=== PATIENT | male | born 1975 | race Caucasian/White ===

== ENCOUNTER 2018-08-30 14:21 | Inpatient (IN) | payer MEDICAID, SELFPAY ==
[2018-08-30] VITALS (13 sets, daily range): BP systolic 136–175; BP diastolic 75–103; PULSE 80–126; RESP 18–30; TEMP 37.3–38.1; O2SAT 88–96; BMI 38.2; BMI 38.3; BMI 36.8
--- NOTE | 2018-08-30 14:49 | EKG12_ITS ---
Test Reason : COMPLAINT Blood Pressure : / mmHG Vent. Rate : 125 BPM Atrial Rate : 125 BPM P-R Int : 130 ms QRS Dur : 098 ms QT Int : 352 ms P-R-T Axes : 050 -04 046 degrees QTc Int : 508 ms Sinus tachycardia Possible Inferior infarct , age undetermined Abnormal ECG Confirmed by DIANA AGUILAR, MAX ([id number]), fan mail editor ANUSHKA HUTCHINSON ([id number]) on 09/02/2018 3:25:31 PM Referred By: JANICE Confirmed By:MAX ORTIZ MD
--- NOTE | 2018-08-30 14:49 | RAD_ITS ---
STUDY: X-RAY CHEST REASON FOR EXAM: Male, 43 years old. Vomiting. Fever. TECHNIQUE: Single AP portable view of the chest. COMPARISON: None. FINDINGS: EKG electrodes are seen. The lungs are clear and expanded. There is no demonstrated pleural abnormality. Normal size heart. Normal mediastinum and diogo. Normal visualized pulmonary arteries. Normal visualized aortic arch and descending thoracic aorta. There are mild degenerative changes of the visualized thoracic spine. Normal visualized ribs, clavicles, and shoulders. There is no demonstrated abnormality of the visualized soft tissue structures of the upper abdomen. RAD/Chest 1 View (Portable) IMPRESSION: Normal x-ray examination of the chest. Electronically Signed: Jean Herbert MD at 15:19 EST , Service support ,
--- NOTE | 2018-08-30 14:50 | ED.VISSUMM ---
- ER Visit Summary Date of Service: 08/30/18 Chief Complaint: Nausea, vomiting, UTI History of Present Illness: The patient is a 43 M with history of paraplegia presents to the emergency department. Patient has a chronic indwelling Gama. He was changed 9 days ago. He states that on Wednesday night early Wednesday morning, he began to have systemic symptoms. States he was having chills, nausea, and vomiting. He went to [facility]. He states that they did a metabolic workup. He was diagnosed with urinary tract infection. He was given fluids and Keflex. He was also given Zofran. He states that his vomiting have resolved. He had been doing well for about 12-14 hours. Today, his symptoms returned. He had continued nausea, vomiting, chills and sweats. He states that a negative flu test. This catheter was changed 9 days ago. Physical Examination: Vital signs reviewed General: Well-nourished, well-developed Head: Normocephalic, atraumatic Eyes: Pupils equal and reactive, extraocular muscles intact Neck, supple, no lymphadenopathy Heart: Regular rate and rhythm Respiratory: No distress, clear bilaterally Abdomen: Soft, nontender, nondistended, no peritoneal signs Back: Nontender Extremities: Nontender, no edema, no cords Skin: Normal color no rash Neuro: Alert and oriented, chronic weakness of bilateral lower extremities Test Results: [] Emergency Department Course and Treatment: The patient has a history of HIV. He is on antiretroviral therapy. He was recently diagnosed urinary tract infection yesterday. He had systemic symptoms. Sepsis workup was pursued. The patient does have leukocytosis. He also has mild acute kidney injury. Chest x-ray was unremarkable. Blood cultures were obtained. The patient was started on broad-spectrum antibiotics. With fluids and Tylenol, his symptoms have improved. At this time, given the patient's history of immunosuppression I do feel that he can require admission. The patient was discussed with the hospitalist and will be admitted. Treatment Plan: [] Disposition: Admission Impression: 1. Complicated urinary tract infection 2. Sepsis 3. Acute kidney injury This note was generated with [employer] dictation software. It may contain incorrect words, spelling, and punctuation that were not noted in review of the chart prior to signing ED Disposition - Plan for ED Patient: Chief Complaint: Complaint Referrals: [facility] Doctor,Out of [NON-STAFF] -
[2018-08-30 15:36] LABS: Absolute Lymphocyte Count 1.05 X10^3/ul (0.83-4.51); Basophil# 0.01 X10^3/uL; Basophil% 0.1 % (0-1); Hematocrit 52.8 % (40-54); Hemoglobin 17.2 g/dl (13.0-16.5); Lymphocyte # 1.05 X10^3/ul (4.0); Lymphocyte % 7.4 % (19-41); Mean Corp Hgb Conc 32.6 g/gl (32-36); Mean Corpuscular Hgb 32.4 pg (27.0-32.0); Mean Corpuscular Volume 99.4 fL (80-94); Mean Platelet Vol. 8.7 fl (6.2-12.0); Monocyte# 1.02 X10^3/uL; Monocyte% 7.2 % (0-10); Neutrophil # 11.99 X10^3/uL (2.7-7.7); Neutrophil % 84.9 % (47-70); POSITIVE COUNT NO; POSITIVE DIFFERENTIAL NO; POSITIVE MORPHOLOGY NO; Platelet Count 263 K/mm3 (150-450); RBC Distribution Width SD 54.1 fl (35.1-43.9); Red Blood Count 5.31 M/mm3 (4.6-6.2); White Blood Count 14.1 K/mm3 (4.4-11.0)
[2018-08-30] MEDS: 0.9% Normal Saline 1,000 ML 150 ML IV (15:42)
[2018-08-30] MEDS: Ondansetron 4 MG/2 ML Vial IV ×2 (15:43→21:37)
[2018-08-30 15:46] LABS: International Normalized Ratio 1.1; Partial Thromboplast Time 27.9 Seconds (24.1-36.2); Prothrombin Time (Protime)PT. 13.9 SECONDS (11.7-14.9)
[2018-08-30 15:55] LABS: ALB/GLOB Ratio 0.7 RATIO (0.9-2.4); AST(SGOT) 15 U/L (15-37); Alanine Aminotransfer ALT/SGPT 21 U/L (16-61); Albumin, Serum 3.3 g/dL (3.2-5.0); Alkaline Phosphatase 144 U/L (45-117); Anion Gap 10 (5-15); BUN 23 mg/dL (7-18); BUN/Creat Ratio 11.1 RATIO (10-20); Calcium,Total 8.3 mg/dL (8.5-10.1); Chloride 106 mmol/L (98-107); Creatinine, Serum 2.08 mg/dL (0.70-1.30); EST Glomerular Filtration Rate 37 mL/min (>60); Est Glom Filt Rate - Afr Amer 45 mL/min (>60); Estimated Creatinine Clearance 51.75 ml/min; Globulin 4.6 g/dL (2.2-4.2); Glucose 121 mg/dL (74-106); Potassium 3.4 mmol/L (3.5-5.1); Protein, Total 7.9 g/dL (6.4-8.2); Sodium Level 145 mmol/L (136-145)
[2018-08-30 16:08] LABS: Lactic Acid 2.4 mmol/L (0.4-2.0)
--- NOTE | 2018-08-30 16:12 | ED.RN ---
ELEVATED LACTIC RESULT RECEIVED. DR CAMACHO NOTIFIED
[2018-08-30] MEDS: Acetaminophen 500 MG Tablet 1000 MG PO (16:13)
[2018-08-30] MEDS: 0.9% Normal Saline 1,000 ML 999 ML IV (16:15)
[2018-08-30 16:24] LABS: Mucous, Urine 0 SEEN /hpf (<or=2+); Squamous Epithelial Cells - UA 0 SEEN /hpf (0-5)
[2018-08-30 16:29] LABS: Color, Urine Yellow (Yellow); Glucose, Dipstick Normal (Normal); Ketone-Dipstick 5 mg/dl (Negative); Leukocyte Esterase-Dipstick 500 /ul (Negative); Nitrite-Dipstick Positive (Negative); Occult Blood-Urine 50 /ul (Negative); Protein-Dipstick 500 mg/dl (Negative); Specific Gravity, Urine 1.015 (1.002-1.030); Urine Bilirubin Dipstick Negative (Negative); Urine Clarity Cloudy (Clear); Urine Urobilinogen Normal (Normal)
[2018-08-30] MEDS: Piperacil/Tazobactam 3.375 GM/50 ML ML IV ×2 (16:30→21:34)
[2018-08-30 16:37] LABS: Bacteria 1+ /hpf (None Seen); Red Blood Cells-Urine 0-5 SEEN /hpf (0-5); White Blood Cells 5-10 SEEN /hpf (0-5)
--- NOTE | 2018-08-30 17:34 | HP.PCM_ITS ---
<Bala Ladd - Last Filed: 08/30/18 17:28> Problem List (1) Sepsis Status: Acute (2) UTI (urinary tract infection) Status: Acute (3) TIFFANY (acute kidney injury) Status: Acute (4) HIV (human immunodeficiency virus infection) Status: Chronic (5) CAD (coronary artery disease) Status: Chronic (6) Paraplegia Status: Chronic (7) Neuropathy Status: Chronic History of Present Illness Date of Admission: 08/30/18 Chief Complaint: nausea and vomiting The patient is a 43 year old M with pmhx of HIV, HIV associated paraplegia, neuropathy, CAD with 2 prior stents in 2007, chronic indwelling catheter, colostomy, who presents to the ER with c/o peristent nausea and vomiting. This has been ongoing for several days, along with increased loose output from his colostomy. Last night he presented to [facility] ER, was diagnosed with a UTI, and sent home on zofran and keflex of which he took 2 doses. His catheter was changed last week. Today his nausea and vomiting and diarrhea came back worse. He came to the ER and appeared to be septic. He has no abdominal pain. He has no cough or SOB. He is febrile. He has had 4 UTIs this year and states he last had Klebsiella. He does follow an ID doctor in [facility], his last T cell count was about 2 weeks ago and was 338. He is compliant with antiretroviral therapy. [] Past Medical History Past Medical History (Chronic Problems): Chronic Problems HIV (human immunodeficiency virus infection) (Chronic) CAD (coronary artery disease) (Chronic) Paraplegia (Chronic) Neuropathy (Chronic) Allergies atorvastatin [From Lipitor] Adverse Reaction (Verified 08/30/18 14:28) Nausea/Vom/Diarrhea ciprofloxacin [From Cipro] Adverse Reaction (Verified 08/30/18 14:28) Nausea/Vom/Diarrhea morphine Adverse Reaction (Verified 08/30/18 14:28) HALLUCINATIONS Home Medications: Ambulatory Orders Medication Instructions Recorded ALPRAZolam [Xanax] 0.5 mg PO Q4H PRN PRN 08/30/18 Amitriptyline HCl [Elavil] 50 mg PO QHS 08/30/18 Aspirin E.C. [Ecotrin] 81 mg PO DAILY@0800 08/30/18 Baclofen 20 mg PO 4X/DAY 08/30/18 Cephalexin [Keflex] 500 mg PO TID 08/30/18 Cranberry 400 mg PO BID 08/30/18 Darunavir Ethanolate [Prezista] 800 mg PO DAILY 08/30/18 Diphenhydramine HCl [Benadryl 50 mg PO QHS PRN 08/30/18 Allergy] Duloxetine Hcl [Cymbalta] 60 mg PO DAILY 08/30/18 Emtricitabine [Emtriva] 6 mg PO DAILY 08/30/18 Escitalopram Oxalate [Lexapro] 20 mg PO DAILY 08/30/18 Ferrous Sulfate 325 mg PO TIDCM 08/30/18 Folic Acid 1 mg PO DAILY@0800 08/30/18 Gabapentin [Neurontin] 800 mg PO BID 08/30/18 Metoprolol Succinate [Toprol Xl] 25 mg PO DAILY 08/30/18 Oxycodone HCl 10 mg PO DAILY 08/30/18 Pravastatin Sodium 40 mg PO QHS 08/30/18 Ritonavir [Norvir] 100 mg PO DAILY 08/30/18 Ropinirole HCl [Requip] 2 mg PO DAILY 08/30/18 Surgical History: - - colostomy, tail bone shaved Psychiatric History: No pertinent psych hx Smoking Status: Current some day smoker Tobacco Use: Cigarettes Review of Systems Constitutional: Reports: Fever. Denies: Chills, Weakness, Weight Change, Fatigue Eyes: Denies: Vision Change HEENT: Denies: Difficulty Hearing, Head Aches, Sinus Congestion, Sinus Drainage, Sore Throat Cardiovascular: Denies: Chest Pain, Edema, Heaviness, Light Headedness, Palpitat ions Respiratory: Denies: Cough, Shortness of Breath, Shortness of breath at rest, Sputum production, Wheezing Gastrointestinal: Reports: Diarrhea, Nausea, Vomiting. Denies: Abdominal Pain Genitourinary: Denies: Dysuria Musculoskeletal: Denies: Joint Pain, Joint Tenderness Skin: Denies: Rash, Wounds Neurological: Denies: Numbness, Tingling, Focal weakness Psychiatric: Denies: Anxiety, Depression, Homicidal Ideations, Suicidal Ideations Hematologic/ Lymphatic: Denies: Easy Bruising, Easy Bleeding VTE Information - Inpt Only VTE Present on Admission: No VTE Mechan Device Prophylaxis: None VTE Pharm Prophylaxis ordered?: Yes Patient Problems: Active and Suspected Problems UTI (urinary tract infection) (Acute) Sepsis (Acute) TIFFANY (acute kidney injury) (Acute) - Physical Exam General: Alert, Oriented x3, Cooperative HEENT: Atraumatic, PERRLA, EOMI, Normocephalic Neck: Supple, No JVD, Negative Carotid Bruits Lungs: Clear to auscultation, Normal air movement Cardiovascular: Regular rate, No murmurs Abdomen: Bowel Sounds Present, Soft, Non Tender, Obese Extremities: No edema, Capillary Refill Less than 3 Seconds Skin: No rashes, No breakdown Musculoskeletal: No Tenderness to Palpation of Joints or Extremities Neurological: Cranial nerves II-XII grossly intact Psych/Mental Status: Normal Affect, Appropriate, Alert and oriented to time, place, person, mood and affect Vital Signs Temp Pulse Resp BP Pulse Ox 100.1 F H 80 19 H 148/96 H 95 08/30/18 17:11 08/30/18 17:11 08/30/18 17:11 08/30/18 17:11 08/30/18 17:11 Oxygen Flow Rate (L/min) 2 Oxygen Delivery Method Nasal Cannula Weight: 290 lb 5.581 oz Body Mass Index (BMI) 38.2 Laboratory Tests Past 24 Hrs 08/30/18 08/30/18 08/30/18 15:20 15:20 15:20 WBC 14.1 H RBC 5.31 Hgb 17.2 H Hct 52.8 MCV 99.4 H MCH 32.4 H MCHC 32.6 RDW 15.0 H RDW Differential 54.1 H Plt Count 263 MPV 8.7 Immature Gran % (Auto) 0.400 Neut % (Auto) 84.9 H Lymph % (Auto) 7.[address] [place] % (Auto) 7.2 Eos % (Auto) 0.0 Baso % (Auto) 0.1 Absolute Neuts (auto) 12.0 H Absolute Lymphs (auto) 1.05 Total Counted Not Reportable PT 13.9 INR 1.1 APTT 27.9 Sodium 145 Potassium 3.4 L Chloride 106 Carbon Dioxide 29.0 Anion Gap 10 BUN 23 H Creatinine 2.08 H Estim Creat Clear Calc 51.75 Est GFR (MDRD) Af Amer 45 L Est GFR (MDRD) Non-Af 37 L BUN/Creatinine Ratio 11.1 Glucose 121 H Lactic Acid Calcium 8.3 L Total Bilirubin 0.60 AST 15 ALT 21 Alkaline Phosphatase 144 H Total Protein 7.9 Albumin 3.3 Globulin 4.6 H Albumin/Globulin Ratio 0.7 L Urine Color Urine Clarity Urine pH Ur Specific [place] Urine Protein Urine Glucose (UA) Urine Ketones Urine Occult Blood Urine Nitrite Urine Bilirubin Urine Urobilinogen Ur Leukocyte Esterase Urine RBC Urine WBC Ur Squamous Epith Cells Urine Bacteria Urine Mucus 08/30/18 08/30/18 15:20 16:20 WBC RBC Hgb Hct MCV MCH MCHC RDW RDW Differential Plt Count MPV Immature Gran % (Auto) Neut % (Auto) Lymph % (Auto) [place] % (Auto) Eos % (Auto) Baso % (Auto) Absolute Neuts (auto) Absolute Lymphs (auto) Total Counted PT INR APTT Sodium Potassium Chloride Carbon Dioxide Anion Gap BUN Creatinine Estim Creat Clear Calc Est GFR (MDRD) Af Amer Est GFR (MDRD) Non-Af BUN/Creatinine Ratio Glucose Lactic Acid 2.4 H Calcium Total Bilirubin AST ALT Alkaline Phosphatase Total Protein Albumin Globulin Albumin/Globulin Ratio Urine Color Yellow Urine Clarity Cloudy Urine pH 8.0 Ur Specific [place] 1.015 Urine Protein 500 H Urine Glucose (UA) Normal Urine Ketones 5 H Urine Occult Blood 50 H Urine Nitrite Positive H Urine Bilirubin Negative Urine Urobilinogen Normal Ur Leukocyte Esterase 500 H Urine RBC 0-5 SEEN Urine WBC 5-10 SEEN Ur Squamous Epith Cells 0 SEEN Urine Bacteria 1+ Urine Mucus 0 SEEN Assessment/Plan All Active Problems UTI (urinary tract infection) (Acute) Sepsis (Acute) TIFFANY (acute kidney injury) (Acute) 1. Acute severe sepsis 2/2 UTI - failed keflex. Symptoms marked by vomiting and diarrhea. Continue zosyn. Check blood and urine cultures. Sepsis as evidenced by LA 2.4, leukocytosis, fever, tachycardia, tachypnea. Last reportedly klebsiella. Obtain prior cultures from [facility]. Change betancur with acute infection. CXR negative. 2. TIFFANY on CKD, unclear stage- probably 2/2 dehydration. baseline renal function around 1.3, with vomiting and increased ostomy output and dry clinical appearance will hydrate with IV fluids. Replace K. 3. HIV - last T count 338. Continue antiretrovirals. Follows [facility] ([place]). 4. CAD - 2 stents in 2007. Toprol, statin, aspirin 5. Chronic pain 2/2 peripheral neuropathy. On gabapentin, requip, baclofen, elavil, cymbalta, oxycodone 7. Paraplegic - PTOT 8. Colostomy - monitor I/O. 9. Anxiety - xanax, elavil, cymbalta, lexapro 10. Obesity - dietary consult. DVT ppx: heparin DC planning: PTOT. Lives with 2 friends who help care for him. This patient was seen by Bala Ladd PA-C under the supervision of Doctor Nakul. <Maria Victoria Mota E - Last Filed: 08/30/18 18:04> History of Present Illness The patient is a 43 year old M [] Past Medical History Allergies atorvastatin [From Lipitor] Adverse Reaction (Verified 08/30/18 14:28) Nausea/Vom/Diarrhea ciprofloxacin [From Cipro] Adverse Reaction (Verified 08/30/18 14:28) Nausea/Vom/Diarrhea morphine Adverse Reaction (Verified 08/30/18 14:28) HALLUCINATIONS - Physical Exam Vital Signs Temp Pulse Resp BP Pulse Ox 100.1 F H 80 19 H 148/96 H 95 08/30/18 17:11 08/30/18 17:11 08/30/18 17:11 08/30/18 17:11 08/30/18 17:11 Oxygen Flow Rate (L/min) 2 Oxygen Delivery Method Nasal Cannula Weight: 290 lb 5.581 oz Body Mass Index (BMI) 38.2 Laboratory Tests Past 24 Hrs 08/30/18 08/30/18 08/30/18 15:20 15:20 15:20 WBC 14.1 H RBC 5.31 Hgb 17.2 H Hct 52.8 MCV 99.4 H MCH 32.4 H MCHC 32.6 RDW 15.0 H RDW Differential 54.1 H Plt Count 263 MPV 8.7 Immature Gran % (Auto) 0.400 Neut % (Auto) 84.9 H Lymph % (Auto) 7.[address] % (Auto) 7.2 Eos % (Auto) 0.0 Baso % (Auto) 0.1 Absolute Neuts (auto) 12.0 H Absolute Lymphs (auto) 1.05 Total Counted Not Reportable PT 13.9 INR 1.1 APTT 27.9 Sodium 145 Potassium 3.4 L Chloride 106 Carbon Dioxide 29.0 Anion Gap 10 BUN 23 H Creatinine 2.08 H Estim Creat Clear Calc 51.75 Est GFR (MDRD) Af Amer 45 L Est GFR (MDRD) Non-Af 37 L BUN/Creatinine Ratio 11.1 Glucose 121 H Lactic Acid Calcium 8.3 L Total Bilirubin 0.60 AST 15 ALT 21 Alkaline Phosphatase 144 H Total Protein 7.9 Albumin 3.3 Globulin 4.6 H Albumin/Globulin Ratio 0.7 L Urine Color Urine Clarity Urine pH Ur Specific [place] Urine Protein Urine Glucose (UA) Urine Ketones Urine Occult Blood Urine Nitrite Urine Bilirubin Urine Urobilinogen Ur Leukocyte Esterase Urine RBC Urine WBC Ur Squamous Epith Cells Urine Bacteria Urine Mucus 08/30/18 08/30/18 15:20 16:20 WBC RBC Hgb Hct MCV MCH MCHC RDW RDW Differential Plt Count MPV Immature Gran % (Auto) Neut % (Auto) Lymph % (Auto) [place] % (Auto) Eos % (Auto) Baso % (Auto) Absolute Neuts (auto) Absolute Lymphs (auto) Total Counted PT INR APTT Sodium Potassium Chloride Carbon Dioxide Anion Gap BUN Creatinine Estim Creat Clear Calc Est GFR (MDRD) Af Amer Est GFR (MDRD) Non-Af BUN/Creatinine Ratio Glucose Lactic Acid 2.4 H Calcium Total Bilirubin AST ALT Alkaline Phosphatase Total Protein Albumin Globulin Albumin/Globulin Ratio Urine Color Yellow Urine Clarity Cloudy Urine pH 8.0 Ur Specific [place] 1.015 Urine Protein 500 H Urine Glucose (UA) Normal Urine Ketones 5 H Urine Occult Blood 50 H Urine Nitrite Positive H Urine Bilirubin Negative Urine Urobilinogen Normal Ur Leukocyte Esterase 500 H Urine RBC 0-5 SEEN Urine WBC 5-10 SEEN Ur Squamous Epith Cells 0 SEEN Urine Bacteria 1+ Urine Mucus 0 SEEN Assessment/Plan Hospitalist note: I am seeing this patient in conjunction with Bala Ladd. I independently seen and examined the patient. History and physical, laboratory data and imaging studies reviewed and I concur with the above admission treatment plan. Patient presented to the ED because of nausea and vomiting, started for several days ago, noted increased output from the colostomy bag, associated with subjective fever of up to 99.2 Fahrenheit. Yesterday, he went to another facility ER, was diagnosed with UTI and he was discharged home on Keflex. Today, he feels worse, continued to have nausea and vomiting as well as diarrhea. He denies chest pain or shortness of breath. He denied cough or sputum production. He had a history of paraplegia related to HIV and he has been bedridden for 4 years. He has history of HIV and he has been on antiretroviral medications and he follows up with infectious disease as outpatient. He had a history of CAD status post stents and he has been on aspirin, statin and beta blockers. Today in the emergency room, patient was febrile, tachycardic, blood pressure stable, pulse ox was 96% on 2 L. His routine blood work was remarkable for leukocytosis, potassium of 3.4, BUN of 23 and creatinine of 2.08. Lactic acid was 2.4. Urinalysis revealed cloudy urine, positive for nitrite and leukocyte esterase, there was 5-10 WBCs and 1+ bacteria. Chest x-ray showed no acute findings. He is being admitted for severe sepsis secondary to acute complicated cystitis as well as acute kidney injury on top of chronic kidney disease. - Physical Exam General: Alert, Oriented x3, Cooperative, No apparent distress. HEENT: Atraumatic, PERRLA, EOMI. Neck: Supple, No JVD, Negative Carotid Bruits, Trachea Midline, Thyroid Normal. Lungs: Clear to auscultation, Normal air movement, No rhonchi, No wheeze, No rales. Cardiovascular: Regular rate, Regular Rhythm, Normal S1, Normal S2, PMI Normal. Abdomen: Bowel Sounds Present, Soft, Non Tender, colostomy bag in place, No Hepato-splenomegaly. Extremities: No clubbing, No cyanosis, No edema Skin: No rashes, No breakdown Neurological: Neuro grossly intact Assessment and plan: #1 severe sepsis/acute complicated cystitis: In context of chronic indwelling Betancur catheter, recurrent UTI. Patient is febrile, tachycardic, leukocytosis, elevated lactic acid. Plan: Admit to [facility] floor, cardiac monitoring, IV fluids, blood culture, urine culture, start IV Zosyn, obtain blood cultures that was done yesterday at the outside facility, obtain records from PCPs office. #2 acute kidney injury double of chronic kidney disease: According to patient's friend, creatinine was around 1.392 weeks ago, before that it was 1.6. On admission, creatinine was 2.08. Plan: IV fluids, and Protopic chart, repeat BMP tomorrow morning. #3 other chronic medical problems: Stable, continue current medications as above. This note was generated with [email or web address] dictation software. It may contain incorrect words, spelling, and punctuation that were not noted in checking the note before signing. Code Visit Inpatient E&M: 30014 Init Hosp L3
[2018-08-30] MEDS: Ibuprofen 400 MG Tablet PO (18:15)
[2018-08-30 19:38] LABS: Reflex Lactate? Y
[2018-08-30] MEDS: Acetaminophen 325 MG Tablet 650 MG PO (20:39)
[2018-08-30 21:18] LABS: Lactic Acid 1.4 mmol/L (0.4-2.0)
--- NOTE | 2018-08-30 22:00 | NURSING ---
PT REFUSES TO TURN. PT STATED I ONLY LAY ON MY BACK. PT ENCOURAGE TO TURN.
[2018-08-30] MEDS: Amitriptyline 25 MG Tablet 50 MG PO (22:17)
[2018-08-30] MEDS: Gabapentin 800 MG Tablet PO (22:17)
[2018-08-30] MEDS: DiphenhydrAMINE 50 MG/ML Syringe 25 MG IV (22:17)
[2018-08-30] MEDS: Pravastatin 40 MG Tablet PO (22:17)
[2018-08-30] MEDS: Baclofen 10 MG Tablet 20 MG PO (22:17)
[2018-08-30] MEDS: Heparin Injection (Vial) 5,000 UNIT/ML VIAL 5000 UNIT SC (22:17)
[2018-08-31] VITALS (10 sets, daily range): BP systolic 114–139; BP diastolic 63–79; PULSE 78–124; RESP 14–20; TEMP 36.6–37.1; O2SAT 93–98
[2018-08-31] MEDS: ALPRAZolam 0.5 MG Tablet PO ×2 (00:09→04:28)
[2018-08-31] MEDS: Metoprolol(XL)Succ 25 MG Tablet PO (04:23)
[2018-08-31] MEDS: 0.9% Normal Saline 1,000 ML 100 ML IV (04:24)
[2018-08-31] MEDS: Aspirin E.C. 81 MG Tablet PO (04:25)
[2018-08-31] MEDS: Heparin Injection (Vial) 5,000 UNIT/ML VIAL 5000 UNIT SC ×2 (05:11→21:19)
[2018-08-31] MEDS: Piperacil/Tazobactam 3.375 GM/50 ML ML IV ×3 (05:11→21:20)
[2018-08-31 06:31] LABS: Absolute Lymphocyte Count 1.95 X10^3/ul (0.83-4.51); Absolute Neutrophil Count 5.5 X10^3/uL (2.0-7.7); Basophil# 0.01 X10^3/uL; Basophil% 0.1 % (0-1); Eosinophil# 0.01 X10^3/uL; Eosinophils% 0.1 % (0-5); Hematocrit 45.6 % (40-54); Hemoglobin 14.3 g/dl (13.0-16.5); Lymphocyte # 1.95 X10^3/ul (4.0); Lymphocyte % 23.5 % (19-41); Mean Corp Hgb Conc 31.4 g/gl (32-36); Mean Corpuscular Hgb 32.1 pg (27.0-32.0); Mean Corpuscular Volume 102.5 fL (80-94); Monocyte# 0.83 X10^3/uL; Neutrophil # 5.49 X10^3/uL (2.7-7.7); Neutrophil % 66.2 % (47-70); Platelet Count 208 K/mm3 (150-450); RBC Distribution Width CV 14.9 % (11.6-14.6); RBC Distribution Width SD 55.5 fl (35.1-43.9); Red Blood Count 4.45 M/mm3 (4.6-6.2); White Blood Count 8.3 K/mm3 (4.4-11.0)
[2018-08-31 06:47] LABS: POSITIVE COUNT NO; POSITIVE DIFFERENTIAL NO; POSITIVE MORPHOLOGY NO
[2018-08-31 06:50] LABS: Anion Gap 10 (5-15); BUN 27 mg/dL (7-18); BUN/Creat Ratio 14.4 RATIO (10-20); Calcium,Total 7.8 mg/dL (8.5-10.1); Chloride 108 mmol/L (98-107); Creatinine, Serum 1.88 mg/dL (0.70-1.30); EST Glomerular Filtration Rate 42 mL/min (>60); Est Glom Filt Rate - Afr Amer 51 mL/min (>60); Estimated Creatinine Clearance 57.26 ml/min; Glucose 95 mg/dL (74-106); Sodium Level 146 mmol/L (136-145)
--- NOTE | 2018-08-31 08:08 | NURSING ---
Spoke with [employer], they stated that they may not be able to deliver the special mattress today d/t extreme cold temps. If unable to deliver today, mattress will be delivered tomorrow, 09/01.
[2018-08-31] MEDS: Ferrous Sulfate 325 MG Tablet PO ×3 (08:16→16:31)
[2018-08-31] MEDS: Gabapentin 800 MG Tablet PO ×2 (08:16→16:31)
[2018-08-31] MEDS: Folic Acid 1 MG Tablet PO (08:16)
--- NOTE | 2018-08-31 09:15 | US_ITS ---
STUDY: RENAL ULTRASOUND - COMPLETE REASON FOR EXAM: Male, 43 years old. Nephrolithiasis. TECHNIQUE: Ultrasound evaluation of the kidneys was performed with real-time and static adams-scale imaging. COMPARISON: None. FINDINGS: Significantly limited by patient size and patient condition. Suboptimal evaluation of the kidneys. Small stones would be missed. RIGHT KIDNEY: Normal location of the right kidney, which is normal in size. The right kidney measures 11.7 x 3.9 x 5.1 cm. There is a normal cortex of the right kidney. The renal cortex measures 1.0 cm. There is no right renal mass or cyst. There are no right renal calculi. There is no right hydronephrosis. DISTAL RIGHT URETER: There is non-visualization of the distal right ureter. There is no demonstrated right ureterovesical junction calculus. There is no demonstrated right ureteral jet. LEFT KIDNEY: Normal location of the left kidney, which is normal in size. The left kidney measures 12.8 x 5.2 x 6.2 cm. There is a normal cortex of the left kidney. The renal cortex measures 0.9 cm. There is a 1.6 cm cyst. There are no left renal calculi. There is no left hydronephrosis. DISTAL LEFT URETER: There is non-visualization of the distal left ureter. There is no demonstrated left ureterovesical junction calculus. There is no demonstrated left ureteral jet. BLADDER: There is a Gama catheter emptying the bladder. US/Kidney and Bladder IMPRESSION: Limited by patient's size. No definite acute abnormalities. No definite stones are seen. Electronically Signed: Abran Cline MD at 17:30 EST , Service support ,
[2018-08-31 09:16] LABS: Magnesium 2.5 mg/dL (1.6-2.6); Phosphorus 3.3 mg/dL (2.5-4.9)
[2018-08-31] MEDS: Escitalopram Oxalate 20 MG Tablet PO (10:42)
[2018-08-31] MEDS: DULoxetine Hcl 60 MG Capsule PO (10:42)
[2018-08-31] MEDS: Baclofen 10 MG Tablet 20 MG PO ×4 (10:43→21:18)
--- NOTE | 2018-08-31 10:55 | CASEMGMT ---
RN CM Face to Face with patient for initial transition planning/care coordination assessment. RN CM introduced self and role at [facility]. Patient lying in bed, alert and oriented. Patient willing to participate in assessment and is able to answer all questions appropriately. Care providers, pharmacy, and demographics verified. Patient wishes to discharge home, denies need for home health at this time. Patient states he has no further needs or concerns at this time. CM to follow for discharge planning needs that may arise. PCP: [facility] Specialists: [facility] Preferred [facility]acy: [facility] Insurance: [employer] Prescription Benefit: [employer] Living Will/HPOA: yes, friend Briseida LNOK: Friend Briseida Living Arrangements: Patient lives with friend in 1 story home, patient requires assistance with ADLs through friend. Transportation: [facility] DME/HHC: Patient has tub bench, hospital bed, parker, WC, and ramp. Denies oxygen, nebulizer, cpap, or bipap. Patient has had [facility] in the past. Disposition Plan: Patient to discharge home with family support and follow-up plans in place. Abby RAMIREZ, RN, CM
--- NOTE | 2018-08-31 13:35 | PN_ITS ---
Patient Problems: Active and Suspected Problems UTI (urinary tract infection) (Acute) Sepsis (Acute) TIFFANY (acute kidney injury) (Acute) Subjective: Patient resting comfortably in bed no acute distress. He reports that his nausea and vomiting have resolved. His colostomy output is now slowed down yet. He has no abdominal pain. Continues to have overnight chills. Patient reports that his catheter was not changed at which we will we will do this afternoon. - Physical Exam General: Alert, Oriented x3, Cooperative HEENT: Atraumatic, PERRLA, EOMI, Normocephalic Neck: Supple, No JVD, Negative Carotid Bruits Lungs: Clear to auscultation, Normal air movement Cardiovascular: Regular rate, No murmurs Abdomen: Bowel Sounds Present, Soft, Non Tender, Obese Extremities: No edema, Capillary Refill Less than 3 Seconds Skin: No rashes, No breakdown Musculoskeletal: No Tenderness to Palpation of Joints or Extremities Neurological: Cranial nerves II-XII grossly intact Psych/Mental Status: Normal Affect, Appropriate, Alert and oriented to time, place, person, mood and affect Vital Signs Temp Pulse Resp BP Pulse Ox 97.9 F 98 20 H 114/74 96 08/31/18 08:02 08/31/18 08:02 08/31/18 08:02 08/31/18 08:02 08/31/18 08:29 Oxygen Flow Rate (L/min) 2 Oxygen Delivery Method Nasal Cannula Weight: 278 lb 14.156 oz Body Mass Index (BMI) 36.8 Intake and Output for Last 24 Hours 08/29/18 08/30/18 08/31/18 23:59 23:59 23:59 Intake Total 1704 / 1704 Output Total 850 / 850 Balance 854 / 854 Microbiology Past 72 Hours 08/30/18 16:20 Urine Culture - Preliminary Urine, Clean Catch Gram negative promise 08/30/18 20:25 Enteric Bacteriology - Final Stool 08/30/18 20:25 C. difficile DNA Amplification - Final Stool Laboratory Tests Past 24 Hrs 08/30/18 08/30/18 08/30/18 15:20 15:20 15:20 WBC 14.1 H RBC 5.31 Hgb 17.2 H Hct 52.8 MCV 99.4 H MCH 32.4 H MCHC 32.6 RDW 15.0 H RDW Differential 54.1 H Plt Count 263 MPV 8.7 Immature Gran % (Auto) 0.400 Neut % (Auto) 84.9 H Lymph % (Auto) 7.4 L [place] % (Auto) 7.2 Eos % (Auto) 0.0 Baso % (Auto) 0.1 Absolute Neuts (auto) 12.0 H Absolute Lymphs (auto) 1.05 Total Counted Not Reportable PT 13.9 INR 1.1 APTT 27.9 Sodium 145 Potassium 3.4 L Chloride 106 Carbon Dioxide 29.0 Anion Gap 10 BUN 23 H Creatinine 2.08 H Estim Creat Clear Calc 51.75 Est GFR (MDRD) Af Amer 45 L Est GFR (MDRD) Non-Af 37 L BUN/Creatinine Ratio 11.1 Glucose 121 H Lactic Acid Calcium 8.3 L Phosphorus Magnesium Total Bilirubin 0.60 AST 15 ALT 21 Alkaline Phosphatase 144 H Total Protein 7.9 Albumin 3.3 Globulin 4.6 H Albumin/Globulin Ratio 0.7 L Urine Color Urine Clarity Urine pH Ur Specific [place] Urine Protein Urine Glucose (UA) Urine Ketones Urine Occult Blood Urine Nitrite Urine Bilirubin Urine Urobilinogen Ur Leukocyte Esterase Urine RBC Urine WBC Ur Squamous Epith Cells Urine Bacteria Urine Mucus 08/30/18 08/30/18 08/30/18 15:20 16:20 20:40 WBC RBC Hgb Hct MCV MCH MCHC RDW RDW Differential Plt Count MPV Immature Gran % (Auto) Neut % (Auto) Lymph % (Auto) [place] % (Auto) Eos % (Auto) Baso % (Auto) Absolute Neuts (auto) Absolute Lymphs (auto) Total Counted PT INR APTT Sodium Potassium Chloride Carbon Dioxide Anion Gap BUN Creatinine Estim Creat Clear Calc Est GFR (MDRD) Af Amer Est GFR (MDRD) Non-Af BUN/Creatinine Ratio Glucose Lactic Acid 2.4 H 1.4 Calcium Phosphorus Magnesium Total Bilirubin AST ALT Alkaline Phosphatase Total Protein Albumin Globulin Albumin/Globulin Ratio Urine Color Yellow Urine Clarity Cloudy Urine pH 8.0 Ur Specific [place] 1.015 Urine Protein 500 H Urine Glucose (UA) Normal Urine Ketones 5 H Urine Occult Blood 50 H Urine Nitrite Positive H Urine Bilirubin Negative Urine Urobilinogen Normal Ur Leukocyte Esterase 500 H Urine RBC 0-5 SEEN Urine WBC 5-10 SEEN Ur Squamous Epith Cells 0 SEEN Urine Bacteria 1+ Urine Mucus 0 SEEN 08/31/18 08/31/18 08/31/18 05:44 05:44 05:44 WBC 8.3 RBC 4.45 L Hgb 14.3 Hct 45.6 MCV 102.5 H MCH 32.1 H MCHC 31.4 L RDW 14.9 H RDW Differential 55.5 H Plt Count 208 MPV 9.0 Immature Gran % (Auto) 0.100 Neut % (Auto) 66.2 Lymph % (Auto) 23.5 [place] % (Auto) 10.0 Eos % (Auto) 0.1 Baso % (Auto) 0.1 Absolute Neuts (auto) 5.5 Absolute Lymphs (auto) 1.95 Total Counted Not Reportable PT INR APTT Sodium 146 H Potassium 3.0 L Chloride 108 H Carbon Dioxide 28.0 Anion Gap 10 BUN 27 H Creatinine 1.88 H Estim Creat Clear Calc 57.26 Est GFR (MDRD) Af Amer 51 L Est GFR (MDRD) Non-Af 42 L BUN/Creatinine Ratio 14.4 Glucose 95 Lactic Acid Calcium 7.8 L Phosphorus 3.3 Magnesium 2.5 Total Bilirubin AST ALT Alkaline Phosphatase Total Protein Albumin Globulin Albumin/Globulin Ratio Urine Color Urine Clarity Urine pH Ur Specific [place] Urine Protein Urine Glucose (UA) Urine Ketones Urine Occult Blood Urine Nitrite Urine Bilirubin Urine Urobilinogen Ur Leukocyte Esterase Urine RBC Urine WBC Ur Squamous Epith Cells Urine Bacteria Urine Mucus Medical Necessity - Tobacco Use Smoking Status: Current some day smoker Tobacco Use: Cigarettes Assessment/Plan All Active Problems UTI (urinary tract infection) (Acute) Sepsis (Acute) TIFFANY (acute kidney injury) (Acute) 1. Acute severe sepsis 2/2 UTI - failed keflex. Symptoms marked by vomiting and diarrhea. Continue zosyn. Check blood and urine cultures. Sepsis as evidenced by LA 2.4, leukocytosis, fever, tachycardia, tachypnea. Last reportedly klebsiella every time. Obtain prior cultures from [facility]. Change betancur with acute infection. CXR negative. -ID consulted for repeated klebsiella UTIs -Renal US -no fever so far today, still tachy 2. TIFFANY on CKD, unclear stage- probably 2/2 dehydration. baseline renal function around 1.3, with vomiting and increased ostomy output and dry clinical appearance will hydrate with IV fluids. Improving. 3. HIV - last T count 338. Continue antiretrovirals. Follows [facility]). 4. CAD - 2 stents in 2007. Toprol, statin, aspirin 5. Chronic pain 2/2 peripheral neuropathy. On gabapentin, requip, baclofen, elavil, cymbalta, oxycodone 7. Paraplegic - PTOT 8. Colostomy - monitor I/O. 9. Anxiety - xanax, elavil, cymbalta, lexapro 10. Obesity - dietary consult. 11. Hypokalemia - replete again, mag/phos normal. DVT ppx: heparin DC planning: PTOT. Lives with 2 friends who help care for him. This patient was seen by Bala Ladd PA-C under the supervision of Doctor Mckeon
[2018-08-31] MEDS: Pramipexole Di-HCl 1 MG Tablet PO (14:19)
--- NOTE | 2018-08-31 15:11 | CON.PCM_ITS ---
Problem List (1) UTI (urinary tract infection) Status: Acute Reason for Consult: recurrent uti Consulted by: Dr. Mckeon History of Present Illness: The patient is a 43 year old M with HIV/AIDS complicated by paraplegia who presented to ED with several days of nausea, vomiting, not feeling well. Recently treated for uti but after several days off abx, started to notice similar sx again. Has chronic betancur, changed monthly. No fever or chills. Had some diarrhea in ostomy. Went to [facility] earlier this week, cxs sent from ED, sent out on keflex. Admitted here, started on zosyn, starting to feel better. Reports recurrent uti, recent ucx with klebsiella pneumoniae. HIV history: no h/o IVDU. Reports h/o unprotected sex with men and women. Dx in 2003, did not tell anyone until he presented in 2013 with paralysis. Found to have CD4 of 3. Also with recurrent thrush. Follows with Dr. Malone. On bactrim for prophylaxis. On prezista/r and truvada. Reports undetectable VL in July with CD4 over 300. Full ROS Performed and neg except as noted above. - Medical History Past Medical History (Chronic Problems): Chronic Problems HIV (human immunodeficiency virus infection) (Chronic) CAD (coronary artery disease) (Chronic) Paraplegia (Chronic) Neuropathy (Chronic) Allergies/Adverse Reactions: Allergies atorvastatin [From Lipitor] Adverse Reaction (Verified 08/30/18 14:28) Nausea/Vom/Diarrhea ciprofloxacin [From Cipro] Adverse Reaction (Verified 08/30/18 14:28) Nausea/Vom/Diarrhea morphine Adverse Reaction (Verified 08/30/18 14:28) HALLUCINATIONS Home Medications: Ambulatory Orders Medication Instructions Recorded ALPRAZolam [Xanax] 0.5 mg PO Q4H PRN PRN 08/30/18 Amitriptyline HCl [Elavil] 50 mg PO QHS 08/30/18 Aspirin E.C. [Ecotrin] 81 mg PO DAILY@0800 08/30/18 Baclofen 20 mg PO 4X/DAY 08/30/18 Cephalexin [Keflex] 500 mg PO TID 08/30/18 Cranberry 400 mg PO BID 08/30/18 Darunavir Ethanolate [Prezista] 800 mg PO DAILY 08/30/18 Diphenhydramine HCl [Benadryl 50 mg PO QHS PRN 08/30/18 Allergy] Duloxetine Hcl [Cymbalta] 60 mg PO DAILY 08/30/18 Emtricitabine [Emtriva] 6 mg PO DAILY 08/30/18 Escitalopram Oxalate [Lexapro] 20 mg PO DAILY 08/30/18 Ferrous Sulfate 325 mg PO TIDCM 08/30/18 Folic Acid 1 mg PO DAILY@0800 08/30/18 Gabapentin [Neurontin] 800 mg PO BID 08/30/18 Metoprolol Succinate [Toprol Xl] 25 mg PO DAILY 08/30/18 Oxycodone HCl 10 mg PO BID 08/30/18 Pravastatin Sodium 40 mg PO QHS 08/30/18 Ritonavir [Norvir] 100 mg PO DAILY 08/30/18 Ropinirole HCl [Requip] 2 mg PO DAILY 08/30/18 - Social History Tobacco Use: cigarettes Vital Signs Temp Pulse Resp BP Pulse Ox 98.0 F 88 16 128/78 H 98 08/31/18 14:25 08/31/18 14:25 08/31/18 14:25 08/31/18 14:25 08/31/18 14:25 Oxygen Flow Rate (L/min) 2 Oxygen Delivery Method Room Air Weight: 126.5 kg Body Mass Index (BMI) 36.8 Microbiology Past 72 Hours 08/30/18 16:20 Urine Culture - Preliminary Urine, Clean Catch Gram negative promise 08/30/18 20:25 Enteric Bacteriology - Final Stool 08/30/18 20:25 C. difficile DNA Amplification - Final Stool Laboratory Tests Past 24 Hrs 08/30/18 08/30/18 08/30/18 15:20 15:20 15:20 WBC 14.1 H RBC 5.31 Hgb 17.2 H Hct 52.8 MCV 99.4 H MCH 32.4 H MCHC 32.6 RDW 15.0 H RDW Differential 54.1 H Plt Count 263 MPV 8.7 Immature Gran % (Auto) 0.400 Neut % (Auto) 84.9 H Lymph % (Auto) 7.4 L [place] % (Auto) 7.2 Eos % (Auto) 0.0 Baso % (Auto) 0.1 Absolute Neuts (auto) 12.0 H Absolute Lymphs (auto) 1.05 Total Counted Not Reportable PT 13.9 INR 1.1 APTT 27.9 Sodium 145 Potassium 3.4 L Chloride 106 Carbon Dioxide 29.0 Anion Gap 10 BUN 23 H Creatinine 2.08 H Estim Creat Clear Calc 51.75 Est GFR (MDRD) Af Amer 45 L Est GFR (MDRD) Non-Af 37 L BUN/Creatinine Ratio 11.1 Glucose 121 H Lactic Acid Calcium 8.3 L Phosphorus Magnesium Total Bilirubin 0.60 AST 15 ALT 21 Alkaline Phosphatase 144 H Total Protein 7.9 Albumin 3.3 Globulin 4.6 H Albumin/Globulin Ratio 0.7 L Urine Color Urine Clarity Urine pH Ur Specific [place] Urine Protein Urine Glucose (UA) Urine Ketones Urine Occult Blood Urine Nitrite Urine Bilirubin Urine Urobilinogen Ur Leukocyte Esterase Urine RBC Urine WBC Ur Squamous Epith Cells Urine Bacteria Urine Mucus 08/30/18 08/30/18 08/30/18 15:20 16:20 20:40 WBC RBC Hgb Hct MCV MCH MCHC RDW RDW Differential Plt Count MPV Immature Gran % (Auto) Neut % (Auto) Lymph % (Auto) [place] % (Auto) Eos % (Auto) Baso % (Auto) Absolute Neuts (auto) Absolute Lymphs (auto) Total Counted PT INR APTT Sodium Potassium Chloride Carbon Dioxide Anion Gap BUN Creatinine Estim Creat Clear Calc Est GFR (MDRD) Af Amer Est GFR (MDRD) Non-Af BUN/Creatinine Ratio Glucose Lactic Acid 2.4 H 1.4 Calcium Phosphorus Magnesium Total Bilirubin AST ALT Alkaline Phosphatase Total Protein Albumin Globulin Albumin/Globulin Ratio Urine Color Yellow Urine Clarity Cloudy Urine pH 8.0 Ur Specific [place] 1.015 Urine Protein 500 H Urine Glucose (UA) Normal Urine Ketones 5 H Urine Occult Blood 50 H Urine Nitrite Positive H Urine Bilirubin Negative Urine Urobilinogen Normal Ur Leukocyte Esterase 500 H Urine RBC 0-5 SEEN Urine WBC 5-10 SEEN Ur Squamous Epith Cells 0 SEEN Urine Bacteria 1+ Urine Mucus 0 SEEN 08/31/18 08/31/18 08/31/18 05:44 05:44 05:44 WBC 8.3 RBC 4.45 L Hgb 14.3 Hct 45.6 MCV 102.5 H MCH 32.1 H MCHC 31.4 L RDW 14.9 H RDW Differential 55.5 H Plt Count 208 MPV 9.0 Immature Gran % (Auto) 0.100 Neut % (Auto) 66.2 Lymph % (Auto) 23.5 [place] % (Auto) 10.0 Eos % (Auto) 0.1 Baso % (Auto) 0.1 Absolute Neuts (auto) 5.5 Absolute Lymphs (auto) 1.95 Total Counted Not Reportable PT INR APTT Sodium 146 H Potassium 3.0 L Chloride 108 H Carbon Dioxide 28.0 Anion Gap 10 BUN 27 H Creatinine 1.88 H Estim Creat Clear Calc 57.26 Est GFR (MDRD) Af Amer 51 L Est GFR (MDRD) Non-Af 42 L BUN/Creatinine Ratio 14.4 Glucose 95 Lactic Acid Calcium 7.8 L Phosphorus 3.3 Magnesium 2.5 Total Bilirubin AST ALT Alkaline Phosphatase Total Protein Albumin Globulin Albumin/Globulin Ratio Urine Color Urine Clarity Urine pH Ur Specific [place] Urine Protein Urine Glucose (UA) Urine Ketones Urine Occult Blood Urine Nitrite Urine Bilirubin Urine Urobilinogen Ur Leukocyte Esterase Urine RBC Urine WBC Ur Squamous Epith Cells Urine Bacteria Urine Mucus - Other Studies Radiology: [] reviewed Other Studies: [] Route of nutrition/ use of supplements: [] Nutritional Intake: [] IV Site: [] Betancur Catheter: [] - Physical Exam General: Alert, Oriented x3, Cooperative, No apparent distress HEENT: Atraumatic, PERRLA, EOMI Neck: Supple, No Nodes Lungs: Clear to auscultation, Normal air movement Cardiovascular: Regular rate, Regular Rhythm Abdomen: Soft, Non Tender, Non-Distended, - - ostomy in place Extremities: Edema Skin: No rashes IV Site: Peripheral, without redness Musculoskeletal: No Tenderness to Palpation of Joints or Extremities Neurological: Cranial nerves II-XII grossly intact, - - paraplegic - Assessment/Plan Antibiotics: [] Assessment/Plan: [] Active and Suspected Problems UTI (urinary tract infection) (Acute) Sepsis (Acute) TIFFANY (acute kidney injury) (Acute) recurrent uti with chronic betancur - ucx showing GNR here, results requested from OSH. Cont zosyn. Sepsis with elevated lactate and TIFFANY, improving overall. HIV/AIDS - reports good compliance. On prezista/ritonavir and truvada. Bactrim for PCP prophylaxis on hold due to TIFFANY. If cr does not continue to improve, may need alternate ART regimen. Will follow, d/w primary team, thank you.
[2018-08-31] MEDS: DARUNAVIR ETHANOLATE 800 MG TABLET PO (16:25)
[2018-08-31] MEDS: EMTRICITABINE/TENOFOVIR 1 TABLET TABLET PO (16:27)
[2018-08-31] MEDS: Calcium Carbonate 500 MG Tablet PO (16:32)
[2018-08-31] MEDS: Pravastatin 40 MG Tablet PO (21:18)
[2018-08-31] MEDS: Amitriptyline 25 MG Tablet 50 MG PO (21:18)
[2018-09-01] VITALS (8 sets, daily range): BP systolic 101–122; BP diastolic 64–76; PULSE 75–88; RESP 16; TEMP 36.4–36.7; O2SAT 93–95
[2018-09-01] MEDS: 0.9% Normal Saline 1,000 ML 100 ML IV ×3 (02:29→22:04)
[2018-09-01] MEDS: Acetaminophen 325 MG Tablet 650 MG PO (05:25)
[2018-09-01] MEDS: Piperacil/Tazobactam 3.375 GM/50 ML ML IV (05:25)
[2018-09-01] MEDS: Heparin Injection (Vial) 5,000 UNIT/ML VIAL 5000 UNIT SC (05:26)
[2018-09-01 06:19] LABS: Anion Gap 8 (5-15); BUN 22 mg/dL (7-18); BUN/Creat Ratio 13.9 RATIO (10-20); Calcium,Total 7.7 mg/dL (8.5-10.1); Chloride 110 mmol/L (98-107); Creatinine, Serum 1.58 mg/dL (0.70-1.30); EST Glomerular Filtration Rate 51 mL/min (>60); Est Glom Filt Rate - Afr Amer 62 mL/min (>60); Estimated Creatinine Clearance 68.13 ml/min; Glucose 87 mg/dL (74-106); Potassium 3.5 mmol/L (3.5-5.1); Sodium Level 146 mmol/L (136-145)
[2018-09-01] MEDS: Gabapentin 800 MG Tablet PO ×2 (08:18→13:59)
[2018-09-01] MEDS: Ferrous Sulfate 325 MG Tablet PO ×3 (08:18→17:06)
[2018-09-01] MEDS: Baclofen 10 MG Tablet 20 MG PO ×4 (08:18→21:18)
[2018-09-01] MEDS: Folic Acid 1 MG Tablet PO (08:18)
[2018-09-01] MEDS: Aspirin E.C. 81 MG Tablet PO (08:19)
[2018-09-01] MEDS: DULoxetine Hcl 60 MG Capsule PO (08:19)
[2018-09-01] MEDS: Metoprolol(XL)Succ 25 MG Tablet PO (08:19)
[2018-09-01] MEDS: Escitalopram Oxalate 20 MG Tablet PO (08:20)
[2018-09-01] MEDS: Calcium Carbonate 500 MG Tablet PO ×2 (08:20→17:06)
[2018-09-01] MEDS: DARUNAVIR ETHANOLATE 800 MG TABLET PO (08:21)
[2018-09-01] MEDS: Pramipexole Di-HCl 1 MG Tablet PO (08:21)
[2018-09-01] MEDS: EMTRICITABINE/TENOFOVIR 1 TABLET TABLET PO (08:21)
--- NOTE | 2018-09-01 10:48 | PCM.PN.ID ---
Patient Problems: Active and Suspected Problems UTI (urinary tract infection) (Acute) Sepsis (Acute) TIFFANY (acute kidney injury) (Acute) Subjective: Feeling better, no fever, no abd pain. - Physical Exam General: Alert, Cooperative, No apparent distress Lungs: Clear to auscultation, Normal air movement Cardiovascular: Regular rate, Regular Rhythm Abdomen: Soft, Non Tender, Non-Distended Skin: No rashes Vital Signs Temp Pulse Resp BP Pulse Ox 97.6 F L 88 16 117/76 93 09/01/18 08:20 09/01/18 08:20 09/01/18 08:20 09/01/18 08:20 09/01/18 08:20 Oxygen Flow Rate (L/min) 2 Oxygen Delivery Method Room Air Weight: 126.5 kg Body Mass Index (BMI) 36.8 Intake and Output for Last 24 Hours 08/30/18 08/31/18 09/01/18 23:59 23:59 23:59 Intake Total 1704 / 1704 2641 / 2641 Output Total 850 / 850 950 / 950 Balance 854 / 854 1691 / 1691 Microbiology Past 72 Hours 08/30/18 16:20 Urine Culture - Final Urine, Clean Catch Proteus mirabilis 08/30/18 20:25 Enteric Bacteriology - Final Stool 08/30/18 20:25 C. difficile DNA Amplification - Final Stool Laboratory Tests Past 24 Hrs 09/01/18 05:35 Sodium 146 H Potassium 3.5 Chloride 110 H Carbon Dioxide 28.0 Anion Gap 8 BUN 22 H Creatinine 1.58 H Estim Creat Clear Calc 68.13 Est GFR (MDRD) Af Amer 62 Est GFR (MDRD) Non-Af 51 L BUN/Creatinine Ratio 13.9 Glucose 87 Calcium 7.7 L Medical Necessity - Tobacco Use Smoking Status: Current some day smoker Tobacco Use: Cigarettes Route of nutrition/ use of supplements: [] Nutritional Intake: [] IV Site: [] Betancur Catheter: [] - Assessment/Plan Antibiotics: [] Assessment/Plan: [] Active and Suspected Problems UTI (urinary tract infection) (Acute) Sepsis (Acute) TIFFANY (acute kidney injury) (Acute) recurrent uti with chronic betancur - ucx showing proteus. On zosyn. Sepsis with elevated lactate and TIFFANY, improving overall. Will change zosyn to keflex, plan on 7 more days. HIV/AIDS - reports good compliance. On prezista/ritonavir and truvada. Bactrim for PCP prophylaxis on hold due to TIFFANY. Will follow, ok for d/c home with followup with Dr. Malone his ID doctor.
[2018-09-01] MEDS: ALPRAZolam 0.5 MG Tablet PO (11:38)
[2018-09-01] MEDS: BMX LIQUID 180 ML 20 ML PO (11:39)
--- NOTE | 2018-09-01 12:13 | PN_ITS ---
Patient Problems: Active and Suspected Problems UTI (urinary tract infection) (Acute) Sepsis (Acute) TIFFANY (acute kidney injury) (Acute) Subjective: c/o throat pain. hx of thrush. No mouth pain. examined - no evidence of thrush, some post nasal drip. BMX advised. No fevers/chills. No nausea/vomiting. No abdominal pain. Improving. - Physical Exam General: Alert, Oriented x3, Cooperative HEENT: Atraumatic, PERRLA, EOMI, Normocephalic Neck: Supple, No JVD, Negative Carotid Bruits Lungs: Clear to auscultation, Normal air movement Cardiovascular: Regular rate, No murmurs Abdomen: Bowel Sounds Present, Soft, Non Tender Extremities: No edema, Capillary Refill Less than 3 Seconds Skin: No rashes, No breakdown Musculoskeletal: No Tenderness to Palpation of Joints or Extremities Neurological: Cranial nerves II-XII grossly intact Psych/Mental Status: Normal Affect, Appropriate, Alert and oriented to time, place, person, mood and affect Vital Signs Temp Pulse Resp BP Pulse Ox 97.6 F L 88 16 117/76 93 09/01/18 08:20 09/01/18 08:20 09/01/18 08:20 09/01/18 08:20 09/01/18 08:20 Oxygen Flow Rate (L/min) 2 Oxygen Delivery Method Room Air Weight: 278 lb 14.156 oz Body Mass Index (BMI) 36.8 Intake and Output for Last 24 Hours 08/30/18 08/31/18 09/01/18 23:59 23:59 23:59 Intake Total 1704 / 1704 3375 / 3375 Output Total 850 / 850 1300 / 1300 Balance 854 / 854 2075 / 2075 Microbiology Past 72 Hours 08/30/18 16:20 Urine Culture - Final Urine, Clean Catch Proteus mirabilis 08/30/18 20:25 Enteric Bacteriology - Final Stool 08/30/18 20:25 C. difficile DNA Amplification - Final Stool Laboratory Tests Past 24 Hrs 09/01/18 05:35 Sodium 146 H Potassium 3.5 Chloride 110 H Carbon Dioxide 28.0 Anion Gap 8 BUN 22 H Creatinine 1.58 H Estim Creat Clear Calc 68.13 Est GFR (MDRD) Af Amer 62 Est GFR (MDRD) Non-Af 51 L BUN/Creatinine Ratio 13.9 Glucose 87 Calcium 7.7 L Medical Necessity - Tobacco Use Smoking Status: Current some day smoker Tobacco Use: Cigarettes Assessment/Plan All Active Problems UTI (urinary tract infection) (Acute) Sepsis (Acute) TIFFANY (acute kidney injury) (Acute) 1. Acute severe sepsis 2/2 UTI - failed keflex. Symptoms marked by vomiting and diarrhea. Continue zosyn. Check blood and urine cultures. Sepsis as evidenced by LA 2.4, leukocytosis, fever, tachycardia, tachypnea. Last reportedly klebsiella every time. Obtain prior cultures from [facility]. Change betancur with acute infection. CXR negative. -Proteus, C&S in chart. -ID changing zosyn to keflex. -Renal US - no stones 2. TIFFANY on CKD, unclear stage- improved with IV fluids. 3. HIV - last T count 338. Continue antiretrovirals as ordered. Follows [facility] ([place]). 4. CAD - 2 stents in 2007. Toprol, statin, aspirin 5. Chronic pain 2/2 peripheral neuropathy. On gabapentin, requip, baclofen, elavil, cymbalta, oxycodone 7. Paraplegic - PTOT 8. Colostomy - monitor I/O. 9. Anxiety - xanax, elavil, cymbalta, lexapro 10. Obesity - dietary consult. 11. Hypokalemia - resolved DVT ppx: heparin DC planning: No needs per PTOT. Home tomorrow. Lives with caregivers. This patient was seen by Bala Ladd PA-C under the supervision of Doctor Mcekon
[2018-09-01] MEDS: Cephalexin 500 MG Capsule PO ×2 (13:53→21:18)
[2018-09-01] MEDS: Amitriptyline 25 MG Tablet 50 MG PO (21:18)
[2018-09-01] MEDS: Pravastatin 40 MG Tablet PO (21:18)
[2018-09-02 02:03] VITALS: BP 92/56; PULSE 68; RESP 16; TEMP 36.6; O2SAT 96
[2018-09-02] MEDS: Cephalexin 500 MG Capsule PO (05:25)
--- NOTE | 2018-09-02 07:44 | DCINST_ITS ---
- Discharge Diagnoses Current Active Problems: Current Active and Chronic Problems UTI (urinary tract infection) (Acute) Sepsis (Acute) HIV (human immunodeficiency virus infection) (Chronic) CAD (coronary artery disease) (Chronic) Paraplegia (Chronic) Neuropathy (Chronic) TIFFANY (acute kidney injury) (Acute) You will use the following diet at home:: Other - resume previous diet Your food should be the consistency of: Regular Your liquids should be the consistency of: Regular/Thin Discharge Activity: Return to Normal Activity Call your doctor if you observe: Fever of 101 or Higher, Chest pain, Calf discomfort, - - recurrent nausea and vomiting, diarrhea, sores in the mouth or painful swallowing Additional Instructions: The bacteria you grew in the urine is called Proteus Mirabilis......it is sensitive to Keflex so you are being discharged on 7 additional days of Keflex 3 times a day. If you have Keflex at home.....you will need #21 total then you will not need to fill the prescription I sent to the pharmacy. The kidney function is still a little off from your baseline so continue to hold the Bactrim until you see Dr. Malone. Make sure to drink enough water to keep the urine in the betancur bag a very pale yellow. Pending Tests on Discharge: none Allergies/Adverse Reactions: Allergies atorvastatin [From Lipitor] Adverse Reaction (Verified 08/30/18 14:28) Nausea/Vom/Diarrhea ciprofloxacin [From Cipro] Adverse Reaction (Verified 08/30/18 14:28) Nausea/Vom/Diarrhea morphine Adverse Reaction (Verified 08/30/18 14:28) HALLUCINATIONS Medications to take at Discharge ALPRAZolam [Xanax] 0.5 mg PO Q4H PRN PRN 08/30/18 Amitriptyline HCl [Elavil] 50 mg PO QHS 08/30/18 Aspirin E.C. [Ecotrin] 81 mg PO DAILY@0800 08/30/18 Baclofen 20 mg PO 4X/DAY 08/30/18 Cranberry 400 mg PO BID 08/30/18 Darunavir Ethanolate [Prezista] 800 mg PO DAILY 08/30/18 Diphenhydramine HCl [Benadryl Allergy] 50 mg PO QHS PRN 08/30/18 Duloxetine Hcl [Cymbalta] 60 mg PO DAILY 08/30/18 Emtricitabine [Emtriva] 6 mg PO DAILY 08/30/18 Escitalopram Oxalate [Lexapro] 20 mg PO DAILY 08/30/18 Ferrous Sulfate 325 mg PO TIDCM 08/30/18 Folic Acid 1 mg PO DAILY@0800 08/30/18 Gabapentin [Neurontin] 800 mg PO BID 08/30/18 Metoprolol Succinate [Toprol Xl] 25 mg PO DAILY 08/30/18 Oxycodone HCl 10 mg PO BID 08/30/18 Pravastatin Sodium 40 mg PO QHS 08/30/18 Ritonavir [Norvir] 100 mg PO DAILY 08/30/18 Ropinirole HCl [Requip] 2 mg PO DAILY 08/30/18 Acetaminophen [Tylenol Tablet] 650 mg PO Q6H PRN PRN tablet 09/02/18 Calcium Carbonate [Tums] 500 mg PO BIDCM tablet 09/02/18 Cephalexin [Keflex] 500 mg PO Q8 #21 cap 09/02/18 The following prescriptions were given: Cephalexin [Keflex] 500 mg PO Q8 #21 cap Primary Care Physician: [facility] Doctor,Out of [NON-STAFF] - Test Results: Test results from this visit will be discussed in further detail at your follow- up appointment, if applicable. Please Follow Up With: Dr. Malone-Infectious Disease When: Wednesday Proposed Discharge Date: 09/02/18
--- NOTE | 2018-09-02 07:48 | PCM.DC.SUM ---
Discharge Date and Diagnosis - Problem List Patient Problems: Active and Suspected Problems UTI (urinary tract infection) (Acute) Sepsis (Acute) TIFFANY (acute kidney injury) (Acute) Date of Admission: 08/30/18 Date of Discharge: 09/02/18 - Primary Discharge Diagnosis Active and Suspected Problems UTI (urinary tract infection) (Acute)-secondary to Proteus mirabilis Severe sepsis (Acute) TIFFANY (acute kidney injury) (Acute)-improved Hypokalemia-resolved - Secondary Discharge Diagnosis Chronic Problems HIV (human immunodeficiency virus infection) (Chronic) CAD (coronary artery disease) (Chronic) Paraplegia (Chronic) Neuropathy (Chronic) Chronic pain syndrome Hypocalcemia Hospital Course and Treatment Imaging Results: Clinical Impression(s) from Imaging Studies Chest X-Ray 08/30/18 14:49 IMPRESSION: Normal x-ray examination of the chest. Electronically Signed: Jean Herbert MD at 15:19 EST , Service support , Renal Ultrasound 08/31/18 09:15 IMPRESSION: Limited by patient's size. No definite acute abnormalities. No definite stones are seen. Electronically Signed: Abran Cline MD at 17:30 EST , Service support , Microbiology 08/30/18 16:20 Urine, Clean Catch Urine Culture - Final Proteus mirabilis - resistant to Ampicillin,Nitrofurantoin and Bactrim and intermediate sensitive to Cipro 08/30/18 20:25 Stool Enteric Bacteriology - Final -negative 08/30/18 20:25 Stool C. difficile DNA Amplification - Final -negative Creat on 09/01/18 was 1.58, down from 2.[address] Khari Apple-infectious disease Operations: None Procedures: None Summary of Care Provided: The patient is a 43 year old M with a past medical history of obesity, HIV associated paraplegia, coronary artery disease, neuropathy, nicotine dependence, colostomy and chronic indwelling betancur who presented to the ED at [facility] on 08/30/2018 planing of nausea/vomiting. He additionally had increased liquid output from his colostomy. He had been seen the previous night at [facility] and diagnosed with the UTI. He was sent home with prescription for Zofran and Keflex but the next day he felt no better. Vital signs in the emergency room were temperature 99.6, pulse rate 124, blood pressure 166/93, respiratory rate 24 and he was 88% saturated on room air. White blood cell count was elevated at 14.1 with a left shift. The blood was hemoconcentrated and the hemoglobin was increased at 17.2. Platelets were within normal limits. PT and PTT were normal. Potassium was low at 3.4 and the BUN was 23 with a creatinine of 2.08. The patient stated his baseline creatinine is approximately 1.3 - 1.6. Lactic acid was elevated at 2.4 but the second lactic acid following hydration was 1.4. LFTs were unremarkable with the exception of a mild increase in alkaline phosphatase at 144. The UA showed 5-10 white blood cells per high-power field with 1+ bacteria and positive nitrites. Chest x-ray showed no infiltrates, pleural effusions or pulmonary vascular congestion. He was admitted to the hospital and started on Zosyn. Consultation was obtained from Dr. Khari Apple from infectious disease. Intravenous fluids were ordered and follow-up lab to follow the acute kidney injury. Urine and blood cultures were sent. The urine culture grew Proteus mirabilis which was resistant to ampicillin, Bactrim and nitrofurantoin. It was intermediately sensitive to Cipro. Blood culture final is still pending at the time of discharge however the blood cultures have had no growth since admission. Potassium dropped to 3.0 and was supplemented. A renal US was obtained to rule out stones and it was a limited study due to the patient's body habitus and paraplegia but, there were no stones observed. Diarrhea resolved and on the day of DC the OP from the colostomy was normal per the patient. N/V resolved and he had no complaints. He was consuming a regular diet without recurrence of sx. At the recommendation of Dr. Apple he was discharged on Keflex for 7 additional days. Bactrim was held in the hospital due to the ARF. He has an appt with his ID doctor, Dr. Malone, this coming Wednesday and will defer decision to restart Bactrim to Dr. Malone. Creat on 09/01/2018 was 0.158 which is within his baseline per his roommate who helps to care for him. PHYSICAL EXAM: GENERAL: alert, oriented X 3, Cooperative, NAD ORAL: moist mucosa, no mucosal lesions NECK: No JVD, supple, trachea midline LUNGS: CTA, symmetric chest expansion HEART: RRR, Normal S1 and S2, no rub, no gallop, no gallop ABDOMEN: soft, NT, ND, BS present, no guarding with palpation, stooling colostomy bag is semi-formed EXTREMITIES: no edema, no cyanosis, no calf tenderness SKIN: No rashes, no breakdown PSYCH: appropriate, normal affect, pleasant This note was generated with [employer] dictation software. It may contain incorrect words, spelling, and punctuation that were not noted in checking the note before signing. Patient Problems: Active and Suspected Problems UTI (urinary tract infection) (Acute) Sepsis (Acute) TIFFANY (acute kidney injury) (Acute) - Physical Exam Vital Signs Temp Pulse Resp BP Pulse Ox 97.9 F 68 16 92/56 L 96 09/02/18 02:03 09/02/18 02:03 09/02/18 02:03 09/02/18 02:03 09/02/18 02:03 Oxygen Flow Rate (L/min) 2 Oxygen Delivery Method Room Air Weight: 278 lb 14.156 oz Body Mass Index (BMI) 36.8 Intake and Output for Last 24 Hours 08/31/18 09/01/18 09/02/18 23:59 23:59 23:59 Intake Total 1704 / 1704 4833 / 4833 2285 / 2285 Output Total 850 / 850 2150 / 2150 1750 / 1750 Balance 854 / 854 2683 / 2683 535 / 535 Microbiology Past 72 Hours 08/30/18 16:20 Urine Culture - Final Urine, Clean Catch Proteus mirabilis 08/30/18 20:25 Enteric Bacteriology - Final Stool 08/30/18 20:25 C. difficile DNA Amplification - Final Stool Discharge Activity: Return to Normal Activity Call your doctor if you observe: Fever of 101 or Higher, Chest pain, Calf discomfort, - - recurrent nausea and vomiting, diarrhea, sores in the mouth or painful swallowing Home Medications: Medications to take at Discharge ALPRAZolam [Xanax] 0.5 mg PO Q4H PRN PRN 08/30/18 Amitriptyline HCl [Elavil] 50 mg PO QHS 08/30/18 Aspirin E.C. [Ecotrin] 81 mg PO DAILY@0800 08/30/18 Baclofen 20 mg PO 4X/DAY 08/30/18 Cranberry 400 mg PO BID 08/30/18 Darunavir Ethanolate [Prezista] 800 mg PO DAILY 08/30/18 Diphenhydramine HCl [Benadryl Allergy] 50 mg PO QHS PRN 08/30/18 Duloxetine Hcl [Cymbalta] 60 mg PO DAILY 08/30/18 Emtricitabine [Emtriva] 6 mg PO DAILY 08/30/18 Escitalopram Oxalate [Lexapro] 20 mg PO DAILY 08/30/18 Ferrous Sulfate 325 mg PO TIDCM 08/30/18 Folic Acid 1 mg PO DAILY@0800 08/30/18 Gabapentin [Neurontin] 800 mg PO BID 08/30/18 Metoprolol Succinate [Toprol Xl] 25 mg PO DAILY 08/30/18 Oxycodone HCl 10 mg PO BID 08/30/18 Pravastatin Sodium 40 mg PO QHS 08/30/18 Ritonavir [Norvir] 100 mg PO DAILY 08/30/18 Ropinirole HCl [Requip] 2 mg PO DAILY 08/30/18 Acetaminophen [Tylenol Tablet] 650 mg PO Q6H PRN PRN tablet 09/02/18 Calcium Carbonate [Tums] 500 mg PO BIDCM tablet 09/02/18 Cephalexin [Keflex] 500 mg PO Q8 #21 cap 09/02/18 Following Prescrptions Were Given to Patient: Cephalexin [Keflex] 500 mg PO Q8 #21 cap Primary Care Physician: Nabor Doctor,Out of [NON-STAFF] - Please Follow Up With: Dr. Malone-Infectious Disease When: Wednesday Disposition: Home Minutes spent on discharge:: 35 Patient Condition:: Good Medical Necessity - Tobacco Use Smoking Status: Current some day smoker Tobacco Use: Cigarettes Meaningful Use Info Meaningful Use Diagnoses (Choose all that apply): None applicable Code Visit Inpatient E&M: 93723 Disch Hosp
--- NOTE | 2018-09-02 07:52 | DS.PCM_ITS ---
Discharge Date and Diagnosis - Problem List Patient Problems: Active and Suspected Problems UTI (urinary tract infection) (Acute) Sepsis (Acute) TIFFANY (acute kidney injury) (Acute) Date of Admission: 08/30/18 Date of Discharge: 09/02/18 - Primary Discharge Diagnosis Active and Suspected Problems UTI (urinary tract infection) (Acute)-secondary to Proteus mirabilis Severe sepsis (Acute) TIFFANY (acute kidney injury) (Acute)-improved Hypokalemia-resolved - Secondary Discharge Diagnosis Chronic Problems HIV (human immunodeficiency virus infection) (Chronic) CAD (coronary artery disease) (Chronic) Paraplegia (Chronic) Neuropathy (Chronic) Chronic pain syndrome Hypocalcemia Hospital Course and Treatment Imaging Results: Clinical Impression(s) from Imaging Studies Chest X-Ray 08/30/18 14:49 IMPRESSION: Normal x-ray examination of the chest. Electronically Signed: Jean Herbert MD at 15:19 EST , Service support , Renal Ultrasound 08/31/18 09:15 IMPRESSION: Limited by patient's size. No definite acute abnormalities. No definite stones are seen. Electronically Signed: Abran Cline MD at 17:30 EST , Service support , Microbiology 08/30/18 16:20 Urine, Clean Catch Urine Culture - Final Proteus mirabilis - resistant to Ampicillin,Nitrofurantoin and Bactrim and intermediate sensitive to Cipro 08/30/18 20:25 Stool Enteric Bacteriology - Final -negative 08/30/18 20:25 Stool C. difficile DNA Amplification - Final -negative Creat on 09/01/18 was 1.58, down from 2.[address] Khari Apple-infectious disease Operations: None Procedures: None Summary of Care Provided: The patient is a 43 year old M with a past medical history of obesity, HIV associated paraplegia, coronary artery disease, neuropathy, nicotine dependence, colostomy and chronic indwelling betancur who presented to the ED at [facility] on 08/30/2018 planing of nausea/vomiting. He additionally had increased liquid output from his colostomy. He had been seen the previous night at [facility] and diagnosed with the UTI. He was sent home with prescription for Zofran and Keflex but the next day he felt no better. Vital signs in the emergency room were temperature 99.6, pulse rate 124, blood pressure 166/93, re spiratory rate 24 and he was 88% saturated on room air. White blood cell count was elevated at 14.1 with a left shift. The blood was hemoconcentrated and the hemoglobin was increased at 17.2. Platelets were within normal limits. PT and PTT were normal. Potassium was low at 3.4 and the BUN was 23 with a creatinine of 2.08. The patient stated his baseline creatinine is approximately 1.3 - 1.6. Lactic acid was elevated at 2.4 but the second lactic acid following hydration was 1.4. LFTs were unremarkable with the exception of a mild increase in alkaline phosphatase at 144. The UA showed 5-10 white blood cells per high- power field with 1+ bacteria and positive nitrites. Chest x-ray showed no infiltrates, pleural effusions or pulmonary vascular congestion. He was admitted to the hospital and started on Zosyn. Consultation was obtained from Dr. Khari Apple from infectious disease. Intravenous fluids were ordered and follow-up lab to follow the acute kidney injury. Urine and blood cultures were sent. The urine culture grew Proteus mirabilis which was resistant to ampicillin, Bactrim and nitrofurantoin. It was intermediately sensitive to Cipro. Blood culture final is still pending at the time of discharge however the blood cultures have had no growth since admission. Potassium dropped to 3.0 and was supplemented. A renal US was obtained to rule out stones and it was a limited study due to the patient's body habitus and paraplegia but, there were no stones observed. Diarrhea resolved and on the day of DC the OP from the colostomy was normal per the patient. N/V resolved and he had no complaints. He was consuming a regular diet without recurrence of sx. At the recommendation of Dr. Apple he was discharged on Keflex for 7 additional days. Bactrim was held in the hospital due to the ARF. He has an appt with his ID doctor, Dr. Malone, this coming Wednesday and will defer decision to restart Bactrim to Dr. Malone. Creat on 09/01/2018 was 0.158 which is within his baseline per his roommate who helps to care for him. PHYSICAL EXAM: GENERAL: alert, oriented X 3, Cooperative, NAD ORAL: moist mucosa, no mucosal lesions NECK: No JVD, supple, trachea midline LUNGS: CTA, symmetric chest expansion HEART: RRR, Normal S1 and S2, no rub, no gallop, no gallop ABDOMEN: soft, NT, ND, BS present, no guarding with palpation, stooling colostomy bag is semi-formed EXTREMITIES: no edema, no cyanosis, no calf tenderness SKIN: No rashes, no breakdown PSYCH: appropriate, normal affect, pleasant This note was generated with [employer] dictation software. It may contain incorrect words, spelling, and punctuation that were not noted in checking the note before signing. Patient Problems: Active and Suspected Problems UTI (urinary tract infection) (Acute) Sepsis (Acute) TIFFANY (acute kidney injury) (Acute) - Physical Exam Vital Signs Temp Pulse Resp BP Pulse Ox 97.9 F 68 16 92/56 L 96 09/02/18 02:03 09/02/18 02:03 09/02/18 02:03 09/02/18 02:03 09/02/18 02:03 Oxygen Flow Rate (L/min) 2 Oxygen Delivery Method Room Air Weight: 278 lb 14.156 oz Body Mass Index (BMI) 36.8 Intake and Output for Last 24 Hours 08/31/18 09/01/18 09/02/18 23:59 23:59 23:59 Intake Total 1704 / 1704 4833 / 4833 2285 / 2285 Output Total 850 / 850 2150 / 2150 1750 / 1750 Balance 854 / 854 2683 / 2683 535 / 535 Microbiology Past 72 Hours 08/30/18 16:20 Urine Culture - Final Urine, Clean Catch Proteus mirabilis 08/30/18 20:25 Enteric Bacteriology - Final Stool 08/30/18 20:25 C. difficile DNA Amplification - Final Stool Discharge Activity: Return to Normal Activity Call your doctor if you observe: Fever of 101 or Higher, Chest pain, Calf discomfort, - - recurrent nausea and vomiting, diarrhea, sores in the mouth or painful swallowing Home Medications: Medications to take at Discharge ALPRAZolam [Xanax] 0.5 mg PO Q4H PRN PRN 08/30/18 Amitriptyline HCl [Elavil] 50 mg PO QHS 08/30/18 Aspirin E.C. [Ecotrin] 81 mg PO DAILY@0800 08/30/18 Baclofen 20 mg PO 4X/DAY 08/30/18 Cranberry 400 mg PO BID 08/30/18 Darunavir Ethanolate [Prezista] 800 mg PO DAILY 08/30/18 Diphenhydramine HCl [Benadryl Allergy] 50 mg PO QHS PRN 08/30/18 Duloxetine Hcl [Cymbalta] 60 mg PO DAILY 08/30/18 Emtricitabine [Emtriva] 6 mg PO DAILY 08/30/18 Escitalopram Oxalate [Lexapro] 20 mg PO DAILY 08/30/18 Ferrous Sulfate 325 mg PO TIDCM 08/30/18 Folic Acid 1 mg PO DAILY@0800 08/30/18 Gabapentin [Neurontin] 800 mg PO BID 08/30/18 Metoprolol Succinate [Toprol Xl] 25 mg PO DAILY 08/30/18 Oxycodone HCl 10 mg PO BID 08/30/18 Pravastatin Sodium 40 mg PO QHS 08/30/18 Ritonavir [Norvir] 100 mg PO DAILY 08/30/18 Ropinirole HCl [Requip] 2 mg PO DAILY 08/30/18 Acetaminophen [Tylenol Tablet] 650 mg PO Q6H PRN PRN tablet 09/02/18 Calcium Carbonate [Tums] 500 mg PO BIDCM tablet 09/02/18 Cephalexin [Keflex] 500 mg PO Q8 #21 cap 09/02/18 Following Prescrptions Were Given to Patient: Cephalexin [Keflex] 500 mg PO Q8 #21 cap Primary Care Physician: [facility] Doctor,Out of [NON-STAFF] - Please Follow Up With: Dr. Malone-Infectious Disease When: Wednesday Disposition: Home Minutes spent on discharge:: 35 Patient Condition:: Good Medical Necessity - Tobacco Use Smoking Status: Current some day smoker Tobacco Use: Cigarettes Meaningful Use Info Meaningful Use Diagnoses (Choose all that apply): None applicable Code Visit Inpatient E&M: 96039 Disch Hosp
[2018-09-02] MEDS: Escitalopram Oxalate 20 MG Tablet PO (08:37)
[2018-09-02] MEDS: DULoxetine Hcl 60 MG Capsule PO (08:37)
[2018-09-02] MEDS: Baclofen 10 MG Tablet 20 MG PO (08:37)
[2018-09-02] MEDS: Gabapentin 800 MG Tablet PO (08:37)
[2018-09-02] MEDS: Pramipexole Di-HCl 1 MG Tablet PO (08:37)
[2018-09-02] MEDS: Folic Acid 1 MG Tablet PO (08:37)
[2018-09-02 08:38] VITALS: PULSE 81
[2018-09-02] MEDS: Calcium Carbonate 500 MG Tablet PO (08:38)
[2018-09-02] MEDS: Ferrous Sulfate 325 MG Tablet PO (08:38)
[2018-09-02] MEDS: Metoprolol(XL)Succ 25 MG Tablet PO (08:38)
[2018-09-02] MEDS: Aspirin E.C. 81 MG Tablet PO (08:38)
[2018-09-02] MEDS: EMTRICITABINE/TENOFOVIR 1 TABLET TABLET PO (08:38)
[2018-09-02] MEDS: DARUNAVIR ETHANOLATE 800 MG TABLET PO (08:38)
[2018-09-02 08:40] VITALS: BP 129/69; PULSE 80; RESP 18; TEMP 36.5; O2SAT 93
--- NOTE | 2018-09-02 09:27 | CASEMGMT ---
Social Work Note RN updated pt that pt will need transportation arranged to be transported home. Pt is paraplegic and will require wheelchair van and wheelchair. MARIA ANTONIA placed a call to [facility] and [employer] who both state they are unavailable to transport via wheelchair today. SW in to update pt of this. Pt states that he is paraplegic and needs a cot as he doesn't have his wheelchair. SW explained that the wheelchair van would bring wheelchair with them at transport but stated again that transportation via wheelchair van is not available today. Pt states that he will need to be transported via cot. SW explained that this worker can set up transportation via cot but is unsure if pt's insurance will cover it and pt may get a bill. Pt states I have good insurance, they will cover cot. MARIA ANTONIA placed a call back to [facility] and set up transportation between 11:00-12:00pm today. Transportation form provided to charge nurse Fritz. RN and pt updated on transportation time. Plan: Pt to discharge home with [facility] transporting via cot Abby Diane [employer] ENGINEERING TECHNICIAN, ATTENDANT CHILD [employer]IVITY
--- NOTE | 2018-09-02 15:41 | NURSING ---
ALIDA CALLED TO NOTIFY OF PATIENTS DISCHARGE FOR SPECIALTY MATTRESS PICK-UP. CONFIRMATION #[id number].
== END 2018-09-02 11:18 | disposition home or self-care (01) | DRG 466 ==
LOC: ED 15:20 → MS3 17:32
PROVIDERS: Physician Assistant; Admitting Provider Hospitalist; Emergency Provider Emergency Medicine; Family Provider Internal Medicine; PCP Internal Medicine; Visit Provider Internal Medicine
DX: T83.511A Infection and inflammatory reaction due to indwelling urethral catheter, initial encounter (principal); A41.9 Sepsis, unspecified organism; N39.0 Urinary tract infection, site not specified; R65.20 Severe sepsis without septic shock; N17.9 Acute kidney failure, unspecified; B20 Human immunodeficiency virus [HIV] disease; G82.20 Paraplegia, unspecified; E83.51 Hypocalcemia; G62.9 Polyneuropathy, unspecified; B96.4 Proteus (mirabilis) (morganii) as the cause of diseases classified elsewhere; E87.6 Hypokalemia; I25.10 Atherosclerotic heart disease of native coronary artery without angina pectoris; G89.4 Chronic pain syndrome; Z93.3 Colostomy status; Z16.11 Resistance to penicillins; F17.210 Nicotine dependence, cigarettes, uncomplicated; Z74.01 Bed confinement status; Z95.5 Presence of coronary angioplasty implant and graft; Z79.899 Other long term (current) drug therapy; E66.9 Obesity, unspecified; Z68.36 Body mass index [BMI] 36.0-36.9, adult
CPT/HCPCS: 36415; 71045; 76770; 80048; 80053; 81001; 83605; 83735; 84100; 85025; 85610; 85730; 87040; 87077; 87086; 87088; 87186; 87493; 87506; 93005; 94762; 97802; 99285; J7030; A4216; J2405

== ENCOUNTER 2019-01-22 04:13 | Emergency (ER) | payer MEDICAID, SELFPAY ==
[2018-08-30 18:49] VITALS: BMI 36.8
[2019-01-22 04:15] VITALS: BP 161/98; PULSE 69; RESP 16; TEMP 36.7; O2SAT 97; BMI 38.0
[2019-01-22 05:20] LABS: Absolute Lymphocyte Count 1.23 X10^3/ul (0.83-4.51); Absolute Neutrophil Count 4.9 X10^3/uL (2.0-7.7); Basophil# 0.01 X10^3/uL; Basophil% 0.1 % (0-1); Eosinophil# 0.04 X10^3/uL; Eosinophils% 0.6 % (0-5); Hematocrit 48.4 % (40-54); Hemoglobin 15.9 g/dl (13.0-16.5); Lymphocyte # 1.23 X10^3/ul (4.0); Lymphocyte % 18.3 % (19-41); Mean Corp Hgb Conc 32.9 g/gl (32-36); Mean Corpuscular Hgb 30.9 pg (27.0-32.0); Mean Platelet Vol. 9.2 fl (6.2-12.0); Monocyte# 0.53 X10^3/uL; Monocyte% 7.9 % (0-10); Platelet Count 225 K/mm3 (150-450); RBC Distribution Width CV 14.6 % (11.6-14.6); Red Blood Count 5.15 M/mm3 (4.6-6.2); White Blood Count 6.7 K/mm3 (4.4-11.0)
[2019-01-22 05:21] LABS: POSITIVE COUNT NO; POSITIVE DIFFERENTIAL NO; POSITIVE MORPHOLOGY NO
[2019-01-22 05:39] LABS: ALB/GLOB Ratio 0.8 RATIO (0.9-2.4); AST(SGOT) 21 U/L (15-37); Alanine Aminotransfer ALT/SGPT 18 U/L (16-61); Albumin, Serum 3.1 g/dL (3.2-5.0); Alkaline Phosphatase 173 U/L (45-117); Anion Gap 7 (5-15); BUN 19 mg/dL (7-18); BUN/Creat Ratio 12.7 RATIO (10-20); Calcium,Total 8.4 mg/dL (8.5-10.1); Chloride 110 mmol/L (98-107); EST Glomerular Filtration Rate 54 mL/min (>60); Est Glom Filt Rate - Afr Amer 66 mL/min (>60); Estimated Creatinine Clearance 71.76 ml/min; Globulin 4.1 g/dL (2.2-4.2); Glucose 112 mg/dL (74-106); Lipase 105 U/L (73-393); Potassium 4.2 mmol/L (3.5-5.1); Protein, Total 7.2 g/dL (6.4-8.2); Sodium Level 146 mmol/L (136-145)
[2019-01-22] MEDS: 0.9% Normal Saline 1,000 ML 1000 ML IV (05:39)
--- NOTE | 2019-01-22 05:46 | ED.VISSUMM ---
- ER Visit Summary Date of Service: 01/22/19 Chief Complaint: Nausea and vomiting History of Present Illness: The patient is a 43 M who presents with nausea and vomiting. It began yesterday. He was out fishing yesterday and suffered a severe sunburn. He is vomited 4 times since yesterday evening. He states he does not know if he has food poisoning, sun poisoning, or is getting septic. He does have a history of HIV and states he gets septic easily. Physical Examination: Afebrile blood pressure 161/98 vitals otherwise unremarkable Moist mucous membranes Heart regular rate and rhythm Unclear Abdomen soft Patient has sunburn of the face trunk and extremities Alert Test Results: Labs notable for sodium 146, alkaline phosphatase 173. Creatinine is 1.5. Emergency Department Course and Treatment: Patient was treated with IV fluids and Zofran. He is resting comfortably on reevaluation. I do believe his symptoms are related to sunburn and dehydration. He feels better on reevaluation. He was advised on supportive care. Patient was discharged. Treatment Plan: [] Disposition: Discharge Impression: Sunburn Vomiting This note was generated with [employer] dictation software. It may contain incorrect words, spelling, and punctuation that were not noted in review of the chart prior to signing ED Disposition - Plan for ED Patient: Referrals: Servando Hyman [Primary Care Provider] -
--- NOTE | 2019-01-22 05:48 | ED.DEP ---
ED Disposition - Plan for ED Patient: Instructions: Sunburn (Sun Poisoning) Referrals: Servando Hyman [Primary Care Provider] -
[2019-01-22 05:58] VITALS: BP 168/101; PULSE 81; RESP 17; O2SAT 98
== END 2019-01-22 08:37 | disposition home or self-care (01) ==
PROVIDERS: Emergency Provider Emergency Medicine; Family Provider Internal Medicine; PCP Internal Medicine
DX: L55.9 Sunburn, unspecified (principal); R11.2 Nausea with vomiting, unspecified; I25.10 Atherosclerotic heart disease of native coronary artery without angina pectoris; I10 Essential (primary) hypertension; E78.00 Pure hypercholesterolemia, unspecified; Z72.0 Tobacco use; Z21 Asymptomatic human immunodeficiency virus [HIV] infection status; Z93.3 Colostomy status
CPT/HCPCS: 36415; 80053; 83690; 85025; 96361; 96374; 99285; J7030; A4216; J2405

== ENCOUNTER 2019-06-02 22:17 | Emergency (ER) | payer MEDICAID, SELFPAY ==
[2019-06-02 22:18] VITALS: BP 176/115; PULSE 89; RESP 16; TEMP 37; O2SAT 92; BMI 35.7
--- NOTE | 2019-06-02 22:46 | ED.DCSUM_ITS ---
- ER Visit Summary Date of Service: 06/02/19 Chief Complaint: Vomiting and diarrhea History of Present Illness: The patient is a 44 M who complains of nausea vomiting and diarrhea. Is been ongoing for 2 days. He was started on amoxicillin for an ear infection on the left. He took 1 dose of amoxicillin a. m. vomited so they switched him to Omnicef. He states he has had intermittent vomiting since then. He has no appetite today. He denies fevers. He denies any pain currently. He took nothing for diarrhea but did take Zofran at home. Physical Examination: Vital signs are reviewed. HEENT exam reveals mild left TM erythema. He has moist mucous membranes. Neck is supple without JVD. Heart is slightly tachycardic and regular rhythm. Lungs are clear. Abdomen soft. Colostomy is noted. He does have a Gama catheter in place. Skin exam reveals no rashes. He is alert and oriented x3 and answers all questions. He has lower extremity paraplegia which is chronic. Test Results: Hemoglobin 17.3, glucose 111, creatinine 1.69 which is near his baseline. Liver enzymes lipase normal Emergency Department Course and Treatment: Patient was given IV fluids and Zofran. Upon reevaluation he is symptomatically improved. I feels like the antibiotics causing his nausea. In order for him to tolerate this I will give him some Phenergan that will help with his nausea. He will try to eat meals when he takes his medications. He will call his doctor on Wednesday if his symptoms persist. Treatment Plan: [] Disposition: Discharge Impression: Nausea and vomiting This note was generated with [employer] dictation software. It may contain incorrect words, spelling, and punctuation that were not noted in review of the chart prior to signing ED Disposition - Plan for ED Patient: Referrals: Servando Hyman [Primary Care Provider] -
[2019-06-02] MEDS: Ondansetron 4 MG/2 ML Vial IV (22:49)
[2019-06-02] MEDS: 0.9% Normal Saline 1,000 ML 1000 ML IV (22:49)
[2019-06-02 22:52] LABS: Absolute Lymphocyte Count 1.28 X10^3/uL (0.83-4.51); Absolute Neutrophil Count 7.2 X10^3/uL (2.0-7.7); Basophil# 0.04 X10^3/uL; Basophil% 0.4 % (0-1); Eosinophil# 0.06 X10^3/uL; Eosinophils% 0.7 % (0-5); Hematocrit 52.3 % (40-54); Hemoglobin 17.3 g/dL (13.0-16.5); Lymphocyte # 1.28 X10^3/ul (4.0); Mean Corp Hgb Conc 33.1 g/dL (32-36); Mean Corpuscular Hgb 31.9 pg (27.0-32.0); Mean Corpuscular Volume 96.3 fL (80-94); Mean Platelet Vol. 8.8 fl (6.2-12.0); Monocyte# 0.55 X10^3/uL; NRBC Flagged by Analyzer 0 % (0-5); Neutrophil % 78.5 % (47-70); Platelet Count 234 K/mm3 (150-450); RBC Distribution Width SD 49.5 fl (35.1-43.9); Red Blood Count 5.43 M/mm3 (4.6-6.2); White Blood Count 9.2 K/mm3 (4.4-11.0)
[2019-06-02 23:15] LABS: ALB/GLOB Ratio 0.7 RATIO (0.9-2.4); AST(SGOT) 14 U/L (15-37); Alanine Aminotransfer ALT/SGPT 15 U/L (16-61); Albumin, Serum 3.3 g/dL (3.2-5.0); Alkaline Phosphatase 163 U/L (45-117); Anion Gap 6 (5-15); BUN 14 mg/dL (7-18); BUN/Creat Ratio 8.3 RATIO (10-20); Calcium,Total 8.7 mg/dL (8.5-10.1); Chloride 106 mmol/L (98-107); Creatinine, Serum 1.69 mg/dL (0.70-1.30); EST Glomerular Filtration Rate 47 mL/min (>60); Est Glom Filt Rate - Afr Amer 57 mL/min (>60); Estimated Creatinine Clearance 63.04 ml/min; Globulin 4.7 g/dL (2.2-4.2); Glucose 111 mg/dL (74-106); Lipase 147 U/L (73-393); Potassium 3.6 mmol/L (3.5-5.1); Sodium Level 141 mmol/L (136-145)
--- NOTE | 2019-06-02 23:22 | ED.DEP ---
ED Disposition - Plan for ED Patient: Disposition: Home or Assisted Living Instructions: VOMITING AND DIARRHEA, Nonspecific (Adult) Prescriptions: proMETHazine tablet [Phenergan] 25 mg PO Q6H PRN PRN #10 tab PRN Reason: Nausea Prescription Printed Referrals: Servando Hyman [Primary Care Provider] -
[2019-06-02 23:39] VITALS: BP 158/100; PULSE 98; RESP 16; O2SAT 93
== END 2019-06-03 00:46 | disposition home or self-care (01) ==
PROVIDERS: Emergency Provider Emergency Medicine; Family Provider Internal Medicine; PCP Internal Medicine
DX: R11.2 Nausea with vomiting, unspecified (principal); R19.7 Diarrhea, unspecified; I25.2 Old myocardial infarction; Z72.0 Tobacco use; G82.20 Paraplegia, unspecified
CPT/HCPCS: 80053; 83690; 85025; 96361; 96374; 99285; J7030; A4216; J2405

== ENCOUNTER 2019-06-03 13:00 | Emergency (ER) | payer MEDICAID, SELFPAY ==
[2019-06-02 22:18] VITALS: BMI 35.7
[2019-06-03 13:01] VITALS: BP 140/98; PULSE 105; RESP 16; TEMP 37.3; O2SAT 94; BMI 36.0
[2019-06-03 13:03] VITALS: PULSE 105
--- NOTE | 2019-06-03 13:17 | ED.VIS.GEN ---
History of Present Illness Chief Complaint: Nausea/Vomiting/Diarrhea Informant: Patient Onset: Days Current Severity: Moderate Maximum Severity: Moderate Narrative: Patient presents with continued nausea, vomiting, diarrhea. He developed left ear pain last weekend. He went to urgent care on Wednesday and received a prescription for amoxicillin. He developed vomiting every time he would take the antibiotic. He was switched to Omnicef and symptoms seem to improve for a day or 2, but then recurred. Patient has had diarrhea for the past 3 days. He had vomiting every time he takes his antibiotic. He has not noted fever or chills. Past Medical History - Allergies and Home Meds Allergies/Adverse Reactions: Allergies atorvastatin [From Lipitor] Adverse Reaction (Verified 06/03/19 13:00) Nausea/Vom/Diarrhea ciprofloxacin [From Cipro] Adverse Reaction (Verified 06/03/19 13:00) Nausea/Vom/Diarrhea morphine Adverse Reaction (Verified 06/03/19 13:00) HALLUCINATIONS Primary Care Physician: Servando Hyman [Primary Care Provider] - Prior records reviewed: Yes Past Medical History: - - Reviewed Surgical History: - - colostomy, tail bone shaved Smoking Status: Current every day smoker Review of Systems General: Denies: Chills, Fever Eyes: Denies: Visual changes - bilaterally ENT: Reports: Left ear pain Cardiovascular: Denies: Chest pain Respiratory: Denies: Dyspnea, Cough Gastrointestinal: Reports: Nausea, Vomiting, Diarrhea. Denies: Abdominal pain Musculoskeletal: Denies: Extremity Pain Skin: Denies: Rash Neurological: Reports: Weakness - Chronic paraplegia Physical Exam Vital Signs/Narrative: Vital Signs Temp Pulse Resp BP Pulse Ox 06/03/19 13:03 105 H 06/03/19 13:01 99.1 F 105 H 16 140/98 H 94 Inital Vital Signs reviewed: Yes General: Well nourished, Well developed Head: Normocephalic ENT: Moist mucous membranes, - - Minimal erythema noted to the left TM. Cardiovascular: Regular rate, Regular rhythm Respiratory: No distress, CTA bilaterally Abdomen: Soft, Nontender, Hypoactive bowel sounds Skin: Normal color Neurological: Alert, Oriented x3, - - Chronic paraplegia Psychological: Normal affect Diagnostic/Tx/Re-eval 06/03/19 13:40 Stool C. difficile DNA Amplification - Final Laboratory Results 06/03/19 06/03/19 06/03/19 13:18 13:18 14:20 WBC 11.1 H RBC 5.58 Hgb 17.8 H Hct 54.8 H MCV 98.2 H MCH 31.9 MCHC 32.5 RDW Std Deviation 50.7 H RDW Coeff of Campos 14.0 Plt Count 245 MPV 8.9 Immature Gran % (Auto) 0.500 Neut % (Auto) 84.2 H Lymph % (Auto) 9.7 L Fannin % (Auto) 5.0 Eos % (Auto) 0.2 Baso % (Auto) 0.4 Absolute Neuts (auto) 9.4 H Absolute Lymphs (auto) 1.08 Nucleated RBC % 0 Sodium 142 Potassium 3.2 L Chloride 107 Carbon Dioxide 28.0 Anion Gap 7 BUN 17 Creatinine 1.67 H Estim Creat Clear Calc 63.79 Est GFR (MDRD) Af Amer 58 L Est GFR (MDRD) Non-Af 48 L BUN/Creatinine Ratio 10.2 Glucose 112 H Calcium 8.8 Total Bilirubin 0.50 Direct Bilirubin 0.15 AST 12 L ALT 15 L Alkaline Phosphatase 169 H Total Protein 8.0 Albumin 3.4 Globulin 4.6 H Lipase 113 Urine Color Yellow Urine Clarity Clear Urine pH 8.0 Ur Specific [place] 1.030 Urine Protein 100 H Urine Glucose (UA) 50 H Urine Ketones Negative Urine Occult Blood 25 H Urine Nitrite Negative Urine Bilirubin Negative Urine Urobilinogen Normal Ur Leukocyte Esterase Negative Urine RBC 0 SEEN Urine WBC 0-5 SEEN Ur Squamous Epith Cells 0 SEEN Urine Bacteria 1+ Urine Mucus 0 SEEN Urine Yeast RARE - Medical Decision Making Patient has had no nausea or vomiting while here in the emergency room. He was given a snack and able to tolerate this without difficulty. He is nausea and vomiting occurs only after he tries to take oral antibiotics. I did discuss with him that majority of your infections are viral and do not need antibiotics regardless. He has been on approximately 5 days of antibiotics at home. He is given a single dose of Rocephin here and can stop his oral antibiotics at home. He has Zofran and Phenergan at home to use if he remains nauseated. I anticipate the vomiting and diarrhea will both subside once antibiotics are discontinued. ED Disposition - Plan for ED Patient: Disposition: Home or Assisted Living Diagnosis: Vomiting, Diarrhea Instructions: VOMITING AND DIARRHEA, Nonspecific (Adult) Referrals: Servando Hyman [Primary Care Provider] - 3-5 Days if not improving
[2019-06-03] MEDS: 0.9% Normal Saline 1,000 ML 1000 ML IV (13:36)
[2019-06-03 13:42] LABS: AST(SGOT) 12 U/L (15-37); Alanine Aminotransfer ALT/SGPT 15 U/L (16-61); Albumin, Serum 3.4 g/dL (3.2-5.0); Alkaline Phosphatase 169 U/L (45-117); Anion Gap 7 (5-15); BUN 17 mg/dL (7-18); BUN/Creat Ratio 10.2 RATIO (10-20); Bilirubin, Direct 0.15 mg/dL (0.00-0.30); Calcium,Total 8.8 mg/dL (8.5-10.1); Chloride 107 mmol/L (98-107); Creatinine, Serum 1.67 mg/dL (0.70-1.30); EST Glomerular Filtration Rate 48 mL/min (>60); Est Glom Filt Rate - Afr Amer 58 mL/min (>60); Estimated Creatinine Clearance 63.79 ml/min; Globulin 4.6 g/dL (2.2-4.2); Glucose 112 mg/dL (74-106); Lipase 113 U/L (73-393); Potassium 3.2 mmol/L (3.5-5.1); Sodium Level 142 mmol/L (136-145)
[2019-06-03 13:55] LABS: Absolute Lymphocyte Count 1.08 X10^3/uL (0.83-4.51); Absolute Neutrophil Count 9.4 X10^3/uL (2.0-7.7); Basophil# 0.04 X10^3/uL; Basophil% 0.4 % (0-1); Eosinophil# 0.02 X10^3/uL; Eosinophils% 0.2 % (0-5); Hematocrit 54.8 % (40-54); Hemoglobin 17.8 g/dL (13.0-16.5); Lymphocyte # 1.08 X10^3/ul (4.0); Lymphocyte % 9.7 % (19-41); Mean Corp Hgb Conc 32.5 g/dL (32-36); Mean Corpuscular Hgb 31.9 pg (27.0-32.0); Mean Corpuscular Volume 98.2 fL (80-94); Mean Platelet Vol. 8.9 fl (6.2-12.0); Monocyte# 0.56 X10^3/uL; NRBC Flagged by Analyzer 0 % (0-5); Neutrophil # 9.36 X10^3/uL (2.7-7.7); Neutrophil % 84.2 % (47-70); Platelet Count 245 K/mm3 (150-450); RBC Distribution Width SD 50.7 fl (35.1-43.9); Red Blood Count 5.58 M/mm3 (4.6-6.2); White Blood Count 11.1 K/mm3 (4.4-11.0)
--- NOTE | 2019-06-03 14:00 | ED.RN ---
Gama bag changed out so urine sample can be obtained
[2019-06-03 14:28] LABS: Mucous, Urine 0 SEEN /hpf (<or=2+); Red Blood Cells-Urine 0 SEEN /hpf (0-5); Squamous Epithelial Cells - UA 0 SEEN /hpf (0-5)
[2019-06-03 14:32] LABS: Color, Urine Yellow (Yellow); Glucose, Dipstick 50 mg/dl (Normal); Ketone-Dipstick Negative (Negative); Leukocyte Esterase-Dipstick Negative /ul (Negative); Nitrite-Dipstick Negative (Negative); Occult Blood-Urine 25 /ul (Negative); Protein-Dipstick 100 mg/dl (Negative); Urine Bilirubin Dipstick Negative (Negative); Urine Clarity Clear (Clear); Urine Urobilinogen Normal (Normal)
[2019-06-03 14:46] LABS: Bacteria 1+ /hpf (None Seen); White Blood Cells 0-5 SEEN /hpf (0-5); Yeast-Urine RARE /hpf (None Seen)
[2019-06-03 14:58] VITALS: BP 132/93; PULSE 84; RESP 16; O2SAT 96
[2019-06-03 16:00] VITALS: BP 122/85; PULSE 80; RESP 16; O2SAT 96
[2019-06-03] MEDS: Ceftriaxone 1 GM/50 ML BAG IV (17:37)
[2019-06-03 18:49] VITALS: BP 123/79; PULSE 78; RESP 18; O2SAT 95
--- NOTE | 2019-06-03 20:23 | ED.RN ---
[facility] HERE TO GET PATIENT TO TAKE HIM BACK HOME. REPORT GIVEN TO THEM PRIOR TO DISCHARGE.
== END 2019-06-03 20:23 | disposition home or self-care (01) ==
PROVIDERS: Emergency Provider Emergency Medicine; Family Provider Internal Medicine; PCP Internal Medicine
DX: R11.2 Nausea with vomiting, unspecified (principal); R19.7 Diarrhea, unspecified; G82.20 Paraplegia, unspecified; F17.200 Nicotine dependence, unspecified, uncomplicated; Z88.1 Allergy status to other antibiotic agents; Z93.3 Colostomy status
CPT/HCPCS: 80048; 80076; 81001; 83690; 85025; 87493; 96361; 96365; 99283; J7030; J7050; A4216

== ENCOUNTER 2019-08-31 13:00 | Outpatient (RCR) | payer MEDICAID, SELFPAY ==
[2019-08-10 13:00] VITALS: BP 116/71; PULSE 88; RESP 16; TEMP 36.4; BMI 36.9
--- NOTE | 2019-08-10 15:17 | HP.PCM_ITS ---
(1) Pressure injury of sacral region, stage 2 Status: Acute Current Visit: Yes Code(s): L89.152 - Pressure ulcer of sacral region, stage 2 (2) UTI (urinary tract infection) Status: Acute Current Visit: No Code(s): N39.0 - Urinary tract infection, site not specified (3) CAD (coronary artery disease) Status: Chronic Current Visit: No Code(s): I25.10 - Atherosclerotic heart disease of [place] coronary artery without angina pectoris (4) HIV (human immunodeficiency virus infection) Status: Chronic Current Visit: No Code(s): B20 - Human immunodeficiency virus [HIV] disease (5) Neuropathy Status: Chronic Current Visit: No Code(s): G62.9 - Polyneuropathy, unspecified (6) Paraplegia Status: Chronic Current Visit: No Code(s): G82.20 - Paraplegia, unspecified History of Present Illness Date of Service: 08/10/19 Chief Complaint: Sacral pressure ulcer x 3 weeks History of Wound: This Is a 44-year-old white male with a past medical history as listed above significant for HIV, paraplegia, prior stage IV sacral pressure injury, and chronic neuropathy. The patient states that his wound to his sacral area reopened approximately 3 to 4 weeks ago and they have been using wet-to-dry dressings and Dakin's. He does have a caregiver who lives at home with them. He states that he spends most of his time in either a chair or a bed. He does have a pressure relieving air mattress and a Roho cushion. Denies any other treatments at this time. Denies any systemic or localized signs of infection. He does state that his viral load is detectable at this time. All other systems reviewed and negative with exception of those listed above. He does also note that he is a smoker and that he has a chronic colostomy as well. Past Medical History Past Medical History: Chronic Problems HIV (human immunodeficiency virus infection) (Chronic) CAD (coronary artery disease) (Chronic) Paraplegia (Chronic) Neuropathy (Chronic) Surgical History: - - colostomy, tail bone shaved Allergies/Adverse Reactions: Allergies atorvastatin [From Lipitor] Adverse Reaction (Verified 08/10/19 13:13) Nausea/Vom/Diarrhea ciprofloxacin [From Cipro] Adverse Reaction (Verified 08/10/19 13:13) Nausea/Vom/Diarrhea morphine Adverse Reaction (Verified 08/10/19 13:13) HALLUCINATIONS Home Medications: Ambulatory Orders Medication Instructions Recorded Aspirin E.C. [Ecotrin] 81 mg PO DAILY@0800 08/30/18 Baclofen 20 mg PO 4X/DAY PRN PRN 08/30/18 Cranberry 400 mg PO BID 08/30/18 Darunavir Ethanolate [Prezista] 800 mg PO DAILY 08/30/18 Emtricitabine [Emtriva] 6 mg PO DAILY 08/30/18 Escitalopram Oxalate [Lexapro] 20 mg PO DAILY 08/30/18 Folic Acid 1 mg PO DAILY@0800 08/30/18 Gabapentin [Neurontin] 800 mg PO BID 08/30/18 Metoprolol Succinate [Toprol Xl] 25 mg PO DAILY 08/30/18 Oxycodone HCl 20 mg PO BID 08/30/18 Pravastatin Sodium 40 mg PO QHS 08/30/18 Ritonavir [Norvir] 100 mg PO DAILY 08/30/18 Cyanocobalamin (Vitamin B-12) 1,000 mcg PO DAILY 01/22/19 [B-12] Magnesium Oxide 2 tab PO DAILY 01/22/19 Nitroglycerin 0.4 mg SL X1 01/22/19 Oxcarbazepine 150 mg PO BID 01/22/19 proMETHazine tablet [Phenergan] 25 mg PO Q6H PRN PRN #10 tab 06/02/19 Pramipexole Di-HCl [Pramipexole 0.125 mg PO DAILY 08/10/19 Dihydrochloride] Smoking Status: Current every day smoker Review of Systems Constitutional: Denies: Chills, Fever, Weight Change Eyes: Denies: Pain, Vision Change HEENT: Denies: Difficulty Hearing, Difficulty Swallowing, Sinus Congestion Cardiovascular: Denies: Chest Pain, Palpitations Respiratory: Denies: Cough, Shortness of Breath Gastrointestinal: Denies: Diarrhea, Nausea, Vomiting Genitourinary: Denies: Dysuria, Hematuria Skin: Reports: Wounds - see hpi Endocrine: Denies: Heat/ Cold Intolerance, Polydipsia, Polyuria Hematologic/ Lymphatic: Denies: Easy Bruising, Easy Bleeding - Physical Exam Vital Signs Temp Pulse Resp BP 97.6 F L 88 16 116/71 08/10/19 13:00 08/10/19 13:00 08/10/19 13:00 08/10/19 13:00 General: Alert, Oriented x3, Cooperative, No apparent distress HEENT: Atraumatic, PERRLA Oral: Moist Mucosa Lungs: Clear to auscultation, Normal air movement Cardiovascular: Regular rate, Regular Rhythm Abdomen: Soft, Non Tender, Obese, - - colostomy Extremities: No clubbing, No cyanosis Skin: Ulcer/ Wound - Stage 2 sacral pressure ulcer with adherent slough, no signs of obvious infection at this time, ulceration is over previously healed stage IV sacral pressure ulcer Wound Measurements and Assessment WC - Nurse 1 - General Ulcer Measurement Start: 08/10/19 12:59 Freq: Status: Active Protocol: Activity Type Activity Date Activity User E-Sign Co-Sign Detail Recorded Client Recorded Date Recorded By Document 08/10/19 13:00 [facility] [id number] 08/10/19 13:09 [facility] 08/10/19 13:00 Wound Center Nurse 1 [Ulcer Assessment] #1 left upper buttock/lumbar -Combined with other wound No -Current Size (cm) - Length 1.1 -Current Size (cm) - Width 0.8 -Current Size (cm) - Depth 0.1 -Total Square Cm 0.88 -Date of Last Picture (Recall this 08/10/19 field) -Photo Taken Yes -Epithelialization None Present -Tunneling No -Undermining/Tunneling No -Circular Undermining No -Exudate Amt Small -Exudate Type Serosanguineous -Wound Margin Distinct, Outline Attached -Granulation Amt Medium (34-66%) -Granulation Quality Pale -Slough/Fibrin Yes -Necrosis Amt None Present (0 %) -Necrotic Tissue Type Adherent Slough -Structure Exposed None/Limited to Skin Breakdown -Texture (Martine-wound Skin Appearance) Callus,Scarring -Moisture (Martine-wound Skin Appearance No Abnormality, ) Assessed -Color (Martine-wound Skin Appearance) No Abnormality, Assessed -Temperature (Martine-wound Skin No Abnormality Appearance) (Pt Warm) -Tenderness on Palpation (Martine-wound No Skin Appearance) -Ulcer Cleansing Rinsed/ Irrigated with Saline -Foul Odor after Cleansing No -Anesthetic Used 4% Lidocaine Solution [Edema Assessment] -Lower Limb Edema Present NA WC - Nurse 2 - General Ulcer CM Notes Start: 08/10/19 12:59 Freq: Status: Active Protocol: Activity Type Activity Date Activity User E-Sign Co-Sign Detail Recorded Client Recorded Date Recorded By Document 08/10/19 13:37 MW [id number] 08/10/19 13:43 MW 08/10/19 13:37 Wound Center Nurse 2 [Procedure/Treatment] #1 left upper buttock/lumbar -Time 13:39 -Correct Patient Yes -Correct Side, Site, Position Yes -Correct Procedure Yes -Procedure Performed Yes -Type of Procedure Debridement -Clinical Debridement Subcutaneous -Post Debridement Size (cm) - Length 1.1 -Post Debridement Size (cm) - Width 1.0 -Post Debridement Size (cm) - Depth 0.2 -Total Square Cm 1.10 -Wound/Ulcer Outcome Not Healed -Ulcer Cleansing Rinsed/ Irrigated with Saline -Foul Odor after Cleansing No -Bioengineered Tissue No -Bleeding Controlled with Pressure -Offloading No -Treatment Response Procedure Tolerated Well [See Physician Procedure note for Specifics] Pain Scale: 0-10 Numeric [Pain] -Is Patient Pain Free? Yes Neurological: Neuro grossly intact Psych/Mental Status: Normal Affect, Appropriate, Alert and oriented to time, place, person, mood and affect Debridement Note Post-Debridement Measurements/Treatment WC - Nurse 2 - General Ulcer CM Notes Start: 08/10/19 12:59 Freq: Status: Active Protocol: Activity Type Activity Date Activity User E-Sign Co-Sign Detail Recorded Client Recorded Date Recorded By Document 08/10/19 13:37 MW [id number] 08/10/19 13:43 MW 08/10/19 13:37 Wound Center Nurse 2 #1 left upper buttock/lumbar -Time 13:39 -Correct Patient Yes -Correct Side, Site, Position Yes -Correct Procedure Yes -Procedure Performed Yes -Type of Procedure Debridement -Clinical Debridement Subcutaneous -Post Debridement Size (cm) - Length 1.1 -Post Debridement Size (cm) - Width 1.0 -Post Debridement Size (cm) - Depth 0.2 -Total Square Cm 1.10 -Wound/Ulcer Outcome Not Healed -Ulcer Cleansing Rinsed/ Irrigated with Saline -Foul Odor after Cleansing No -Bioengineered Tissue No -Bleeding Controlled with Pressure -Offloading No -Treatment Response Procedure Tolerated Well Pain Scale: 0-10 Numeric Is Patient Pain Free? Yes Wound debrided: Stage 2 sacral pressure injury Type of Debridement: Excisional debridement Anesthesia Used: 5% Lidocaine Gel Depth: in the subcutaneous layer Percentage of wound debrided: 100 Instrument Used: 5mm curette Tissue Removed: Slough and devitalized tissue Severity: Fat Layer Exposed Amount of bleeding with debridement: Mild Bleeding Controlled with: Pressure Patient tolerated procedure well Assessment/Plan Active Problems Pressure injury of sacral region, stage 2 (Acute) Assessment: Stage II sacral pressure injury, HIV, paraplegia, neuropathy, tobacco abuse, colostomy status, hypertension Plan: The patient was seen and examined at the wound center today and was updated on the plan of care. A subcutaneous debridement was performed today. The patient tolerated the procedure well. The patients wound care will consist of: For the time being utilizing moistened [place] cover with ABD for offloading change daily. Given the duration of his ulceration, will apply for an advanced skin substitute as it is been present for 4 weeks now. Continue with offloading measures and utilizing his offloading mattress and Roho cushion. Wound cultures were collected. Baseline bloodwork held at this time. Patient educated on the importance of diet on wound healing and instructed to increase protein and vitamin C intake. Rx for Ensure high-protein given the patient. Patient verbalized understanding. Patient will follow up at wound healing center in one week or sooner if needed. This note was generated with QuickProNotes dictation software. It may contain incorrect words, spelling, and punctuation that were not noted in checking the note before signing. Code Visit Office Visits / Consults: [id number] OV L4 Est 111xxx-113xx: [id number] Estelita subq tissue 20 sq cm/<
[2019-08-24 13:00] VITALS: BP 111/82; PULSE 69; RESP 18; TEMP 35.7; BMI 36.9
--- NOTE | 2019-08-24 16:46 | PCM.WC.PN ---
(1) Pressure injury of sacral region, stage 2 Status: Acute Current Visit: Yes Code(s): L89.152 - Pressure ulcer of sacral region, stage 2 (2) UTI (urinary tract infection) Status: Acute Current Visit: No Code(s): N39.0 - Urinary tract infection, site not specified (3) CAD (coronary artery disease) Status: Chronic Current Visit: No Code(s): I25.10 - Atherosclerotic heart disease of [place] coronary artery without angina pectoris (4) HIV (human immunodeficiency virus infection) Status: Chronic Current Visit: No Code(s): B20 - Human immunodeficiency virus [HIV] disease (5) Neuropathy Status: Chronic Current Visit: No Code(s): G62.9 - Polyneuropathy, unspecified (6) Paraplegia Status: Chronic Current Visit: No Code(s): G82.20 - Paraplegia, unspecified Type of Wound Date of Service: 08/24/19 Chief Complaint: Sacral pressure ulcer x 3 weeks History of Wound: This Is a 44-year-old white male with a past medical history as listed above significant for HIV, paraplegia, prior stage IV sacral pressure injury, and chronic neuropathy. The patient states that his wound to his sacral area reopened approximately 3 to 4 weeks ago and they have been using wet-to-dry dressings and Dakin's. He does have a caregiver who lives at home with them. He states that he spends most of his time in either a chair or a bed. He does have a pressure relieving air mattress and a Roho cushion. Denies any other treatments at this time. Denies any systemic or localized signs of infection. He does state that his viral load is detectable at this time. All other systems reviewed and negative with exception of those listed above. He does also note that he is a smoker and that he has a chronic colostomy as well. Progress of Wound: Wound size is stable, no signs of obvious infection at this time. Cultures were reviewed and showed rare MRSA, Corynebacterium, and staph. Due to the fact that it does not appear clinically infected, will hold off on antibiotics at this time. Purapply a.m. applied today first application. [employer] sales representative brought into patient room with verbal consent to educate on the product. No new concerns at this time. - Physical Exam Vital Signs Temp Pulse Resp BP 96.3 F L 69 18 111/82 H 08/24/19 13:00 08/24/19 13:00 08/24/19 13:00 08/24/19 13:00 General: Alert, Oriented x3, Cooperative, No apparent distress HEENT: Atraumatic Oral: Moist Mucosa Lungs: Clear to auscultation, Normal air movement Cardiovascular: Regular rate, Regular Rhythm Abdomen: Soft, Non Tender, Obese Extremities: - - Musculoskeletal atrophy and weakness to bilateral lower extremities Skin: Ulcer/ Wound - See nursing documentation, slough and devitalized tissue present, no signs of obvious infection at this time Wound Measurements and Assessment WC - Nurse 1 - General Ulcer Measurement Start: 08/10/19 12:59 Freq: Status: Active Protocol: Activity Type Activity Date Activity User E-Sign Co-Sign Detail Recorded Client Recorded Date Recorded By Document 08/24/19 13:00 [id number] 08/24/19 13:06 08/24/19 13:00 Wound Center Nurse 1 [Ulcer Assessment] #1 left upper buttock/lumbar -Combined with other wound No -Current Size (cm) - Length 0.7 -Current Size (cm) - Width 0.6 -Current Size (cm) - Depth 0.1 -Total Square Cm 0.42 -Photo Taken No -Epithelialization Small 1-33% -Tunneling No -Undermining/Tunneling No -Circular Undermining No -Exudate Amt Small -Exudate Type Serosanguineous -Wound Margin Distinct, Outline Attached -Granulation Amt Large (67-100%) -Granulation Quality Red -Slough/Fibrin Yes -Necrosis Amt None Present (0 %) -Necrotic Tissue Type Adherent Slough -Structure Exposed N/A -Texture (Martine-wound Skin Appearance) Assessed, Scarring -Moisture (Martine-wound Skin Appearance Dry/Scaly ) -Color (Martine-wound Skin Appearance) No Abnormality, Assessed -Temperature (Martine-wound Skin No Abnormality Appearance) (Pt Warm) -Tenderness on Palpation (Martine-wound No Skin Appearance) -Ulcer Cleansing Rinsed/ Irrigated with Saline -Foul Odor after Cleansing No -Anesthetic Used 4% Lidocaine Solution [Edema Assessment] -Lower Limb Edema Present NA WC - Nurse 2 - General Ulcer CM Notes Start: 08/10/19 12:59 Freq: Status: Active Protocol: Activity Type Activity Date Activity User E-Sign Co-Sign Detail Recorded Client Recorded Date Recorded By Document 08/24/19 13:20 MW [id number] 08/24/19 13:29 MW 08/24/19 13:20 Wound Center Nurse 2 [Procedure/Treatment] #1 left upper buttock/lumbar -Time 13:21 -Correct Patient Yes -Correct Side, Site, Position Yes -Correct Procedure Yes -Procedure Performed Yes -Type of Procedure Debridement -Clinical Debridement Subcutaneous -Post Debridement Size (cm) - Length 1.0 -Post Debridement Size (cm) - Width 0.8 -Post Debridement Size (cm) - Depth 0.2 -Total Square Cm 0.80 -Wound/Ulcer Outcome Not Healed -Ulcer Cleansing Rinsed/ Irrigated with Saline -Foul Odor after Cleansing No -Bioengineered Tissue No -Type of bioengineered Tissue [id number] -Expiration Date 05/19/21 -Product Lot Number [id number] -Percent Used 100 -Saline Lot Number [id number] -Bleeding Controlled with Pressure -Offloading No -Treatment Response Procedure Tolerated Well [See Physician Procedure note for Specifics] Pain Scale: 0-10 Numeric [Pain] -Is Patient Pain Free? Yes Neurological: Neuro grossly intact Psych/Mental Status: Normal Affect, Appropriate, Alert and oriented to time, place, person, mood and affect Debridement Note Post-Debridement Measurements/Treatment WC - Nurse 2 - General Ulcer CM Notes Start: 08/10/19 12:59 Freq: Status: Active Protocol: Activity Type Activity Date Activity User E-Sign Co-Sign Detail Recorded Client Recorded Date Recorded By Document 08/10/19 13:37 MW [id number] 08/10/19 13:43 MW Document 08/24/19 13:20 MW [id number] 08/24/19 13:29 MW 08/10/19 08/24/19 13:37 13:20 Wound Center Nurse 2 #1 left upper buttock/lumbar -Time 13:39 13:21 -Correct Patient Yes Yes -Correct Side, Site, Position Yes Yes -Correct Procedure Yes Yes -Procedure Performed Yes Yes -Type of Procedure Debridement Debridement -Clinical Debridement Subcutaneous Subcutaneous -Post Debridement Size (cm) - Length 1.1 1.0 -Post Debridement Size (cm) - Width 1.0 0.8 -Post Debridement Size (cm) - Depth 0.2 0.2 -Total Square Cm 1.10 0.80 -Wound/Ulcer Outcome Not Healed Not Healed -Ulcer Cleansing Rinsed/ Rinsed/ Irrigated with Irrigated with Saline Saline -Foul Odor after Cleansing No No -Bioengineered Tissue No No -Type of bioengineered Tissue [id number] -Expiration Date 05/19/21 -Product Lot Number [id number] -Percent Used 100 -Saline Lot Number [id number] -Bleeding Controlled with Pressure Pressure -Offloading No No -Treatment Response Procedure Procedure Tolerated Well Tolerated Well Pain Scale: 0-10 Numeric Is Patient Pain Free? Yes Yes Wound debrided: Stage II pressure injury to sacrum Type of Debridement: Excisional debridement Anesthesia Used: 5% Lidocaine Gel Depth: in the subcutaneous layer Percentage of wound debrided: 100 Instrument Used: 3mm curette Tissue Removed: Slough and devitalized tissue Severity: Fat Layer Exposed Amount of bleeding with debridement: Mild Bleeding Controlled with: Pressure Patient tolerated procedure well Assessment/Plan Active Problems Pressure injury of sacral region, stage 2 (Acute) Assessment: Stage II sacral pressure injury, HIV, paraplegia, neuropathy, tobacco abuse, colostomy status, hypertension Plan: The patient was seen and examined at the wound center today and was updated on the plan of care. A subcutaneous debridement was performed today. The patient tolerated the procedure well. The patients wound care will consist of: Purapply AM # 1 applied today and secured with wound veil and Steri-Strips, 100% of the product was utilized with 0% waste. Cover with ABD for offloading change daily. Given the duration of his ulceration, will apply for an advanced skin substitute as it is been present for over 4 weeks now. Continue with offloading measures and utilizing his offloading mattress and Roho cushion. Wound cultures were collected prior and showed rare bacteria, hold off on treating at this time. Baseline bloodwork held at this time. Patient educated on the importance of diet on wound healing and instructed to increase protein and vitamin C intake. Rx for Ensure high-protein given the patient. Patient verbalized understanding. Patient will follow up at wound healing center in one week or sooner if needed. This note was generated with [employer] software. It may contain incorrect words, spelling, and punctuation that were not noted in checking the note before signing. Code Visit 111xxx-113xx: [id number] Estelita subq tissue 20 sq cm/<
[2019-08-31 13:01] VITALS: BP 126/79; PULSE 72; RESP 16; TEMP 35.9; BMI 36.9
--- NOTE | 2019-08-31 22:12 | PCM.WC.PN ---
(1) Pressure injury of sacral region, stage 2 Status: Acute Current Visit: Yes Code(s): L89.152 - Pressure ulcer of sacral region, stage 2 (2) UTI (urinary tract infection) Status: Acute Current Visit: No Code(s): N39.0 - Urinary tract infection, site not specified (3) CAD (coronary artery disease) Status: Chronic Current Visit: No Code(s): I25.10 - Atherosclerotic heart disease of [place] coronary artery without angina pectoris (4) HIV (human immunodeficiency virus infection) Status: Chronic Current Visit: No Code(s): B20 - Human immunodeficiency virus [HIV] disease (5) Neuropathy Status: Chronic Current Visit: No Code(s): G62.9 - Polyneuropathy, unspecified (6) Paraplegia Status: Chronic Current Visit: Yes Code(s): G82.20 - Paraplegia, unspecified Type of Wound Date of Service: 08/31/19 Chief Complaint: Sacral pressure ulcer x 3 weeks History of Wound: This Is a 44-year-old white male with a past medical history as listed above significant for HIV, paraplegia, prior stage IV sacral pressure injury, and chronic neuropathy. The patient states that his wound to his sacral area reopened approximately 3 to 4 weeks ago and they have been using wet-to-dry dressings and Dakin's. He does have a caregiver who lives at home with them. He states that he spends most of his time in either a chair or a bed. He does have a pressure relieving air mattress and a Roho cushion. Denies any other treatments at this time. Denies any systemic or localized signs of infection. He does state that his viral load is detectable at this time. All other systems reviewed and negative with exception of those listed above. He does also note that he is a smoker and that he has a chronic colostomy as well. Progress of Wound: Wound size is Larger in size this week, patient and caregiver stated that the prior product that was utilized and secured with Steri's and Adaptic was rubbing against the wound and causing it to be larger.They would like to go back to utilizing silver cell and optifoam. New cultures will be collected today. - Physical Exam Vital Signs Temp Pulse Resp BP 96.6 F L 72 16 126/79 H 08/31/19 13:08/31/19 13:01 08/31/19 13:01 08/31/19 13:01 General: Alert, Oriented x3, Cooperative, No apparent distress HEENT: Atraumatic Oral: Moist Mucosa Lungs: Clear to auscultation Cardiovascular: Regular rate Abdomen: Soft, Non Tender, Obese Extremities: - - Chronic lower extremity weakness Skin: Ulcer/ Wound - See nursing documentation, slough and devitalized tissue present to sacral pressure injury, ulceration is larger this week and there are visible excoriations consistent with that of probable scratch meléndez around the wound Wound Measurements and Assessment WC - Nurse 1 - General Ulcer Measurement Start: 08/10/19 12:59 Freq: Status: Active Protocol: Activity Type Activity Date Activity User E-Sign Co-Sign Detail Recorded Client Recorded Date Recorded By Document 08/31/19 13:01 CS [id number] 08/31/19 13:07 CS 08/31/19 13:01 Wound Center Nurse 1 [Ulcer Assessment] #1 left upper buttock/lumbar -Combined with other wound No -Current Size (cm) - Length 2.0 -Current Size (cm) - Width 1.6 -Current Size (cm) - Depth 0.3 -Total Square Cm 3.20 -Photo Taken No -Epithelialization None Present -Tunneling No -Undermining/Tunneling No -Circular Undermining No -Exudate Amt Medium -Exudate Type Serous -Wound Margin Distinct, Outline Attached -Granulation Amt Large (67-100%) -Granulation Quality Red -Slough/Fibrin Yes -Necrosis Amt None Present (0 %) -Necrotic Tissue Type Adherent Slough -Structure Exposed N/A -Texture (Martine-wound Skin Appearance) Scarring -Moisture (Martine-wound Skin Appearance No Abnormality, ) Assessed -Color (Martine-wound Skin Appearance) No Abnormality, Assessed -Temperature (Martine-wound Skin No Abnormality Appearance) (Pt Warm) -Tenderness on Palpation (Martine-wound No Skin Appearance) -Ulcer Cleansing Wound Cleanser -Foul Odor after Cleansing No -Anesthetic Used 5% Lidocaine Gel [Edema Assessment] -Lower Limb Edema Present NA - Nurse 2 - General Ulcer CM Notes Start: 08/10/19 12:59 Freq: Status: Active Protocol: Activity Type Activity Date Activity User E-Sign Co-Sign Detail Recorded Client Recorded Date Recorded By Document 08/31/19 13:18 MW [id number] 08/31/19 13:29 MW 08/31/19 13:18 Wound Center Nurse 2 [Procedure/Treatment] #1 left upper buttock/lumbar -Time 13:18 -Correct Patient Yes -Correct Side, Site, Position Yes -Correct Procedure Yes -Procedure Performed Yes -Type of Procedure Debridement -Clinical Debridement Subcutaneous -Post Debridement Size (cm) - Length 2.0 -Post Debridement Size (cm) - Width 2.5 -Post Debridement Size (cm) - Depth 0.5 -Total Square Cm 5.00 -Wound/Ulcer Outcome Not Healed -Ulcer Cleansing Rinsed/ Irrigated with Saline -Foul Odor after Cleansing No -Bioengineered Tissue No -Bleeding Controlled with Pressure -Offloading No -Treatment Response Procedure Tolerated Well [See Physician Procedure note for Specifics] Pain Scale: 0-10 Numeric [Pain] -Is Patient Pain Free? Yes Neurological: Neuro grossly intact Psych/Mental Status: Normal Affect, Appropriate, Alert and oriented to time, place, person, mood and affect Debridement Note Post-Debridement Measurements/Treatment WC - Nurse 2 - General Ulcer CM Notes Start: 08/10/19 12:59 Freq: Status: Active Protocol: Activity Type Activity Date Activity User E-Sign Co-Sign Detail Recorded Client Recorded Date Recorded By Document 08/10/19 13:37 MW [id number] 08/10/19 13:43 MW Document 08/24/19 13:20 MW [id number] 08/24/19 13:29 MW Document 08/31/19 13:18 MW [id number] 08/31/19 13:29 MW 08/10/19 08/24/19 08/31/19 13:37 13:20 13:18 Wound Center Nurse 2 #1 left upper buttock/lumbar -Time 13:39 13:21 13:18 -Correct Patient Yes Yes Yes -Correct Side, Site, Position Yes Yes Yes -Correct Procedure Yes Yes Yes -Procedure Performed Yes Yes Yes -Type of Procedure Debridement Debridement Debridement -Clinical Debridement Subcutaneous Subcutaneous Subcutaneous -Post Debridement Size (cm) - Length 1.1 1.0 2.0 -Post Debridement Size (cm) - Width 1.0 0.8 2.5 -Post Debridement Size (cm) - Depth 0.2 0.2 0.5 -Total Square Cm 1.10 0.80 5.00 -Wound/Ulcer Outcome Not Healed Not Healed Not Healed -Ulcer Cleansing Rinsed/ Rinsed/ Rinsed/ Irrigated with Irrigated with Irrigated with Saline Saline Saline -Foul Odor after Cleansing No No No -Bioengineered Tissue No No No -Type of bioengineered Tissue [id number] -Expiration Date 05/19/21 -Product Lot Number [id number] -Percent Used 100 -Saline Lot Number [id number] -Bleeding Controlled with Pressure Pressure Pressure -Offloading No No No -Treatment Response Procedure Procedure Procedure Tolerated Well Tolerated Well Tolerated Well Pain Scale: 0-10 Numeric Is Patient Pain Free? Yes Yes Yes Wound debrided: Stage II pressure injury to sacrum Type of Debridement: Excisional debridement Anesthesia Used: 5% Lidocaine Gel Depth: in the subcutaneous layer Percentage of wound debrided: 100 Instrument Used: 5mm curette Tissue Removed: Slough and devitalized tissue Severity: Fat Layer Exposed Amount of bleeding with debridement: Mild Bleeding Controlled with: Pressure Patient tolerated procedure well Assessment/Plan Active Problems Paraplegia (Chronic) Pressure injury of sacral region, stage 2 (Acute) Assessment: Stage II sacral pressure injury, HIV, paraplegia, neuropathy, tobacco abuse, colostomy status, hypertension Plan: The patient was seen and examined at the wound center today and was updated on the plan of care. A subcutaneous debridement was performed today. The patient tolerated the procedure well. The patients wound care will consist of: Rinsing the wound with Dakin solution daily and applying silver cell nonadherent Cover with ABD or optifoam for offloading change daily. Given the duration of his ulceration, will apply for an advanced skin substitute as it is been present for over 4 weeks now. Continue with offloading measures and utilizing his offloading mattress and Roho cushion. Wound cultures were collected today. Baseline bloodwork held at this time, will consider getting if no improvement next week. Patient educated on the importance of diet on wound healing and instructed to increase protein and vitamin C intake. Rx for Ensure high-protein given the patient. Patient verbalized understanding. Patient will follow up at wound healing center in one week or sooner if needed. This note was generated with [employer] software. It may contain incorrect words, spelling, and punctuation that were not noted in checking the note before signing. Code Visit [id number]: [id number] Estelita subq tissue 20 sq cm/<
== END 2019-09-01 23:59 ==
LOC: WC 13:00
PROVIDERS: Referring Provider Nurse Practitioner Family; Visit Provider Nurse Practitioner Family
DX: L89.152 Pressure ulcer of sacral region, stage 2 (principal); I25.10 Atherosclerotic heart disease of native coronary artery without angina pectoris; B20 Human immunodeficiency virus [HIV] disease; G82.20 Paraplegia, unspecified; Z93.3 Colostomy status; F17.200 Nicotine dependence, unspecified, uncomplicated; Z79.899 Other long term (current) drug therapy; Z79.82 Long term (current) use of aspirin; I10 Essential (primary) hypertension
CPT/HCPCS: 11042; 15271; 87070; 87075; 87077; 87186; 87205; 99213; Q4196; G0463

== ENCOUNTER 2019-09-02 08:42 | Emergency (ER) | payer MEDICAID, SELFPAY ==
[2019-09-02 08:43] VITALS: BP 117/76; PULSE 95; RESP 18; TEMP 37.1; O2SAT 92; BMI 35.6
--- NOTE | 2019-09-02 09:09 | RAD_ITS ---
STUDY: X-RAY CHEST REASON FOR EXAM: Male, 44 years old. Fever-- debridement of tailbone wound/infection 9 days ago TECHNIQUE: Single AP portable view of the chest. COMPARISON: 08/30/2019. FINDINGS: The lungs are clear and expanded. There is no demonstrated pleural abnormality. Normal size heart. Normal mediastinum and diogo. Normal visualized pulmonary arteries. Normal visualized aortic arch and descending thoracic aorta. There are mild degenerative changes in the visualized thoracic spine. Normal visualized ribs, clavicles, and shoulders. There is no demonstrated abnormality of the visualized soft tissue structures of the upper abdomen. RAD/Chest 1 View (Portable) IMPRESSION: No active pulmonary disease. Electronically Signed: Ortiz Mcmanus MD at 10:50 EST Tel , Service support ,
--- NOTE | 2019-09-02 09:09 | EKG12_ITS ---
Test Reason : Blood Pressure : / mmHG Vent. Rate : 083 BPM Atrial Rate : 234 BPM P-R Int : 000 ms QRS Dur : 082 ms QT Int : 426 ms P-R-T Axes : 000 016 -13 degrees QTc Int : 500 ms Normal sinus rhythm Inferior infarct , age undetermined Prolonged QT Abnormal ECG Confirmed by DIANA AGUILAR, MAX ([id number]), editor magazine [employer]ILLS ([id number]) on 09/05/2019 8:26:26 AM Referred By: No Primary Care Physician Confirmed By:MAX ORTIZ MD
--- NOTE | 2019-09-02 09:12 | ED.VIS.GEN ---
History of Present Illness Chief Complaint: Fever Informant: Patient Onset: Today Context: Gradual Onset Timing: Continuous Current Severity: Mild Maximum Severity: Moderate Worsened by: n/a Relieved by: tylenol Associated Symptoms: wound pain at tailbone. redness without pain right thigh. Narrative: Patient is a paraplegic due to HIV and developed a pressure ulcer on his tailbone. It was debrided around 2 weeks ago, he had no other surgeries. This was done at the wound center. It was not hurting before that but now it has been and persistently. He has a computer help desk representative that has been concerned about the way the wound has been looking since then. He states that after the debridement there was a dressing placed and they sent a culture, and the dressing was not to be removed for 1 week. Since that his caretakers been doing regular dressing changes. He developed a fever this morning and because of that he is concerned about possible infection. He has no other new symptoms except for redness on his right thigh from unknown cause, it is been there for several days to a week, and it is not hurting him. He does have sensation throughout his lower extremities. He is on Macrobid once daily to prophylax against urinary infections, he has an indwelling Gama and states that the urine has been normal-appearing and normal smelling. He does not have a cough or trouble breathing. He has no abdominal pain. He has a diverting colostomy due to wounds in his sacrum/perianal area in the past. - Past Medical History (1) Pressure injury of sacral region, stage 2 Status: Chronic (2) CAD (coronary artery disease) Status: Chronic (3) HIV (human immunodeficiency virus infection) Status: Chronic (4) Neuropathy Status: Chronic (5) Paraplegia Status: Chronic Past Medical History - Allergies and Home Meds Allergies/Adverse Reactions: Allergies atorvastatin [From Lipitor] Adverse Reaction (Verified 08/10/19 13:13) Nausea/Vom/Diarrhea ciprofloxacin [From Cipro] Adverse Reaction (Verified 08/10/19 13:13) Nausea/Vom/Diarrhea morphine Adverse Reaction (Verified 08/10/19 13:13) HALLUCINATIONS Primary Care Physician: Care Physician,No Primary [Primary Care Provider] - Surgical History: - - colostomy, tail bone shaved Lives: Spouse/ Significant Other - And computer help desk representative Smoking Status: Current every day smoker Review of Systems General: Reports: Fever, Malaise. Denies: Chills, Sweats Eyes: Denies: Visual changes - bilaterally, Diplopia ENT: Denies: Rhinorrhea, Sore throat Cardiovascular: Denies: Chest pain, Palpitations Respiratory: Denies: Dyspnea, Cough, Dyspnea on exertion Gastrointestinal: Denies: Abdominal pain, Nausea, Vomiting, Diarrhea, Melena, Hematochezia Genitourinary: Denies: Dysuria, Hematuria, Frequency Musculoskeletal: Reports: Back pain - At tailbone. Denies: Swelling, Extremity Pain Skin: Reports: Wounds - Sacral. Denies: Rash Neurological: Reports: Weakness - Lateral lower extremity, chronic. Denies: Headache, Numbness Physical Exam Vital Signs/Narrative: Vital Signs Temp Pulse Resp BP Pulse Ox 09/02/19 08:43 98.7 F 95 18 117/76 92 Inital Vital Signs reviewed: Yes General: Well nourished, Well developed, No Acute Distress Head: Normocephalic, Atraumatic Eyes: Perrl, EOMI ENT: Moist mucous membranes, No rhinorrhea Neck: Supple, Nontender Cardiovascular: Regular rate, Regular rhythm, No murmurs Respiratory: No distress, CTA bilaterally, Chest nontender Abdomen: Soft, Nontender, Nondistended, Normal bowel sounds, - - Colostomy site is benign, normal-appearing stool in colostomy Back: Normal Inspection. Negative for: CVA tenderness Extremities: Nontender, No edema Skin: Normal color, No rash, - - Ulcerated wound on sacrum, approximately 2 cm in diameter with a satellite erosion just to the left. There is minimal surrounding erythema just around the wound itself, only the wound itself is tender none of the surrounding areas. There is nontender erythema anterior right thigh that is separate from all of this wound and does not have a wound within it. Neurological: Alert, Oriented x3, Cranial nerves II-XII grossly intact, Normal Sensation, Weakness - Both lower extremities paralyzed Psychological: Normal affect, Normal Mood Diagnostic/Tx/Re-eval Impressions Chest X-Ray 09/02/19 09:09 IMPRESSION: No active pulmonary disease. Electronically Signed: Ortiz Mcmanus MD at 10:50 EST Tel , Service support , Sacrum and Coccyx X-Ray 09/02/19 09:23 IMPRESSION: No demonstrated acute osseous changes. If symptoms persist, further evaluation with three-phase bone scan or CT scan the pelvis might be of further value. Electronically Signed: Ortiz Mcmanus MD at 10:52 EST Tel , Service support , 09/02/19 09:09 Chest 1 View (Portable) [RAD] Stat 09/02/19 09:23 Sacrum-Coccyx min 2 Views [RAD] Stat Laboratory Results 09/02/19 09/02/19 09/02/19 09:45 10:05 10:05 WBC 10.2 RBC 4.65 Hgb 14.8 Hct 46.2 MCV 99.4 H MCH 31.8 MCHC 32.0 RDW Std Deviation 51.9 H RDW Coeff of Campos 14.3 Plt Count 193 MPV 8.9 Immature Gran % (Auto) 0.400 Neut % (Auto) 81.3 H Lymph % (Auto) 13.3 L [place] % (Auto) 4.2 Eos % (Auto) 0.5 Baso % (Auto) 0.3 Absolute Neuts (auto) 8.3 H Absolute Lymphs (auto) 1.35 Nucleated RBC % 0 PT 14.5 INR 1.1 APTT 34.2 Sodium Potassium Chloride Carbon Dioxide Anion Gap BUN Creatinine Estim Creat Clear Calc Est GFR (MDRD) Af Amer Est GFR (MDRD) Non-Af BUN/Creatinine Ratio Glucose Lactic Acid Calcium Total Bilirubin AST ALT Alkaline Phosphatase Total Protein Albumin Globulin Albumin/Globulin Ratio Urine Color Yellow Urine Clarity Sl. Cloudy Urine pH 6.5 Ur Specific [place] 1.015 Urine Protein 100 H Urine Glucose (UA) Normal Urine Ketones 5 H Urine Occult Blood 150 H Urine Nitrite Positive H Urine Bilirubin Negative Urine Urobilinogen Normal Ur Leukocyte Esterase 500 H Urine RBC 0-5 SEEN Urine WBC 25-50 SEEN Ur Squamous Epith Cells 0 SEEN Urine Bacteria 2+ Urine Mucus 0 SEEN 09/02/19 09/02/19 10:05 10:05 WBC RBC Hgb Hct MCV MCH MCHC RDW Std Deviation RDW Coeff of Campos Plt Count MPV Immature Gran % (Auto) Neut % (Auto) Lymph % (Auto) [place] % (Auto) Eos % (Auto) Baso % (Auto) Absolute Neuts (auto) Absolute Lymphs (auto) Nucleated RBC % PT INR APTT Sodium 141 Potassium 4.0 Chloride 110 H Carbon Dioxide 26.0 Anion Gap 5 BUN 19 H Creatinine 1.69 H Estim Creat Clear Calc 63.04 Est GFR (MDRD) Af Amer 57 L Est GFR (MDRD) Non-Af 47 L BUN/Creatinine Ratio 11.2 Glucose 99 Lactic Acid 0.7 Calcium 8.6 Total Bilirubin 0.60 AST 11 L ALT 16 Alkaline Phosphatase 136 H Total Protein 7.2 Albumin 2.9 L Globulin 4.3 H Albumin/Globulin Ratio 0.7 L Urine Color Urine Clarity Urine pH Ur Specific [place] Urine Protein Urine Glucose (UA) Urine Ketones Urine Occult Blood Urine Nitrite Urine Bilirubin Urine Urobilinogen Ur Leukocyte Esterase Urine RBC Urine WBC Ur Squamous Epith Cells Urine Bacteria Urine Mucus - Rhythm Strip Rhythm Strip: Sinus Rhythm Rate: 83 Ectopy: None - EKG Initial EKG Interpretation: Sinus Rhythm, No Acute Injury Pattern, - - Artifact present from back stimulator - Medical Decision Making Patient's wound does not appear to be infected. In palpating the tissue around it, there is very little tissue between the skin and the bone so I obtained an x-ray, it shows no erosions to suggest osteomyelitis. His urine does appear to be infected. This was sent for culture and he was treated with Rocephin but he is not septic and I feel he is stable to be discharged back home. Patient is comfortable with that plan of following up. ED Disposition - Plan for ED Patient: Disposition: Home or Assisted Living Diagnosis: UTI (urinary tract infection), Pressure injury of sacral region, stage 2 Instructions: Understanding Urinary Tract Infections (UTIs) Prescriptions: Smz/Tmp Ds [Bactrim Ds] 1 tab PO BID #14 tab Transmission Status: Pending to [facility] Referrals: Doctor,Your [STAFF PHYSICIAN] - 3-5 Days
--- NOTE | 2019-09-02 09:23 | RAD_ITS ---
STUDY: X-RAY - SACRUM/COCCYX REASON FOR EXAM: Male, 44 years old. Debridement of tailbone wound/infection 9 days ago TECHNIQUE: 3 view(s) of the sacrum and coccyx were obtained. COMPARISON: None. FINDINGS: Normal bilateral sacroiliac joints. Normal visualized sacral ala and fused sacral bodies. Suboptimal visualization of the sacrococcygeal junction. There are pelvic calcifications probably due to phlebolith. RAD/Sacrum-Coccyx min 2 Views IMPRESSION: No demonstrated acute osseous changes. If symptoms persist, further evaluation with three-phase bone scan or CT scan the pelvis might be of further value. Electronically Signed: Ortiz Mcmanus MD at 10:52 EST Tel , Service support ,
[2019-09-02 10:11] VITALS: PULSE 83; RESP 18; TEMP 36.8; O2SAT 93
[2019-09-02 10:15] LABS: Mucous, Urine 0 SEEN /hpf (<or=2+); Squamous Epithelial Cells - UA 0 SEEN /hpf (0-5)
[2019-09-02 10:17] LABS: Color, Urine Yellow (Yellow); Glucose, Dipstick Normal (Normal); Ketone-Dipstick 5 mg/dl (Negative); Leukocyte Esterase-Dipstick 500 /ul (Negative); Nitrite-Dipstick Positive (Negative); Occult Blood-Urine 150 /ul (Negative); Protein-Dipstick 100 mg/dl (Negative); Specific Gravity, Urine 1.015 (1.002-1.030); Urine Bilirubin Dipstick Negative (Negative); Urine Clarity Sl. Cloudy (Clear); Urine Urobilinogen Normal (Normal); Urine pH 6.5 (5.0 - 8.0)
[2019-09-02 10:19] LABS: Absolute Lymphocyte Count 1.35 X10^3/uL (0.83-4.51); Absolute Neutrophil Count 8.3 X10^3/uL (2.0-7.7); Basophil# 0.03 X10^3/uL; Basophil% 0.3 % (0-1); Eosinophil# 0.05 X10^3/uL; Eosinophils% 0.5 % (0-5); Hematocrit 46.2 % (40-54); Hemoglobin 14.8 g/dL (13.0-16.5); Lymphocyte # 1.35 X10^3/ul (4.0); Lymphocyte % 13.3 % (19-41); Mean Corpuscular Hgb 31.8 pg (27.0-32.0); Mean Corpuscular Volume 99.4 fL (80-94); Mean Platelet Vol. 8.9 fl (6.2-12.0); Monocyte# 0.43 X10^3/uL; Monocyte% 4.2 % (0-10); NRBC Flagged by Analyzer 0 % (0-5); Neutrophil # 8.28 X10^3/uL (2.7-7.7); Neutrophil % 81.3 % (47-70); Platelet Count 193 K/mm3 (150-450); RBC Distribution Width CV 14.3 % (11.6-14.6); RBC Distribution Width SD 51.9 fl (35.1-43.9); Red Blood Count 4.65 M/mm3 (4.6-6.2); White Blood Count 10.2 K/mm3 (4.4-11.0)
[2019-09-02 10:24] LABS: Bacteria 2+ /hpf (None Seen); Red Blood Cells-Urine 0-5 SEEN /hpf (0-5); White Blood Cells 25-50 SEEN /hpf (0-5)
[2019-09-02 10:25] LABS: International Normalized Ratio 1.1; Prothrombin Time (Protime)PT. 14.5 SECONDS (11.7-14.9)
[2019-09-02 10:26] LABS: Partial Thromboplast Time 34.2 Seconds (24.1-36.2)
[2019-09-02 10:34] LABS: ALB/GLOB Ratio 0.7 RATIO (0.9-2.4); AST(SGOT) 11 U/L (15-37); Alanine Aminotransfer ALT/SGPT 16 U/L (16-61); Albumin, Serum 2.9 g/dL (3.2-5.0); Alkaline Phosphatase 136 U/L (45-117); Anion Gap 5 (5-15); BUN 19 mg/dL (7-18); BUN/Creat Ratio 11.2 RATIO (10-20); Calcium,Total 8.6 mg/dL (8.5-10.1); Chloride 110 mmol/L (98-107); Creatinine, Serum 1.69 mg/dL (0.70-1.30); EST Glomerular Filtration Rate 47 mL/min (>60); Est Glom Filt Rate - Afr Amer 57 mL/min (>60); Estimated Creatinine Clearance 63.04 ml/min; Globulin 4.3 g/dL (2.2-4.2); Glucose 99 mg/dL (74-106); Protein, Total 7.2 g/dL (6.4-8.2); Sodium Level 141 mmol/L (136-145)
[2019-09-02] MEDS: 0.9% Normal Saline 1,000 ML 150 ML IV (10:38)
[2019-09-02 10:45] LABS: Lactic Acid 0.7 mmol/L (0.4-1.9)
[2019-09-02 11:37] VITALS: BP 125/94; PULSE 89; RESP 18; TEMP 36.9; O2SAT 93
[2019-09-02] MEDS: Ceftriaxone 1 GM/50 ML BAG IV (13:11)
[2019-09-02 13:57] VITALS: RESP 16
== END 2019-09-02 14:12 | disposition home or self-care (01) ==
PROVIDERS: Emergency Provider Emergency Medicine
DX: N39.0 Urinary tract infection, site not specified (principal); L89.152 Pressure ulcer of sacral region, stage 2; G82.20 Paraplegia, unspecified; I25.10 Atherosclerotic heart disease of native coronary artery without angina pectoris; F17.200 Nicotine dependence, unspecified, uncomplicated; Z88.1 Allergy status to other antibiotic agents; Z93.3 Colostomy status; Z21 Asymptomatic human immunodeficiency virus [HIV] infection status
CPT/HCPCS: 71045; 72220; 80053; 81001; 83605; 85025; 85610; 85730; 87040; 87086; 87088; 93005; 99285; J7030; A4216

== ENCOUNTER 2019-09-03 03:38 | Emergency (ER) | payer MEDICAID, SELFPAY ==
[2019-09-02 08:43] VITALS: BMI 35.6
[2019-09-03 03:40] VITALS: BP 150/90; PULSE 89; RESP 18; TEMP 37.1; O2SAT 95; BMI 35.6
--- NOTE | 2019-09-03 04:17 | ED.VIS.GEN ---
History of Present Illness Chief Complaint: Nausea/Vomiting Narrative: The patient was seen yesterday morning for a low-grade temperature was diagnosed with a UTI. He received Rocephin and given a prescription for Bactrim. He states that on the drive home he had 2 episodes of vomiting. He arrived home around 1500 hrs. Around 4:00 he ate a bagel. Shortly thereafter he began to vomit and has been unable to tolerate p.o. since. He notes his stools in the colostomy bag are still formed. He states that his urine is very dark. He is worried about being able to keep his antibiotics down since he has been vomiting. No recurrence of the fever. No significant abdominal pain. No history of small bowel obstruction. Past Medical History - Allergies and Home Meds Allergies/Adverse Reactions: Allergies atorvastatin [From Lipitor] Adverse Reaction (Verified 09/03/19 03:57) Nausea/Vom/Diarrhea ciprofloxacin [From Cipro] Adverse Reaction (Verified 09/03/19 03:57) Nausea/Vom/Diarrhea morphine Adverse Reaction (Verified 09/03/19 03:57) HALLUCINATIONS Surgical History: - - colostomy, tail bone shaved Smoking Status: Current some day smoker Review of Systems General: Reports: Fever. Denies: Chills, Sweats Eyes: Denies: Visual changes - bilaterally, Diplopia ENT: Denies: Rhinorrhea, Sore throat Cardiovascular: Denies: Chest pain, Palpitations Respiratory: Denies: Dyspnea, Cough, Dyspnea on exertion Gastrointestinal: Reports: Nausea, Vomiting. Denies: Abdominal pain, Diarrhea, Melena, Hematochezia Genitourinary: Denies: Dysuria, Hematuria, Frequency Musculoskeletal: Denies: Back pain, Extremity Pain Skin: Denies: Rash, Wounds Neurological: Denies: Headache, Weakness, Numbness Physical Exam Vital Signs/Narrative: Vital Signs Temp Pulse Resp BP Pulse Ox 09/03/19 03:40 98.7 F 89 18 150/90 H 95 Inital Vital Signs reviewed: Yes General: Well nourished, Well developed, Obese, No Acute Distress Head: Normocephalic, Atraumatic Eyes: Perrl, EOMI ENT: Moist mucous membranes, No rhinorrhea Neck: Supple, Nontender Cardiovascular: Regular rate, Regular rhythm, No murmurs Respiratory: No distress, CTA bilaterally, Chest nontender Abdomen: Soft, Nontender, Nondistended, Normal bowel sounds, - - Colostomy bag in place Back: Nontender, Normal Inspection Extremities: Nontender, No edema Skin: Normal color, No rash Neurological: Alert, Oriented x3, Cranial nerves II-XII grossly intact Psychological: Normal affect, Normal Mood Diagnostic/Tx/Re-eval - Medical Decision Making Patient's white count is normal at 7. Creatinine slightly elevated 1.72 but he is not significantly changed from his chronic kidney disease labs. Patient received a liter of IV fluids as well as Phenergan. He is tolerating p.o. He is making urine however the urine is fairly dark in the Gama bag. He will receive a second liter of IV fluids. I will write for Phenergan at home. He is to continue his antibiotics return if worsening or concerns ED Disposition - Plan for ED Patient: Disposition: Home or Assisted Living Diagnosis: Vomiting, UTI (urinary tract infection) Instructions: VOMITING (6y-Adult) Prescriptions: proMETHazine tablet [Phenergan] 25 mg PO Q6H PRN PRN #20 tab PRN Reason: Nausea Prescription Printed Additional Instructions: Please follow-up with your doctors next week.
[2019-09-03] MEDS: proMETHazine 25 MG/ML Syringe 12.5 MG IV (04:38)
[2019-09-03 04:47] LABS: Absolute Lymphocyte Count 0.98 X10^3/uL (0.83-4.51); Absolute Neutrophil Count 6.1 X10^3/uL (2.0-7.7); Basophil# 0.01 X10^3/uL; Basophil% 0.1 % (0-1); Eosinophil# 0.01 X10^3/uL; Eosinophils% 0.1 % (0-5); Hematocrit 47.5 % (40-54); Hemoglobin 15.7 g/dL (13.0-16.5); Lymphocyte # 0.98 X10^3/ul (4.0); Lymphocyte % 12.8 % (19-41); Mean Corp Hgb Conc 33.1 g/dL (32-36); Mean Corpuscular Hgb 32.7 pg (27.0-32.0); Monocyte# 0.52 X10^3/uL; Monocyte% 6.8 % (0-10); NRBC Flagged by Analyzer 0 % (0-5); Neutrophil # 6.11 X10^3/uL (2.7-7.7); Neutrophil % 79.7 % (47-70); Platelet Count 243 K/mm3 (150-450); RBC Distribution Width CV 13.9 % (11.6-14.6); RBC Distribution Width SD 51.2 fl (35.1-43.9); White Blood Count 7.7 K/mm3 (4.4-11.0)
[2019-09-03] MEDS: 0.9% Normal Saline 1,000 ML 1000 ML IV ×2 (05:04→06:16)
[2019-09-03 05:11] LABS: ALB/GLOB Ratio 0.6 RATIO (0.9-2.4); AST(SGOT) 14 U/L (15-37); Alanine Aminotransfer ALT/SGPT 17 U/L (16-61); Albumin, Serum 3.2 g/dL (3.2-5.0); Alkaline Phosphatase 142 U/L (45-117); Anion Gap 6 (5-15); BUN 22 mg/dL (7-18); BUN/Creat Ratio 12.8 RATIO (10-20); Calcium,Total 9.1 mg/dL (8.5-10.1); Chloride 106 mmol/L (98-107); Creatinine, Serum 1.72 mg/dL (0.70-1.30); EST Glomerular Filtration Rate 46 mL/min (>60); Est Glom Filt Rate - Afr Amer 56 mL/min (>60); Estimated Creatinine Clearance 61.94 ml/min; Globulin 5.1 g/dL (2.2-4.2); Glucose 119 mg/dL (74-106); Lipase 102 U/L (73-393); Potassium 3.4 mmol/L (3.5-5.1); Protein, Total 8.3 g/dL (6.4-8.2); Sodium Level 143 mmol/L (136-145)
[2019-09-03 06:59] VITALS: BP 149/92; PULSE 89; RESP 14; O2SAT 93
[2019-09-03] MEDS: 0.9% Normal Saline 1,000 ML 999 ML IV (07:40)
[2019-09-03 09:24] VITALS: BP 166/91; PULSE 85; RESP 18; O2SAT 95
== END 2019-09-03 09:25 | disposition home or self-care (01) ==
PROVIDERS: Emergency Provider Emergency Medicine
DX: N39.0 Urinary tract infection, site not specified (principal); Z88.1 Allergy status to other antibiotic agents; Z93.3 Colostomy status
CPT/HCPCS: 80053; 83690; 85025; 99285; J7030; A4216

== ENCOUNTER 2019-09-04 12:45 | Inpatient (IN) | payer MEDICAID, SELFPAY ==
[2019-09-03 03:40] VITALS: BMI 35.6
[2019-09-04] VITALS (27 sets, daily range): BP systolic 104–161; BP diastolic 61–102; PULSE 74–139; RESP 11–92; TEMP 36.9–39; O2SAT 26–97; BMI 34.3; BMI 34.5; BMI 34.6
--- NOTE | 2019-09-04 13:15 | RAD_ITS ---
STUDY: X-RAY CHEST REASON FOR EXAM: Male, 44 years old. DIARRHEA, NAUSEA, FEVER, VOMITING, UTI, HX HTN, UT, HIV TECHNIQUE: Single AP portable view of the chest. COMPARISON: Comparison is made with prior study dated September 02, 2019. FINDINGS: EKG electrodes are seen. Hyperinflation. Scattered calcified granulomas. There is no demonstrated pleural abnormality. Normal size heart. Normal mediastinum and diogo. Normal visualized pulmonary arteries. Normal visualized aortic arch and descending thoracic aorta. There are diffuse degenerative changes of the visualized thoracic spine. Normal visualized ribs, clavicles, and shoulders. There is no demonstrated abnormality of the visualized soft tissue structures of the upper abdomen. RAD/Chest 1 View (Portable) IMPRESSION: Hyperinflation. The lungs are clear. Electronically Signed: Jean Herbert, at 13:37 EST , Service support ,
--- NOTE | 2019-09-04 13:15 | EKG12_ITS ---
Test Reason : ILLNESS Blood Pressure : / mmHG Vent. Rate : 125 BPM Atrial Rate : 125 BPM P-R Int : 126 ms QRS Dur : 094 ms QT Int : 356 ms P-R-T Axes : 034 018 053 degrees QTc Int : 513 ms Sinus tachycardia Possible Left atrial enlargement Inferior infarct , age undetermined , cannot be excluded Abnormal ECG Confirmed by NEGRITO AGUILAR, MARE ([id number]), book editor [employer]S ([id number]) on 09/06/2019 8:54:12 AM Referred By: EDUARDA Confirmed By:MARE MAHAN MD
--- NOTE | 2019-09-04 13:21 | ED.VISSUMM ---
- ER Visit Summary Date of Service: 09/04/19 Chief Complaint: Fever History of Present Illness: The patient is a [address] of HIV and paraplegia. Patient is also had prior [place] with 2 cardiac stents. Only blood thinning medication is on his aspirin. He has known renal insufficiency. And back and buttock wounds from his paraplegia. Patient's been ill for the last 3+ days with a fever. Been seen in the emergency department diagnosed with a UTI. He is on home antibiotics but has been unable to keep them down as of in the last 24+ hours has had nausea, vomiting and diarrhea. States he feels dehydrated. Physical Examination: Middle-aged male vital signs initial blood pressure 107 64 temperature 102.2 heart rate 107. Pulse ox 93% on oxygen. With O2 is non-hypoxic. H EENT exam dry mucous members. Neck nontender no meningismus no lymphadenopathy. Lungs clear to auscultation bilaterally. Heart tachycardic no murmur. Patient is abdomen soft nontender normal bowel sounds no peritoneal signs. He does have a colostomy. Extremities upper extremities neurovascular intact with normal touch sensation and strength. Lower extremities have severe weakness bilaterally. He does have limited movement to his feet. Her extremities are in padded braces. Neurologically is awake alert. He has normal movement and sensation of his upper extremities. He has paraplegia in his lower extremities. Test Results: Chest x-ray portable 1 view no acute abnormality read by myself and the radiologist. Sinus tachycardia rate of 125. CBC white count of 15.9 hemoglobin 17 no bands. Chemistries sodium 149 potassium of 2.9 BUN 35 creatinine 2.64. Liver enzymes unremarkable PT PTT INR unremarkable lactic acid elevated 4.3 consistent with septic shock. Patient is receiving 3-1/2 L normal saline for 30 cc/kg. Tylenol for his fever and IV Rocephin. Cultures have been obtained. Multiple repeat exams he is requiring O2 but currently on 4 L his sat is 95%. His blood pressure currently is 140/70. Emergency Department Course and Treatment: Noise male reportedly a UTI recently. He may be septic and appears dehydrated today. Will undergo sepsis protocol work-up. IV fluid bolus per weight. Tylenol for fever. He will states that soon be started on antibiotics. Treatment Plan: Septic shock treatment. IV fluids. IV antibiotics. Admitted to the ICU of already spoken to the hospitalist. Disposition: Admission Impression: Acute septic shock Acute kidney injury Acute UTI History of paraplegia Dehydration History of HIV This note was generated with [employer] dictation software. It may contain incorrect words, spelling, and punctuation that were not noted in review of the chart prior to signing ED Disposition - Plan for ED Patient: Referrals: Care Physician,No Primary [NON-STAFF] -
[2019-09-04] MEDS: Acetaminophen 500 MG Tablet 1000 MG PO (13:30)
[2019-09-04] MEDS: 0.9% Normal Saline 1,000 ML 999 ML IV ×5 (13:31→16:39)
[2019-09-04 14:16] LABS: Absolute Lymphocyte Count 0.93 X10^3/uL (0.83-4.51); Absolute Neutrophil Count 13.8 X10^3/uL (2.0-7.7); Basophil# 0.02 X10^3/uL; Basophil% 0.1 % (0-1); Hematocrit 53.3 % (40-54); Hemoglobin 17.1 g/dL (13.0-16.5); Lymphocyte # 0.93 X10^3/ul (4.0); Lymphocyte % 5.9 % (19-41); Mean Corp Hgb Conc 32.1 g/dL (32-36); Mean Corpuscular Hgb 32.3 pg (27.0-32.0); Mean Corpuscular Volume 100.6 fL (80-94); Mean Platelet Vol. 9.2 fl (6.2-12.0); Monocyte# 1.05 X10^3/uL; Monocyte% 6.6 % (0-10); NRBC Flagged by Analyzer 0 % (0-5); Neutrophil # 13.78 X10^3/uL (2.7-7.7); Neutrophil % 86.8 % (47-70); Platelet Count 343 K/mm3 (150-450); RBC Distribution Width CV 13.8 % (11.6-14.6); RBC Distribution Width SD 51.6 fl (35.1-43.9); White Blood Count 15.9 K/mm3 (4.4-11.0)
[2019-09-04 14:20] LABS: International Normalized Ratio 1.2; Prothrombin Time (Protime)PT. 15.4 SECONDS (11.7-14.9)
[2019-09-04 14:22] LABS: Partial Thromboplast Time 27.7 Seconds (24.1-36.2)
[2019-09-04 14:25] LABS: ALB/GLOB Ratio 0.6 RATIO (0.9-2.4); AST(SGOT) 16 U/L (15-37); Alanine Aminotransfer ALT/SGPT 19 U/L (16-61); Albumin, Serum 3.2 g/dL (3.2-5.0); Alkaline Phosphatase 126 U/L (45-117); Anion Gap 9 (5-15); BUN 35 mg/dL (7-18); BUN/Creat Ratio 13.3 RATIO (10-20); Chloride 106 mmol/L (98-107); Creatinine, Serum 2.64 mg/dL (0.70-1.30); EST Glomerular Filtration Rate 28 mL/min (>60); Est Glom Filt Rate - Afr Amer 34 mL/min (>60); Estimated Creatinine Clearance 40.35 ml/min; Globulin 5.3 g/dL (2.2-4.2); Glucose 135 mg/dL (74-106); Potassium 2.9 mmol/L (3.5-5.1); Protein, Total 8.5 g/dL (6.4-8.2); Sodium Level 149 mmol/L (136-145)
[2019-09-04 14:26] LABS: Lactic Acid 4.3 mmol/L (0.4-1.9)
[2019-09-04 14:49] LABS: Mucous, Urine 0 SEEN /hpf (<or=2+)
[2019-09-04 14:52] LABS: Color, Urine Yellow (Yellow); Glucose, Dipstick Normal (Normal); Ketone-Dipstick 5 mg/dl (Negative); Leukocyte Esterase-Dipstick 100 /ul (Negative); Nitrite-Dipstick Negative (Negative); Occult Blood-Urine 150 /ul (Negative); Protein-Dipstick 100 mg/dl (Negative); Specific Gravity, Urine 1.015 (1.002-1.030); Urine Bilirubin Dipstick Negative (Negative); Urine Clarity Sl. Cloudy (Clear); Urine Urobilinogen Normal (Normal)
[2019-09-04 15:01] LABS: Bacteria 2+ /hpf (None Seen); Red Blood Cells-Urine 0-5 SEEN /hpf (0-5); Squamous Epithelial Cells - UA 0-5 SEEN /hpf (0-5); White Blood Cells 10-25 SEEN /hpf (0-5); Yeast-Urine 3+ /hpf (None Seen)
[2019-09-04] MEDS: Ceftriaxone 1 GM/50 ML BAG IV (15:20)
[2019-09-04] MEDS: Potassium Chloride 10mEq/100mL 10 MEQ/100 ML IV.SOLN. 100 MEQ IV BOLUS ×6 (15:34→23:57)
--- NOTE | 2019-09-04 16:26 | HP.PCM_ITS ---
Problem List (1) Pressure ulcer of coccygeal region Status: Acute Qualifiers: Pressure injury stage: unstageable Qualified Code(s): L89.150 - Pressure ulcer of sacral region, unstageable (2) UTI (urinary tract infection) Status: Acute Qualifiers: Urinary tract infection type: catheter-associated UTI Indwelling urinary catheter type: indwelling urethral catheter Encounter type: subsequent encounter Qualified Code(s): T83.511D - Infection and inflammatory reaction due to indwelling urethral catheter, subsequent encounter; N39.0 - Urinary tract infection, site not specified (3) HIV (human immunodeficiency virus infection) Status: Chronic Qualifiers: HIV symptom status: unspecified Qualified Code(s): B20 - Human immunodeficiency virus [HIV] disease (4) CAD (coronary artery disease) Status: Chronic Qualifiers: Coronary Disease-Associated Artery/Lesion type: [place] artery [place] vs. transplanted heart: [place] heart Associated angina: without angina Qualified Code(s): I25.10 - Atherosclerotic heart disease of [place] coronary artery without angina pectoris (5) Paraplegia Status: Chronic (6) Neuropathy Status: Chronic (7) TIFFANY (acute kidney injury) Status: Acute History of Present Illness Date of Admission: 09/04/19 Chief Complaint: Fever, vomiting - 3 days The patient is a 44 year old M past medical history of HIV and HIV-associated paraplegia/neuropathy, CAD status post 2 stents, chronic indwelling Gama catheter, status post colostomy, sacral pressure ulcer for which she follows up at the wound center who was recently seen in the ED twice for similar complaints of fever and vomiting. Patient was treated for UTI with IV ceftriaxone on 09/02 and discharged home on Bactrim tablets. He returned back complains of vomiting and apparently did well with antiemetic. He was discharged home to complete antibiotics and with some oral antiemetics. He initially felt improved but continued to vomit and was brought back to the emergency department. Patient states that he recently had his wound debrided with cultures taken in the wound center. His wound cultures on 08/31/19 grew Proteus mirabilis, staph aureus, enterococcus. 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 Previous blood cultures on 09/02/19 showed no growth. Vitals in the ED showed temperature 102.2 F, heart rate 133, blood pressure 151/91, respiratory rate was 32, SPO2 was 90% on room air, later deteriorated to SPO2 of 88% on 6 L of oxygen. His blood work showed a BC count of 15.9, hemoglobin 17.1, platelet is 343 INR was 1.2, sodium is 149, potassium 2.9, chloride 106, bicarbonate 34, BUN 35, creatinine is 2.64, Creatinine between 1.5-1.7, lactic acid 4.3, ALP is 126, total bilirubin is 0.6, AST 16, ALT 19. UA slightly cloudy, nitrite neg, WBC 10-25. Chest X-ray is unremarkable. His troponin is elevated at 1.97. EKG shows Past Medical History Past Medical History (Chronic Problems): Chronic Problems HIV (human immunodeficiency virus infection) (Chronic) CAD (coronary artery disease) (Chronic) Paraplegia (Chronic) Neuropathy (Chronic) Pressure injury of sacral region, stage 2 (Chronic) Allergies atorvastatin [From Lipitor] Adverse Reaction (Verified 09/04/19 12:49) Nausea/Vom/Diarrhea ciprofloxacin [From Cipro] Adverse Reaction (Verified 09/04/19 12:49) Nausea/Vom/Diarrhea morphine Adverse Reaction (Verified 09/04/19 12:49) HALLUCINATIONS Home Medications: Ambulatory Orders Medication Instructions Recorded Aspirin E.C. [Ecotrin] 81 mg PO DAILY@0800 08/30/18 Baclofen 20 mg PO 4X/DAY PRN PRN 08/30/18 Cranberry 400 mg PO BID 08/30/18 Darunavir Ethanolate [Prezista] 800 mg PO DAILY 08/30/18 Escitalopram Oxalate [Lexapro] 20 mg PO DAILY 08/30/18 Folic Acid 1 mg PO DAILY@0800 08/30/18 Gabapentin [Neurontin] 800 mg PO BID 08/30/18 Metoprolol Succinate [Toprol Xl] 25 mg PO DAILY 08/30/18 Pravastatin Sodium 40 mg PO QHS 08/30/18 Ritonavir [Norvir] 100 mg PO DAILY 08/30/18 Cyanocobalamin (Vitamin B-12) 1,000 mcg PO DAILY 01/22/19 [B-12] Magnesium Oxide 2 tab PO DAILY 01/22/19 Nitroglycerin 0.4 mg SL X1 01/22/19 Oxcarbazepine 150 mg PO BID 01/22/19 proMETHazine tablet [Phenergan] 25 mg PO Q6H PRN PRN #10 tab 06/02/19 Pramipexole Di-HCl [Pramipexole 0.125 mg PO DAILY 08/10/19 Dihydrochloride] Emtricitabine/Tenofovir (Tdf) 1 tab PO DAILY 09/04/19 [Truvada 200 mg-300 mg Tablet] Oxycodone CR [Oxycontin] 20 mg PO Q12H 09/04/19 Smz/Tmp Ds [Bactrim Ds] 1 tab PO BID 09/04/19 Surgical History: - - colostomy, tail bone shaved Psychiatric History: No pertinent psych hx Lives: Friends Smoking Status: Current every day smoker Tobacco Use: Vapor Alcohol: None Drugs: None - *Family History Maternal History Items: Heart Disease Paternal History Items: Heart Disease Sibling History Items: No pertinent history Review of Systems Constitutional: Reports: Anorexia, Chills, Fever, Malaise, Weakness, Fatigue. Denies: Weight Change Eyes: Denies: Blurred vision, Cataracts, Conjunctivae Inflammation, Pain, Redness, Vision Change HEENT: Denies: Difficulty Hearing, Difficulty Swallowing, Head Aches, Hearing Changes, Sinus Congestion, Sinus Drainage, Sore Throat Cardiovascular: Denies: Chest Pain, Claudication, Chest Tightness, Orthopnea, Palpitations Respiratory: Denies: Cough, Hemoptysis, Shortness of breath at rest, Shortness of breath upon exertion, Sputum production Gastrointestinal: Reports: Nausea, Vomiting, - - Loose stool today. Denies: Abdominal Pain, Constipation, Hematemesis, Hematochezia Genitourinary: Denies: Dysuria Musculoskeletal: Denies: Arm Pain, Back Pain, Joint Pain, Joint stiffness, Joint swelling, Joint Tenderness, Neck Pain, Shoulder Pain Skin: Denies: Pruritis, Rash, Wounds Neurological: Denies: Difficulty swallowing, Focal weakness, Numbness, Tingling Psychiatric: Denies: Anxiety, Depression, Homicidal Ideations, Suicidal Ideations Hematologic/ Lymphatic: Denies: Easy Bruising, Easy Bleeding VTE Information - Inpt Only VTE Present on Admission: No VTE Pharm Prophylaxis ordered?: Yes Patient Problems: Active and Suspected Problems Pressure ulcer of coccygeal region (Acute) - Physical Exam Vitals/I&O's: Vital Signs Temp Pulse Resp BP Pulse Ox 98.4 F 104 H 26 H 161/93 H 91 09/04/19 15:16 09/04/19 15:16 09/04/19 15:16 09/04/19 15:16 09/04/19 15:16 Oxygen Flow Rate (L/min) 4 Oxygen Delivery Method Nasal Cannula Weight: 118.8 kg Body Mass Index (BMI) 34.5 Intake and Output for Last 24 Hours 09/02/19 09/03/19 09/04/19 23:59 23:59 23:59 Intake Total Balance General: Alert, Oriented x3, Cooperative, No apparent distress, - - obese, on 4L oxygen HEENT: Atraumatic, PERRLA, EOMI, Normocephalic Oral: Dry Mucosa Neck: Supple Lungs: Clear to auscultation, Normal air movement Cardiovascular: Regular rate, Regular Rhythm, Normal S1, Normal S2, Tachycardic Abdomen: Bowel Sounds Present, Soft, Non Tender, Non-Distended, No Hepato- splenomegaly Extremities: No edema, - - in offloading boots Skin: - - unstageable sacral coccygeal pressure ulcer, erythema of face, neck and upper body without new rash Musculoskeletal: No Tenderness to Palpation of Joints or Extremities Lymphatic: No Cervical, Supraclavicular, or Inguinal Adenopathy Neurological: Cranial nerves II-XII grossly intact, - - Power is 3-4/5 in both lower legs Psych/Mental Status: Normal Affect, Appropriate Laboratory Results 09/04/19 13:00: WBC 15.9 H, RBC 5.30, Hgb 17.1 H, Hct 53.3, MCV 100.6 H, MCH 32.3 H, MCHC 32.1, RDW Std Deviation 51.6 H, RDW Coeff of Campos 13.8, Plt Count 343, MPV 9.2, Immature Gran % (Auto) 0.600, Neut % (Auto) 86.8 H, Lymph % (Auto) 5.9 L, [place] % (Auto) 6.6, Eos % (Auto) 0.0, Baso % (Auto) 0.1, Absolute Neuts (auto) 13.8 H, Absolute Lymphs (auto) 0.93, Nucleated RBC % 0 09/04/19 13:00: PT 15.4 H, INR 1.2, APTT 27.7 09/04/19 13:00: Sodium 149 H, Potassium 2.9 L, Chloride 106, Carbon Dioxide 34.0 H, Anion Gap 9, BUN 35 H, Creatinine 2.64 H, Estim Creat Clear Calc 40.35, Est GFR (MDRD) Af Amer 34 L, Est GFR (MDRD) Non-Af 28 L, BUN/Creatinine Ratio 13.3, Glucose 135 H, Calcium 9.0, Total Bilirubin 0.60, AST 16, ALT 19, Alkaline Phosphatase 126 H, Total Protein 8.5 H, Albumin 3.2, Globulin 5.3 H, Albumin/Globulin Ratio 0.6 L 09/04/19 13:00: Lactic Acid 4.3 H* 09/04/19 13:00: Troponin I Pending 09/04/19 14:40: Urine Color Yellow, Urine Clarity Sl. Cloudy, Urine pH 8.0, Ur Specific [place] 1.015, Urine Protein 100 H, Urine Glucose (UA) Normal, Urine Ketones 5 H, Urine Occult Blood 150 H, Urine Nitrite Negative, Urine Bilirubin Negative, Urine Urobilinogen Normal, Ur Leukocyte Esterase 100 H, Urine RBC 0-5 SEEN, Urine WBC 10-25 SEEN, Ur Squamous Epith Cells 0-5 SEEN, Urine Bacteria 2+, Urine Mucus 0 SEEN, Urine Yeast 3+ 09/04/19 16:15: Troponin I Pending Current Medications Acetaminophen (Tylenol) 650 mg PO Q6H PRN PRN PRN Reason: Pain Score 1-10/Temp > 100.7 F Al Hydroxide/Mg Hydroxide (Mylanta Ii) 30 ml PO Q6H PRN PRN PRN Reason: Gastric Burning Albuterol Sulfate (Ventolin Aerosols) 2.5 mg INHALATION Q2H PRN PRN PRN Reason: SOB/Wheezing Sodium Chloride () 1,000 mls @ 999 mls/hr IV .Q1H1M ROSALINDA; Protocol Stop: 09/04/19 16:45 Last Admin: 09/04/19 16:06 Dose: 999 mls/hr Documented by: Potassium Chloride () 10 meq in 100 mls @ 100 mls/hr IV BOLUS Q1H ROSALINDA Stop: 09/04/19 17:14 Last Admin: 09/04/19 15:34 Dose: 100 mls/hr Documented by: Sodium Chloride () 1,000 mls @ 100 mls/hr IV .Q10H ROSALINDA Piperacillin Sod/Tazobactam (Sod 3.375 gm/ Sodium Chloride) 50 mls @ 12.5 mls/hr IV Q8 ROSALINDA Vancomycin IV Pharmacy to Dose (1 ea/ Sodium Chloride) 500 mls @ 250 mls/hr IV X1 PRN; Protocol PRN Reason: Rx to Dose Influenza Virus Vaccine Quadrival (Flucelvax /Fluzone ) 0.5 ml IM .ONCE ONE Stop: 09/05/19 10:01 Melatonin (Melatonin) 3 mg PO QHS PRN PRN PRN Reason: INSOMNIA Ondansetron HCl (Zofran) 4 mg IV Q8H PRN PRN PRN Reason: NAUSEA/VOMITING Sodium Chloride () 10 - 40 ml IV UD PRN PRN Reason: SALINE FLUSH Assessment/Plan All Active Problems UTI (urinary tract infection) (Acute) Sepsis (Acute) TIFFANY (acute kidney injury) (Acute) Pressure ulcer of coccygeal region (Acute) 44 year old M with past medical history of HIV and HIV-associated paraplegia/neuropathy, CAD s/p 2 stents, chronic indwelling Gama catheter, status post colostomy, sacral pressure ulcer for which he follows up at the wound center who was recently seen in the ED twice for similar complaints of fever and vomiting. 1. Septic shock (per criteria- 4 SIRS criteria, elevated lactic acid>4), likely secondary to infected sacral decubitus ulcer/possible UTI Patient has received IV ceftriaxone x 1 in the ED and is also on Bactrim We will switch to broad-spectrum antibiotics - IV Zosyn and vancomycin; pharmacy to dose and monitor vancomycin levels Continue on IV fluids per protocol -30mls/kg Repeat lactic acid per protocol - ID and critical care consulted 2. Hypokalemia likely secondary to vomiting, replace, recheck at 7 PM 3. Acute NSTEMI likely secondary to demand ischemia, history of CAD status post stents No chest pain complaint at time of exam. EKG shows no acute ST-T changes Trend troponin, cardiology consult, Lovenox therapeutic dose x1 Will get records of cardiac cath with stents 4. Acute kidney injury on CKD stage III likely secondary to dehydration/prerenal and Bactrim side effect We will continue on IV fluids, repeat BMP at 7 PM and in a.m. 5. Possible acute gram-negative promise UTI, catheter associated, status post 1 dose of IV ceftriaxone and Bactrim over the last 3 days Urine cultures on 09/02/19 growing gram-negative rods Repeat urine culture sent from ED Continue on IV Zosyn pending results 6. Sacral decubitus/pressure ulcer, unstageable, likely source of infection Wound RN consulted 7. HIV with associated paraplegia/neuropathy, continue on HIV medications 8. DVT PPx - given 1 dose of Lovenox SC 8. GI PPx- on famotidine Code Visit Inpatient E&M: 11329 Init Hosp L3
[2019-09-04 16:39] LABS: Magnesium 2.5 mg/dL (1.6-2.6)
--- NOTE | 2019-09-04 16:49 | PCM.RX.CS ---
Consult Pharmacy has been consulted to manage selected antiobiotic: Vancomycin Type of Consult: New start Suspected Infection: Sepsis Prior Doses of Antibiotics Received/Current Regimen: none Labs: Sodium 149 mmol/L (136-145) H 09/04/19 13:00 Potassium 2.9 mmol/L (3.5-5.1) L 09/04/19 13:00 Chloride 106 mmol/L (98-107) 09/04/19 13:00 Carbon Dioxide 34.0 mmol/L (21.0-32.0) H 09/04/19 13:00 Anion Gap 9 (5-15) 09/04/19 13:00 BUN 35 mg/dL (7-18) H 09/04/19 13:00 Creatinine 2.64 mg/dL (0.70-1.30) H 09/04/19 13:00 Est GFR (MDRD) Af Amer 34 mL/min (>60) L 09/04/19 13:00 Est GFR (MDRD) Non-Af 28 mL/min (>60) L 09/04/19 13:00 BUN/Creatinine Ratio 13.3 RATIO (10-20) 09/04/19 13:00 Glucose 135 mg/dL (74-106) H 09/04/19 13:00 Weight used for dosin kg Estimated Creatinine Clearance: 48ml/min Goal Trough: 15-20 mcg/mL Pharmacy Plan for Drug Dosing: Pt to be given a 15mg/kg x1 loading dose of Vancomycin (1750mg) on 09/04/2019 at 1700. Initial dosing recommendation based on pt's weight and crcl is for pt to receive Vancomycin 750mg q12h starting 09/05/2019 at 0600. Trough to be drawn before the 4th total dose on 09/06/2019 at 0530. CrCl was calculated using pt's adjusted body weight of 94.56 kg. pt's CrCl is 48ml/min Pt's SrCr has increased over the last few levels. Pharmacy will continue to monitor levels, and adjust dose accordingly. Pharmacy Service will continue to monitor and adjust dosing as required. Follow-Up Labs: Trough Vancomycin - 09/06/19 @ 0530
--- NOTE | 2019-09-04 17:05 | EKG12_ITS ---
Test Reason : ELEVATED TROP Blood Pressure : / mmHG Vent. Rate : 085 BPM Atrial Rate : 085 BPM P-R Int : 000 ms QRS Dur : 086 ms QT Int : 434 ms P-R-T Axes : 000 005 031 degrees QTc Int : 516 ms Normal Sinus Rhythm Prolonged QT Abnormal ECG When compared with ECG of 02-SEP-2019 09:47, MANUAL COMPARISON REQUIRED, DATA IS UNCONFIRMED Confirmed by LEON PORTER ([id number]), graphics editor ODILON HAYS ([id number]) on 09/08/2019 9:59:36 AM Referred By: DAIANA Confirmed By:LEON PORTER
[2019-09-04] MEDS: 0.9% Normal Saline 1,000 ML 100 ML IV (17:45)
--- NOTE | 2019-09-04 17:55 | ECHOCS_ITS ---
Reason For Study: S/P HI Procedure This was a 2D Doppler, Color Flow transthoracic echocardiogram. The study was technically difficult. Due to body habitus. Contrast injection was performed. Left Ventricle Normal LV size. Mild concentric left ventricular hypertrophy. Left ventricular systolic function is normal. The estimated ejection fraction is 70 %. Normal diastology for age. No regional wall motion abnormalities noted. Right Ventricle Normal RV size. Normal systolic function. Atria Normal left atrium. Normal right atrium. Mitral Valve Normal mitral valve. Tricuspid Valve Normal tricuspid valve. Mild (1+) tricuspid valve insufficiency. Pulmonary artery systolic pressure is 35 mmHg. Aortic Valve The aortic valve is not well visualized. Great Vessels Normal aortic root. The pulmonary artery is normal size. Normal inferior vena cava. Pericardium/Pleural No pericardial effusion. Medication Diluted definity 2.0ml given slow IV push to enhance endocardial definition. MMode/2D Measurements & Calculations LVIDd: 5.4 cm IVSd: 1.2 cm Ao root diam: 3.7 cm LVIDs: 3.9 cm LVPWd: 1.2 cm RVDd: 3.5 cm FS: 27.9 % LAV(MOD-bp): 44.3 ml LA A4 area: 17.1 cm2 LA dimension(2D): 3.4 cm LAV(MOD-bp) Indexed: 18.2 ml/m2 LAV(MOD-sp2): 34.0 ml LAV(MOD-sp4): 48.4 ml Time Measurements MV dec time: 0.18 sec Doppler Measurements & Calculations MV E max edouard: 77.8 cm/sec Lat Peak E' Edouard: 11.0 cm/sec Med Peak E' Edouard: 10.0 cm/sec MV A max edouard: 70.8 cm/sec E/E' lat: 7.1 E/E' med: 7.8 MV E/A: 1.1 Ao V2 max: 203.0 cm/sec LV V1 max: 135.2 cm/sec PA V2 max: 82.1 cm/sec Ao max P.5 mmHg LV V1 max P.3 mmHg Ao V2 mean: 130.4 cm/sec LV V1 mean P.7 mmHg Ao mean P.8 mmHg LV V1 mean: 103.9 cm/sec Ao V2 VTI: 37.8 cm LV V1 VTI: 30.7 cm TR max edouard: 276.6 cm/sec TR max P.6 mmHg Interpretation Summary Normal LV size. Left ventricular systolic function is normal. The estimated ejection fraction is 70 %. Mild concentric left ventricular hypertrophy. Normal diastology for age. Contrast injection was performed. Ordering Physician: Garrick Donaldson Referring Physician: OTD Performed By: Crys Felix RDCS, RVT
--- NOTE | 2019-09-04 18:03 | CON.PCM_ITS ---
Reason for Consult Date of Consultation: 09/04/19 Reason for Consultation: Abnormal cardiac enzymes History of Present Illness: The patient is a 44 year old M with a history of coronary artery disease status post 2 previous stents remotely in 2007, status post colostomy, sacral pressure ulcer as well as HIV status and HIV-associated paraplegia. He has been followed up in the wound center and was recently seen in the emergency room twice for fever vomiting and was treated for urinary tract infection. He presented back with more vomiting was noted to be febrile and says that he recently had his wound debrided with cultures taken in the wound center. In the emergency room he was noted to be febrile and dehydrated, hypokalemic and with significant renal dysfunction. Cardiac enzymes were drawn though the patient did not have any cardiac complaints and the EKG demonstrated normal sinus rhythm with no acute changes. The cardiac enzymes came back abnormal and cardiology was called for further evaluation and management. He was admitted to the intensive care unit and is being resuscitated with fluids for sepsis due to his elevated lactate, low potassium, and elevated creatinine. Past Medical History Allergies/Adverse Reactions: Allergies atorvastatin [From Lipitor] Adverse Reaction (Verified 09/04/19 12:49) Nausea/Vom/Diarrhea ciprofloxacin [From Cipro] Adverse Reaction (Verified 09/04/19 12:49) Nausea/Vom/Diarrhea morphine Adverse Reaction (Verified 09/04/19 12:49) HALLUCINATIONS Home Medications: Ambulatory Orders Medication Instructions Recorded Aspirin E.C. [Ecotrin] 81 mg PO DAILY@0800 08/30/18 Baclofen 20 mg PO 4X/DAY PRN PRN 08/30/18 Cranberry 400 mg PO BID 08/30/18 Darunavir Ethanolate [Prezista] 800 mg PO DAILY 08/30/18 Escitalopram Oxalate [Lexapro] 20 mg PO DAILY 08/30/18 Folic Acid 1 mg PO DAILY@0800 08/30/18 Gabapentin [Neurontin] 800 mg PO BID 08/30/18 Metoprolol Succinate [Toprol Xl] 25 mg PO DAILY 08/30/18 Pravastatin Sodium 40 mg PO QHS 08/30/18 Ritonavir [Norvir] 100 mg PO DAILY 08/30/18 Cyanocobalamin (Vitamin B-12) 1,000 mcg PO DAILY 01/22/19 [B-12] Magnesium Oxide 2 tab PO DAILY 01/22/19 Nitroglycerin 0.4 mg SL Q5M PRN 01/22/19 Oxcarbazepine 150 mg PO BID 01/22/19 proMETHazine tablet [Phenergan] 25 mg PO Q6H PRN PRN #10 tab 06/02/19 Pramipexole Di-HCl [Pramipexole 0.125 mg PO DAILY 08/10/19 Dihydrochloride] Emtricitabine/Tenofovir (Tdf) 1 tab PO DAILY 09/04/19 [Truvada 200 mg-300 mg Tablet] Oxycodone CR [Oxycontin] 20 mg PO Q12H 09/04/19 Smz/Tmp Ds [Bactrim Ds] 1 tab PO BID 09/04/19 Past Medical History (Chronic Problems): Chronic Problems HIV (human immunodeficiency virus infection) (Chronic) CAD (coronary artery disease) (Chronic) Paraplegia (Chronic) Neuropathy (Chronic) Pressure injury of sacral region, stage 2 (Chronic) Surgical History: - - colostomy, tail bone shaved Psychiatric History: No pertinent psych hx - *Family History Maternal History Items: Heart Disease Paternal History Items: Heart Disease Sibling History Items: No pertinent history Lives: Friends Smoking Status: Current every day smoker Tobacco Use: Vapor Alcohol: None Drugs: None Review of Systems - Review of Systems General: Reports: Fever, Malaise, Chills. Denies: Fatigue, Night Sweats HEENT: Denies: Vision Change Cardiovascular: Denies: Chest Discomfort, Shortness of Breath, Orthopnea, PND, Peripheral Edema, Palpitations, Lightheadedness, Dizziness, Near Syncope, Syncope Respiratory: Denies: Cough, Sputum Production, Hemoptysis Gastrointestinal: Denies: Hematemesis, Hematochezia, Melena Genitourinary: Denies: Dysuria, Hematuria Muscoloskeletal: Reports: Muscle Weakness Skin: Denies: Rash Neurological: Reports: - - Paraplegia Psychiatric: Denies: Anxiety Endocrine: Denies: Heat Intolerance Hematologic/ Lymphatic: Denies: Lymph Node Enlargement Subjectve: Young man in no distress lying in bed Objective: Vital Signs Temp Pulse Resp BP Pulse Ox 99.5 F H 98 18 109/74 95 09/04/19 16:05 09/04/19 18:00 09/04/19 18:00 09/04/19 18:00 09/04/19 18:00 Oxygen Flow Rate (L/min) 4 Oxygen Delivery Method Nasal Cannula Weight: 261 lb 14.546 oz Body Mass Index (BMI) 34.5 Intake and Output for Last 24 Hours 09/02/19 09/03/19 09/04/19 23:59 23:59 23:59 Intake Total 3545.37 / 3545.37 Balance 3545.37 / 3545.37 General: Awake, Alert, Oriented x 3, - - He looks flushed HEENT: PERRL, EOMI, Sclera Non Icteric Neck: Supple, Good ROM, No Lymph Node Enlargement Lungs: Clear to auscultation Cardiovascular: Regular Rhythm, Normal S1, Normal S2, No Murmurs, No Rubs, No Gallops Vascular: No Carotid Bruits, Normal Femoral Pulses, Normal Radial Pulses, Normal Dorsalis Pedal Pulse, Normal Posterior Tibial Pulses Abdomen: Bowel Sounds Present, Soft, Non Tender, No HSM, No Organomegaly Extremities: No Cyanosis, No Clubbing, No edema Musculoskeletal: No Erythema Skin: No Rashes Lymphatic: No Lymph Node Enlargement Neurological: No Focal Motor or Sensory Deficit Psych/Mental Status: Appropriate 09/04/19 13:00: WBC 15.9 H, RBC 5.30, Hgb 17.1 H, Hct 53.3, MCV 100.6 H, MCH 32.3 H, MCHC 32.1, Plt Count 343, MPV 9.2, Immature Gran % (Auto) 0.600, Neut % (Auto) 86.8 H, Lymph % (Auto) 5.9 L, [place] % (Auto) 6.6, Eos % (Auto) 0.0, Baso % (Auto) 0.1, Absolute Neuts (auto) 13.8 H, Nucleated RBC % 0 09/04/19 13:00: PT 15.4 H, INR 1.2, APTT 27.7 09/04/19 13:00: Sodium 149 H, Potassium 2.9 L, Chloride 106, Carbon Dioxide 34.0 H, Anion Gap 9, BUN 35 H, Creatinine 2.64 H, Est GFR (MDRD) Af Amer 34 L, Est GFR (MDRD) Non-Af 28 L, BUN/Creatinine Ratio 13.3, Glucose 135 H, Calcium 9.0, Total Bilirubin 0.60 09/04/19 13:00: Lactic Acid 4.3 H* 09/04/19 13:00: Troponin I 1.970 H* 09/04/19 14:40: Urine Color Yellow, Urine Clarity Sl. Cloudy, Urine pH 8.0, Ur Specific [place] 1.015, Urine Protein 100 H, Urine Glucose (UA) Normal, Urine Ketones 5 H, Urine Occult Blood 150 H, Urine Nitrite Negative, Urine Bilirubin Negative, Urine Urobilinogen Normal, Ur Leukocyte Esterase 100 H, Urine RBC 0-5 SEEN, Urine WBC 10-25 SEEN 09/04/19 16:15: Troponin I 4.970 H* 09/04/19 16:15: Magnesium 2.5 Rhythm: EKG: Normal sinus rhythm with no acute changes ECHO: Stress Test: Cardiac Cath: PCI: CT Surgery: Holter monitor: EPS: PPM: CXR: Chest CT Scan: Assessment/Plan 1. Non-ST elevation myocardial infarction * Patient apparently has a history of known coronary artery disease. The above however appears to be on the basis of demand ischemia. My recommendation would be to treat him at the moment with Lovenox * Obtain an echocardiogram to assess his left ventricular function and prognosticate * Continue with aggressive fluid hydration * Will hold off on beta-blockers and SLAVA inhibitors at the present time * Depending on the results of the echocardiogram further recommendations will be made as to the timing and whether he needs any other procedures. I have explained the above to the patient and his caregiver and they understand and agree to proceed. Also discussed with the hospitalist. * * Thank you for allowing me to participate in the care of your patient. Please don't hesitate to call if any issues arise
[2019-09-04 18:09] LABS: Reflex Lactate? Y
[2019-09-04] MEDS: Ondansetron 4 MG/2 ML Vial IV (18:21)
[2019-09-04] MEDS: 0.9% Saline Lock 10 ML Syringe IV (18:21)
[2019-09-04] MEDS: Enoxaparin 120 MG/0.8 ML Syringe SC (18:21)
[2019-09-04 18:57] LABS: Lactic Acid 0.9 mmol/L (0.4-1.9)
[2019-09-04 19:31] LABS: Anion Gap 4 (5-15); BUN 34 mg/dL (7-18); BUN/Creat Ratio 16.6 RATIO (10-20); Calcium,Total 7.7 mg/dL (8.5-10.1); Chloride 113 mmol/L (98-107); Creatinine, Serum 2.05 mg/dL (0.70-1.30); EST Glomerular Filtration Rate 38 mL/min (>60); Est Glom Filt Rate - Afr Amer 46 mL/min (>60); Estimated Creatinine Clearance 51.97 ml/min; Glucose 120 mg/dL (74-106); Potassium 2.7 mmol/L (3.5-5.1); Sodium Level 151 mmol/L (136-145)
[2019-09-04] MEDS: proMETHazine 25 MG Tablet PO (19:50)
[2019-09-04] MEDS: Potassium Chloride 40 MEQ in 0.45% Normal Saline 1,000 ML 100 MEQ IV (20:22)
[2019-09-04] MEDS: Pravastatin 40 MG Tablet PO (21:02)
[2019-09-04] MEDS: OXcarbazepine 150 MG Tablet PO (21:03)
[2019-09-04] MEDS: Gabapentin 800 MG Tablet PO (21:03)
[2019-09-04] MEDS: MELATONIN 3 MG TABLET PO (22:12)
--- NOTE | 2019-09-04 23:09 | CT_ITS ---
STUDY: CT ABDOMEN AND PELVIS WITHOUT CONTRAST REASON FOR EXAM: Male, 44 years old. Nausea, vomiting, diarrhea. Paraplegic.Urinary tract infection, HIV. RADIATION DOSAGE (If Supplied By Facility): CTDIvol = ( 20.72 ) mGy, DLP = ( 1118.42 ) mGycm TECHNIQUE: Transaxial images were obtained from the dome of the diaphragm to the symphysis pubis without oral contrast, and without intravenous contrast. Sagittal and coronal images were reconstructed. Individualized dose optimization techniques were used for this CT. COMPARISON: None. FINDINGS: Mild bilateral pleural effusions. Bilateral lower lobe consolidation versus subsegmental atelectasis. The visualized portions of the heart are within normal limits. Normal liver. Normal gallbladder and extrahepatic biliary system. There is mild splenomegaly. Normal pancreas. Normal bilateral adrenal glands. Normal right kidney. 1.2 cm left renal cyst. 2 -3 mm nonobstructing left renal calculi. Normal visualized stomach. Normal small intestine. Normal colon. There is non-visualization of the appendix. There is atherosclerotic calcification of the abdominal aorta, with ectasia. Normal inferior vena cava. Normal retroperitoneum. No intra-abdominal free air. Bladder decompressed by Gama catheter. Prostate gland not enlarged. Normal abdominal wall. Degenerative changes of the lumbar spine. Heterotopic bone formation right hip. CT/Abdomen/Pelvis without Cont IMPRESSION: Small bilateral pleural effusions with bilateral subsegmental atelectasis versus consolidation. Findings may represent bilateral lower lobe pneumonia. No evidence of bowel obstruction. Left renal cyst. Small nonobstructing left renal calculi. Electronically Signed: Benny Diaz MD at 1:17 EST , Service support ,
[2019-09-05] VITALS (31 sets, daily range): BP systolic 95–122; BP diastolic 62–84; PULSE 74–98; RESP 11–23; TEMP 36.2–37.2; O2SAT 90–97
[2019-09-05 04:12] LABS: Absolute Lymphocyte Count 1.66 X10^3/uL (0.83-4.51); Absolute Neutrophil Count 9.5 X10^3/uL (2.0-7.7); Basophil# 0.03 X10^3/uL; Basophil% 0.2 % (0-1); Eosinophil# 0.02 X10^3/uL; Eosinophils% 0.2 % (0-5); Hematocrit 40.4 % (40-54); Hemoglobin 12.5 g/dL (13.0-16.5); Lymphocyte # 1.66 X10^3/ul (4.0); Lymphocyte % 13.8 % (19-41); Mean Corp Hgb Conc 30.9 g/dL (32-36); Mean Corpuscular Hgb 32.1 pg (27.0-32.0); Mean Corpuscular Volume 103.9 fL (80-94); Mean Platelet Vol. 8.9 fl (6.2-12.0); Monocyte# 0.75 X10^3/uL; Monocyte% 6.2 % (0-10); NRBC Flagged by Analyzer 0 % (0-5); Neutrophil # 9.51 X10^3/uL (2.7-7.7); Neutrophil % 79.3 % (47-70); Platelet Count 221 K/mm3 (150-450); RBC Distribution Width CV 14.1 % (11.6-14.6); RBC Distribution Width SD 53.8 fl (35.1-43.9); Red Blood Count 3.89 M/mm3 (4.6-6.2)
--- NOTE | 2019-09-05 04:26 | VDLE_ITS ---
Reason For Study: Pulmonary embolism RIGHT LEFT GSV is normal. GSV is normal. CFV is compressible, spontaneous, phasic, CFV is partially compressible with bright competent and demonstrates normal intraluminal echoes noted. augmentation. Left FV distal not visualized due to FV is compressible, spontaneous, phasic, placement of nerve stimulators. competent and demonstrates normal FV is compressible, spontaneous, phasic, augmentation. competent and demonstrates normal POP V is compressible, spontaneous, phasic, augmentation. competent and demonstrates normal POP V is compressible, spontaneous, phasic, augmentation. competent and demonstrates normal T/P Trunk is compressible. augmentation. PTV is compressible. T/P Trunk is compressible. RT PerV is compressible. PTV is compressible. Procedure LT PerV is compressible. Exam performed portable in ICU/CCU. Technically difficult due to vessel size. A preliminary report was called and/or faxed to [facility]. Interpretation Summary There is no evidence of right lower extremity deep vein thrombosis. Left common femoral vein is partially compressible with bright internal echoes consistent with chronic deep venous thrombosis. Left femoral vein could not be visualized secondary to nerve stimulators Bilateral great saphenous veins are patent and compressible Ordering Physician: Goyo Perry Performed By: Abby Roy RVT
--- NOTE | 2019-09-05 04:32 | NURSING ---
[employer] answered call light and patient stated I am frustrated and want to talk to a doctor. [employer] notified this RN. This RN discussed with patient POC and communicating with the doctor throughout the night about his condition. Patient stated, I am frustrated we aren't figuring this shit out and I want to talk to a doctor. MD notified, see physician notification.
[2019-09-05 04:50] LABS: Anion Gap 4 (5-15); BUN 41 mg/dL (7-18); BUN/Creat Ratio 20.8 RATIO (10-20); Calcium,Total 7.6 mg/dL (8.5-10.1); Chloride 112 mmol/L (98-107); Creatinine, Serum 1.97 mg/dL (0.70-1.30); EST Glomerular Filtration Rate 39 mL/min (>60); Est Glom Filt Rate - Afr Amer 48 mL/min (>60); Estimated Creatinine Clearance 54.08 ml/min; Glucose 112 mg/dL (74-106); Potassium 3.7 mmol/L (3.5-5.1); Sodium Level 145 mmol/L (136-145)
--- NOTE | 2019-09-05 06:41 | CT_ITS ---
STUDY: CT CHEST WITHOUT CONTRAST REASON FOR EXAM: Male, 44 years old. HEMOPTYSIS. HIV, PARAPLEGIA RADIATION DOSAGE (If Supplied By Facility): CTDIvol = ( 19.73 ) mGy, DLP = ( 774.20 ) mGycm TECHNIQUE: Transaxial imaging was performed without the administration of intravenous contrast material. Individualized dose optimization techniques were used for this CT. COMPARISON: None. FINDINGS: There is a 6.2 mm hypodensity in the midportion of the left lobe of the thyroid. Inhomogeneity in the inferior pole of the right lobe of the thyroid measuring 1 cm. This may represent goiters changes. Minimal bilateral pleural effusions with bibasilar atelectasis and/or infiltrates. There is no demonstrated pleural abnormality. There are calcifications of the coronary arteries. Minimal pericardial thickening. There are multiple small lymph nodes within the mediastinum, which are normal in size and morphology most compatible with reactive lymph hyperplasia. Normal hilar regions. Normal unenhanced pulmonary arteries. Normal aorta arch and descending thoracic aorta. There are multi-level degenerative changes of the thoracic spine. Status post cholecystectomy. CT/Chest without Contrast IMPRESSION: Small bilateral pleural effusions with bibasilar atelectasis and/or infiltration. Electronically Signed: Jean Herbert, at 9:27 EST , Service support ,
[2019-09-05] MEDS: Potassium Chloride 40 MEQ in 0.45% Normal Saline 1,000 ML 100 MEQ IV (06:42)
--- NOTE | 2019-09-05 07:25 | PCM.CON.CC ---
Problem List (1) Hemoptysis Status: Acute (2) UTI (urinary tract infection) Status: Acute Qualifiers: Urinary tract infection type: catheter-associated UTI Indwelling urinary catheter type: indwelling urethral catheter Encounter type: subsequent encounter Qualified Code(s): T83.511D - Infection and inflammatory reaction due to indwelling urethral catheter, subsequent encounter; N39.0 - Urinary tract infection, site not specified (3) Sepsis Status: Acute Qualifiers: Sepsis type: methicillin susceptible Staphylococcus aureus Sepsis acute organ dysfunction status: with acute organ dysfunction Severe sepsis acute organ dysfunction type: acute renal failure Acute renal failure type: with acute renal cortical necrosis Severe sepsis shock status: without septic shock Qualified Code(s): A41.01 - Sepsis due to Methicillin susceptible Staphylococcus aureus; R65.20 - Severe sepsis without septic shock; N17.1 - Acute kidney failure with acute cortical necrosis (4) HIV (human immunodeficiency virus infection) Status: Chronic Qualifiers: HIV symptom status: unspecified Qualified Code(s): B20 - Human immunodeficiency virus [HIV] disease (5) Paraplegia Status: Chronic (6) Neuropathy Status: Chronic (7) Pressure injury of sacral region, stage 2 Status: Chronic (8) Pressure ulcer of coccygeal region Status: Acute Qualifiers: Pressure injury stage: unstageable Qualified Code(s): L89.150 - Pressure ulcer of sacral region, unstageable Reason for Consult Date of Consultation: 09/05/19 Reason for Consultation: Severe sepsis/hemoptysis History of Present Illness: The patient is a 44 year old M, with complex past medical history listed below, who presented to [facility] on 09/04/2019 for the third time in a row secondary to nausea, vomiting and diarrhea. Patient reportedly does have a cardiac history with prior PA in 2008 status post 2 cardiac stents, but has been having issues with decubitus ulcer. Patient reportedly also has a chronic Gama and colostomy. Patient was seen in the ER 2 days prior to this initiation and was given antibiotics and sent home. In the ER, patient was noted to be febrile at 100.2 ?F and tachycardic at 107 bpm. Patient was hypoxic. Physical exam was relatively unremarkable. Chest x-ray was unremarkable, but EKG showed sinus tachycardia. Patient did have a leukocytosis of 15.9 and a hemoglobin of 17. Creatinine was elevated at 2.64 from his baseline of approximately 1.9. Patient was also noted to be hypokalemic at 2.9. Lactic acid was elevated at 4.3. Patient received 30 cc/kg of IV fluids, cultures were obtained and patient was placed on IV Rocephin. As part of the work-up, patient did have a troponin that was elevated, so the patient was started on therapeutic Lovenox. In the intensive care unit, patient reportedly had an emesis of possible coffee-ground. Hemoccult was positive. Shortly thereafter, patient had reported hemoptysis. Patient was coughing up approximately 50 cc of bright red blood. Per the nurse, this occurred approximately 3 times. Anticoagulation was discontinued from the hospitalist overnight. Patient did not report any previous cough, chest pain or sinus issues. No epistaxis is been reported. Patient has had some bleeding from his lip. Patient does have a long smoking history, but is never seen a receiving manager. Patient has never had pulmonary function test to his knowledge. Patient is not currently reporting any chest pain. This morning, patient reports abdominal discomfort, but no nausea. Patient has not had a repeated emesis. Patient states he feels feel sick. Patient is unable to enumerate further. Patient does report that he has a chronic Gama and has not noticed any significant difficulties with his Gama or his ostomy. Review of systems otherwise negative from a constitutional, HEENT, respiratory, cardiovascular, GI, genitourinary, musculoskeletal, skin, neurologic, psychiatric and hematologic system unless stated above. Past Medical History Past Medical History (Chronic Problems): Chronic Problems HIV (human immunodeficiency virus infection) (Chronic) CAD (coronary artery disease) (Chronic) Paraplegia (Chronic) Neuropathy (Chronic) Pressure injury of sacral region, stage 2 (Chronic) Allergies atorvastatin [From Lipitor] Adverse Reaction (Verified 09/04/19 12:49) Nausea/Vom/Diarrhea ciprofloxacin [From Cipro] Adverse Reaction (Verified 09/04/19 12:49) Nausea/Vom/Diarrhea morphine Adverse Reaction (Verified 09/04/19 12:49) HALLUCINATIONS Home Medications: Ambulatory Orders Medication Instructions Recorded Aspirin E.C. [Ecotrin] 81 mg PO DAILY@0800 08/30/18 Baclofen 20 mg PO 4X/DAY PRN PRN 08/30/18 Cranberry 400 mg PO BID 08/30/18 Darunavir Ethanolate [Prezista] 800 mg PO DAILY 08/30/18 Escitalopram Oxalate [Lexapro] 20 mg PO DAILY 08/30/18 Folic Acid 1 mg PO DAILY@0800 08/30/18 Gabapentin [Neurontin] 800 mg PO BID 08/30/18 Metoprolol Succinate [Toprol Xl] 25 mg PO DAILY 08/30/18 Pravastatin Sodium 40 mg PO QHS 08/30/18 Ritonavir [Norvir] 100 mg PO DAILY 08/30/18 Cyanocobalamin (Vitamin B-12) 1,000 mcg PO DAILY 01/22/19 [B-12] Magnesium Oxide 2 tab PO DAILY 01/22/19 Nitroglycerin 0.4 mg SL Q5M PRN 01/22/19 Oxcarbazepine 150 mg PO BID 01/22/19 proMETHazine tablet [Phenergan] 25 mg PO Q6H PRN PRN #10 tab 06/02/19 Pramipexole Di-HCl [Pramipexole 0.125 mg PO DAILY 08/10/19 Dihydrochloride] Emtricitabine/Tenofovir (Tdf) 1 tab PO DAILY 09/04/19 [Truvada 200 mg-300 mg Tablet] Oxycodone CR [Oxycontin] 20 mg PO Q12H 09/04/19 Smz/Tmp Ds [Bactrim Ds] 1 tab PO BID 09/04/19 Surgical History: - - colostomy, tail bone shaved Psychiatric History: No pertinent psych hx Lives: Friends Smoking Status: Current every day smoker Tobacco Use: Vapor Alcohol: None Drugs: None - *Family History Maternal History Items: Heart Disease Paternal History Items: Heart Disease Sibling History Items: No pertinent history Review of Systems Unable to obtain accurate/complete ROS d/t: See HPI Patient Problems: Active and Suspected Problems Pressure ulcer of coccygeal region (Acute) Hemoptysis (Acute) Objective: All imaging was personally reviewed. CT of the abdomen show some possible atelectasis in the basilar subsegments. No bowel obstruction was noted. Patient has not had a previous pulmonary function test. No echocardiograms are available for review. Patient does report a recent stress test, but does not have this available for review. - Physical Exam Vitals/I&O's: Vital Signs Temp Pulse Resp BP Pulse Ox 37.2 C 88 11 L 104/66 92 09/05/19 04:00 09/05/19 07:00 09/05/19 07:00 09/05/19 07:00 09/05/19 07:00 Oxygen Flow Rate (L/min) 3 Oxygen Delivery Method Room Air Weight: 121.9 kg Body Mass Index (BMI) 34.5 Intake and Output for Last 24 Hours 09/03/19 09/04/19 09/05/19 23:59 23:59 23:59 Intake Total 5242.04 / 5242.04 1645 / 1645 Output Total 875 / 875 250 / 250 Balance 4367.04 / 4367.04 1395 / 1395 General: Alert, Oriented x3, Cooperative, - - Mild distress. Obese. No conversational dyspnea. HEENT: Atraumatic, PERRLA, EOMI, Normocephalic Oral: - - Mild bleeding noted from the left corner of the mouth Neck: Supple, No JVD, No Nodes, Trachea Midline Lungs: Clear to auscultation, Normal air movement, No rhonchi, No wheeze, No rales, - - Symmetric expansion. Cardiovascular: Regular rate, Regular Rhythm, Normal S1, Normal S2, No murmurs, No rub noted, No Gallop Abdomen: Bowel Sounds Present, Soft, Non Tender, Distended - Slightly, Obese Extremities: No clubbing, No cyanosis, Capillary Refill Less than 3 Seconds, Edema Skin: Ulcer/ Wound - Decubitus ulcer reported. This was not evaluated Musculoskeletal: No Tenderness to Palpation of Joints or Extremities Lymphatic: No Cervical, Supraclavicular, or Inguinal Adenopathy Neurological: - - Paraplegia noted. Decreased sensation of the lower extremities. Cranial nerves are intact. No dysarthria appreciated Psych/Mental Status: Appropriate, Flat Affect Microbiology Past 72 Hours 09/04/19 23:50 Stool C. difficile DNA Amplification - Final 09/04/19 23:50 Stool Stool Occult Blood (ANG) - Final 09/04/19 22:40 Vomitus Gastric Occult Blood - Final Occult Blood Positive Laboratory Results 09/04/19 13:00: WBC 15.9 H, RBC 5.30, Hgb 17.1 H, Hct 53.3, MCV 100.6 H, MCH 32.3 H, MCHC 32.1, RDW Std Deviation 51.6 H, RDW Coeff of Campos 13.8, Plt Count 343, MPV 9.2, Immature Gran % (Auto) 0.600, Neut % (Auto) 86.8 H, Lymph % (Auto) 5.9 L, [place] % (Auto) 6.6, Eos % (Auto) 0.0, Baso % (Auto) 0.1, Absolute Neuts (auto) 13.8 H, Absolute Lymphs (auto) 0.93, Nucleated RBC % 0 09/04/19 13:00: PT 15.4 H, INR 1.2, APTT 27.7 09/04/19 13:00: Sodium 149 H, Potassium 2.9 L, Chloride 106, Carbon Dioxide 34.0 H, Anion Gap 9, BUN 35 H, Creatinine 2.64 H, Estim Creat Clear Calc 40.35, Est GFR (MDRD) Af Amer 34 L, Est GFR (MDRD) Non-Af 28 L, BUN/Creatinine Ratio 13.3, Glucose 135 H, Calcium 9.0, Total Bilirubin 0.60, AST 16, ALT 19, Alkaline Phosphatase 126 H, Total Protein 8.5 H, Albumin 3.2, Globulin 5.3 H, Albumin/Globulin Ratio 0.6 L 09/04/19 13:00: Lactic Acid 4.3 H* 09/04/19 13:00: Troponin I 1.970 H* 09/04/19 14:40: Urine Color Yellow, Urine Clarity Sl. Cloudy, Urine pH 8.0, Ur Specific [place] 1.015, Urine Protein 100 H, Urine Glucose (UA) Normal, Urine Ketones 5 H, Urine Occult Blood 150 H, Urine Nitrite Negative, Urine Bilirubin Negative, Urine Urobilinogen Normal, Ur Leukocyte Esterase 100 H, Urine RBC 0-5 SEEN, Urine WBC 10-25 SEEN, Ur Squamous Epith Cells 0-5 SEEN, Urine Bacteria 2+, Urine Mucus 0 SEEN, Urine Yeast 3+ 09/04/19 16:15: Troponin I 4.970 H* 09/04/19 16:15: Magnesium 2.5 09/04/19 18:25: Sodium 151 H, Potassium 2.7 L*, Chloride 113 H, Carbon Dioxide 34.0 H, Anion Gap 4 L, BUN 34 H, Creatinine 2.05 H, Estim Creat Clear Calc 51.97, Est GFR (MDRD) Af Amer 46 L, Est GFR (MDRD) Non-Af 38 L, BUN/Creatinine Ratio 16.6, Glucose 120 H, Calcium 7.7 L, Troponin I 5.910 H* 09/04/19 18:25: Lactic Acid 0.9 09/05/19 00:30: Troponin I 6.550 H* 09/05/19 04:00: WBC 12.0 H, RBC 3.89 L, Hgb 12.5 L, Hct 40.4, MCV 103.9 H, MCH 32.1 H, MCHC 30.9 L, RDW Std Deviation 53.8 H, RDW Coeff of Campos 14.1, Plt Count 221, MPV 8.9, Immature Gran % (Auto) 0.300, Neut % (Auto) 79.3 H, Lymph % (Auto) 13.8 L, [place] % (Auto) 6.2, Eos % (Auto) 0.2, Baso % (Auto) 0.2, Absolute Neuts (auto) 9.5 H, Absolute Lymphs (auto) 1.66, Nucleated RBC % 0 09/05/19 04:00: Sodium 145, Potassium 3.7, Chloride 112 H, Carbon Dioxide 29.0, Anion Gap 4 L, BUN 41 H, Creatinine 1.97 H, Estim Creat Clear Calc 54.08, Est GFR (MDRD) Af Amer 48 L, Est GFR (MDRD) Non-Af 39 L, BUN/Creatinine Ratio 20.8 H, Glucose 112 H, Calcium 7.6 L 09/05/19 06:15: Troponin I 5.450 H* Current Medications Acetaminophen (Tylenol) 650 mg PO Q6H PRN PRN PRN Reason: Pain Score 1-10/Temp > 100.7 F Al Hydroxide/Mg Hydroxide (Mylanta Ii) 30 ml PO Q6H PRN PRN PRN Reason: Gastric Burning Albuterol Sulfate (Ventolin Aerosols) 2.5 mg INHALATION Q2H PRN PRN PRN Reason: SOB/Wheezing Baclofen (Lioresal) 20 mg PO 4X/DAY PRN PRN PRN Reason: BLADDER SPASMS Emtricitabine/Tenofovir (Truvada 200 Mg-300 Mg Tablet) 1 tablet PO DAILY ROSALINDA Escitalopram Oxalate (Lexapro) 20 mg PO DAILY ROSALINDA Folic Acid (Folic Acid) 1 mg PO DAILY@0800 [facility] Gabapentin (Neurontin) 800 mg PO BID [facility] Last Admin: 09/04/19 21:03 Dose: 800 mg Documented by: Piperacillin Sod/Tazobactam (Sod 3.375 gm/ Sodium Chloride) 50 mls @ 12.5 mls/hr IV Q8 [facility] Last Admin: 09/05/19 05:10 Dose: 12.5 mls/hr Documented by: Vancomycin IV Pharmacy to Dose (1 ea/ Sodium Chloride) 500 mls @ 250 mls/hr IV X1 PRN; Protocol PRN Reason: Rx to Dose Vancomycin HCl 750 mg/ Sodium (Chloride) 265 mls @ 250 mls/hr IV Q12H [facility] Last Infusion: 09/05/19 06:18 Dose: Infused Documented by: Potassium Chloride 40 meq/ (Sodium Chloride) 1,020 mls @ 100 mls/hr IV .[id number] [facility] Last Admin: 09/05/19 06:42 Dose: 100 mls/hr Documented by: Pantoprazole Sodium 40 mg/ (Sodium Chloride) 110 mls @ 330 mls/hr IV Q12 [facility] Last Infusion: 09/05/19 00:29 Dose: Infused Documented by: Influenza Virus Vaccine Quadrival (Flucelvax /Fluzone ) 0.5 ml IM .ONCE ONE Stop: 09/05/19 10:01 Melatonin (Melatonin) 3 mg PO QHS PRN PRN PRN Reason: INSOMNIA Last Admin: 09/04/19 22:12 Dose: 3 mg Documented by: Metoprolol Succinate (Toprol Xl (Beta Sera)) 25 mg PO DAILY [facility] Nitroglycerin (Nitrostat) 0.4 mg SUBLINGUAL Q5M PRN PRN Reason: CARDIAC/CHEST PAIN Non-Formulary Medication (Darunavir Ethanolate [Prezista]) 800 mg PO DAILY [facility] Non-Formulary Medication (Ritonavir [Norvir]) 100 mg PO DAILY [facility] Nutritional Formula (Lactose Free) (Ensure Enlive) 120 ml PO 4X/DAY [facility] Last Admin: 09/04/19 21:01 Dose: 120 ml Documented by: Ondansetron HCl (Zofran) 4 mg IV Q8H PRN PRN PRN Reason: NAUSEA/VOMITING Last Admin: 09/04/19 18:21 Dose: 4 mg Documented by: Oxcarbazepine (Trileptal) 150 mg PO BID [facility] Last Admin: 09/04/19 21:03 Dose: 150 mg Documented by: Oxycodone HCl (Oxycontin) 20 mg PO Q12 [facility] Last Admin: 09/04/19 21:01 Dose: 20 mg Documented by: Pramipexole Dihydrochloride (Mirapex) 0.125 mg PO DAILY [facility] Pravastatin Sodium (Pravachol) 40 mg PO QHS [facility] Last Admin: 09/04/19 21:02 Dose: 40 mg Documented by: Promethazine HCl (Phenergan Tablet) 25 mg PO Q6H PRN PRN PRN Reason: NAUSEA Last Admin: 09/04/19 19:50 Dose: 25 mg Documented by: Sodium Chloride () 10 - 40 ml IV UD PRN PRN Reason: SALINE FLUSH Last Admin: 09/04/19 18:21 Dose: 20 ml Documented by: Clinical Impression(s) from Imaging Studies Chest X-Ray 09/04/19 13:15 IMPRESSION: Hyperinflation. The lungs are clear. Electronically Signed: Jean Herbert at 13:37 EST , Service support , Abdomen/Pelvis CT 09/04/19 23:09 IMPRESSION: Small bilateral pleural effusions with bilateral subsegmental atelectasis versus consolidation. Findings may represent bilateral lower lobe pneumonia. No evidence of bowel obstruction. Left renal cyst. Small nonobstructing left renal calculi. Electronically Signed: Benny Diaz MD at 1:17 EST , Service support , Assessment/Plan Active and Suspected Problems Pressure ulcer of coccygeal region (Acute) Hemoptysis (Acute) RECOMMENDATIONS: 1. Defer cardiac work-up to cardiology 2. Obtain CT scan of the chest without contrast 3. Okay to continue with volume resuscitation 4. Continue with empiric antibiotics 5. Monitor in the intensive care unit for now IMPRESSIONS: 1. Septic shock secondary to infected sacral decubitus versus UTI Patient does have a decubitus ulcer with previous MSSA. Patient has been placed on Zosyn and vancomycin. Patient did respond to fluid resuscitation. Infectious disease has been consulted. Lactate is back within normal limits and patient is back on room air. Unclear if patient had global hypoperfusion leading to increased lactic acid or was volume depleted leading to decreased perfusion. Patient has remained hemodynamically stable at this time. 2. Hypokalemia Clinical suspicion for GI losses leading to decreased levels. No significant EKG changes noted on telemetry. Continue with supplementation as indicated. 3. Hemoptysis Patient was significant hemoptysis overnight. Patient did not have any reported symptoms prior to anticoagulation. Patient does have some bleeding from the corner of his lip, but does not believe this is the etiology of this presentation. Will obtain a CT scan of the chest without contrast given renal function to evaluate for possible mediastinal mass. Patient does have some hyperinflation on chest x-ray which may be secondary to emphysematous changes versus asthma. Patient does have a significant smoking history. Other possible etiology would be bronchiectasis. Clinical suspicion for lip bleeding leading to positive Gastroccult and hemoptysis. 4. Non-ST elevation PA/history of coronary artery disease Patient with HIV, smoking, hyperlipidemia and elevated troponins. Patient did have stents in 2007. No significant changes on EKG noted. Patient is being seen by cardiology. Anticoagulation was held secondary to reported hemoptysis. Defer to cardiology. 5. Sacral decubitus/chronic Gama Probable sources of infectious etiology. Infectious disease to see today. Patient may need a plastics evaluation. Patient is on broad-spectrum antibiotics at this time. 6. HIV with associated paraplegia and neuropathy/obesity/hypertension Complicates care, management, recovery and prognosis. Likely okay to continue with HIV medications, but may need to evaluate with renal function. HIV with theoretically increases risk for lymphoma and this may be leading to hemoptysis. Await CT scan of the chest. Code Visit Inpatient E&M: 33996 Init Hosp L3
--- NOTE | 2019-09-05 07:54 | PN.CARD_ITS ---
Subjectve: Patient seen and evaluated. Appears to be doing better this morning. No cardiac complaints. Objective: Vital Signs Temp Pulse Resp BP Pulse Ox 98.9 F 81 11 L 104/66 92 09/05/19 04:00 09/05/19 07:15 09/05/19 07:00 09/05/19 07:00 09/05/19 07:00 Oxygen Flow Rate (L/min) 3 Oxygen Delivery Method Room Air Weight: 268 lb 11.896 oz Body Mass Index (BMI) 34.5 Intake and Output for Last 24 Hours 09/03/19 09/04/19 09/05/19 23:59 23:59 23:59 Intake Total 5242.04 / 5242.04 1645 / 1645 Output Total 875 / 875 250 / 250 Balance 4367.04 / 4367.04 1395 / 1395 General: Awake, Alert, Oriented x 3 HEENT: PERRL, EOMI, Sclera Non Icteric Neck: Supple, Good ROM, No Lymph Node Enlargement Lungs: Clear to auscultation Cardiovascular: Regular Rhythm, Normal S1, Normal S2, No Murmurs, No Rubs, No Gallops Vascular: No Carotid Bruits, Normal Femoral Pulses, Normal Radial Pulses, Normal Dorsalis Pedal Pulse, Normal Posterior Tibial Pulses Abdomen: Bowel Sounds Present, Soft, Non Tender, No HSM, No Organomegaly Extremities: No Cyanosis, No Clubbing, No edema Musculoskeletal: - - Bilateral below-knee amputee Neurological: No Focal Motor or Sensory Deficit Psych/Mental Status: Appropriate 09/04/19 13:00: WBC 15.9 H, RBC 5.30, Hgb 17.1 H, Hct 53.3, MCV 100.6 H, MCH 32.3 H, MCHC 32.1, Plt Count 343, MPV 9.2, Immature Gran % (Auto) 0.600, Neut % (Auto) 86.8 H, Lymph % (Auto) 5.9 L, [place] % (Auto) 6.6, Eos % (Auto) 0.0, Baso % (Auto) 0.1, Absolute Neuts (auto) 13.8 H, Nucleated RBC % 0 09/04/19 13:00: PT 15.4 H, INR 1.2, APTT 27.7 09/04/19 13:00: Sodium 149 H, Potassium 2.9 L, Chloride 106, Carbon Dioxide 34.0 H, Anion Gap 9, BUN 35 H, Creatinine 2.64 H, Est GFR (MDRD) Af Amer 34 L, Est GFR (MDRD) Non-Af 28 L, BUN/Creatinine Ratio 13.3, Glucose 135 H, Calcium 9.0, Total Bilirubin 0.60 09/04/19 13:00: Lactic Acid 4.3 H* 09/04/19 13:00: Troponin I 1.970 H* 09/04/19 14:40: Urine Color Yellow, Urine Clarity Sl. Cloudy, Urine pH 8.0, Ur Specific [place] 1.015, Urine Protein 100 H, Urine Glucose (UA) Normal, Urine Ketones 5 H, Urine Occult Blood 150 H, Urine Nitrite Negative, Urine Bilirubin Negative, Urine Urobilinogen Normal, Ur Leukocyte Esterase 100 H, Urine RBC 0-5 SEEN, Urine WBC 10-25 SEEN 09/04/19 16:15: Troponin I 4.970 H* 09/04/19 16:15: Magnesium 2.5 09/04/19 18:25: Sodium 151 H, Potassium 2.7 L*, Chloride 113 H, Carbon Dioxide 34.0 H, Anion Gap 4 L, BUN 34 H, Creatinine 2.05 H, Est GFR (MDRD) Af Amer 46 L, Est GFR (MDRD) Non-Af 38 L, BUN/Creatinine Ratio 16.6, Glucose 120 H, Calcium 7.7 L, Troponin I 5.910 H* 09/04/19 18:25: Lactic Acid 0.9 09/05/19 00:30: Troponin I 6.550 H* 09/05/19 04:00: WBC 12.0 H, RBC 3.89 L, Hgb 12.5 L, Hct 40.4, MCV 103.9 H, MCH 32.1 H, MCHC 30.9 L, Plt Count 221, MPV 8.9, Immature Gran % (Auto) 0.300, Neut % (Auto) 79.3 H, Lymph % (Auto) 13.8 L, [place] % (Auto) 6.2, Eos % (Auto) 0.2, Baso % (Auto) 0.2, Absolute Neuts (auto) 9.5 H, Nucleated RBC % 0 09/05/19 04:00: Sodium 145, Potassium 3.7, Chloride 112 H, Carbon Dioxide 29.0, Anion Gap 4 L, BUN 41 H, Creatinine 1.97 H, Est GFR (MDRD) Af Amer 48 L, Est GFR (MDRD) Non-Af 39 L, BUN/Creatinine Ratio 20.8 H, Glucose 112 H, Calcium 7.6 L 09/05/19 06:15: Troponin I 5.450 H* Rhythm: EKG: ECHO: Stress Test: Cardiac Cath: PCI: CT Surgery: Holter monitor: EPS: PPM: CXR: Chest CT Scan: Medical Necessity - Tobacco Use Smoking Status: Current every day smoker Tobacco Use: Vapor Assessment/Plan 1. Non-ST elevation myocardial infarction * Patient apparently has a history of known coronary artery disease. The above however appears to be on the basis of demand ischemia. My recommendation would be to treat him at the moment with Lovenox * Obtain an echocardiogram to assess his left ventricular function and pr ognosticate * Continue with aggressive fluid hydration * Will hold off on beta-blockers and SLAVA inhibitors at the present time * Depending on the results of the echocardiogram further recommendations will be made as to the timing and whether he needs any other procedures. I have explained the above to the patient and his caregiver and they understand and agree to proceed. Also discussed with the hospitalist. * * * No new changes this morning. Will await results of the echocardiogram. * Thank you for allowing me to participate in the care of your patient. Please don't hesitate to call if any issues arise
[2019-09-05] MEDS: proMETHazine 25 MG Tablet PO ×2 (09:56→20:37)
[2019-09-05] MEDS: Escitalopram Oxalate 20 MG Tablet PO (09:58)
[2019-09-05] MEDS: EMTRICITABINE/TENOFOVIR 1 TABLET TABLET PO (09:58)
[2019-09-05] MEDS: Folic Acid 1 MG Tablet PO (09:59)
[2019-09-05] MEDS: Gabapentin 800 MG Tablet PO ×2 (10:00→21:00)
[2019-09-05] MEDS: Metoprolol(XL)Succ 25 MG Tablet PO (10:01)
[2019-09-05] MEDS: OXcarbazepine 150 MG Tablet PO ×2 (10:01→21:00)
[2019-09-05] MEDS: Pramipexole Di-HCl 0.125 MG Tablet PO (10:02)
--- NOTE | 2019-09-05 10:19 | PCM.HP.ID ---
Problem List (1) HIV (human immunodeficiency virus infection) Status: Chronic Qualifiers: HIV symptom status: unspecified Qualified Code(s): B20 - Human immunodeficiency virus [HIV] disease Reason for Consult: septic shock Consulted by: Dr. Blanca History of Present Illness: The patient is a 44 year old M with h/o paraplegia, hiv, chronic sacral decub, recurrent uti. Follows with wound care, repeat cx sent 08/31 which showed mssa, proteus, enterococcus. Went to ED 09/02 with nausea, vomiting, not feeling well. Ucx sent, given bactrim, but unable to keep the medicine down at home. Seen again 09/03 and 09/04 with worsening sx. Admitted to icu 09/04, started on vanc/zosyn. Had some bright red blood with episodes of emesis/cough. No SOB. Fever to 102.2 here. Feeling better this AM, BP improved. Reports compliance with ART. Follows with Dr. Malone, last about about 2-3 weeks ago, reports VL undetectable and CD4 360. Reports neg PPD in the past, no known TB contacts. No weight loss. Full ROS performed and neg except as noted above. - Medical History Past Medical History (Chronic Problems): Chronic Problems HIV (human immunodeficiency virus infection) (Chronic) CAD (coronary artery disease) (Chronic) Paraplegia (Chronic) Neuropathy (Chronic) Pressure injury of sacral region, stage 2 (Chronic) Allergies/Adverse Reactions: Allergies atorvastatin [From Lipitor] Adverse Reaction (Verified 09/04/19 12:49) Nausea/Vom/Diarrhea ciprofloxacin [From Cipro] Adverse Reaction (Verified 09/04/19 12:49) Nausea/Vom/Diarrhea morphine Adverse Reaction (Verified 09/04/19 12:49) HALLUCINATIONS Home Medications: Ambulatory Orders Medication Instructions Recorded Aspirin E.C. [Ecotrin] 81 mg PO DAILY@0800 08/30/18 Baclofen 20 mg PO 4X/DAY PRN PRN 08/30/18 Cranberry 400 mg PO BID 08/30/18 Darunavir Ethanolate [Prezista] 800 mg PO DAILY 08/30/18 Escitalopram Oxalate [Lexapro] 20 mg PO DAILY 08/30/18 Folic Acid 1 mg PO DAILY@0800 08/30/18 Gabapentin [Neurontin] 800 mg PO BID 08/30/18 Metoprolol Succinate [Toprol Xl] 25 mg PO DAILY 08/30/18 Pravastatin Sodium 40 mg PO QHS 08/30/18 Ritonavir [Norvir] 100 mg PO DAILY 08/30/18 Cyanocobalamin (Vitamin B-12) 1,000 mcg PO DAILY 01/22/19 [B-12] Magnesium Oxide 2 tab PO DAILY 01/22/19 Nitroglycerin 0.4 mg SL Q5M PRN 01/22/19 Oxcarbazepine 150 mg PO BID 01/22/19 proMETHazine tablet [Phenergan] 25 mg PO Q6H PRN PRN #10 tab 06/02/19 Pramipexole Di-HCl [Pramipexole 0.125 mg PO DAILY 08/10/19 Dihydrochloride] Emtricitabine/Tenofovir (Tdf) 1 tab PO DAILY 09/04/19 [Truvada 200 mg-300 mg Tablet] Oxycodone CR [Oxycontin] 20 mg PO Q12H 09/04/19 Smz/Tmp Ds [Bactrim Ds] 1 tab PO BID 09/04/19 - Social History Tobacco Use: cigarettes Vital Signs Temp Pulse Resp BP Pulse Ox 97.5 F L 83 16 119/74 94 09/05/19 10:00 09/05/19 10:01 09/05/19 10:00 09/05/19 10:01 09/05/19 10:00 Oxygen Flow Rate (L/min) 3 Oxygen Delivery Method Room Air Weight: 121.9 kg Body Mass Index (BMI) 34.5 Microbiology Past 72 Hours 09/04/19 14:40 Urine Culture - Preliminary Urine Catheter - Gama Gram negative promise 09/04/19 23:50 C. difficile DNA Amplification - Final Stool 09/04/19 23:50 Stool Occult Blood (ANG) - Final Stool 09/04/19 22:40 Gastric Occult Blood - Final Vomitus Occult Blood Positive Laboratory Tests Past 24 Hrs 09/04/19 09/04/19 09/04/19 13:00 13:00 13:00 WBC 15.9 H RBC 5.30 Hgb 17.1 H Hct 53.3 MCV 100.6 H MCH 32.3 H MCHC 32.1 RDW Std Deviation 51.6 H RDW Coeff of Campos 13.8 Plt Count 343 MPV 9.2 Immature Gran % (Auto) 0.600 Neut % (Auto) 86.8 H Lymph % (Auto) 5.9 L Merrick % (Auto) 6.6 Eos % (Auto) 0.0 Baso % (Auto) 0.1 Absolute Neuts (auto) 13.8 H Absolute Lymphs (auto) 0.93 Nucleated RBC % 0 PT 15.4 H INR 1.2 APTT 27.7 Sodium 149 H Potassium 2.9 L Chloride 106 Carbon Dioxide 34.0 H Anion Gap 9 BUN 35 H Creatinine 2.64 H Estim Creat Clear Calc 40.35 Est GFR (MDRD) Af Amer 34 L Est GFR (MDRD) Non-Af 28 L BUN/Creatinine Ratio 13.3 Glucose 135 H Lactic Acid Calcium 9.0 Magnesium Total Bilirubin 0.60 AST 16 ALT 19 Alkaline Phosphatase 126 H Troponin I Total Protein 8.5 H Albumin 3.2 Globulin 5.3 H Albumin/Globulin Ratio 0.6 L Urine Color Urine Clarity Urine pH Ur Specific [place] Urine Protein Urine Glucose (UA) Urine Ketones Urine Occult Blood Urine Nitrite Urine Bilirubin Urine Urobilinogen Ur Leukocyte Esterase Urine RBC Urine WBC Ur Squamous Epith Cells Urine Bacteria Urine Mucus Urine Yeast 09/04/19 09/04/19 09/04/19 13:00 13:00 14:40 WBC RBC Hgb Hct MCV MCH MCHC RDW Std Deviation RDW Coeff of Campos Plt Count MPV Immature Gran % (Auto) Neut % (Auto) Lymph % (Auto) Merrick % (Auto) Eos % (Auto) Baso % (Auto) Absolute Neuts (auto) Absolute Lymphs (auto) Nucleated RBC % PT INR APTT Sodium Potassium Chloride Carbon Dioxide Anion Gap BUN Creatinine Estim Creat Clear Calc Est GFR (MDRD) Af Amer Est GFR (MDRD) Non-Af BUN/Creatinine Ratio Glucose Lactic Acid 4.3 H* Calcium Magnesium Total Bilirubin AST ALT Alkaline Phosphatase Troponin I 1.970 H* Total Protein Albumin Globulin Albumin/Globulin Ratio Urine Color Yellow Urine Clarity Sl. Cloudy Urine pH 8.0 Ur Specific [place] 1.015 Urine Protein 100 H Urine Glucose (UA) Normal Urine Ketones 5 H Urine Occult Blood 150 H Urine Nitrite Negative Urine Bilirubin Negative Urine Urobilinogen Normal Ur Leukocyte Esterase 100 H Urine RBC 0-5 SEEN Urine WBC 10-25 SEEN Ur Squamous Epith Cells 0-5 SEEN Urine Bacteria 2+ Urine Mucus 0 SEEN Urine Yeast 3+ 09/04/19 09/04/19 09/04/19 16:15 16:15 18:25 WBC RBC Hgb Hct MCV MCH MCHC RDW Std Deviation RDW Coeff of Campos Plt Count MPV Immature Gran % (Auto) Neut % (Auto) Lymph % (Auto) Merrick % (Auto) Eos % (Auto) Baso % (Auto) Absolute Neuts (auto) Absolute Lymphs (auto) Nucleated RBC % PT INR APTT Sodium 151 H Potassium 2.7 L* Chloride 113 H Carbon Dioxide 34.0 H Anion Gap 4 L BUN 34 H Creatinine 2.05 H Estim Creat Clear Calc 51.97 Est GFR (MDRD) Af Amer 46 L Est GFR (MDRD) Non-Af 38 L BUN/Creatinine Ratio 16.6 Glucose 120 H Lactic Acid Calcium 7.7 L Magnesium 2.5 Total Bilirubin AST ALT Alkaline Phosphatase Troponin I 4.970 H* 5.910 H* Total Protein Albumin Globulin Albumin/Globulin Ratio Urine Color Urine Clarity Urine pH Ur Specific [place] Urine Protein Urine Glucose (UA) Urine Ketones Urine Occult Blood Urine Nitrite Urine Bilirubin Urine Urobilinogen Ur Leukocyte Esterase Urine RBC Urine WBC Ur Squamous Epith Cells Urine Bacteria Urine Mucus Urine Yeast 09/04/19 09/05/19 09/05/19 18:25 00:30 04:00 WBC 12.0 H RBC 3.89 L Hgb 12.5 L Hct 40.4 MCV 103.9 H MCH 32.1 H MCHC 30.9 L RDW Std Deviation 53.8 H RDW Coeff of Campos 14.1 Plt Count 221 MPV 8.9 Immature Gran % (Auto) 0.300 Neut % (Auto) 79.3 H Lymph % (Auto) 13.8 L Merrick % (Auto) 6.2 Eos % (Auto) 0.2 Baso % (Auto) 0.2 Absolute Neuts (auto) 9.5 H Absolute Lymphs (auto) 1.66 Nucleated RBC % 0 PT INR APTT Sodium Potassium Chloride Carbon Dioxide Anion Gap BUN Creatinine Estim Creat Clear Calc Est GFR (MDRD) Af Amer Est GFR (MDRD) Non-Af BUN/Creatinine Ratio Glucose Lactic Acid 0.9 Calcium Magnesium Total Bilirubin AST ALT Alkaline Phosphatase Troponin I 6.550 H* Total Protein Albumin Globulin Albumin/Globulin Ratio Urine Color Urine Clarity Urine pH Ur Specific [place] Urine Protein Urine Glucose (UA) Urine Ketones Urine Occult Blood Urine Nitrite Urine Bilirubin Urine Urobilinogen Ur Leukocyte Esterase Urine RBC Urine WBC Ur Squamous Epith Cells Urine Bacteria Urine Mucus Urine Yeast 09/05/19 09/05/19 04:00 06:15 WBC RBC Hgb Hct MCV MCH MCHC RDW Std Deviation RDW Coeff of Campos Plt Count MPV Immature Gran % (Auto) Neut % (Auto) Lymph % (Auto) Merrick % (Auto) Eos % (Auto) Baso % (Auto) Absolute Neuts (auto) Absolute Lymphs (auto) Nucleated RBC % PT INR APTT Sodium 145 Potassium 3.7 Chloride 112 H Carbon Dioxide 29.0 Anion Gap 4 L BUN 41 H Creatinine 1.97 H Estim Creat Clear Calc 54.08 Est GFR (MDRD) Af Amer 48 L Est GFR (MDRD) Non-Af 39 L BUN/Creatinine Ratio 20.8 H Glucose 112 H Lactic Acid Calcium 7.6 L Magnesium Total Bilirubin AST ALT Alkaline Phosphatase Troponin I 5.450 H* Total Protein Albumin Globulin Albumin/Globulin Ratio Urine Color Urine Clarity Urine pH Ur Specific [place] Urine Protein Urine Glucose (UA) Urine Ketones Urine Occult Blood Urine Nitrite Urine Bilirubin Urine Urobilinogen Ur Leukocyte Esterase Urine RBC Urine WBC Ur Squamous Epith Cells Urine Bacteria Urine Mucus Urine Yeast - Other Studies Radiology: [] reviewed Other Studies: [] Route of nutrition/ use of supplements: [] Nutritional Intake: [] IV Site: [] Gama Catheter: [] - Physical Exam General: Alert, Oriented x3, Cooperative, No apparent distress HEENT: Atraumatic, PERRLA, EOMI Neck: Supple, No Nodes Lungs: Clear to auscultation, Normal air movement Cardiovascular: Tachycardic Abdomen: Soft, Non Tender, Non-Distended, - - ostomy in place Extremities: Edema Skin: No rashes IV Site: Peripheral Musculoskeletal: No Tenderness to Palpation of Joints or Extremities Neurological: Cranial nerves II-XII grossly intact, - - paraplegic - Assessment/Plan Antibiotics: [] Assessment/Plan: [] Active and Suspected Problems Pressure ulcer of coccygeal region (Acute) Hemoptysis (Acute) septic shock - 09/02 ucx with klebs x2 and steno. 08/31 wound cx with mssa, enterococcus, proteus. Cdiff neg. TIFFANY on CKD improved. Temp, BP, and wbc improved. Will stop vanc. Cont zosyn, will add bactrim for steno coverage. Ucx now showing GNR. hemoptysis - may be related to emesis or from perioral bleeding. Low suspicion for TB. CT chest showed no cavitary disease. HIV - Reports compliance with ART. Follows with Dr. Malone, last about about 2-3 weeks ago, reports VL undetectable and CD4 360. Cont truvada/darunavir/ritonavir. He is in the process of getting home supply. Will request most recent records. Will follow, thank you, d/w Dr. Rodrigues
--- NOTE | 2019-09-05 11:02 | PCM.PN.HOSP ---
Patient Problems: Active and Suspected Problems Pressure ulcer of coccygeal region (Acute) Hemoptysis (Acute) Reason for Visit: septic shock Subjective: Feels better, but still feels sick overall. Vitals/I&O's: Vital Signs Temp Pulse Resp BP Pulse Ox 36.4 C L 83 16 119/74 94 09/05/19 10:00 09/05/19 10:01 09/05/19 10:00 09/05/19 10:01 09/05/19 10:00 Oxygen Flow Rate (L/min) 3 Oxygen Delivery Method Room Air Weight: 121.9 kg Body Mass Index (BMI) 34.5 Intake and Output for Last 24 Hours 09/03/19 09/04/19 09/05/19 23:59 23:59 23:59 Intake Total 5242.04 / 5242.04 1695 / 1695 Output Total 875 / 875 250 / 250 Balance 4367.04 / 4367.04 1445 / 1445 General: Alert, Cooperative, No apparent distress HEENT: Atraumatic, Normocephalic Oral: Moist Mucosa, No Gingival or Mucosal Lesions/ Ulcerations Neck: No Nodes, Trachea Midline Lungs: Clear to auscultation, Normal air movement, No rhonchi, No wheeze, No rales Cardiovascular: Regular rate, Regular Rhythm, Normal S1, Normal S2, No murmurs Abdomen: Bowel Sounds Present, Soft, Non Tender, Non-Distended, No Hepato-splenomegaly Extremities: No edema, No Calf Tenderness Neurological: - - ataxia of upper extremities Psych/Mental Status: Normal Affect, Appropriate Microbiology Past 72 Hours 09/04/19 14:40 Urine Catheter - Gama Urine Culture - Preliminary Gram negative promise 09/04/19 23:50 Stool C. difficile DNA Amplification - Final 09/04/19 23:50 Stool Stool Occult Blood (ANG) - Final 09/04/19 22:40 Vomitus Gastric Occult Blood - Final Occult Blood Positive Laboratory Results 09/04/19 13:00: WBC 15.9 H, RBC 5.30, Hgb 17.1 H, Hct 53.3, MCV 100.6 H, MCH 32.3 H, MCHC 32.1, RDW Std Deviation 51.6 H, RDW Coeff of Campos 13.8, Plt Count 343, MPV 9.2, Immature Gran % (Auto) 0.600, Neut % (Auto) 86.8 H, Lymph % (Auto) 5.9 L, Swain % (Auto) 6.6, Eos % (Auto) 0.0, Baso % (Auto) 0.1, Absolute Neuts (auto) 13.8 H, Absolute Lymphs (auto) 0.93, Nucleated RBC % 0 09/04/19 13:00: PT 15.4 H, INR 1.2, APTT 27.7 09/04/19 13:00: Sodium 149 H, Potassium 2.9 L, Chloride 106, Carbon Dioxide 34.0 H, Anion Gap 9, BUN 35 H, Creatinine 2.64 H, Estim Creat Clear Calc 40.35, Est GFR (MDRD) Af Amer 34 L, Est GFR (MDRD) Non-Af 28 L, BUN/Creatinine Ratio 13.3, Glucose 135 H, Calcium 9.0, Total Bilirubin 0.60, AST 16, ALT 19, Alkaline Phosphatase 126 H, Total Protein 8.5 H, Albumin 3.2, Globulin 5.3 H, Albumin/Globulin Ratio 0.6 L 09/04/19 13:00: Lactic Acid 4.3 H* 09/04/19 13:00: Troponin I 1.970 H* 09/04/19 14:40: Urine Color Yellow, Urine Clarity Sl. Cloudy, Urine pH 8.0, Ur Specific [place] 1.015, Urine Protein 100 H, Urine Glucose (UA) Normal, Urine Ketones 5 H, Urine Occult Blood 150 H, Urine Nitrite Negative, Urine Bilirubin Negative, Urine Urobilinogen Normal, Ur Leukocyte Esterase 100 H, Urine RBC 0-5 SEEN, Urine WBC 10-25 SEEN, Ur Squamous Epith Cells 0-5 SEEN, Urine Bacteria 2+, Urine Mucus 0 SEEN, Urine Yeast 3+ 09/04/19 16:15: Troponin I 4.970 H* 09/04/19 16:15: Magnesium 2.5 09/04/19 18:25: Sodium 151 H, Potassium 2.7 L*, Chloride 113 H, Carbon Dioxide 34.0 H, Anion Gap 4 L, BUN 34 H, Creatinine 2.05 H, Estim Creat Clear Calc 51.97, Est GFR (MDRD) Af Amer 46 L, Est GFR (MDRD) Non-Af 38 L, BUN/Creatinine Ratio 16.6, Glucose 120 H, Calcium 7.7 L, Troponin I 5.910 H* 09/04/19 18:25: Lactic Acid 0.9 09/05/19 00:30: Troponin I 6.550 H* 09/05/19 04:00: WBC 12.0 H, RBC 3.89 L, Hgb 12.5 L, Hct 40.4, MCV 103.9 H, MCH 32.1 H, MCHC 30.9 L, RDW Std Deviation 53.8 H, RDW Coeff of Campos 14.1, Plt Count 221, MPV 8.9, Immature Gran % (Auto) 0.300, Neut % (Auto) 79.3 H, Lymph % (Auto) 13.8 L, Swain % (Auto) 6.2, Eos % (Auto) 0.2, Baso % (Auto) 0.2, Absolute Neuts (auto) 9.5 H, Absolute Lymphs (auto) 1.66, Nucleated RBC % 0 09/05/19 04:00: Sodium 145, Potassium 3.7, Chloride 112 H, Carbon Dioxide 29.0, Anion Gap 4 L, BUN 41 H, Creatinine 1.97 H, Estim Creat Clear Calc 54.08, Est GFR (MDRD) Af Amer 48 L, Est GFR (MDRD) Non-Af 39 L, BUN/Creatinine Ratio 20.8 H, Glucose 112 H, Calcium 7.6 L 09/05/19 06:15: Troponin I 5.450 H* Current Medications Acetaminophen (Tylenol) 650 mg PO Q6H PRN PRN PRN Reason: Pain Score 1-10/Temp > 100.7 F Al Hydroxide/Mg Hydroxide (Mylanta Ii) 30 ml PO Q6H PRN PRN PRN Reason: Gastric Burning Albuterol Sulfate (Ventolin Aerosols) 2.5 mg INHALATION Q2H PRN PRN PRN Reason: SOB/Wheezing Baclofen (Lioresal) 20 mg PO 4X/DAY PRN PRN PRN Reason: BLADDER SPASMS Emtricitabine/Tenofovir (Truvada 200 Mg-300 Mg Tablet) 1 tablet PO DAILY [facility] Last Admin: 09/05/19 09:58 Dose: 1 tablet Documented by: Escitalopram Oxalate (Lexapro) 20 mg PO DAILY [facility] Last Admin: 09/05/19 09:58 Dose: 20 mg Documented by: Folic Acid (Folic Acid) 1 mg PO DAILY@0800 [facility] Last Admin: 09/05/19 09:59 Dose: 1 mg Documented by: Gabapentin (Neurontin) 800 mg PO BID [facility] Last Admin: 09/05/19 10:00 Dose: 800 mg Documented by: Piperacillin Sod/Tazobactam (Sod 3.375 gm/ Sodium Chloride) 50 mls @ 12.5 mls/hr IV Q8 [facility] Last Infusion: 09/05/19 09:12 Dose: Infused Documented by: Potassium Chloride 40 meq/ (Sodium Chloride) 1,020 mls @ 100 mls/hr IV .[id number] [facility] Last Admin: 09/05/19 06:42 Dose: 100 mls/hr Documented by: Pantoprazole Sodium 40 mg/ (Sodium Chloride) 110 mls @ 330 mls/hr IV Q12 [facility] Last Admin: 09/05/19 10:00 Dose: 330 mls/hr Documented by: Melatonin (Melatonin) 3 mg PO QHS PRN PRN PRN Reason: INSOMNIA Last Admin: 09/04/19 22:12 Dose: 3 mg Documented by: Metoprolol Succinate (Toprol Xl (Beta Sera)) 25 mg PO DAILY [facility] Last Admin: 09/05/19 10:01 Dose: 25 mg Documented by: Nitroglycerin (Nitrostat) 0.4 mg SUBLINGUAL Q5M PRN PRN Reason: CARDIAC/CHEST PAIN Non-Formulary Medication (Darunavir Ethanolate [Prezista]) 800 mg PO DAILY [facility] Non-Formulary Medication (Ritonavir [Norvir]) 100 mg PO DAILY [facility] Nutritional Formula (Lactose Free) (Ensure Enlive) 120 ml PO 4X/DAY [facility] Last Admin: 09/05/19 09:56 Dose: 120 ml Documented by: Ondansetron HCl (Zofran) 4 mg IV Q8H PRN PRN PRN Reason: NAUSEA/VOMITING Last Admin: 09/04/19 18:21 Dose: 4 mg Documented by: Oxcarbazepine (Trileptal) 150 mg PO BID [facility] Last Admin: 09/05/19 10:01 Dose: 150 mg Documented by: Oxycodone HCl (Oxycontin) 20 mg PO Q12 [facility] Last Admin: 09/05/19 09:56 Dose: 20 mg Documented by: Pramipexole Dihydrochloride (Mirapex) 0.125 mg PO DAILY [facility] Last Admin: 09/05/19 10:02 Dose: 0.125 mg Documented by: Pravastatin Sodium (Pravachol) 40 mg PO QHS [facility] Last Admin: 09/04/19 21:02 Dose: 40 mg Documented by: Promethazine HCl (Phenergan Tablet) 25 mg PO Q6H PRN PRN PRN Reason: NAUSEA Last Admin: 09/05/19 09:56 Dose: 25 mg Documented by: Sodium Chloride () 10 - 40 ml IV UD PRN PRN Reason: SALINE FLUSH Last Admin: 09/04/19 18:21 Dose: 20 ml Documented by: Trimethoprim/Sulfamethoxazole (Bactrim Ds) 0.5 tablet PO BIDCM [facility] STROKE Vital Signs/Narrative: Vital Signs Temp Pulse Resp BP BP Pulse Ox 09/05/19 10:01 83 119/74 09/05/19 10:00 36.4 C L 84 16 119/74 94 09/05/19 09:00 90 11 L 100/79 93 09/05/19 08:00 36.2 C L 79 20 H 118/84 H 92 09/05/19 07:15 81 Medical Necessity - Tobacco Use Smoking Status: Current every day smoker Tobacco Use: Vapor Assessment/Plan All Active Problems UTI (urinary tract infection) (Acute) Sepsis (Acute) TIFFANY (acute kidney injury) (Acute) Pressure ulcer of coccygeal region (Acute) Hemoptysis (Acute) 1. septic shock POA 2/2 infected sacral wound +/- UTI UCx 09/02 + K. pneumoniae and S. maltophilia. 2/3 still pending Wound Cx 08/31 + P mirabilis, MSSA, E. faecalis BCx 09/04 pending. C diff negative ID following ABX: pip/tazo (start 09/04), trimeth/sulfameth (start 09/05) 2. UTI as above 3. INfected sacral wound as above wound care 4. NSTEMI type 2, demand ischemia from septic shock follow up echo continue metoprolol 5. hemoptysis CT chest showed some infiltrative process + small pleural effusions may have been superficial from lip lesion anticoagulation held 6. HIV continue Truvada + darunavir, ritanavir follow up with HIV physician as outpt 7. paraplegia complicates care 8. VTE proph: SCDs. chemical proph on hold given hemoptysis. Code Visit Inpatient E&M: 31709 Subs Hosp L3
[2019-09-05] MEDS: Smz/Tmp Ds Tablet 0.5 TABLET PO ×2 (12:00→17:35)
--- NOTE | 2019-09-05 14:14 | CASEMGMT ---
RN CM Assessment Note Presentation: NSTEMI, Sepsis, UTI. Hx of HIV and paraplegia Intro role of CM and purpose of RN CM assessment to patient. Pt is awake, alert and able to participate in assessment. Demographics, PCP and Pharmacy verified. Pt states he is managing at home with help of his assembled wood products repairer/friend Briseida. No new needs identified. PCP: Dr. Tez Azevedo Preferred [facility] Insurance: VERONICA Prescription Benefit: yes LNOK: Friend, Briseida Living Arrangements: Lives in one story home with friend. Pt states has all equipment needs. Friend helps with ADL, home care, dressing changes. Pt is accepted to [place] [employer]aiver Program, but CM has not found aide assistance yet. Transportation: Pt states he uses [employer] for Transportation DME: Lift system in home, motorized wc, hospital bed with low loss air mattress, transfer chair for bathroom. Pt uses [employer]-mail order for betancur, colostomy supplies HHC/SNF: pt states none recently. Discussed HHC, pt states he does not feel he would need as friend could assist. RN CM let pt know CM can evaluate any need skilled needs and speak to pt if HHC is recommended. Patient DC goals: return home DC PLAN: anticipate will return home. PT/OT, wound nurse evals pending, ID following. If higher level of care is needed, CM can speak with pt re: dc needs.
--- NOTE | 2019-09-05 15:07 | NURSING ---
wound photo: sacrum
[2019-09-05] MEDS: DARUNAVIR ETHANOLATE 800 MG TABLET PO (17:34)
[2019-09-05] MEDS: Baclofen 10 MG Tablet 20 MG PO (17:34)
[2019-09-05] MEDS: Pravastatin 40 MG Tablet PO (21:00)
--- NOTE | 2019-09-05 21:53 | NURSING ---
Pt refusing Gama catheter care from TOM Agudelo. This RN discussed with pt the importance of cath care in regards to risk for infection. Pt continues to adamantly refuse cath care despite encouragement and education.
[2019-09-05] MEDS: Zolpidem Tartrate 5 MG Tablet PO (23:27)
[2019-09-06] VITALS (20 sets, daily range): BP systolic 89–112; BP diastolic 54–79; PULSE 70–92; RESP 12–17; TEMP 36.4–36.9; O2SAT 92–96
[2019-09-06 05:13] LABS: Absolute Lymphocyte Count 1.32 X10^3/uL (0.83-4.51); Absolute Neutrophil Count 5.4 X10^3/uL (2.0-7.7); Basophil# 0.01 X10^3/uL; Basophil% 0.1 % (0-1); Eosinophils% 2.7 % (0-5); Hematocrit 39.6 % (40-54); Lymphocyte # 1.32 X10^3/ul (4.0); Lymphocyte % 17.8 % (19-41); Mean Corp Hgb Conc 30.3 g/dL (32-36); Mean Corpuscular Hgb 31.7 pg (27.0-32.0); Mean Corpuscular Volume 104.8 fL (80-94); Mean Platelet Vol. 9.5 fl (6.2-12.0); Monocyte# 0.44 X10^3/uL; Monocyte% 5.9 % (0-10); NRBC Flagged by Analyzer 0 % (0-5); Neutrophil # 5.41 X10^3/uL (2.7-7.7); Neutrophil % 73.2 % (47-70); Platelet Count 178 K/mm3 (150-450); RBC Distribution Width CV 14.2 % (11.6-14.6); RBC Distribution Width SD 55.6 fl (35.1-43.9); Red Blood Count 3.78 M/mm3 (4.6-6.2); White Blood Count 7.4 K/mm3 (4.4-11.0)
[2019-09-06 05:28] LABS: Anion Gap 2 (5-15); BUN 33 mg/dL (7-18); BUN/Creat Ratio 20.6 RATIO (10-20); Calcium,Total 7.5 mg/dL (8.5-10.1); Chloride 115 mmol/L (98-107); EST Glomerular Filtration Rate 50 mL/min (>60); Est Glom Filt Rate - Afr Amer 61 mL/min (>60); Estimated Creatinine Clearance 66.58 ml/min; Glucose 78 mg/dL (74-106); Sodium Level 146 mmol/L (136-145)
[2019-09-06] MEDS: Baclofen 10 MG Tablet 20 MG PO ×2 (07:54→13:08)
[2019-09-06] MEDS: Acetaminophen 325 MG Tablet 650 MG PO (07:54)
[2019-09-06] MEDS: Smz/Tmp Ds Tablet 0.5 TABLET PO ×2 (07:59→17:22)
[2019-09-06] MEDS: Folic Acid 1 MG Tablet PO (08:00)
--- NOTE | 2019-09-06 08:04 | PN_ITS ---
Subjective: Patient did well overnight. Patient did have witnessed apneas by nursing and required 2 L nasal cannula. Patient is not reporting any respiratory symptoms at this time. Patient has not had any recurrent hemoptysis. Patient does not report any nausea and has been tolerating p.o. intake. General: Alert, Oriented x3, Cooperative, No apparent distress, Well developed, Well nourished, - - Obese. HEENT: Atraumatic, PERRLA, EOMI, Normocephalic, - - No scleral icterus or injection noted Oral: Moist Mucosa, No Gingival or Mucosal Lesions/ Ulcerations, - - Granulation tissue noted on left lip Neck: Supple, No JVD, No Nodes, Trachea Midline Lungs: Clear to auscultation, Normal air movement, No rhonchi, No wheeze, No rales Cardiovascular: Regular rate, Normal S1, Normal S2, No murmurs, No rub noted, No Gallop Abdomen: Bowel Sounds Present, Soft, Non Tender, Non-Distended, Obese Extremities: No clubbing, No cyanosis, No edema Skin: - - No significant changes Musculoskeletal: No Tenderness to Palpation of Joints or Extremities, No Muscle Wasting Lymphatic: No Cervical, Supraclavicular, or Inguinal Adenopathy Neurological: Cranial nerves II-XII grossly intact, - - No significant changes compared to previous Psych/Mental Status: Alert and oriented to time, place, person, mood and affect Vital Signs Temp Pulse Resp BP Pulse Ox 36.7 C 87 17 112/78 93 09/06/19 02:00 09/06/19 05:00 09/06/19 05:00 09/06/19 05:00 09/06/19 05:00 Oxygen Flow Rate (L/min) 2 Oxygen Delivery Method Room Air Weight: 123.1 kg Body Mass Index (BMI) 34.5 Intake and Output for Last 24 Hours 09/04/19 09/05/19 09/06/19 23:59 23:59 23:59 Intake Total 5242.04 / 5242.04 3495 / 3495 400 / 400 Output Total 875 / 875 1275 / 1830 810 / 810 Balance 4367.04 / 4367.04 2220 / 1665 -410 / -410 Labs (Last 48 Hours) 09/04/19 09/04/19 09/04/19 13:00 13:00 13:00 WBC 15.9 H RBC 5.30 Hgb 17.1 H Hct 53.3 MCV 100.6 H MCH 32.3 H MCHC 32.1 RDW Std Deviation 51.6 H RDW Coeff of Campos 13.8 Plt Count 343 MPV 9.2 Immature Gran % (Auto) 0.600 Neut % (Auto) 86.8 H Lymph % (Auto) 5.9 L [place] % (Auto) 6.6 Eos % (Auto) 0.0 Baso % (Auto) 0.1 Absolute Neuts (auto) 13.8 H Absolute Lymphs (auto) 0.93 Nucleated RBC % 0 PT 15.4 H INR 1.2 APTT 27.7 Sodium 149 H Potassium 2.9 L Chloride 106 Carbon Dioxide 34.0 H Anion Gap 9 BUN 35 H Creatinine 2.64 H Estim Creat Clear Calc 40.35 Est GFR (MDRD) Af Amer 34 L Est GFR (MDRD) Non-Af 28 L BUN/Creatinine Ratio 13.3 Glucose 135 H Lactic Acid Calcium 9.0 Magnesium Total Bilirubin 0.60 AST 16 ALT 19 Alkaline Phosphatase 126 H Troponin I Total Protein 8.5 H Albumin 3.2 Globulin 5.3 H Albumin/Globulin Ratio 0.6 L Urine Color Urine Clarity Urine pH Ur Specific [place] Urine Protein Urine Glucose (UA) Urine Ketones Urine Occult Blood Urine Nitrite Urine Bilirubin Urine Urobilinogen Ur Leukocyte Esterase Urine RBC Urine WBC Ur Squamous Epith Cells Urine Bacteria Urine Mucus Urine Yeast 09/04/19 09/04/19 09/04/19 13:00 13:00 14:40 WBC RBC Hgb Hct MCV MCH MCHC RDW Std Deviation RDW Coeff of Campos Plt Count MPV Immature Gran % (Auto) Neut % (Auto) Lymph % (Auto) [place] % (Auto) Eos % (Auto) Baso % (Auto) Absolute Neuts (auto) Absolute Lymphs (auto) Nucleated RBC % PT INR APTT Sodium Potassium Chloride Carbon Dioxide Anion Gap BUN Creatinine Estim Creat Clear Calc Est GFR (MDRD) Af Amer Est GFR (MDRD) Non-Af BUN/Creatinine Ratio Glucose Lactic Acid 4.3 H* Calcium Magnesium Total Bilirubin AST ALT Alkaline Phosphatase Troponin I 1.970 H* Total Protein Albumin Globulin Albumin/Globulin Ratio Urine Color Yellow Urine Clarity Sl. Cloudy Urine pH 8.0 Ur Specific [place] 1.015 Urine Protein 100 H Urine Glucose (UA) Normal Urine Ketones 5 H Urine Occult Blood 150 H Urine Nitrite Negative Urine Bilirubin Negative Urine Urobilinogen Normal Ur Leukocyte Esterase 100 H Urine RBC 0-5 SEEN Urine WBC 10-25 SEEN Ur Squamous Epith Cells 0-5 SEEN Urine Bacteria 2+ Urine Mucus 0 SEEN Urine Yeast 3+ 09/04/19 09/04/19 09/04/19 16:15 16:15 18:25 WBC RBC Hgb Hct MCV MCH MCHC RDW Std Deviation RDW Coeff of Campos Plt Count MPV Immature Gran % (Auto) Neut % (Auto) Lymph % (Auto) [place] % (Auto) Eos % (Auto) Baso % (Auto) Absolute Neuts (auto) Absolute Lymphs (auto) Nucleated RBC % PT INR APTT Sodium 151 H Potassium 2.7 L* Chloride 113 H Carbon Dioxide 34.0 H Anion Gap 4 L BUN 34 H Creatinine 2.05 H Estim Creat Clear Calc 51.97 Est GFR (MDRD) Af Amer 46 L Est GFR (MDRD) Non-Af 38 L BUN/Creatinine Ratio 16.6 Glucose 120 H Lactic Acid Calcium 7.7 L Magnesium 2.5 Total Bilirubin AST ALT Alkaline Phosphatase Troponin I 4.970 H* 5.910 H* Total Protein Albumin Globulin Albumin/Globulin Ratio Urine Color Urine Clarity Urine pH Ur Specific [place] Urine Protein Urine Glucose (UA) Urine Ketones Urine Occult Blood Urine Nitrite Urine Bilirubin Urine Urobilinogen Ur Leukocyte Esterase Urine RBC Urine WBC Ur Squamous Epith Cells Urine Bacteria Urine Mucus Urine Yeast 09/04/19 09/05/19 09/05/19 18:25 00:30 04:00 WBC 12.0 H RBC 3.89 L Hgb 12.5 L Hct 40.4 MCV 103.9 H MCH 32.1 H MCHC 30.9 L RDW Std Deviation 53.8 H RDW Coeff of Campos 14.1 Plt Count 221 MPV 8.9 Immature Gran % (Auto) 0.300 Neut % (Auto) 79.3 H Lymph % (Auto) 13.8 L [place] % (Auto) 6.2 Eos % (Auto) 0.2 Baso % (Auto) 0.2 Absolute Neuts (auto) 9.5 H Absolute Lymphs (auto) 1.66 Nucleated RBC % 0 PT INR APTT Sodium Potassium Chloride Carbon Dioxide Anion Gap BUN Creatinine Estim Creat Clear Calc Est GFR (MDRD) Af Amer Est GFR (MDRD) Non-Af BUN/Creatinine Ratio Glucose Lactic Acid 0.9 Calcium Magnesium Total Bilirubin AST ALT Alkaline Phosphatase Troponin I 6.550 H* Total Protein Albumin Globulin Albumin/Globulin Ratio Urine Color Urine Clarity Urine pH Ur Specific [place] Urine Protein Urine Glucose (UA) Urine Ketones Urine Occult Blood Urine Nitrite Urine Bilirubin Urine Urobilinogen Ur Leukocyte Esterase Urine RBC Urine WBC Ur Squamous Epith Cells Urine Bacteria Urine Mucus Urine Yeast 09/05/19 09/05/19 09/06/19 04:00 06:15 05:05 WBC RBC Hgb Hct MCV MCH MCHC RDW Std Deviation RDW Coeff of Campos Plt Count MPV Immature Gran % (Auto) Neut % (Auto) Lymph % (Auto) [place] % (Auto) Eos % (Auto) Baso % (Auto) Absolute Neuts (auto) Absolute Lymphs (auto) Nucleated RBC % PT INR APTT Sodium 145 146 H Potassium 3.7 4.0 Chloride 112 H 115 H Carbon Dioxide 29.0 29.0 Anion Gap 4 L 2 L BUN 41 H 33 H Creatinine 1.97 H 1.60 H Estim Creat Clear Calc 54.08 66.58 Est GFR (MDRD) Af Amer 48 L 61 Est GFR (MDRD) Non-Af 39 L 50 L BUN/Creatinine Ratio 20.8 H 20.6 H Glucose 112 H 78 Lactic Acid Calcium 7.6 L 7.5 L Magnesium Total Bilirubin AST ALT Alkaline Phosphatase Troponin I 5.450 H* Total Protein Albumin Globulin Albumin/Globulin Ratio Urine Color Urine Clarity Urine pH Ur Specific [place] Urine Protein Urine Glucose (UA) Urine Ketones Urine Occult Blood Urine Nitrite Urine Bilirubin Urine Urobilinogen Ur Leukocyte Esterase Urine RBC Urine WBC Ur Squamous Epith Cells Urine Bacteria Urine Mucus Urine Yeast 09/06/19 05:05 WBC 7.4 RBC 3.78 L Hgb 12.0 L Hct 39.6 L MCV 104.8 H MCH 31.7 MCHC 30.3 L RDW Std Deviation 55.6 H RDW Coeff of Campos 14.2 Plt Count 178 MPV 9.5 Immature Gran % (Auto) 0.300 Neut % (Auto) 73.2 H Lymph % (Auto) 17.8 L [place] % (Auto) 5.9 Eos % (Auto) 2.7 Baso % (Auto) 0.1 Absolute Neuts (auto) 5.4 Absolute Lymphs (auto) 1.32 Nucleated RBC % 0 PT INR APTT Sodium Potassium Chloride Carbon Dioxide Anion Gap BUN Creatinine Estim Creat Clear Calc Est GFR (MDRD) Af Amer Est GFR (MDRD) Non-Af BUN/Creatinine Ratio Glucose Lactic Acid Calcium Magnesium Total Bilirubin AST ALT Alkaline Phosphatase Troponin I Total Protein Albumin Globulin Albumin/Globulin Ratio Urine Color Urine Clarity Urine pH Ur Specific [place] Urine Protein Urine Glucose (UA) Urine Ketones Urine Occult Blood Urine Nitrite Urine Bilirubin Urine Urobilinogen Ur Leukocyte Esterase Urine RBC Urine WBC Ur Squamous Epith Cells Urine Bacteria Urine Mucus Urine Yeast Microbiology 09/04/19 14:40 Urine Catheter - [place] Urine Culture - Preliminary Gram negative promise 09/04/19 23:50 Stool C. difficile DNA Amplification - Final 09/04/19 23:50 Stool Stool Occult Blood (ANG) - Final 09/04/19 22:40 Vomitus Gastric Occult Blood - Final Occult Blood Positive Clinical Impression(s) from Imaging Studies Chest CT 09/05/19 06:41 IMPRESSION: Small bilateral pleural effusions with bibasilar atelectasis and/or infiltration. Electronically Signed: Jean Herbert, at 9:27 EST , Service support , Medical Necessity - Tobacco Use Smoking Status: Current every day smoker Tobacco Use: Vapor Assessment/Plan All Active Problems UTI (urinary tract infection) (Acute) Sepsis (Acute) TIFFANY (acute kidney injury) (Acute) Pressure ulcer of coccygeal region (Acute) Hemoptysis (Acute) RECOMMENDATIONS: 1. Defer cardiac work-up to cardiology 2. Continue antibiotics per infectious disease 3. Anticoagulation per cardiology 4. Outpatient complete PFT and PSG 5. Okay to leave the intensive care unit 6. Hemodynamically stable on room air. Will sign off from a critical care perspective IMPRESSIONS: 1. Septic shock secondary to infected sacral decubitus versus UTI Patient does have a decubitus ulcer with previous MSSA. Patient has been placed on Zosyn and vancomycin. Patient did respond to fluid resuscitation initially and blood pressures have been stable for over 48 hours. Infectious disease has been consulted. Lactate is back within normal limits and patient is back on room air. Unclear if patient had global hypoperfusion leading to increased lactic acid or was volume depleted leading to decreased perfusion. Patient has remained hemodynamically stable at this time. Will sign off from a critical care perspective. Patient can follow-up for pulmonary/sleep issues. 2. Hypokalemia Clinical suspicion for GI losses leading to decreased levels. No significant EKG changes noted on telemetry. Continue with supplementation as in dicated. 3. Hemoptysis CT scan of the chest was relatively unremarkable. Patient does have some basilar atelectasis, but this would be expected given his paraplegia. Patient does have some areas of bronchiectasis and would benefit from outpatient pulmonary function testing. Would defer to cardiology on anticoagulation. Nocturnal hypoxemia likely secondary to obstructive sleep apnea. Patient should have an outpatient polysomnogram. Clinical suspicion for hemoptysis secondary to lip lesion. 4. Non-ST elevation [place]/history of coronary artery disease Patient with HIV, smoking, hyperlipidemia and elevated troponins. Patient did have stents in 2007. No significant changes on EKG noted. Patient is being seen by cardiology. Anticoagulation was held secondary to reported hemoptysis. Defer to cardiology. 5. Sacral decubitus/chronic [place] Probable sources of infectious etiology. Infectious disease to see today. Patient may need a plastics evaluation. Patient is on broad-spectrum antibiotics at this time. 6. HIV with associated paraplegia and neuropathy/obesity/hypertension Complicates care, management, recovery and prognosis. Likely okay to continue with HIV medications, but may need to evaluate with renal function. No significant mediastinal lymphadenopathy appreciated. Patient does have some bronchiectatic changes, but doubt this would lead to reported hemoptysis. Code Visit 9xxxx: [id number] Critical care first hour
[2019-09-06] MEDS: Pantoprazole Sodium 40 MG Tablet PO ×2 (09:39→21:18)
[2019-09-06] MEDS: OXcarbazepine 150 MG Tablet PO ×2 (09:40→21:18)
[2019-09-06] MEDS: Pramipexole Di-HCl 0.125 MG Tablet PO (09:40)
[2019-09-06] MEDS: DARUNAVIR ETHANOLATE 800 MG TABLET PO (09:40)
[2019-09-06] MEDS: EMTRICITABINE/TENOFOVIR 1 TABLET TABLET PO (09:41)
[2019-09-06] MEDS: Gabapentin 800 MG Tablet PO ×2 (09:41→21:18)
[2019-09-06] MEDS: Escitalopram Oxalate 20 MG Tablet PO (09:41)
--- NOTE | 2019-09-06 09:48 | CASEMGMT ---
LW/POA forms are not on file. SW let pt know and asked if Briseida who he has identified as POA can bring in a copy as able. Pt states understanding. CHRISTINA Mendes
--- NOTE | 2019-09-06 09:54 | CASEMGMT ---
Addendum entered by Rodolfo Armendariz 09/06/19 10:01: Also discussed HHC for [facility] or therapy. Pt declines HHC at this, stating that his caregiver helps to manage his care and with exercises. Original Note: MARY MILES NOTE: Pt inquiring abut getting SCD's @ home after he is discharged. Pt made aware SCD's are not typically indicated for In-home use and that insurance would not cover for this device in the home. Pt voices understanding. Juaquin RAMIREZ RN CM
--- NOTE | 2019-09-06 10:12 | PCM.PN.HOSP ---
Patient Problems: Active and Suspected Problems Pressure ulcer of coccygeal region (Acute) Hemoptysis (Acute) Reason for Visit: Septic shock Subjective: Feels well. Some apneic episodes noted by nursing. Vitals/I&O's: Vital Signs Temp Pulse Resp BP Pulse Ox 36.4 C L 88 15 106/79 93 09/06/19 08:00 09/06/19 09:00 09/06/19 09:00 09/06/19 09:00 09/06/19 09:00 Oxygen Flow Rate (L/min) 2 Oxygen Delivery Method Room Air Weight: 123.1 kg Body Mass Index (BMI) 34.5 Intake and Output for Last 24 Hours 09/04/19 09/05/19 09/06/19 23:59 23:59 23:59 Intake Total 5242.04 / 5242.04 3495 / 3495 450 / 450 Output Total 875 / 875 1275 / 1830 810 / 810 Balance 4367.04 / 4367.04 2220 / 1665 -360 / -360 General: Alert, Cooperative, No apparent distress HEENT: Atraumatic, - - abraision on lower left lip Oral: Moist Mucosa, No Gingival or Mucosal Lesions/ Ulcerations Neck: No Nodes, Trachea Midline Lungs: Clear to auscultation, Normal air movement, No rhonchi, No wheeze, No rales Cardiovascular: Regular rate, Regular Rhythm, Normal S1, Normal S2, No murmurs Abdomen: Bowel Sounds Present, Soft, Non Tender, Non-Distended, No Hepato-splenomegaly, - - colostomty LLQ Extremities: No edema, No Calf Tenderness Skin: No rashes, No breakdown Psych/Mental Status: Normal Affect, Appropriate Microbiology Past 72 Hours 09/04/19 14:40 Urine Catheter - [place] Urine Culture - Preliminary Gram negative promise Gram negative promise#2 09/04/19 23:50 Stool C. difficile DNA Amplification - Final 09/04/19 23:50 Stool Stool Occult Blood (ANG) - Final 09/04/19 22:40 Vomitus Gastric Occult Blood - Final Occult Blood Positive Laboratory Results 09/06/19 05:05: Sodium 146 H, Potassium 4.0, Chloride 115 H, Carbon Dioxide 29.0, Anion Gap 2 L, BUN 33 H, Creatinine 1.60 H, Estim Creat Clear Calc 66.58, Est GFR (MDRD) Af Amer 61, Est GFR (MDRD) Non-Af 50 L, BUN/Creatinine Ratio 20.6 H, Glucose 78, Calcium 7.5 L 09/06/19 05:05: WBC 7.4, RBC 3.78 L, Hgb 12.0 L, Hct 39.6 L, MCV 104.8 H, MCH 31.7, MCHC 30.3 L, RDW Std Deviation 55.6 H, RDW Coeff of Campos 14.2, Plt Count 178, MPV 9.5, Immature Gran % (Auto) 0.300, Neut % (Auto) 73.2 H, Lymph % (Auto) 17.8 L, [place] % (Auto) 5.9, Eos % (Auto) 2.7, Baso % (Auto) 0.1, Absolute Neuts (auto) 5.4, Absolute Lymphs (auto) 1.32, Nucleated RBC % 0 Current Medications Acetaminophen (Tylenol) 650 mg PO Q6H PRN PRN PRN Reason: Pain Score 1-10/Temp > 100.7 F Last Admin: 09/06/19 07:54 Dose: 650 mg Documented by: Acyclovir (Zovirax) 1 applic TOPICAL 4X/DAY [facility]; Protocol Al Hydroxide/Mg Hydroxide (Mylanta Ii) 30 ml PO Q6H PRN PRN PRN Reason: Gastric Burning Albuterol Sulfate (Ventolin Aerosols) 2.5 mg INHALATION Q2H PRN PRN PRN Reason: SOB/Wheezing Baclofen (Lioresal) 20 mg PO 4X/DAY PRN PRN PRN Reason: BLADDER SPASMS Last Admin: 09/06/19 07:54 Dose: 20 mg Documented by: Emtricitabine/Tenofovir (Truvada 200 Mg-300 Mg Tablet) 1 tablet PO DAILY [facility] Last Admin: 09/06/19 09:41 Dose: 1 tablet Documented by: Escitalopram Oxalate (Lexapro) 20 mg PO DAILY [facility] Last Admin: 09/06/19 09:41 Dose: 20 mg Documented by: Folic Acid (Folic Acid) 1 mg PO DAILY@0800 [facility] Last Admin: 09/06/19 08:00 Dose: 1 mg Documented by: Gabapentin (Neurontin) 800 mg PO BID [facility] Last Admin: 09/06/19 09:41 Dose: 800 mg Documented by: Piperacillin Sod/Tazobactam (Sod 3.375 gm/ Sodium Chloride) 50 mls @ 12.5 mls/hr IV Q8 [facility] Last Infusion: 09/06/19 09:32 Dose: Infused Documented by: Metoprolol Succinate (Toprol Xl (Beta Sera)) 25 mg PO DAILY [facility] Last Admin: 09/05/19 10:01 Dose: 25 mg Documented by: Nitroglycerin (Nitrostat) 0.4 mg SUBLINGUAL Q5M PRN PRN Reason: CARDIAC/CHEST PAIN Nutritional Formula (Jaleel - [place] Flavor) [facility] Nutritional Formula (Lactose Free) (Ensure Enlive) 120 ml PO 4X/DAY [facility] Last Admin: 09/06/19 09:39 Dose: 120 ml Documented by: Ondansetron HCl (Zofran) 4 mg IV Q8H PRN PRN PRN Reason: NAUSEA/VOMITING Last Admin: 09/04/19 18:21 Dose: 4 mg Documented by: Oxcarbazepine (Trileptal) 150 mg PO BID [facility] Last Admin: 09/06/19 09:40 Dose: 150 mg Documented by: Oxycodone HCl (Oxycontin) 20 mg PO Q12 [facility] Last Admin: 09/06/19 09:39 Dose: 20 mg Documented by: Pantoprazole Sodium (Protonix) 40 mg PO BID [facility] Last Admin: 09/06/19 09:39 Dose: 40 mg Documented by: Pramipexole Dihydrochloride (Mirapex) 0.125 mg PO DAILY [facility] Last Admin: 09/06/19 09:40 Dose: 0.125 mg Documented by: Pravastatin Sodium (Pravachol) 40 mg PO QHS [facility] Last Admin: 09/05/19 21:00 Dose: 40 mg Documented by: Promethazine HCl (Phenergan Tablet) 25 mg PO Q6H PRN PRN PRN Reason: NAUSEA Last Admin: 09/05/19 20:37 Dose: 25 mg Documented by: Ritonavir (Norvir) 100 mg PO DAILY [facility] Last Admin: 09/06/19 09:40 Dose: 100 mg Documented by: Sodium Chloride () 10 - 40 ml IV UD PRN PRN Reason: SALINE FLUSH Last Admin: 09/04/19 18:21 Dose: 20 ml Documented by: Trimethoprim/Sulfamethoxazole (Bactrim Ds) 0.5 tablet PO BIDCM ROSALINDA Last Admin: 09/06/19 07:59 Dose: 0.5 tablet Documented by: Zolpidem Tartrate (Ambien (Generic)) 5 mg PO QHS PRN PRN PRN Reason: INSOMNIA Last Admin: 09/05/19 23:27 Dose: 5 mg Documented by: STROKE Vital Signs/Narrative: Vital Signs Temp Pulse Resp BP Pulse Ox 09/06/19 09:00 88 15 106/79 93 09/06/19 08:00 36.4 C L 79 15 109/75 93 09/06/19 07:31 78 09/06/19 07:00 81 17 108/76 96 Medical Necessity - Tobacco Use Smoking Status: Current every day smoker Tobacco Use: Vapor Assessment/Plan All Active Problems UTI (urinary tract infection) (Acute) Sepsis (Acute) TIFFANY (acute kidney injury) (Acute) Pressure ulcer of coccygeal region (Acute) Hemoptysis (Acute) 1. septic shock POA /2 infected sacral wound +/- UTI UCx 09/02 + K. pneumoniae and S. maltophilia. 2/3 showing GNRs Wound Cx 08/31 + P mirabilis, MSSA, E. faecalis BCx / pending. C diff negative ID following ABX: pip/tazo (start 09/04), trimeth/sulfameth (start 09/05) 2. UTI as above 3. INfected sacral wound as above wound care 4. NSTEMI type 2, demand ischemia from septic shock echo showed an EF 70% continue metoprolol 5. hemoptysis CT chest showed some infiltrative process + small pleural effusions may have been superficial from lip lesion anticoagulation held outpt PFTs with pulm 6. HIV continue Truvada + darunavir, ritanavir follow up with HIV physician as outpt 7. paraplegia complicates care 8. apnea suspected GLORIA oupt PSG 9. VTE proph: SCDs. chemical proph on hold given hemoptysis. Greater than 35 minutes of which greater than 50% of the time was counseling/coordinating care. Reviewing data with patient and his significant other over then phone. Transfer to PCU. Code Visit Inpatient E&M: [id number] [facility] L3
[2019-09-06] MEDS: Acyclovir 5% Tube 1 APPLIC TOPICAL ×4 (10:42→21:18)
--- NOTE | 2019-09-06 11:24 | NURSING ---
Pt refusing cath care at this time. States he wants his caregiver to complete care. Risks associated with incomplete catheter care discussed with patient. Pt is willing to have colostomy care performed at this time.
--- NOTE | 2019-09-06 12:14 | CASEMGMT ---
Pt asked to speak w/SW. SW met w/pt, pt inquired if SW is aware of any STNAs who would be able to assist pt at home. SW explained that this SW would have access to the same agencies and resources as the [facility] program. SW explained is aware of pt recently starting to work with the [facility] program and that they are working on finding aides. SW inquired who his family independence case manager is at [facility], SW can call and check in w/her. Pt states it is Gertrude Regalado. SW explained will call and see if she's made any progress. Pt states understanding. SW called [employer]([phone]), spoke w/Gertrude Regalado. SW let her know pt is in the hospital and inquired if she has been able to find any aides for pt. She states has been looking for months but because of where pt lives it has been difficulty to find any aides. She asked to be called when pt is discharged ([phone]) and for the discharge instructions be faxed ([phone]) when pt is discharged. SW did let pt know called Gertrude and that Gertrude is still trying to find aides for him. Pt states understanding. SW will continue to follow and remains available for any social service needs. CHRISTINA Mendes
--- NOTE | 2019-09-06 15:54 | PN.ID_ITS ---
Patient Problems: Active and Suspected Problems Pressure ulcer of coccygeal region (Acute) Hemoptysis (Acute) Subjective: Feeling much better, no fever, no abd pain - Physical Exam Vitals/I&O's: Vital Signs Temp Pulse Resp BP Pulse Ox 98.4 F 80 16 102/59 L 92 09/06/19 15:00 09/06/19 15:20 09/06/19 15:00 09/06/19 15:00 09/06/19 15:00 Oxygen Flow Rate (L/min) 2 Oxygen Delivery Method Room Air Weight: 123.1 kg Body Mass Index (BMI) 34.5 Intake and Output for Last 24 Hours 09/04/19 09/05/19 09/06/19 23:59 23:59 23:59 Intake Total 5242.04 / 5242.04 3495 / 3495 830 / 830 Output Total 875 / 875 1275 / 1830 1210 / 1210 Balance 4367.04 / 4367.04 2220 / 1665 -380 / -380 General: Alert, Cooperative Lungs: Clear to auscultation, Normal air movement Cardiovascular: Regular rate, Regular Rhythm Abdomen: Soft, Non Tender, Non-Distended Skin: No rashes Microbiology Past 72 Hours 09/04/19 13:47 Blood Culture (Wb) - Left Hand Blood Culture - Preliminary No growth in 48 hours. 09/04/19 13:50 Blood Culture (Wb) - Right Forearm Blood Culture - Prelim inary No growth in 48 hours. 09/04/19 14:40 Urine Catheter - Gama Urine Culture - Preliminary Gram negative promise Gram negative promise#2 Yeast Like Organism 09/04/19 23:50 Stool C. difficile DNA Amplification - Final 09/04/19 23:50 Stool Stool Occult Blood (ANG) - Final 09/04/19 22:40 Vomitus Gastric Occult Blood - Final Occult Blood Positive Laboratory Results 09/06/19 05:05: Sodium 146 H, Potassium 4.0, Chloride 115 H, Carbon Dioxide 29.0, Anion Gap 2 L, BUN 33 H, Creatinine 1.60 H, Estim Creat Clear Calc 66.58, Est GFR (MDRD) Af Amer 61, Est GFR (MDRD) Non-Af 50 L, BUN/Creatinine Ratio 20.6 H, Glucose 78, Calcium 7.5 L 02/05/20 05:05: WBC 7.4, RBC 3.78 L, Hgb 12.0 L, Hct 39.6 L, MCV 104.8 H, MCH 31.7, MCHC 30.3 L, RDW Std Deviation 55.6 H, RDW Coeff of Campos 14.2, Plt Count 178, MPV 9.5, Immature Gran % (Auto) 0.300, Neut % (Auto) 73.2 H, Lymph % (Auto) 17.8 L, [place] % (Auto) 5.9, Eos % (Auto) 2.7, Baso % (Auto) 0.1, Absolute Neuts (auto) 5.4, Absolute Lymphs (auto) 1.32, Nucleated RBC % 0 Current Medications Acetaminophen (Tylenol) 650 mg PO Q6H PRN PRN PRN Reason: Pain Score 1-10/Temp > 100.7 F Last Admin: 09/06/19 07:54 Dose: 650 mg Documented by: Acyclovir (Zovirax) 1 applic TOPICAL 4X/DAY [facility]; Protocol Last Admin: 09/06/19 13:05 Dose: 1 applicatio Documented by: Al Hydroxide/Mg Hydroxide (Mylanta Ii) 30 ml PO Q6H PRN PRN PRN Reason: Gastric Burning Albuterol Sulfate (Ventolin Aerosols) 2.5 mg INHALATION Q2H PRN PRN PRN Reason: SOB/Wheezing Baclofen (Lioresal) 20 mg PO 4X/DAY PRN PRN PRN Reason: BLADDER SPASMS Last Admin: 09/06/19 13:08 Dose: 20 mg Documented by: Emtricitabine/Tenofovir (Truvada 200 Mg-300 Mg Tablet) 1 tablet PO DAILY [facility] Last Admin: 09/06/19 09:41 Dose: 1 tablet Documented by: Escitalopram Oxalate (Lexapro) 20 mg PO DAILY [facility] Last Admin: 09/06/19 09:41 Dose: 20 mg Documented by: Folic Acid (Folic Acid) 1 mg PO DAILY@0800 [facility] Last Admin: 09/06/19 08:00 Dose: 1 mg Documented by: Gabapentin (Neurontin) 800 mg PO BID [facility] Last Admin: 09/06/19 09:41 Dose: 800 mg Documented by: Piperacillin Sod/Tazobactam (Sod 3.375 gm/ Sodium Chloride) 50 mls @ 12.5 mls/hr IV Q8 [facility] Last Admin: 09/06/19 13:04 Dose: 12.5 mls/hr Documented by: Metoprolol Succinate (Toprol Xl (Beta Sera)) 25 mg PO DAILY [facility] Last Admin: 09/06/19 12:12 Dose: Not Given Documented by: Nitroglycerin (Nitrostat) 0.4 mg SUBLINGUAL Q5M PRN PRN Reason: CARDIAC/CHEST PAIN Nutritional Formula (Jaleel - [place] [facility]) [facility] Nutritional Formula (Lactose Free) (Ensure Enlive) 120 ml PO 4X/DAY [facility] Last Admin: 09/06/19 13:04 Dose: 120 ml Documented by: Ondansetron HCl (Zofran) 4 mg IV Q8H PRN PRN PRN Reason: NAUSEA/VOMITING Last Admin: 09/04/19 18:21 Dose: 4 mg Documented by: Oxcarbazepine (Trileptal) 150 mg PO BID [facility] Last Admin: 09/06/19 09:40 Dose: 150 mg Documented by: Oxycodone HCl (Oxycontin) 20 mg PO Q12 [facility] Last Admin: 09/06/19 09:39 Dose: 20 mg Documented by: Pantoprazole Sodium (Protonix) 40 mg PO BID [facility] Last Admin: 09/06/19 09:39 Dose: 40 mg Documented by: Pramipexole Dihydrochloride (Mirapex) 0.125 mg PO DAILY [facility] Last Admin: 09/06/19 09:40 Dose: 0.125 mg Documented by: Pravastatin Sodium (Pravachol) 40 mg PO QHS [facility] Last Admin: 09/05/19 21:00 Dose: 40 mg Documented by: Promethazine HCl (Phenergan Tablet) 25 mg PO Q6H PRN PRN PRN Reason: NAUSEA Last Admin: 09/05/19 20:37 Dose: 25 mg Documented by: Ritonavir (Norvir) 100 mg PO DAILY [facility] Last Admin: 09/06/19 09:40 Dose: 100 mg Documented by: Sodium Chloride () 10 - 40 ml IV UD PRN PRN Reason: SALINE FLUSH Last Admin: 09/04/19 18:21 Dose: 20 ml Documented by: Trimethoprim/Sulfamethoxazole ([facility]rim [facility]s) [facility] Last Admin: 09/06/19 07:59 Dose: 0.5 tablet Documented by: Zolpidem Tartrate (Ambien (Generic)) 5 mg PO QHS PRN PRN PRN Reason: INSOMNIA Last Admin: 09/05/19 23:27 Dose: 5 mg Documented by: Medical Necessity - Tobacco Use Smoking Status: Current every day smoker Tobacco Use: Vapor Route of nutrition/ use of supplements: [] Nutritional Intake: [] IV Site: [] Gama Catheter: [] - Assessment/Plan Antibiotics: [] Assessment/Plan: [] Active and Suspected Problems Pressure ulcer of coccygeal region (Acute) Hemoptysis (Acute) septic shock - 09/02 ucx with klebs x2 and steno. 08/31 wound cx with mssa, enterococcus, proteus. Cdiff neg. TIFFANY on CKD improved. Temp, BP, and wbc improved. Cont zosyn, added bactrim for steno coverage. Ucx now showing GNRs. Overall much improved, out of icu now. hemoptysis - may be related to emesis or from perioral bleeding. Low suspicion for TB. CT chest showed no cavitary disease. HIV - Reports compliance with ART. Follows with Dr. Malone, last about about 2-3 weeks ago, reports VL undetectable and CD4 360. Cont truvada/darunavir/ritonavir. Reviewed most recent outpt ID note. Will follow
[2019-09-06] MEDS: Pravastatin 40 MG Tablet PO (21:19)
[2019-09-06] MEDS: Zolpidem Tartrate 5 MG Tablet PO (21:41)
[2019-09-07] VITALS (12 sets, daily range): BP systolic 92–128; BP diastolic 50–73; PULSE 72–92; RESP 16; TEMP 36.6–37.7; O2SAT 92–95
[2019-09-07] MEDS: Acetaminophen 325 MG Tablet 650 MG PO (04:11)
[2019-09-07 05:46] LABS: Absolute Lymphocyte Count 1.23 X10^3/uL (0.83-4.51); Absolute Neutrophil Count 4.5 X10^3/uL (2.0-7.7); Basophil# 0.02 X10^3/uL; Basophil% 0.3 % (0-1); Eosinophil# 0.27 X10^3/uL; Eosinophils% 4.3 % (0-5); Hematocrit 34.8 % (40-54); Hemoglobin 10.8 g/dL (13.0-16.5); Lymphocyte # 1.23 X10^3/ul (4.0); Lymphocyte % 19.5 % (19-41); Mean Corpuscular Hgb 31.6 pg (27.0-32.0); Mean Corpuscular Volume 101.8 fL (80-94); Mean Platelet Vol. 9.5 fl (6.2-12.0); Monocyte# 0.27 X10^3/uL; Monocyte% 4.3 % (0-10); NRBC Flagged by Analyzer 0 % (0-5); Neutrophil % 71.1 % (47-70); Platelet Count 183 K/mm3 (150-450); RBC Distribution Width SD 52.6 fl (35.1-43.9); Red Blood Count 3.42 M/mm3 (4.6-6.2); White Blood Count 6.3 K/mm3 (4.4-11.0)
[2019-09-07 06:02] LABS: Anion Gap 5 (5-15); BUN 23 mg/dL (7-18); BUN/Creat Ratio 12.5 RATIO (10-20); Calcium,Total 8.1 mg/dL (8.5-10.1); Chloride 110 mmol/L (98-107); Creatinine, Serum 1.84 mg/dL (0.70-1.30); EST Glomerular Filtration Rate 43 mL/min (>60); Est Glom Filt Rate - Afr Amer 52 mL/min (>60); Glucose 129 mg/dL (74-106); Potassium 3.3 mmol/L (3.5-5.1); Sodium Level 142 mmol/L (136-145)
[2019-09-07] MEDS: Baclofen 10 MG Tablet 20 MG PO (06:28)
[2019-09-07] MEDS: EMTRICITABINE/TENOFOVIR 1 TABLET TABLET PO (09:30)
[2019-09-07] MEDS: Pantoprazole Sodium 40 MG Tablet PO ×2 (09:30→21:00)
[2019-09-07] MEDS: Pramipexole Di-HCl 0.125 MG Tablet PO (09:30)
[2019-09-07] MEDS: Metoprolol(XL)Succ 25 MG Tablet PO (09:30)
[2019-09-07] MEDS: Gabapentin 800 MG Tablet PO ×2 (09:30→21:00)
[2019-09-07] MEDS: Folic Acid 1 MG Tablet PO (09:31)
[2019-09-07] MEDS: Smz/Tmp Ds Tablet 0.5 TABLET PO ×2 (09:31→16:44)
[2019-09-07] MEDS: Escitalopram Oxalate 20 MG Tablet PO (09:32)
[2019-09-07] MEDS: DARUNAVIR ETHANOLATE 800 MG TABLET PO (09:33)
[2019-09-07] MEDS: Acyclovir 5% Tube 1 APPLIC TOPICAL ×4 (09:34→21:02)
[2019-09-07] MEDS: OXcarbazepine 150 MG Tablet PO ×2 (09:34→21:00)
--- NOTE | 2019-09-07 10:14 | PCM.PN.ID ---
Patient Problems: Active and Suspected Problems Pressure ulcer of coccygeal region (Acute) Hemoptysis (Acute) Subjective: Feeling better, still increased ostomy output. No fever. - Physical Exam Vitals/I&O's: Vital Signs Temp Pulse Resp BP Pulse Ox 98.3 F 72 16 111/62 94 09/07/19 09:23 09/07/19 09:30 09/07/19 09:23 09/07/19 09:23 09/07/19 09:23 Oxygen Flow Rate (L/min) 2 Oxygen Delivery Method Room Air Weight: 124.1 kg Body Mass Index (BMI) 34.5 Intake and Output for Last 24 Hours 09/05/19 09/06/19 09/07/19 23:59 23:59 23:59 Intake Total 3495 / 3495 1880 / 1880 698.96 / 698.96 Output Total 1275 / 1830 3260 / 3260 1275 / 1275 Balance 2220 / 1665 -1380 / -1380 -576.04 / -576.04 General: Alert, Cooperative, No apparent distress Lungs: Clear to auscultation, Normal air movement Cardiovascular: Regular rate, Regular Rhythm Abdomen: Soft, Non Tender, Non-Distended Skin: No rashes Microbiology Past 72 Hours 09/04/19 14:40 Urine Catheter - Gama Urine Culture - Preliminary Stenotrophomonas maltophilia Klebsiella pneumoniae sp pneum Yeast Like Organism 09/04/19 13:47 Blood Culture (Wb) - Left Hand Blood Culture - Preliminary No growth in 48 hours. 09/04/19 13:50 Blood Culture (Wb) - Right Forearm Blood Culture - Preliminary No growth in 48 hours. 09/04/19 23:50 Stool C. difficile DNA Amplification - Final 09/04/19 23:50 Stool Stool Occult Blood (ANG) - Final 09/04/19 22:40 Vomitus Gastric Occult Blood - Final Occult Blood Positive Laboratory Results 09/07/19 04:55: WBC 6.3, RBC 3.42 L, Hgb 10.8 L, Hct 34.8 L, MCV 101.8 H, MCH 31.6, MCHC 31.0 L, RDW Std Deviation 52.6 H, RDW Coeff of Campos 14.0, Plt Count 183, MPV 9.5, Immature Gran % (Auto) 0.500, Neut % (Auto) 71.1 H, Lymph % (Auto) 19.5, [place] % (Auto) 4.3, Eos % (Auto) 4.3, Baso % (Auto) 0.3, Absolute Neuts (auto) 4.5, Absolute Lymphs (auto) 1.23, Nucleated RBC % 0 09/07/19 04:55: Sodium 142, Potassium 3.3 L, Chloride 110 H, Carbon Dioxide 27.0, Anion Gap 5, BUN 23 H, Creatinine 1.84 H, Estim Creat Clear Calc 57.90, Est GFR (MDRD) Af Amer 52 L, Est GFR (MDRD) Non-Af 43 L, BUN/Creatinine Ratio 12.5, Glucose 129 H, Calcium 8.1 L Current Medications Acetaminophen (Tylenol) 650 mg PO Q6H PRN PRN PRN Reason: Pain Score 1-10/Temp > 100.7 F Last Admin: 09/07/19 04:11 Dose: 650 mg Documented by: Acyclovir (Zovirax) 1 applic TOPICAL 4X/DAY [facility]; Protocol Last Admin: 09/07/19 09:34 Dose: 1 applicatio Documented by: Al Hydroxide/Mg Hydroxide (Mylanta Ii) 30 ml PO Q6H PRN PRN PRN Reason: Gastric Burning Albuterol Sulfate (Ventolin Aerosols) 2.5 mg INHALATION Q2H PRN PRN PRN Reason: SOB/Wheezing Baclofen (Lioresal) 20 mg PO 4X/DAY PRN PRN PRN Reason: BLADDER SPASMS Last Admin: 09/07/19 06:28 Dose: 20 mg Documented by: Emtricitabine/Tenofovir (Truvada 200 Mg-300 Mg Tablet) 1 tablet PO DAILY [facility] Last Admin: 09/07/19 09:30 Dose: 1 tablet Documented by: Escitalopram Oxalate (Lexapro) 20 mg PO DAILY [facility] Last Admin: 09/07/19 09:32 Dose: 20 mg Documented by: Folic Acid (Folic Acid) 1 mg PO DAILY@0800 [facility] Last Admin: 09/07/19 09:31 Dose: 1 mg Documented by: Gabapentin (Neurontin) 800 mg PO BID [facility] Last Admin: 09/07/19 09:30 Dose: 800 mg Documented by: Sodium Chloride () 250 mls @ 15 mls/hr IV .[id number] PRN PRN Reason: Saline Flush Metoprolol Succinate (Toprol Xl (Beta Sera)) 25 mg PO DAILY [facility] Last Admin: 09/07/19 09:30 Dose: 25 mg Documented by: Nitroglycerin (Nitrostat) 0.4 mg SUBLINGUAL Q5M PRN PRN Reason: CARDIAC/CHEST PAIN Nutritional Formula (Jaleel - [place] Flavor) 1 packet PO BIDCM [facility] Last Admin: 09/07/19 09:31 Dose: 1 packet Documented by: Nutritional Formula (Lactose Free) (Ensure Enlive) 120 ml PO 4X/DAY [facility] Last Admin: 09/07/19 09:41 Dose: 120 ml Documented by: Ondansetron HCl (Zofran) 4 mg IV Q8H PRN PRN PRN Reason: NAUSEA/VOMITING Last Admin: 09/04/19 18:21 Dose: 4 mg Documented by: Oxcarbazepine (Trileptal) 150 mg PO BID [facility] Last Admin: 09/07/19 09:34 Dose: 150 mg Documented by: Oxycodone HCl (Oxycontin) 20 mg PO Q12 [facility] Last Admin: 09/07/19 09:42 Dose: 20 mg Documented by: Pantoprazole Sodium (Protonix) 40 mg PO BID [facility] Last Admin: 09/07/19 09:30 Dose: 40 mg Documented by: Pramipexole Dihydrochloride (Mirapex) 0.125 mg PO DAILY [facility] Last Admin: 09/07/19 09:30 Dose: 0.125 mg Documented by: Pravastatin Sodium (Pravachol) 40 mg PO QHS [facility] Last Admin: 09/06/19 21:19 Dose: 40 mg Documented by: Promethazine HCl (Phenergan Tablet) 25 mg PO Q6H PRN PRN PRN Reason: NAUSEA Last Admin: 09/05/19 20:37 Dose: 25 mg Documented by: Ritonavir (Norvir) 100 mg PO DAILY [facility] Last Admin: 09/07/19 09:33 Dose: 100 mg Documented by: Sodium Chloride () 10 - 40 ml IV UD PRN PRN Reason: SALINE FLUSH Last Admin: 09/04/19 18:21 Dose: 20 ml Documented by: Trimethoprim/Sulfamethoxazole (Bactrim Ds) [facility] Last Admin: 09/07/19 09:31 Dose: 0.5 tablet Documented by: Zolpidem Tartrate (Ambien (Generic)) 5 mg PO QHS PRN PRN PRN Reason: INSOMNIA Last Admin: 09/06/19 21:41 Dose: 5 mg Documented by: Medical Necessity - Tobacco Use Smoking Status: Current every day smoker Tobacco Use: Vapor Route of nutrition/ use of supplements: [] Nutritional Intake: [] IV Site: [] Gama Catheter: [] - Assessment/Plan Antibiotics: [] Assessment/Plan: [] Active and Suspected Problems Pressure ulcer of coccygeal region (Acute) Hemoptysis (Acute) septic shock - 09/02 ucx with klebs x2 and steno. 08/31 wound cx with mssa, enterococcus, proteus. Cdiff neg. TIFFANY on CKD improved. Temp, BP, and wbc improved. Overall much improved, out of icu now. Stop zosyn. Ucx with steno and klebs. Cont bactrim, plan on 7-10 days total. hemoptysis - Resolved. May be related to emesis or from perioral bleeding. Low suspicion for TB. CT chest showed no cavitary disease. HIV - Reports compliance with ART. Follows with Dr. Malone, last about about 2-3 weeks ago, reports VL undetectable and CD4 360. Cont truvada/darunavir/ritonavir. Reviewed most recent outpt ID note. Will follow
--- NOTE | 2019-09-07 11:32 | DCINST_ITS ---
- Discharge Diagnoses Current Active Problems: Current Active and Chronic Problems Pressure ulcer of coccygeal region (Acute) Hemoptysis (Acute) You will use the following diet at home:: Cardiac Your food should be the consistency of: Regular Your liquids should be the consistency of: Regular/Thin Discharge Activity: Return to Normal Activity Allergies/Adverse Reactions: Allergies atorvastatin [From Lipitor] Adverse Reaction (Verified 09/04/19 12:49) Nausea/Vom/Diarrhea ciprofloxacin [From Cipro] Adverse Reaction (Verified 09/04/19 12:49) Nausea/Vom/Diarrhea morphine Adverse Reaction (Verified 09/04/19 12:49) HALLUCINATIONS Medications to take at Discharge Baclofen 20 mg PO 4X/DAY PRN PRN 08/30/18 Cranberry 400 mg PO BID 08/30/18 Darunavir Ethanolate [Prezista] 800 mg PO DAILY 08/30/18 Escitalopram Oxalate [Lexapro] 20 mg PO DAILY 08/30/18 Folic Acid 1 mg PO DAILY@0800 08/30/18 Gabapentin [Neurontin] 800 mg PO BID 08/30/18 Metoprolol Succinate [Toprol Xl] 25 mg PO DAILY 08/30/18 Pravastatin Sodium 40 mg PO QHS 08/30/18 Ritonavir [Norvir] 100 mg PO DAILY 08/30/18 Cyanocobalamin (Vitamin B-12) [B-12] 1,000 mcg PO DAILY 01/22/19 Magnesium Oxide 2 tab PO DAILY 01/22/19 Nitroglycerin 0.4 mg SL Q5M PRN 01/22/19 Oxcarbazepine 150 mg PO BID 01/22/19 proMETHazine tablet [Phenergan tablet] 25 mg PO Q6H PRN PRN #10 tab 06/02/19 Pramipexole Di-HCl [Pramipexole Dihydrochloride] 0.125 mg PO DAILY 08/10/19 Emtricitabine/Tenofovir (Tdf) [Truvada 200 mg-300 mg Tablet] 1 tab PO DAILY 09/04/19 Oxycodone CR [Oxycontin] 20 mg PO Q12H 09/04/19 Acyclovir [Zovirax] 1 applic TOPICAL 4X/DAY #1 tube 09/07/19 Pantoprazole Sodium [Protonix] 40 mg PO BID #60 tab 09/07/19 Smz/Tmp Ds [Bactrim Ds] 0.5 tab PO BIDCM #10 tab 09/07/19 The following prescriptions were given: Smz/Tmp Ds [Bactrim Ds] 0.5 tab PO BIDCM #10 tab Transmission Status: Pending to [id number] Pantoprazole Sodium [Protonix] 40 mg PO BID #60 tab Transmission Status: Pending to [id number] Acyclovir [Zovirax] 1 applic TOPICAL 4X/DAY #1 tube Transmission Status: Pending to [id number] Primary Care Physician: Care Physician,No Primary [NON-STAFF] - Please follow up with your Primary Care Physician in: 1-2 weeks Test Results: Test results from this visit will be discussed in further detail at your follow- up appointment, if applicable. Please Follow Up With: Infectious Disease - Your own When: 2 weeks Please Follow Up With: Garrick Donaldson MD - Cardiology When: As directed Please Follow Up With: [facility] When: 1-2 weeks Proposed Discharge Date: 09/07/19
--- NOTE | 2019-09-07 11:45 | PCA ---
Addendum entered by Olga Duval 09/07/19 11:46: List of area PCPs given with discharge paperwork. Original Note: Pt asked us not to schedule apts for him states likes to schedule own apts and coordinate on transport.
[2019-09-07] MEDS: Loperamide 2 MG Capsule 4 MG PO (12:50)
--- NOTE | 2019-09-07 14:04 | CASEMGMT ---
MARIA ANTONIA notified patient's casework supervisor with [facility] of his d/c. MARIA ANTONIA also faxed discharge instructions. Aletha NAVARRO MSW
--- NOTE | 2019-09-07 14:17 | CASEMGMT ---
Patient's discharge was canceled. MARIA ANTONIA called Gertrude with [facility] and let her know that the d/c was canceled for today. Aletha NAVARRO MSW
--- NOTE | 2019-09-07 15:02 | PN_ITS ---
<Bala Ladd - Last Filed: 09/07/19 15:02> Patient Problems: Active and Suspected Problems Pressure ulcer of coccygeal region (Acute) Hemoptysis (Acute) Reason for Visit: sepsis Subjective: Pt has chronic betancur. No abd pain. He complains of subjective fevers and night sweats. No recorded fever. He complains of ongoing diarrhea - about 400cc out at a time, dark green, watery, no blood. C diff was negative. He related this to not eating for several days. He is now tolerating a diet. He has no SOB. He did not have improvement this afternoon with first dose of immodium. Vitals/I&O's: Vital Signs Temp Pulse Resp BP Pulse Ox 98.2 F 72 16 111/57 L 92 09/07/19 14:48 09/07/19 14:48 09/07/19 14:48 09/07/19 14:48 09/07/19 14:48 Oxygen Flow Rate (L/min) 2 Oxygen Delivery Method Room Air Weight: 273 lb 9.498 oz Body Mass Index (BMI) 34.5 Intake and Output for Last 24 Hours 09/05/19 09/06/19 09/07/19 23:59 23:59 23:59 Intake Total 3495 / 3495 1880 / 1880 698.96 / 698.96 Output Total 1275 / 1830 3260 / 3260 3175 / 3175 Balance 2220 / 1665 -1380 / -1380 -2476.04 / -2476.04 General: Alert, Oriented x3, Cooperative HEENT: Atraumatic, PERRLA, EOMI, Normocephalic Neck: Supple, No JVD, Negative Carotid Bruits Lungs: Clear to auscultation, Normal air movement Cardiovascular: Regular rate, No murmurs Abdomen: Bowel Sounds Present, Soft, Non Tender, Obese Extremities: No edema, Capillary Refill Less than 3 Seconds Skin: No rashes, No breakdown Musculoskeletal: No Tenderness to Palpation of Joints or Extremities Neurological: Cranial nerves II-XII grossly intact Psych/Mental Status: Normal Affect, Appropriate, Alert and oriented to time, place, person, mood and affect Microbiology Past 72 Hours 09/04/19 14:40 Urine Catheter - Betancur Urine Culture - Final Stenotrophomonas maltophilia Klebsiella pneumoniae sp pneum Yeast, not Isabel albicans 09/04/19 13:47 Blood Culture (Wb) - Left Hand Blood Culture - Preliminary No growth in 48 hours. 09/04/19 13:50 Blood Culture (Wb) - Right Forearm Blood Culture - Preliminary No growth in 48 hours. 09/04/19 23:50 Stool C. difficile DNA Amplification - Final 09/04/19 23:50 Stool Stool Occult Blood (ANG) - Final 09/04/19 22:40 Vomitus Gastric Occult Blood - Final Occult Blood Positive Laboratory Results 09/07/19 04:55: WBC 6.3, RBC 3.42 L, Hgb 10.8 L, Hct 34.8 L, MCV 101.8 H, MCH 31.6, MCHC 31.0 L, RDW Std Deviation 52.6 H, RDW Coeff of Campos 14.0, Plt Count 183, MPV 9.5, Immature Gran % (Auto) 0.500, Neut % (Auto) 71.1 H, Lymph % (Auto) 19.5, Attala % (Auto) 4.3, Eos % (Auto) 4.3, Baso % (Auto) 0.3, Absolute Neuts (auto) 4.5, Absolute Lymphs (auto) 1.23, Nucleated RBC % 0 09/07/19 04:55: Sodium 142, Potassium 3.3 L, Chloride 110 H, Carbon Dioxide 27.0, Anion Gap 5, BUN 23 H, Creatinine 1.84 H, Estim Creat Clear Calc 57.90, Est GFR (MDRD) Af Amer 52 L, Est GFR (MDRD) Non-Af 43 L, BUN/Creatinine Ratio 12.5, Glucose 129 H, Calcium 8.1 L Current Medications Acetaminophen (Tylenol) 650 mg PO Q6H PRN PRN PRN Reason: Pain Score 1-10/Temp > 100.7 F Last Admin: 09/07/19 04:11 Dose: 650 mg Documented by: Acyclovir (Zovirax) 1 applic TOPICAL 4X/DAY [facility]; Protocol Last Admin: 09/07/19 14:56 Dose: 1 applicatio Documented by: Al Hydroxide/Mg Hydroxide (Mylanta Ii) 30 ml PO Q6H PRN PRN PRN Reason: Gastric Burning Albuterol Sulfate (Ventolin Aerosols) 2.5 mg INHALATION Q2H PRN PRN PRN Reason: SOB/Wheezing Baclofen (Lioresal) 20 mg PO 4X/DAY PRN PRN PRN Reason: BLADDER SPASMS Last Admin: 09/07/19 06:28 Dose: 20 mg Documented by: Emtricitabine/Tenofovir (Truvada 200 Mg-300 Mg Tablet) 1 tablet PO DAILY [facility] Last Admin: 09/07/19 09:30 Dose: 1 tablet Documented by: Escitalopram Oxalate (Lexapro) 20 mg PO DAILY [facility] Last Admin: 09/07/19 09:32 Dose: 20 mg Documented by: Folic Acid (Folic Acid) 1 mg PO DAILY@0800 [facility] Last Admin: 09/07/19 09:31 Dose: 1 mg Documented by: Gabapentin (Neurontin) 800 mg PO BID [facility] Last Admin: 09/07/19 09:30 Dose: 800 mg Documented by: Sodium Chloride () 250 mls @ 15 mls/hr IV .[id number] PRN PRN Reason: Saline Flush Loperamide HCl (Imodium) 2 mg PO Q4H PRN PRN PRN Reason: Loose Stools Metoprolol Succinate (Toprol Xl (Beta Sera)) 25 mg PO DAILY [facility] Last Admin: 09/07/19 09:30 Dose: 25 mg Documented by: Nitroglycerin (Nitrostat) 0.4 mg SUBLINGUAL Q5M PRN PRN Reason: CARDIAC/CHEST PAIN Nutritional Formula (Jaleel - [place] Flavor) [facility] Last Admin: 09/07/19 09:31 Dose: 1 packet Documented by: Nutritional Formula (Lactose Free) (Ensure Enlive) 120 ml PO 4X/DAY [facility] Last Admin: 09/07/19 14:56 Dose: 120 ml Documented by: Ondansetron HCl (Zofran) 4 mg IV Q8H PRN PRN PRN Reason: NAUSEA/VOMITING Last Admin: 09/04/19 18:21 Dose: 4 mg Documented by: Oxcarbazepine (Trileptal) 150 mg PO BID [facility] Last Admin: 09/07/19 09:34 Dose: 150 mg Documented by: Oxycodone HCl (Oxycontin) 20 mg PO Q12 [facility] Last Admin: 09/07/19 09:42 Dose: 20 mg Documented by: Pantoprazole Sodium (Protonix) 40 mg PO BID [facility] Last Admin: 09/07/19 09:30 Dose: 40 mg Documented by: Pramipexole Dihydrochloride (Mirapex) 0.125 mg PO DAILY [facility] Last Admin: 09/07/19 09:30 Dose: 0.125 mg Documented by: Pravastatin Sodium (Pravachol) 40 mg PO QHS [facility] Last Admin: 09/06/19 21:19 Dose: 40 mg Documented by: Promethazine HCl (Phenergan Tablet) 25 mg PO Q6H PRN PRN PRN Reason: NAUSEA Last Admin: 09/05/19 20:37 Dose: 25 mg Documented by: Ritonavir (Norvir) 100 mg PO DAILY [facility] Last Admin: 09/07/19 09:33 Dose: 100 mg Documented by: Sodium Chloride () 10 - 40 ml IV UD PRN PRN Reason: SALINE FLUSH Last Admin: 09/04/19 18:21 Dose: 20 ml Documented by: Trimethoprim/Sulfamethoxazole (Bactrim Ds) [facility] Last Admin: 09/07/19 09:31 Dose: 0.5 tablet Documented by: Zolpidem Tartrate (Ambien (Generic)) 5 mg PO QHS PRN PRN PRN Reason: INSOMNIA Last Admin: 09/06/19 21:41 Dose: 5 mg Documented by: STROKE Vital Signs/Narrative: Vital Signs Temp Pulse Resp BP Pulse Ox 09/07/19 14:48 98.2 F 72 16 111/57 L 92 Medical Necessity - Tobacco Use Smoking Status: Current every day smoker Tobacco Use: Vapor Assessment/Plan All Active Problems UTI (urinary tract infection) (Acute) Sepsis (Acute) TIFFANY (acute kidney injury) (Acute) Pressure ulcer of coccygeal region (Acute) Hemoptysis (Acute) 1. Septic shock 2/2 infected sacral wound, UTI - complete 7-10 more days bactrim per ID. Wound/urine cultures done. Off zosyn now. Infected wound 2/2 paraplegia with bed sores, UTI likely 2/2 chronic betancur cath. He was on macrobid for UTI prophylaxis, however the Klebsiella was resistant. He should follow up with urology regarding possible UTI prophylaxis alternatives. Blood cultures nega tive. Fever and leukocytosis resolved. 2. Diarrhea - concerning given his sacral wound. Continue wound care. Continue Immodium. C diff negative. Replace potassium 3. NSTEMI - no CP. Probably due to septic shock. Continue metoprolol. No blood thinners with hemoptysis. Echo EF 70%. PASP 35 mmHg. Normal LV size and normal LV systolic function. 4. Hemoptysis - he states this was occurring with his vomit as he was vomiting multiple times per day. Continue PPI. suspect ge borges tears. No further issues at this point. 5. Oral lesions - zovirax 6. HIV - continue home meds. F/u with his ID physician 7. Paraplegia - Refused PTOT/HHC. Has friends that take care of him at home 8. Suspected GLORIA - o/p PSG DVT ppx: SCDs. LE doppler showed chronic DVT left common femoral vein. DC planning: likely home tomorrow. This patient was seen by Bala Ladd PA-C under the supervision of Dr. Blanca. <Emile Blanca - Last Filed: 09/07/19 15:26> Vitals/I&O's: Vital Signs Temp Pulse Resp BP Pulse Ox 36.8 C 72 16 111/57 L 92 09/07/19 14:48 09/07/19 14:48 09/07/19 14:48 09/07/19 14:48 09/07/19 14:48 Oxygen Flow Rate (L/min) 2 Oxygen Delivery Method Room Air Weight: 124.1 kg Body Mass Index (BMI) 34.5 Intake and Output for Last 24 Hours 09/05/19 09/06/19 09/07/19 23:59 23:59 23:59 Intake Total 3495 / 3495 1880 / 1880 698.96 / 698.96 Output Total 1275 / 1830 3260 / 3260 3175 / 3175 Balance 2220 / 1665 -1380 / -1380 -2476.04 / -2476.04 General: Alert, Cooperative HEENT: Atraumatic, Normocephalic Neck: No Nodes, Trachea Midline Lungs: Clear to auscultation, Normal air movement, No rhonchi, No wheeze Cardiovascular: Regular rate, No murmurs Abdomen: Bowel Sounds Present, Soft, Non Tender Skin: No rashes, No breakdown Psych/Mental Status: Normal Affect, Appropriate Microbiology Past 72 Hours 09/04/19 14:40 Urine Catheter - Betancur Urine Culture - Final Stenotrophomonas maltophilia Klebsiella pneumoniae sp pneum Yeast, not Isabel albicans 09/04/19 13:47 Blood Culture (Wb) - Left Hand Blood Culture - Preliminary No growth in 48 hours. 09/04/19 13:50 Blood Culture (Wb) - Right Forearm Blood Culture - Preliminary No growth in 48 hours. 09/04/19 23:50 Stool C. difficile DNA Amplification - Final 09/04/19 23:50 Stool Stool Occult Blood (ANG) - Final 09/04/19 22:40 Vomitus Gastric Occult Blood - Final Occult Blood Positive Laboratory Results 09/07/19 04:55: WBC 6.3, RBC 3.42 L, Hgb 10.8 L, Hct 34.8 L, MCV 101.8 H, MCH 31.6, MCHC 31.0 L, RDW Std Deviation 52.6 H, RDW Coeff of Campos 14.0, Plt Count 183, MPV 9.5, Immature Gran % (Auto) 0.500, Neut % (Auto) 71.1 H, Lymph % (Auto) 19.5, [place] % (Auto) 4.3, Eos % (Auto) 4.3, Baso % (Auto) 0.3, Absolute Neuts (auto) 4.5, Absolute Lymphs (auto) 1.23, Nucleated RBC % 0 09/07/19 04:55: Sodium 142, Potassium 3.3 L, Chloride 110 H, Carbon Dioxide 27.0, Anion Gap 5, BUN 23 H, Creatinine 1.84 H, Estim Creat Clear Calc 57.90, Est GFR (MDRD) Af Amer 52 L, Est GFR (MDRD) Non-Af 43 L, BUN/Creatinine Ratio 12.5, Glucose 129 H, Calcium 8.1 L Current Medications Acetaminophen (Tylenol) 650 mg PO Q6H PRN PRN PRN Reason: Pain Score 1-10/Temp > 100.7 F Last Admin: 09/07/19 04:11 Dose: 650 mg Documented by: Acyclovir (Zovirax) 1 applic TOPICAL 4X/DAY [facility]; Protocol Last Admin: 09/07/19 14:56 Dose: 1 applicatio Documented by: Al Hydroxide/Mg Hydroxide (Mylanta Ii) 30 ml PO Q6H PRN PRN PRN Reason: Gastric Burning Albuterol Sulfate (Ventolin Aerosols) 2.5 mg INHALATION Q2H PRN PRN PRN Reason: SOB/Wheezing Baclofen (Lioresal) 20 mg PO 4X/DAY PRN PRN PRN Reason: BLADDER SPASMS Last Admin: 09/07/19 06:28 Dose: 20 mg Documented by: Emtricitabine/Tenofovir (Truvada 200 Mg-300 Mg Tablet) 1 tablet PO DAILY [facility] Last Admin: 09/07/19 09:30 Dose: 1 tablet Documented by: Escitalopram Oxalate (Lexapro) 20 mg PO DAILY [facility] Last Admin: 09/07/19 09:32 Dose: 20 mg Documented by: Folic Acid (Folic Acid) 1 mg PO DAILY@0800 [facility] Last Admin: 09/07/19 09:31 Dose: 1 mg Documented by: Gabapentin (Neurontin) 800 mg PO BID [facility] Last Admin: 09/07/19 09:30 Dose: 800 mg Documented by: Sodium Chloride () 250 mls @ 15 mls/hr IV .[id number] PRN PRN Reason: Saline Flush Loperamide HCl (Imodium) 2 mg PO Q4H PRN PRN PRN Reason: Loose Stools Metoprolol Succinate (Toprol Xl (Beta Sera)) 25 mg PO DAILY [facility] Last Admin: 09/07/19 09:30 Dose: 25 mg Documented by: Nitroglycerin (Nitrostat) 0.4 mg SUBLINGUAL Q5M PRN PRN Reason: CARDIAC/CHEST PAIN Nutritional Formula (Jaleel - [place] Flavor) [facility] Last Admin: 09/07/19 09:31 Dose: 1 packet Documented by: Nutritional Formula (Lactose Free) (Ensure Enlive) 120 ml PO 4X/DAY [facility] Last Admin: 09/07/19 14:56 Dose: 120 ml Documented by: Ondansetron HCl (Zofran) 4 mg IV Q8H PRN PRN PRN Reason: NAUSEA/VOMITING Last Admin: 09/04/19 18:21 Dose: 4 mg Documented by: Oxcarbazepine (Trileptal) 150 mg PO BID [facility] Last Admin: 09/07/19 09:34 Dose: 150 mg Documented by: Oxycodone HCl (Oxycontin) 20 mg PO Q12 [facility] Last Admin: 09/07/19 09:42 Dose: 20 mg Documented by: Pantoprazole Sodium (Protonix) 40 mg PO BID [facility] Last Admin: 09/07/19 09:30 Dose: 40 mg Documented by: Pramipexole Dihydrochloride (Mirapex) 0.125 mg PO DAILY [facility] Last Admin: 09/07/19 09:30 Dose: 0.125 mg Documented by: Pravastatin Sodium (Pravachol) 40 mg PO QHS [facility] Last Admin: 09/06/19 21:19 Dose: 40 mg Documented by: Promethazine HCl (Phenergan Tablet) 25 mg PO Q6H PRN PRN PRN Reason: NAUSEA Last Admin: 09/05/19 20:37 Dose: 25 mg Documented by: Ritonavir (Norvir) 100 mg PO DAILY [facility] Last Admin: 09/07/19 09:33 Dose: 100 mg Documented by: Sodium Chloride () 10 - 40 ml IV UD PRN PRN Reason: SALINE FLUSH Last Admin: 09/04/19 18:21 Dose: 20 ml Documented by: Trimethoprim/Sulfamethoxazole (Bactrim Ds) [facility] Last Admin: 09/07/19 09:31 Dose: 0.5 tablet Documented by: Zolpidem Tartrate (Ambien (Generic)) 5 mg PO QHS PRN PRN PRN Reason: INSOMNIA Last Admin: 09/06/19 21:41 Dose: 5 mg Documented by: STROKE Vital Signs/Narrative: Vital Signs Temp Pulse Resp BP Pulse Ox 09/07/19 14:48 36.8 C 72 16 111/57 L 92 Assessment/Plan Patient seen and examined independently. Data reviewed. I agree with the above note by the physician accounts receivable assistant. 1. septic shock * POA * 2/2 infected sacral wound +/- UTI * UCx 09/02 + K. pneumoniae and S. maltophilia. 2/3 showing GNRs * Wound Cx 08/31 + P mirabilis, MSSA, E. faecalis * BCx 2/ pending. * C diff negative * ID following * ABX: trimeth/sulfameth (start 09/05) 2. UTI * as above 3. INfected sacral wound * as above * wound care 4. NSTEMI * type 2, demand ischemia from septic shock * echo showed an EF 70% * continue metoprolol 5. hemoptysis * CT chest showed some infiltrative process + small pleural effusions * may have been superficial from lip lesion * anticoagulation held * outpt PFTs with pulm 6. HIV * continue Truvada + darunavir, ritanavir * follow up with HIV physician as outpt 7. paraplegia * complicates care 8. apnea * suspected GLORIA * oupt PSG 9. VTE proph: SCDs. chemical proph on hold given hemoptysis. 10. Diarrhea: C. difficile negative. Presumably antibiotic induced. Start loperamide. Still with active diarrhea. We will watch patient overnight and if diarrhea does improve anticipate discharge on the seventh. Given patient's multiple medical comorbidities debility is a medical complexity, patient high likelihood of readmission if it is not noted that the diarrhea has improved. Code Visit Inpatient E&M: 09659 Subs Hosp L2
[2019-09-07] MEDS: Loperamide 2 MG Capsule PO ×2 (16:44→21:00)
[2019-09-07] MEDS: Zolpidem Tartrate 5 MG Tablet PO (21:00)
[2019-09-07] MEDS: Pravastatin 40 MG Tablet PO (21:00)
[2019-09-08] MEDS: Loperamide 2 MG Capsule PO ×2 (02:07→08:33)
[2019-09-08 02:20] VITALS: BP 126/68; PULSE 75; RESP 16; TEMP 36.9; O2SAT 92
[2019-09-08 03:02] VITALS: PULSE 73
[2019-09-08 05:53] LABS: Absolute Lymphocyte Count 1.43 X10^3/uL (0.83-4.51); Absolute Neutrophil Count 3.9 X10^3/uL (2.0-7.7); Basophil# 0.02 X10^3/uL; Basophil% 0.3 % (0-1); Eosinophil# 0.28 X10^3/uL; Eosinophils% 4.6 % (0-5); Hematocrit 35.2 % (40-54); Hemoglobin 11.2 g/dL (13.0-16.5); Lymphocyte # 1.43 X10^3/ul (4.0); Lymphocyte % 23.7 % (19-41); Mean Corp Hgb Conc 31.8 g/dL (32-36); Mean Corpuscular Hgb 31.8 pg (27.0-32.0); Mean Platelet Vol. 9.3 fl (6.2-12.0); Monocyte# 0.38 X10^3/uL; Monocyte% 6.3 % (0-10); NRBC Flagged by Analyzer 0 % (0-5); Neutrophil # 3.89 X10^3/uL (2.7-7.7); Neutrophil % 64.4 % (47-70); Platelet Count 223 K/mm3 (150-450); RBC Distribution Width CV 13.9 % (11.6-14.6); Red Blood Count 3.52 M/mm3 (4.6-6.2)
[2019-09-08 06:15] LABS: Anion Gap 3 (5-15); BUN 22 mg/dL (7-18); BUN/Creat Ratio 14.1 RATIO (10-20); Calcium,Total 8.2 mg/dL (8.5-10.1); Chloride 110 mmol/L (98-107); Creatinine, Serum 1.56 mg/dL (0.70-1.30); EST Glomerular Filtration Rate 52 mL/min (>60); Est Glom Filt Rate - Afr Amer 62 mL/min (>60); Estimated Creatinine Clearance 68.29 ml/min; Glucose 92 mg/dL (74-106); Potassium 3.9 mmol/L (3.5-5.1); Sodium Level 141 mmol/L (136-145)
[2019-09-08 07:00] VITALS: PULSE 75
[2019-09-08 08:12] VITALS: BP 117/73; PULSE 85; RESP 16; TEMP 37.1; O2SAT 92
[2019-09-08] MEDS: Pantoprazole Sodium 40 MG Tablet PO (08:15)
[2019-09-08] MEDS: OXcarbazepine 150 MG Tablet PO (08:15)
[2019-09-08] MEDS: Smz/Tmp Ds Tablet 0.5 TABLET PO (08:15)
[2019-09-08 08:16] VITALS: PULSE 85
[2019-09-08] MEDS: Pramipexole Di-HCl 0.125 MG Tablet PO (08:16)
[2019-09-08] MEDS: Metoprolol(XL)Succ 25 MG Tablet PO (08:16)
[2019-09-08] MEDS: Escitalopram Oxalate 20 MG Tablet PO (08:16)
[2019-09-08] MEDS: EMTRICITABINE/TENOFOVIR 1 TABLET TABLET PO (08:16)
[2019-09-08] MEDS: Gabapentin 800 MG Tablet PO (08:16)
[2019-09-08] MEDS: Folic Acid 1 MG Tablet PO (08:17)
[2019-09-08] MEDS: DARUNAVIR ETHANOLATE 800 MG TABLET PO (08:19)
[2019-09-08] MEDS: Acyclovir 5% Tube 1 APPLIC TOPICAL ×2 (08:20→14:01)
--- NOTE | 2019-09-08 11:08 | CASEMGMT ---
Pt is discharged, has no preference for transport company, needs an ambulance to get home. MARIA ANTONIA called [facility], set up 2pm ambulance. SW let pt know time of transport, he will let his caregiver Lisa know the time. MARIA ANTONIA also called pt's major case detective Gertrude Regalado, message left and instructions faxed to her. No further needs anticipated. CHRISTINA Mendes
--- NOTE | 2019-09-08 12:30 | PHA.DC.MC ---
Pharmacy Service has performed discharge medication reconciliation and counseling for this patient. 1. ACYCLOVIR 5% CREAM 1 APPLICATION TO THE LIP 4X/DAY FOR 5 DAYS 2. BACTRIM DS 0.5 TABLETS PO BID X 5 DAYS 3. PANTOPRAZOLE 40MG PO BID The patient's discharge medication list was reviewed for discrepancies and discrepancies were resolved. Home Medications Baclofen 20 mg PO 4X/DAY PRN PRN 08/30/18 Cranberry 400 mg PO BID 08/30/18 Darunavir Ethanolate [Prezista] 800 mg PO DAILY 08/30/18 Escitalopram Oxalate [Lexapro] 20 mg PO DAILY 08/30/18 Folic Acid 1 mg PO DAILY@0800 08/30/18 Gabapentin [Neurontin] 800 mg PO BID 08/30/18 Metoprolol Succinate [Toprol Xl] 25 mg PO DAILY 08/30/18 Pravastatin Sodium 40 mg PO QHS 08/30/18 Ritonavir [Norvir] 100 mg PO DAILY 08/30/18 Cyanocobalamin (Vitamin B-12) [B-12] 1,000 mcg PO DAILY 01/22/19 Magnesium Oxide 2 tab PO DAILY 01/22/19 Nitroglycerin 0.4 mg SL Q5M PRN 01/22/19 Oxcarbazepine 150 mg PO BID 01/22/19 proMETHazine tablet [Phenergan tablet] 25 mg PO Q6H PRN PRN #10 tab 06/02/19 Pramipexole Di-HCl [Pramipexole Dihydrochloride] 0.125 mg PO DAILY 08/10/19 Emtricitabine/Tenofovir (Tdf) [Truvada 200 mg-300 mg Tablet] 1 tab PO DAILY 09/04/19 Oxycodone CR [Oxycontin] 20 mg PO Q12H 09/04/19 Acyclovir [Zovirax] 1 applic TOPICAL 4X/DAY #1 tube 09/07/19 Pantoprazole Sodium [Protonix] 40 mg PO BID #60 tab 09/07/19 Smz/Tmp Ds [Bactrim Ds] 0.5 tab PO BIDCM #10 tab 09/07/19 The patient was counseled on the following discharge medications and changes in medications for homegoing were reviewed. The Reason for Use, instructions for use, and potential side effects were reviewed for all new medications. The patient's questions regarding all of their medications were answered. The patient was able to verbally demonstrate an understanding of their discharge medications.
--- NOTE | 2019-09-08 13:14 | DS.PCM_ITS ---
<Bala Ladd - Last Filed: 09/08/19 13:14> Discharge Date and Diagnosis Date of Admission: 09/04/19 Date of Discharge: 09/08/19 - Primary Discharge Diagnosis Active and Suspected Problems Septic shock 2/2 infected sacral wound, UTI NSTEMI 2/2 septic shock Pressure ulcer of coccygeal region Hemoptysis-suspect ge broges tear HIV Paraplegia Suspected GLORIA - Secondary Discharge Diagnosis Chronic Problems HIV (human immunodeficiency virus infection) (Chronic) CAD (coronary artery disease) (Chronic) Paraplegia (Chronic) Neuropathy (Chronic) Pressure injury of sacral region, stage 2 (Chronic) Hospital Course and Treatment Imaging Results: RAD/Chest 1 View (Portable) IMPRESSION: Hyperinflation. The lungs are clear. CT/Abdomen/Pelvis without Cont IMPRESSION: Small bilateral pleural effusions with bilateral subsegmental atelectasis versus consolidation. Findings may represent bilateral lower lobe pneumonia. No evidence of bowel obstruction. Left renal cyst. Small nonobstructing left renal calculi. Venous US: Interpretation Summary There is no evidence of right lower extremity deep vein thrombosis. Left common femoral vein is partially compressible with bright internal echoes consistent with chronic deep venous thrombosis. Left femoral vein could not be visualized secondary to nerve stimulators Bilateral great saphenous veins are patent and compressible CT/Chest without Contrast IMPRESSION: Small bilateral pleural effusions with bibasilar atelectasis and/or infiltration. Consultations 09/04/19 16:11 Consult: Onc/Wound/instrument calibrator Routine Comment: Cardiology - [facility] Infectious Disease - [facility] Resident - Ravi Operations: None Procedures: None Summary of Care Provided: Hospital Course: The patient is a 44 year old M with pmhx notable for HIV, paraplegia, CKDIII, chronic betancur, coccyx wound, who presented to the ER with c/o fever and vomiting for three days. He appeared to have septic shock with lactic acid >4, fever of 102.2, tqachycardia, tachypnea, leukocytosis. This was felt to be 2/2 nonhealing infected coccyx wound and UTI. He also had elevated troponins felt to be NSTEMI 2/2 septic shock. He was admitted to the ICU. He was seen by the reconciliation manager, cardiology, and infectious disease. Wound culture showed Proteus, MSSA, and E faecalis. Urine showed Stenotrophomonas, Klebsiella, and yeast. He also had reported significant vomiting with some blood in it. He was somewhat anemic with Hgb down to 10.8 at its lowest however it recovered without transfusions. No blood thinners are recommended at this time. Echo showed normal LV size and function, EF 70%, mild LVH, normal diastology. No further intervention was recommended by cardiology. The infection responded well to IV abx, and abigail ntually he was transitioned to PO bactrim per ID. He will complete a 10 day course as an outpatient. He was discharged home in stable condition. He will need follow up with the wound care center, his PCP in 1-2 weeks, cardiology as directed, and with his own infectious disease doctor. He was advised to hold off on aspirin at least until follow up with his PCP given the vomiting blood and anemia. He may benefit from referral for endoscopy when his acute issues are more fully resolved. This patient was seen by Bala Ladd PA-C under the supervision of Dr. Blanca - Physical Exam Vitals/I&O's: Vital Signs Temp Pulse Resp BP Pulse Ox 98.8 F 85 16 117/73 92 09/08/19 08:12 09/08/19 08:16 09/08/19 08:12 09/08/19 08:12 09/08/19 08:12 Oxygen Flow Rate (L/min) 2 Oxygen Delivery Method Room Air Weight: 274 lb 4.081 oz Body Mass Index (BMI) 34.5 Intake and Output for Last 24 Hours 09/06/19 09/07/19 09/08/19 23:59 23:59 23:59 Intake Total 1880 / 1880 1058.96 / 1058.96 360 / 360 Output Total 3260 / 3260 5250 / 5250 4300 / 4300 Balance -1380 / -1380 -4191.04 / -4191.04 -3940 / -3940 General: Alert, Oriented x3, Cooperative HEENT: Atraumatic, PERRLA, EOMI, Normocephalic Neck: Supple, No JVD, Negative Carotid Bruits Lungs: Clear to auscultation, Normal air movement Cardiovascular: Regular rate, No murmurs Abdomen: Bowel Sounds Present, Soft, Non Tender, Obese Extremities: No edema, Capillary Refill Less than 3 Seconds Skin: No rashes, No breakdown Musculoskeletal: No Tenderness to Palpation of Joints or Extremities Neurological: Cranial nerves II-XII grossly intact Psych/Mental Status: Normal Affect, Appropriate Microbiology Past 72 Hours 09/04/19 14:40 Urine Catheter - Betancur Urine Culture - Final Stenotrophomonas maltophilia Klebsiella pneumoniae sp pneum Yeast, not Isabel albicans 09/04/19 13:47 Blood Culture (Wb) - Left Hand Blood Culture - Preliminary No growth in 48 hours. 09/04/19 13:50 Blood Culture (Wb) - Right Forearm Blood Culture - Preliminary No growth in 48 hours. Laboratory Results 09/08/19 05:25: WBC 6.0, RBC 3.52 L, Hgb 11.2 L, Hct 35.2 L, MCV 100.0 H, MCH 31.8, MCHC 31.8 L, RDW Std Deviation 51.0 H, RDW Coeff of Campos 13.9, Plt Count 223, MPV 9.3, Immature Gran % (Auto) 0.700, Neut % (Auto) 64.4, Lymph % (Auto) 23.7, Mcmullen % (Auto) 6.3, Eos % (Auto) 4.6, Baso % (Auto) 0.3, Absolute Neuts (auto) 3.9, Absolute Lymphs (auto) 1.43, Nucleated RBC % 0 09/08/19 05:25: Sodium 141, Potassium 3.9, Chloride 110 H, Carbon Dioxide 28.0, Anion Gap 3 L, BUN 22 H, Creatinine 1.56 H, Estim Creat Clear Calc 68.29, Est GFR (MDRD) Af Amer 62, Est GFR (MDRD) Non-Af 52 L, BUN/Creatinine Ratio 14.1, Glucose 92, Calcium 8.2 L Current Medications Acetaminophen (Tylenol) 650 mg PO Q6H PRN PRN PRN Reason: Pain Score 1-10/Temp > 100.7 F Last Admin: 09/07/19 04:11 Dose: 650 mg Documented by: Acyclovir (Zovirax) 1 applic TOPICAL 4X/DAY ROSALINDA; Protocol Last Admin: 09/08/19 08:20 Dose: 1 applicatio Documented by: Al Hydroxide/Mg Hydroxide (Mylanta Ii) 30 ml PO Q6H PRN PRN PRN Reason: Gastric Burning Albuterol Sulfate (Ventolin Aerosols) 2.5 mg INHALATION Q2H PRN PRN PRN Reason: SOB/Wheezing Baclofen (Lioresal) 20 mg PO 4X/DAY PRN PRN PRN Reason: BLADDER SPASMS Last Admin: 09/07/19 06:28 Dose: 20 mg Documented by: Emtricitabine/Tenofovir (Truvada 200 Mg-300 Mg Tablet) 1 tablet PO DAILY [facility] Last Admin: 09/08/19 08:16 Dose: 1 tablet Documented by: Escitalopram Oxalate (Lexapro) 20 mg PO DAILY [facility] Last Admin: 09/08/19 08:16 Dose: 20 mg Documented by: Folic Acid (Folic Acid) 1 mg PO DAILY@0800 [facility] Last Admin: 09/08/19 08:17 Dose: 1 mg Documented by: Gabapentin (Neurontin) 800 mg PO BID [facility] Last Admin: 09/08/19 08:16 Dose: 800 mg Documented by: Sodium Chloride () 250 mls @ 15 mls/hr IV .[id number] PRN PRN Reason: Saline Flush Loperamide HCl (Imodium) 2 mg PO Q4H PRN PRN PRN Reason: Loose Stools Last Admin: 09/08/19 08:33 Dose: 2 mg Documented by: Metoprolol Succinate (Toprol Xl (Beta Sera)) 25 mg PO DAILY [facility] Last Admin: 09/08/19 08:16 Dose: 25 mg Documented by: Nitroglycerin (Nitrostat) 0.4 mg SUBLINGUAL Q5M PRN PRN Reason: CARDIAC/CHEST PAIN Nutritional Formula (Jaleel - [place] Flavor) 1 packet PO BIDCM [facility] Last Admin: 09/08/19 08:18 Dose: 1 packet Documented by: Nutritional Formula (Lactose Free) (Ensure Enlive) 120 ml PO 4X/DAY [facility] Last Admin: 09/08/19 12:10 Dose: Not Given Documented by: Ondansetron HCl (Zofran) 4 mg IV Q8H PRN PRN PRN Reason: NAUSEA/VOMITING Last Admin: 09/04/19 18:21 Dose: 4 mg Documented by: Oxcarbazepine (Trileptal) 150 mg PO BID [facility] Last Admin: 09/08/19 08:15 Dose: 150 mg Documented by: Oxycodone HCl (Oxycontin) 20 mg PO Q12 [facility] Last Admin: 09/08/19 08:22 Dose: 20 mg Documented by: Pantoprazole Sodium (Protonix) 40 mg PO BID [facility] Last Admin: 09/08/19 08:15 Dose: 40 mg Documented by: Pramipexole Dihydrochloride (Mirapex) 0.125 mg PO DAILY [facility] Last Admin: 09/08/19 08:16 Dose: 0.125 mg Documented by: Pravastatin Sodium (Pravachol) 40 mg PO QHS [facility] Last Admin: 09/07/19 21:00 Dose: 40 mg Documented by: Promethazine HCl (Phenergan Tablet) 25 mg PO Q6H PRN PRN PRN Reason: NAUSEA Last Admin: 09/05/19 20:37 Dose: 25 mg Documented by: Ritonavir (Norvir) 100 mg PO DAILY [facility] Last Admin: 09/08/19 08:18 Dose: 100 mg Documented by: Sodium Chloride () 10 - 40 ml IV UD PRN PRN Reason: SALINE FLUSH Last Admin: 09/04/19 18:21 Dose: 20 ml Documented by: Trimethoprim/Sulfamethoxazole ([facility]rim Ds) [facility] Last Admin: 09/08/19 08:15 Dose: 0.5 tablet Documented by: Zolpidem Tartrate (Ambien (Generic)) 5 mg PO QHS PRN PRN PRN Reason: INSOMNIA Last Admin: 09/07/19 21:00 Dose: 5 mg Documented by: Discharge Diet: Low fat/ Low Cholesterol, 2000 mg Sodium Diet Discharge Activity: Return to Normal Activity Home Medications: Medications to take at Discharge Baclofen 20 mg PO 4X/DAY PRN PRN 08/30/18 Cranberry 400 mg PO BID 08/30/18 Darunavir Ethanolate [Prezista] 800 mg PO DAILY 08/30/18 Escitalopram Oxalate [Lexapro] 20 mg PO DAILY 08/30/18 Folic Acid 1 mg PO DAILY@0800 08/30/18 Gabapentin [Neurontin] 800 mg PO BID 08/30/18 Metoprolol Succinate [Toprol Xl] 25 mg PO DAILY 08/30/18 Pravastatin Sodium 40 mg PO QHS 08/30/18 Ritonavir [Norvir] 100 mg PO DAILY 08/30/18 Cyanocobalamin (Vitamin B-12) [B-12] 1,000 mcg PO DAILY 01/22/19 Magnesium Oxide 2 tab PO DAILY 01/22/19 Nitroglycerin 0.4 mg SL Q5M PRN 01/22/19 Oxcarbazepine 150 mg PO BID 01/22/19 proMETHazine tablet [Phenergan tablet] 25 mg PO Q6H PRN PRN #10 tab 06/02/19 Pramipexole Di-HCl [Pramipexole Dihydrochloride] 0.125 mg PO DAILY 08/10/19 Emtricitabine/Tenofovir (Tdf) [Truvada 200 mg-300 mg Tablet] 1 tab PO DAILY 09/04/19 Oxycodone CR [Oxycontin] 20 mg PO Q12H 09/04/19 Acyclovir [Zovirax] 1 applic TOPICAL 4X/DAY #1 tube 09/07/19 Pantoprazole Sodium [Protonix] 40 mg PO BID #60 tab 09/07/19 Smz/Tmp Ds [Bactrim Ds] 0.5 tab PO BIDCM #10 tab 09/07/19 Following Prescrptions Were Given to Patient: Smz/Tmp Ds [Bactrim Ds] 0.5 tab PO BIDCM #10 tab Transmission Status: Received by [id number] Pantoprazole Sodium [Protonix] 40 mg PO BID #60 tab Transmission Status: Received by [id number] Acyclovir [Zovirax] 1 applic TOPICAL 4X/DAY #1 tube Transmission Status: Received by [id number] Primary Care Physician: Care Physician,No Primary [NON-STAFF] - Please follow up with your Primary Care Physician in: 1-2 weeks Please Follow Up With: Infectious Disease When: 2 weeks Please Follow Up With: Garrick Donaldson MD When: As directed Please Follow Up With: Wound Care Center When: 1-2 weeks Disposition: Home Minutes spent on discharge:: 35 Patient Condition:: Stable Medical Necessity - Tobacco Use Smoking Status: Current every day smoker Tobacco Use: Vapor Meaningful Use Info Meaningful Use Diagnoses (Choose all that apply): None applicable <Emile Blanca - Last Filed: 09/08/19 17:21> Discharge Date and Diagnosis - Secondary Discharge Diagnosis Chronic Problems HIV (human immunodeficiency virus infection) (Chronic) CAD (coronary artery disease) (Chronic) Paraplegia (Chronic) Neuropathy (Chronic) Pressure injury of sacral region, stage 2 (Chronic) Hospital Course and Treatment Consultations 09/04/19 16:11 Consult: Onc/Wound/instrument calibrator Routine Comment: Operations: None Procedures: None Summary of Care Provided: Pt seen and examined independently. I agree with the above note by the PA. The patient is a 44 year old Mpresents with F and Vomiting. 1. septic shock * POA * / infected sacral wound +/- UTI * UCx 09/02 + K. pneumoniae and S. maltophilia. 09/04 showing GNRs * Wound Cx 08/31 + P mirabilis, MSSA, E. faecalis * BCx 09/04 pending. * C diff negative * ID following * ABX: trimeth/sulfameth (start 09/05) 2. UTI * as above 3. INfected sacral wound * as above * wound care 4. NSTEMI * type 2, demand ischemia from septic shock * echo showed an EF 70% * continue metoprolol 5. hemoptysis * CT chest showed some infiltrative process + small pleural effusions * may have been superficial from lip lesion * anticoagulation held * outpt PFTs with pulm 6. HIV * continue Truvada + darunavir, ritanavir * follow up with HIV physician as outpt 7. paraplegia * complicates care 8. apnea * suspected GLORIA * oupt PSG 9. VTE proph: SCDs. chemical proph on hold given hemoptysis. 10. Diarrhea: C. difficile negative. Improving. Presumably antibiotic induced. Start loperamide. Still with active diarrhea. [] - Physical Exam Vitals/I&O's: Vital Signs Temp Pulse Resp BP Pulse Ox 37.1 C 85 16 117/73 92 09/08/19 08:12 09/08/19 08:16 09/08/19 08:12 09/08/19 08:12 09/08/19 08:12 Oxygen Flow Rate (L/min) 2 Oxygen Delivery Method Room Air Weight: 124.4 kg Body Mass Index (BMI) 34.5 Intake and Output for Last 24 Hours 09/06/19 09/07/19 09/08/19 23:59 23:59 23:59 Intake Total 1880 / 1880 1058.96 / 1058.96 360 / 360 Output Total 3260 / 3260 5250 / 5250 4300 / 4300 Balance -1380 / -1380 -4191.04 / -4191.04 -3940 / -3940 General: Alert, Cooperative HEENT: Atraumatic, Normocephalic Neck: Supple, No JVD, Negative Carotid Bruits Lungs: Clear to auscultation, Normal air movement, No rhonchi, No wheeze Cardiovascular: Regular rate, Regular Rhythm, Normal S1, Normal S2, No murmurs Abdomen: Bowel Sounds Present, Soft, Non Tender, Non-Distended Extremities: No cyanosis Skin: No rashes, No breakdown Microbiology Past 72 Hours 09/04/19 14:40 Urine Catheter - Betancur Urine Culture - Final Stenotrophomonas maltophilia Klebsiella pneumoniae sp pneum Yeast, not Isabel albicans 09/04/19 13:47 Blood Culture (Wb) - Left Hand Blood Culture - Preliminary No growth in 48 hours. 09/04/19 13:50 Blood Culture (Wb) - Right Forearm Blood Culture - Preliminary No growth in 48 hours. Laboratory Results 09/08/19 05:25: WBC 6.0, RBC 3.52 L, Hgb 11.2 L, Hct 35.2 L, MCV 100.0 H, MCH 31.8, MCHC 31.8 L, RDW Std Deviation 51.0 H, RDW Coeff of Campos 13.9, Plt Count 223, MPV 9.3, Immature Gran % (Auto) 0.700, Neut % (Auto) 64.4, Lymph % (Auto) 23.7, Mcmullen % (Auto) 6.3, Eos % (Auto) 4.6, Baso % (Auto) 0.3, Absolute Neuts (auto) 3.9, Absolute Lymphs (auto) 1.43, Nucleated RBC % 0 09/08/19 05:25: Sodium 141, Potassium 3.9, Chloride 110 H, Carbon Dioxide 28.0, Anion Gap 3 L, BUN 22 H, Creatinine 1.56 H, Estim Creat Clear Calc 68.29, Est GFR (MDRD) Af Amer 62, Est GFR (MDRD) Non-Af 52 L, BUN/Creatinine Ratio 14.1, Glucose 92, Calcium 8.2 L Discharge Diet: Low fat/ Low Cholesterol, 2000 mg Sodium Diet Discharge Activity: Return to Normal Activity Disposition: Home Minutes spent on discharge:: 35 Patient Condition:: Stable Meaningful Use Info Meaningful Use Diagnoses (Choose all that apply): None applicable Code Visit Inpatient E&M: 82463 Disch Hosp
--- NOTE | 2019-09-11 12:21 | CASEMGMT ---
This MARY MILES received message from [facility] in [place] that pt needs prior auth for protonix twice daily and that his insurance will only approve for once daily. Per Marivel Ladd PA-C, pt can be written for Omeprazole 20mg BID instead of the protonix, if necessary. Call to pharmacist at [facility] and pharmacist states that they did get approval for the Protonix twice daily at this time and he said nothing further is needed. Nestor CLARKE aware, voices understanding. SStjaz HERNANDEZ CM
--- NOTE | 2019-09-11 14:10 | CASEMGMT ---
MARY MILES DC PHONE CALL DC DATE: 09.08.2019 DC Disposition: Home Diagnosis on Discharge: NSTEMI, sepsis LACE/STRATA: 16/4 Intro role of CM to patient. Pt states he is doing well. Dr. Azevedo is pt's PCP and he will f/u with him. No concerns; pt has medications and states he is doing well. Leslie BAZANN RN ACM
== END 2019-09-08 14:22 | disposition home or self-care (01) | DRG 890 ==
LOC: ED 13:30 → ICU 15:09 → PCU 09-06 14:53
PROVIDERS: Hospitalist; Internal Medicine Infectious Disease; Physician Assistant; Admitting Provider Internal Medicine; Emergency Provider Emergency Medicine
DX: A41.9 Sepsis, unspecified organism (principal); T83.511A Infection and inflammatory reaction due to indwelling urethral catheter, initial encounter; B20 Human immunodeficiency virus [HIV] disease; G82.20 Paraplegia, unspecified; Z23 Encounter for immunization; E87.6 Hypokalemia; N17.9 Acute kidney failure, unspecified; N39.0 Urinary tract infection, site not specified; L89.152 Pressure ulcer of sacral region, stage 2; I25.10 Atherosclerotic heart disease of native coronary artery without angina pectoris; F17.290 Nicotine dependence, other tobacco product, uncomplicated; Y84.6 Urinary catheterization as the cause of abnormal reaction of the patient, or of later complication, without mention of misadventure at the time of the procedure; I21.A1 Myocardial infarction type 2; E78.5 Hyperlipidemia, unspecified; K22.6 Gastro-esophageal laceration-hemorrhage syndrome; G47.33 Obstructive sleep apnea (adult) (pediatric); Z87.440 Personal history of urinary (tract) infections; Z95.5 Presence of coronary angioplasty implant and graft; Z93.3 Colostomy status; Z79.899 Other long term (current) drug therapy; B96.1 Klebsiella pneumoniae [K. pneumoniae] as the cause of diseases classified elsewhere; B95.61 Methicillin susceptible Staphylococcus aureus infection as the cause of diseases classified elsewhere; B95.2 Enterococcus as the cause of diseases classified elsewhere; B96.4 Proteus (mirabilis) (morganii) as the cause of diseases classified elsewhere; B96.89 Other specified bacterial agents as the cause of diseases classified elsewhere; K52.1 Toxic gastroenteritis and colitis; T36.95XA Adverse effect of unspecified systemic antibiotic, initial encounter; N18.3 Chronic kidney disease, stage 3 (moderate)
CPT/HCPCS: 36415; 71045; 71250; 72220; 74176; 80048; 80053; 81001; 82271; 82274; 83605; 83690; 83735; 84484; 85025; 85610; 85730; 87040; 87077; 87086; 87088; 87186; 87493; 93005; 93306; 93970; 96361; 96365; 97110; 97162; 97802; 97803; 99251; 99285; 99406; J7030; J7040; J7050; Q9957; 90686; A4216; C8929; G0463; J2405; J3490

== ENCOUNTER 2019-09-21 13:58 | Outpatient (RCR) | payer MEDICAID, SELFPAY ==
[2019-09-02 01:07] VITALS: BP 126/79; PULSE 72; RESP 16; TEMP 35.9
[2019-09-04 16:16] VITALS: BMI 34.5
[2019-09-21 14:04] VITALS: BP 102/63; PULSE 77; RESP 18; TEMP 35.7; BMI 34.5
--- NOTE | 2019-09-21 14:05 | WC ---
pt to ER to c/o nusea vomiting . pt states he was admitted to [facility] with sepsis and UTI . pt admited on 09/04/ discharged 09/08/2019 .
--- NOTE | 2019-09-21 17:00 | PN.PCM_ITS ---
(1) Pressure injury of sacral region, stage 3 Status: Acute Current Visit: Yes Code(s): L89.153 - Pressure ulcer of sacral region, stage 3 (2) HIV (human immunodeficiency virus infection) Status: Chronic Current Visit: No Qualifiers: Code(s): B20 - Human immunodeficiency virus [HIV] disease (3) Neuropathy Status: Chronic Current Visit: No Code(s): G62.9 - Polyneuropathy, unspecified (4) Paraplegia Status: Chronic Current Visit: No Code(s): G82.20 - Paraplegia, unspecified Type of Wound Date of Service: 09/21/19 Chief Complaint: Sacral pressure ulcer x 3 weeks History of Wound: This Is a 44-year-old white male with a past medical history as listed above significant for HIV, paraplegia, prior stage IV sacral pressure injury, and chronic neuropathy. The patient states that his wound to his sacral area reopened approximately 3 to 4 weeks ago and they have been using wet-to-dry dressings and Dakin's. He does have a caregiver who lives at home with them. He states that he spends most of his time in either a chair or a bed. He does have a pressure relieving air mattress and a Roho cushion. Denies any other treatments at this time. Denies any systemic or localized signs of infection. He does state that his viral load is detectable at this time. All other systems reviewed and negative with exception of those listed above. He does also note that he is a smoker and that he has a chronic colostomy as well. Progress of Wound: Wound size is stable this week, he was recently admitted to the hospital from 09/04/2019 through 09/08/2019 with septic shock secondary to UTI and or his infected sacral wound. Essentially the patient had complaints of fever and vomiting and was admitted for septic shock that was thought to be secondary to his nonhealing infected wound and UTI. He was seen by lead process engineer, cardiology, and infectious disease and was managed with IV antibiotics and transition to p.o. Bactrim and was instructed to complete a 10-day course and follow-up with his infectious disease doctor as an outpatient. The patient states that he has 1 day left of the Bactrim and that he is doing well. He denies any fever, chills, nausea or vomiting. Denies any other acute concerns. He has yet to follow-up with his infectious disease doctor or his primary care. He has been utilizing Santyl daily. - Physical Exam Vital Signs Temp Pulse Resp BP 96.3 F L 77 18 102/63 09/21/19 14:04 09/21/19 14:04 09/21/19 14:04 09/21/19 14:04 General: Alert, Oriented x3, Cooperative, No apparent distress HEENT: Atraumatic Oral: Moist Mucosa Lungs: Clear to auscultation, Normal air movement Cardiovascular: Regular rate Abdomen: Soft, Non Tender, Obese Skin: Ulcer/ Wound - Stage III pressure injury to sacral region with adherent slough, no signs of infection at this time Wound Measurements and Assessment WC - Nurse 1 - General Ulcer Measurement Start: 09/21/19 14:04 Freq: Status: Active Protocol: Activity Type Activity Date Activity User E-Sign Co-Sign Detail Recorded Client Recorded Date Recorded By Document 09/21/19 14:04 RB [id number] 09/21/19 14:13 RB 09/21/19 14:04 Wound Center Nurse 1 [Ulcer Assessment] #1 left upper buttock/lumbar -Combined with other wound No -Current Size (cm) - Length 2.5 -Current Size (cm) - Width 3 -Current Size (cm) - Depth 0.2 -Total Square Cm 7.5 -Tunneling No -Undermining/Tunneling No -Circular Undermining No -Exudate Amt Small -Exudate Type Serosanguineous -Wound Margin Flat & Intact -Granulation Amt Medium (34-66%) -Granulation Quality [place] -Slough/Fibrin Yes -Necrosis Amt Small (1-33%) -Necrotic Tissue Type Adherent Slough -Structure Exposed N/A -Texture (Martine-wound Skin Appearance) Assessed -Moisture (Martine-wound Skin Appearance Maceration ) -Color (Martine-wound Skin Appearance) Assessed -Temperature (Martine-wound Skin No Abnormality Appearance) (Pt Warm) -Tenderness on Palpation (Martine-wound No Skin Appearance) -Ulcer Cleansing Wound Cleanser -Foul Odor after Cleansing No 09/21/19 14:05 Wound Center by Nataly Johnson pt to ER to c/o nusea vomiting . pt states he was admitted to [facility] with sepsis and UTI . pt admited on 09/04/ discharged 09/08/2019 . Initialized on 09/21/19 14:05 - END OF NOTE - Nurse 2 - General Ulcer CM Notes Start: 09/21/19 14:04 Freq: Status: Active Protocol: Activity Type Activity Date Activity User E-Sign Co-Sign Detail Recorded Client Recorded Date Recorded By Document 09/21/19 14:35 MW [id number] 09/21/19 14:41 MW 09/21/19 14:35 Wound Center Nurse 2 [Procedure/Treatment] -Time 14:35 -Correct Patient Yes -Correct Side, Site, Position Yes -Correct Procedure Yes -Procedure Performed Yes -Type of Procedure Debridement -Clinical Debridement Subcutaneous -Post Debridement Size (cm) - Length 3.5 -Post Debridement Size (cm) - Width 2.5 -Post Debridement Size (cm) - Depth 0.9 -Total Square Cm 8.75 -Wound/Ulcer Outcome Not Healed -Ulcer Cleansing Rinsed/ Irrigated with Saline -Foul Odor after Cleansing No -Bioengineered Tissue No -Bleeding Controlled with Pressure -Offloading No -Treatment Response Procedure Tolerated Well [See Physician Procedure note for Specifics] Pain Scale: 0-10 Numeric [Pain] -Is Patient Pain Free? Yes Neurological: Neuro grossly intact Psych/Mental Status: Normal Affect, Appropriate, Alert and oriented to time, place, person, mood and affect Debridement Note Post-Debridement Measurements/Treatment WC - Nurse 2 - General Ulcer CM Notes Start: 09/21/19 14:04 Freq: Status: Active Protocol: Activity Type Activity Date Activity User E-Sign Co-Sign Detail Recorded Client Recorded Date Recorded By Document 09/21/19 14:35 MW [id number] 09/21/19 14:41 MW 09/21/19 14:35 Wound Center Nurse 2 #1 left upper buttock/lumbar -Time 14:35 -Correct Patient Yes -Correct Side, Site, Position Yes -Correct Procedure Yes -Procedure Performed Yes -Type of Procedure Debridement -Clinical Debridement Subcutaneous -Post Debridement Size (cm) - Length 3.5 -Post Debridement Size (cm) - Width 2.5 -Post Debridement Size (cm) - Depth 0.9 -Total Square Cm 8.75 -Wound/Ulcer Outcome Not Healed -Ulcer Cleansing Rinsed/ Irrigated with Saline -Foul Odor after Cleansing No -Bioengineered Tissue No -Bleeding Controlled with Pressure -Offloading No -Treatment Response Procedure Tolerated Well Pain Scale: 0-10 Numeric Is Patient Pain Free? Yes Wound debrided: Stage 3 pressure injury of sacrum Type of Debridement: Excisional debridement Anesthesia Used: 5% Lidocaine Gel Depth: in the subcutaneous layer Percentage of wound debrided: 100 Instrument Used: 5mm curette Tissue Removed: Slough and devitalized tissue Severity: Fat Layer Exposed Amount of bleeding with debridement: Mild Bleeding Controlled with: Pressure Patient tolerated procedure well Assessment/Plan Active Problems Pressure injury of sacral region, stage 3 (Acute) Assessment: Stage II sacral pressure injury, HIV, paraplegia, neuropathy, tobacco abuse, colostomy status, hypertension Plan: The patient was seen and examined at the wound center today and was updated on the plan of care. A subcutaneous debridement was performed today. The patient tolerated the procedure well. The patients wound care will consist of: Rinsing the wound with Dakin solution daily and applying Santyl daily and cover with moistened gauze and cover with ABD or optifoam for offloading change daily. Continue with offloading measures and utilizing his offloading mattress and Roho cushion. Patient educated on the importance of diet on wound healing and instructed to increase protein and vitamin C intake. Rx for Ensure high-protein given the patient. Patient verbalized understanding. Patient will follow up at wound healing center in one week or sooner if needed. Discussed red flag signs and symptoms of infection that require urgent medical attention. Patient verbalized understanding. This note was generated with Pro[employer]erve[employer] software. It may contain incorrect words, spelling, and punctuation that were not noted in checking the note before signing. Code Visit [id number]: [id number] Estelita subq tissue 20 sq cm/<
== END 2019-09-30 23:59 ==
LOC: WC 13:58
PROVIDERS: Referring Provider Nurse Practitioner Family; Visit Provider Nurse Practitioner Family
DX: L89.153 Pressure ulcer of sacral region, stage 3 (principal); B20 Human immunodeficiency virus [HIV] disease; G82.20 Paraplegia, unspecified; G62.9 Polyneuropathy, unspecified; Z93.3 Colostomy status; F17.200 Nicotine dependence, unspecified, uncomplicated; I10 Essential (primary) hypertension
CPT/HCPCS: 11042

== ENCOUNTER 2019-10-05 11:26 | Outpatient (RCR) | payer MEDICAID, SELFPAY ==
[2019-10-01 00:49] VITALS: BP 102/63; PULSE 77; RESP 18; TEMP 35.7
[2019-10-05 12:52] VITALS: BP 114/53; PULSE 81; RESP 18; TEMP 37.3; BMI 34.5
--- NOTE | 2019-10-05 13:32 | PCM.WC.PN ---
(1) Pressure injury of sacral region, stage 3 Status: Acute Code(s): L89.153 - Pressure ulcer of sacral region, stage 3 (2) HIV (human immunodeficiency virus infection) Status: Chronic Qualifiers: Code(s): B20 - Human immunodeficiency virus [HIV] disease (3) Neuropathy Status: Chronic Code(s): G62.9 - Polyneuropathy, unspecified (4) Paraplegia Status: Chronic Code(s): G82.20 - Paraplegia, unspecified Type of Wound Date of Service: 10/05/19 Chief Complaint: Sacral pressure ulcer x 3 weeks History of Wound: This Is a 44-year-old white male with a past medical history as listed above significant for HIV, paraplegia, prior stage IV sacral pressure injury, and chronic neuropathy. The patient states that his wound to his sacral area reopened approximately 3 to 4 weeks ago and they have been using wet-to-dry dressings and Dakin's. He does have a caregiver who lives at home with them. He states that he spends most of his time in either a chair or a bed. He does have a pressure relieving air mattress and a Roho cushion. Denies any other treatments at this time. Denies any systemic or localized signs of infection. He does state that his viral load is detectable at this time. All other systems reviewed and negative with exception of those listed above. He does also note that he is a smoker and that he has a chronic colostomy as well. Progress of Wound: Wound size is stable this week, he was recently admitted to the hospital from 09/04/2019 through 09/08/2019 with septic shock secondary to UTI and or his infected sacral wound. Essentially the patient had complaints of fever and vomiting and was admitted for septic shock that was thought to be secondary to his nonhealing infected wound and UTI. He was seen by machine ii coremaker, cardiology, and infectious disease and was managed with IV antibiotics and transition to p.o. Bactrim and was instructed to complete a 10-day course and follow-up with his infectious disease doctor as an outpatient. The patient states that he Completed all antibiotics and that he is doing well. He denies any fever, chills, nausea or vomiting. Denies any other acute concerns. He has yet to follow-up with his infectious disease doctor or his primary care. He has been utilizing Santyl daily. - Physical Exam Vital Signs Temp Pulse Resp BP 99.2 F H 81 18 114/53 L 10/05/19 12:52 10/05/19 12:52 10/05/19 12:52 10/05/19 12:52 General: Alert, Oriented x3, Cooperative, No apparent distress HEENT: Atraumatic Oral: Moist Mucosa Lungs: Clear to auscultation Cardiovascular: Regular rate Abdomen: Soft, Obese Extremities: No clubbing, No cyanosis, No edema Skin: Ulcer/ Wound - See nursing documentation, slough and devitalized tissue present, no signs of obvious infection at this time Neurological: Neuro grossly intact, - - Paraplegia bilateral lower extremities Psych/Mental Status: Normal Affect, Appropriate Debridement Note Post-Debridement Measurements/Treatment WC - Nurse 2 - General Ulcer CM Notes Start: 10/05/19 12:52 Freq: Status: Active Protocol: Activity Type Activity Date Activity User E-Sign Co-Sign Detail Recorded Client Recorded Date Recorded By Document 10/05/19 13:11 WILLIAMS [id number] 10/05/19 13:15 WILLIAMS 10/05/19 13:11 Wound Center Nurse 2 #1 left upper buttock/lumbar -Time 13:11 -Correct Patient Yes -Correct Side, Site, Position Yes -Correct Procedure Yes -Procedure Performed Yes -Type of Procedure Debridement -Clinical Debridement Subcutaneous -Post Debridement Size (cm) - Length 2.5 -Post Debridement Size (cm) - Width 3.5 -Post Debridement Size (cm) - Depth 1.0 -Total Square Cm 8.75 -Wound/Ulcer Outcome Not Healed -Ulcer Cleansing Rinsed/ Irrigated with Saline -Foul Odor after Cleansing No -Bioengineered Tissue No -Bleeding Controlled with Pressure -Offloading No -Treatment Response Procedure Tolerated Well Pain Scale: 0-10 Numeric Is Patient Pain Free? Yes Wound debrided: Stage III pressure injury of the Sacrum Type of Debridement: Excisional debridement Anesthesia Used: 5% Lidocaine Gel Depth: in the subcutaneous layer Percentage of wound debrided: 100 Instrument Used: 7mm curette Tissue Removed: Slough and devitalized tissue Severity: Fat Layer Exposed Amount of bleeding with debridement: Mild Bleeding Controlled with: Pressure Patient tolerated procedure well Assessment/Plan Assessment: Stage III sacral pressure injury, HIV, paraplegia, neuropathy, tobacco abuse, colostomy status, hypertension Plan: The patient was seen and examined at the wound center today and was updated on the plan of care. A subcutaneous debridement was performed today. The patient tolerated the procedure well. The patients wound care will consist of: Rinsing the wound with Dakins solution daily and applying Santyl daily and cover with moistened gauze and cover with ABD or optifoam for offloading change daily.If no improvement in depth by his next visit, will consider use of a VAC. Continue with offloading measures and utilizing his offloading mattress and Roho cushion. Patient educated on the importance of diet on wound healing and instructed to increase protein and vitamin C intake. Rx for Ensure high-protein given the patient. Patient verbalized understanding. Patient will follow up at wound healing center in one week or sooner if needed. Discussed red flag signs and symptoms of infection that require urgent medical attention. Patient verbalized understanding. This note was generated with [employer] dictation software. It may contain incorrect words, spelling, and punctuation that were not noted in checking the note before signing. [id number]: [id number] Estelita subq tissue 20 sq cm/<
== END 2019-10-31 23:59 ==
LOC: WC 11:26
PROVIDERS: Referring Provider Nurse Practitioner Family; Visit Provider Nurse Practitioner Family
DX: L89.153 Pressure ulcer of sacral region, stage 3 (principal); B20 Human immunodeficiency virus [HIV] disease; G82.20 Paraplegia, unspecified; G62.9 Polyneuropathy, unspecified; Z93.3 Colostomy status; F17.200 Nicotine dependence, unspecified, uncomplicated; Z87.440 Personal history of urinary (tract) infections
CPT/HCPCS: 11042

== ENCOUNTER 2020-09-13 15:47 | Emergency (ER) | payer MEDICAID, SELFPAY ==
[2020-09-13] VITALS (10 sets, daily range): BP systolic 121–175; BP diastolic 74–112; PULSE 70–79; RESP 15–19; TEMP 36.4–37; O2SAT 92–98; BMI 36.9
--- NOTE | 2020-09-13 15:53 | EKG12_ITS ---
Test Reason : Blood Pressure : / mmHG Vent. Rate : 072 BPM Atrial Rate : 072 BPM P-R Int : 176 ms QRS Dur : 102 ms QT Int : 418 ms P-R-T Axes : 076 073 072 degrees QTc Int : 457 ms Normal sinus rhythm Normal ECG Confirmed by VERNA AGUILAR, NETTIE ([id number]), offline editor EPI MILLS ([id number]) on 09/16/2020 11:47:29 A M Referred By: Confirmed By:KADY GILLESPIE MD
--- NOTE | 2020-09-13 16:12 | ED.VIS.GEN ---
History of Present Illness Chief Complaint: Cough Informant: Patient Narrative: 45 yo m presents with concern for pneumonia. States he had a sputum culture as an outpatient and was made aware it is only sensitive to vancomycin. Continues to cough and have intermittent fevers. Multiple negative COVID tests during this period. Treated with two sets of oral antibiotics without relief. Patient is HIV positive. Past Medical History - Allergies and Home Meds Allergies/Adverse Reactions: Allergies atorvastatin [From Lipitor] Adverse Reaction (Verified 09/13/20 15:53) Nausea/Vom/Diarrhea ciprofloxacin [From Cipro] Adverse Reaction (Verified 09/13/20 15:53) Nausea/Vom/Diarrhea morphine Adverse Reaction (Verified 09/13/20 15:53) HALLUCINATIONS Primary Care Physician: [facility] Doctor,Out of [NON-STAFF] - Prior records reviewed: Yes Past Medical History: - - CAD, HTN, HIV Surgical History: - - colostomy, tail bone shaved Lives: Spouse/ Significant Other Smoking Status: Current every day smoker Alcohol: None Drugs: None - Family History Maternal Family History: Reports: Heart Disease Paternal Family History: Reports: Heart Disease Sibling Family History: Reports: No pertinent history Review of Systems General: Reports: Chills, Fever. Denies: Sweats Eyes: Denies: Visual changes - bilaterally, Diplopia ENT: Denies: Rhinorrhea, Sore throat Cardiovascular: Denies: Chest pain, Palpitations Respiratory: Reports: Dyspnea, Cough, Sputum. Denies: Dyspnea on exertion Gastrointestinal: Denies: Abdominal pain, Nausea, Vomiting, Diarrhea, Melena, Hematochezia Genitourinary: Denies: Dysuria, Hematuria, Frequency Musculoskeletal: Denies: Back pain, Extremity Pain Skin: Denies: Rash, Wounds Neurological: Denies: Headache, Weakness, Numbness Physical Exam Vital Signs/Narrative: Vital Signs Temp Pulse Resp BP Pulse Ox 09/13/20 15:49 98.5 F 71 16 121/74 H 95 Inital Vital Signs reviewed: Yes General: Well nourished, Well developed, No Acute Distress Head: Normocephalic, Atraumatic Eyes: Perrl, EOMI ENT: Moist mucous membranes, No rhinorrhea Neck: Supple, Nontender Cardiovascular: Regular rate, Regular rhythm, No murmurs Respiratory: No distress, CTA bilaterally, Chest nontender Abdomen: Soft, Nontender, Nondistended, Normal bowel sounds Back: Nontender, Normal Inspection Extremities: Nontender, No edema Skin: Normal color, No rash, - - Chronic LLE wound currently wrapped. Neurological: Alert, Oriented x3, Cranial nerves II-XII grossly intact, Normal Strength, Normal Sensation Psychological: Normal affect, Normal Mood Diagnostic/Tx/Re-eval Chest X-Ray - ED: 1 View, Read by ED Physician, Read by Radiologist, Chronic Changes Clinical Impression(s) from Imaging Studies Chest X-Ray 09/13/20 17:00 IMPRESSION: Continued mild to moderate hyperexpansion with continued evidence of bronchial thickening and volume loss in the medial bilateral lower lobes. No other acute findings or changes. Stable cardiac size. Negative for pleural effusion. Electronically Signed: Emily White MD at 17:26 EST , Service support , Laboratory Data 09/13/20 09/13/20 09/13/20 16:00 16:00 16:00 WBC 6.8 RBC 4.76 Hgb 15.9 Hct 49.6 MCV 104.2 H MCH 33.4 H MCHC 32.1 RDW Std Deviation 53.9 H RDW Coeff of Acmpos 13.8 Plt Count 197 MPV 8.4 Immature Gran % (Auto) 0.600 Neut % (Auto) 67.8 Lymph % (Auto) 24.1 [place] % (Auto) 4.4 Eos % (Auto) 2.5 Baso % (Auto) 0.6 Absolute Neuts (auto) 4.6 Absolute Lymphs (auto) 1.63 Nucleated RBC % 0 PT 12.4 INR 1.0 APTT 29.8 Sodium 142 Potassium 4.2 Chloride 109 H Carbon Dioxide 31.0 Anion Gap 2 L BUN 19 H Creatinine 1.54 H Estim Creat Clear Calc 68.46 Est GFR (MDRD) Af Amer 63 Est GFR (MDRD) Non-Af 52 L BUN/Creatinine Ratio 12.3 Glucose 84 Lactic Acid Calcium 8.6 Total Bilirubin 0.40 AST 13 L ALT 30 Alkaline Phosphatase 170 H Total Protein 6.9 Albumin 3.0 L Globulin 3.9 Albumin/Globulin Ratio 0.8 L Urine Color Urine Clarity Urine pH Ur Specific [place] Urine Protein Urine Glucose (UA) Urine Ketones Urine Occult Blood Urine Nitrite Urine Bilirubin Urine Urobilinogen Ur Leukocyte Esterase Urine RBC Urine WBC Ur Squamous Epith Cells Urine Bacteria Urine Mucus Urine Yeast 09/13/20 09/13/20 16:00 16:30 WBC RBC Hgb Hct MCV MCH MCHC RDW Std Deviation RDW Coeff of [place] Plt Count MPV Immature Gran % (Auto) Neut % (Auto) Lymph % (Auto) [place] % (Auto) Eos % (Auto) Baso % (Auto) Absolute Neuts (auto) Absolute Lymphs (auto) Nucleated RBC % PT INR APTT Sodium Potassium Chloride Carbon Dioxide Anion Gap BUN Creatinine Estim Creat Clear Calc Est GFR (MDRD) Af Amer Est GFR (MDRD) Non-Af BUN/Creatinine Ratio Glucose Lactic Acid 1.0 Calcium Total Bilirubin AST ALT Alkaline Phosphatase Total Protein Albumin Globulin Albumin/Globulin Ratio Urine Color Yellow Urine Clarity Cloudy Urine pH 6.0 Ur Specific [place] 1.020 Urine Protein 100 H Urine Glucose (UA) Normal Urine Ketones Negative Urine Occult Blood 25 H Urine Nitrite Negative Urine Bilirubin Negative Urine Urobilinogen Normal Ur Leukocyte Esterase 500 H Urine RBC 0 SEEN Urine WBC 10-25 SEEN Ur Squamous Epith Cells 0-5 SEEN Urine Bacteria 0 SEEN Urine Mucus 0 SEEN Urine Yeast 3+ - Rhythm Strip Rhythm Strip: Sinus Rhythm Rate: 72 Ectopy: None - EKG Initial EKG Interpretation: Sinus Rhythm - Normal sinus rhythm at 72 bpm. OK interval of 176 ms. QTC of 457 ms. No evidence of ST elevation or depression at this time. - Medical Decision Making Patient appears well and nontoxic. Vital signs within normal limits. No hypoxemia. No respiratory distress. Lungs clear. Chest x-ray interpreted by myself shows no evidence of acute infiltrate or cardiomegaly. Radiology concurs. Lab work within normal limits. Patient does have a chronic kidney disease which is at baseline. He had been given vancomycin as well as fluconazole with concern for urine fungal infection. Discussed this case with the hospitalist Dr. Vicente as well as infectious disease Dr. Apple who felt the patient was safe for discharge on Omnicef. I do agree with this given the patient is not ill at this time and has no hypoxemia. Discussed at length with the patient is also agreeable with this plan will follow up with Dr. Leung his HIV specialist. Patient already has an appointment in the next 3 to 4 days with his primary care doctor. Asked to return for new or worsening symptoms. Patient agreeable and discharged home in stable condition. Impression: 1. Community acquired pneumonia 2. Urine fungal infection 3. HIV ED Disposition - Plan for ED Patient: Disposition: Home or Assisted Living Instructions: ED Pneumonia (Adult) Prescriptions: Cefdinir 300 mg PO BID #14 cap Prescription Printed
[2020-09-13 16:16] LABS: Absolute Lymphocyte Count 1.63 X10^3/uL (0.83-4.51); Absolute Neutrophil Count 4.6 X10^3/uL (2.0-7.7); Basophil# 0.04 X10^3/uL; Basophil% 0.6 % (0-1); Eosinophil# 0.17 X10^3/uL; Eosinophils% 2.5 % (0-5); Hematocrit 49.6 % (40-54); Hemoglobin 15.9 g/dL (13.0-16.5); Lymphocyte # 1.63 X10^3/ul (4.0); Lymphocyte % 24.1 % (19-41); Mean Corp Hgb Conc 32.1 g/dL (32-36); Mean Corpuscular Hgb 33.4 pg (27.0-32.0); Mean Corpuscular Volume 104.2 fL (80-94); Mean Platelet Vol. 8.4 fl (6.2-12.0); Monocyte% 4.4 % (0-10); NRBC Flagged by Analyzer 0 % (0-5); Neutrophil # 4.57 X10^3/uL (2.7-7.7); Neutrophil % 67.8 % (47-70); Platelet Count 197 K/mm3 (150-450); RBC Distribution Width CV 13.8 % (11.6-14.6); RBC Distribution Width SD 53.9 fl (35.1-43.9); Red Blood Count 4.76 M/mm3 (4.6-6.2); White Blood Count 6.8 K/mm3 (4.4-11.0)
[2020-09-13 16:32] LABS: ALB/GLOB Ratio 0.8 RATIO (0.9-2.4); AST(SGOT) 13 U/L (15-37); Alanine Aminotransfer ALT/SGPT 30 U/L (16-61); Alkaline Phosphatase 170 U/L (45-117); Anion Gap 2 (5-15); BUN 19 mg/dL (7-18); BUN/Creat Ratio 12.3 RATIO (10-20); Calcium,Total 8.6 mg/dL (8.5-10.1); Chloride 109 mmol/L (98-107); Creatinine, Serum 1.54 mg/dL (0.70-1.30); EST Glomerular Filtration Rate 52 mL/min (>60); Est Glom Filt Rate - Afr Amer 63 mL/min (>60); Estimated Creatinine Clearance 68.46 ml/min; Globulin 3.9 g/dL (2.2-4.2); Glucose 84 mg/dL (74-106); Potassium 4.2 mmol/L (3.5-5.1); Protein, Total 6.9 g/dL (6.4-8.2); Sodium Level 142 mmol/L (136-145)
[2020-09-13 16:41] LABS: Bacteria 0 SEEN /hpf (None Seen); Mucous, Urine 0 SEEN /hpf (<or=2+); Red Blood Cells-Urine 0 SEEN /hpf (0-5)
[2020-09-13 16:47] LABS: Prothrombin Time (Protime)PT. 12.4 SECONDS (11.7-14.9)
[2020-09-13 16:48] LABS: Partial Thromboplast Time 29.8 Seconds (24.1-36.2)
[2020-09-13 16:57] LABS: Color, Urine Yellow (Yellow); Glucose, Dipstick Normal (Normal); Ketone-Dipstick Negative (Negative); Leukocyte Esterase-Dipstick 500 /ul (Negative); Nitrite-Dipstick Negative (Negative); Occult Blood-Urine 25 /ul (Negative); Protein-Dipstick 100 mg/dl (Negative); Urine Bilirubin Dipstick Negative (Negative); Urine Clarity Cloudy (Clear); Urine Urobilinogen Normal (Normal)
--- NOTE | 2020-09-13 17:00 | RAD_ITS ---
STUDY: X-RAY CHEST REASON FOR EXAM: Male, 45 years old. REPORTS HAVING A COUGH FOR 2 WEEKS TECHNIQUE: 1 view COMPARISON: Prior chest radiograph of 09/04/2019 FINDINGS: Hyperexpanded lungs with continued evidence of bronchial thickening and volume loss in the medial bilateral lower lobes not substantially changed from the prior exam. There is no demonstrated pleural abnormality. Normal size heart. Normal mediastinum and diogo. Normal visualized pulmonary arteries. Normal visualized aortic arch and descending thoracic aorta. There are diffuse degenerative changes of the visualized thoracic spine. Normal visualized ribs, clavicles, and shoulders. There is no demonstrated abnormality of the visualized soft tissue structures of the upper abdomen. RAD/Chest 1 View (Portable) IMPRESSION: Continued mild to moderate hyperexpansion with continued evidence of bronchial thickening and volume loss in the medial bilateral lower lobes. No other acute findings or changes. Stable cardiac size. Negative for pleural effusion. Electronically Signed: Emily White MD at 17:26 EST , Service support ,
[2020-09-13 17:13] LABS: White Blood Cells 10-25 SEEN /hpf (0-5)
[2020-09-13 17:14] LABS: Squamous Epithelial Cells - UA 0-5 SEEN /hpf (0-5); Yeast-Urine 3+ /hpf (None Seen)
--- NOTE | 2020-09-13 17:48 | NURSING ---
DR GIANLUCA LITTLEJOHN
== END 2020-09-13 22:26 | disposition home or self-care (01) ==
PROVIDERS: Emergency Provider Emergency Medicine
DX: J18.9 Pneumonia, unspecified organism (principal); B99.9 Unspecified infectious disease; Z21 Asymptomatic human immunodeficiency virus [HIV] infection status; I12.9 Hypertensive chronic kidney disease with stage 1 through stage 4 chronic kidney disease, or unspecified chronic kidney disease; N18.9 Chronic kidney disease, unspecified; I25.10 Atherosclerotic heart disease of native coronary artery without angina pectoris; F17.200 Nicotine dependence, unspecified, uncomplicated; Z82.49 Family history of ischemic heart disease and other diseases of the circulatory system; Z88.1 Allergy status to other antibiotic agents
CPT/HCPCS: 71045; 80053; 81001; 83605; 85025; 85610; 85730; 87040; 87426; 93005; 96365; 96366; 96367; 99285; J7030; J7040; J7050; A4216

== ENCOUNTER 2022-05-28 10:15 | Outpatient (RCR) | payer MEDICAID, SELFPAY ==
[2022-05-21 10:07] VITALS: BP 159/84; PULSE 88; RESP 16; TEMP 36.5; BMI 34.9
--- NOTE | 2022-05-21 13:00 | PCM.WC.HP ---
History of Present Illness Date of Service: 05/21/22 Chief Complaint: Sacral pressure ulcer x 3 weeks History of Wound: Mr. Gomez is a 47 yo who presents to the wound center due to a nonhealing sacral ulcer. Noted months ago following prolonged laying in bed and loss of electricity. He currently has a low loss air mattress/hospital bed however power had been out and he had to lay in bed for over 5 hours prior to someone coming in to help. Subsequently developed a pressure ulcer. Initially seen at a wound center in [place] where he had debridement and wound wound VAC placement. Following his initial visit, he was seen there 2 weeks after and has since not been there. He states that during this time, he was also hospitalized after he was sent to the hospital by his primary care physician due to concern for infection. Had 3 days of IV antibiotics and was discharged on oral. He states that he believes that the ulcer is improving. Has home health who comes in to change it every 48 hours. Currently set at 125 mmHg. Denies any history of diabetes, states that she recently had blood work done by his infectious disease specialist. Feels well, denies chills, fever, nausea, vomiting or change in bowel habit. [facility] Medical History (Updated 05/21/22 @ 13:[address] Bairon Corona MD) Paraparesis of both lower limbs Home Medications Ritonavir [Norvir] 100 mg PO DAILY antivirial 08/30/18 [History Last Taken 09/13/20] baclofen 20 mg tablet 20 mg PO 4X/DAY PRN PRN bladder spasms 08/30/18 [History Last Taken 09/13/20] cranberry 400 mg capsule 4,200 mg PO DAILY bladder 08/30/18 [History Last Taken 09/13/20] darunavir ethanolate 800 mg tablet (Prezista) 800 mg PO DAILY antivirial 08/30/18 [History Last Taken 09/13/20] escitalopram oxalate 20 mg tablet 20 mg PO DAILY depression 08/30/18 [History Last Taken 09/13/20] folic acid 1 mg tablet 1 mg PO DAILY@0800 supplement 08/30/18 [History Last Taken 09/12/20] gabapentin 800 mg tablet 800 mg PO TID nerve pain 08/30/18 [History Last Taken 09/13/20] metoprolol succinate 25 mg tablet,extended release 24 hr (Toprol XL) 25 mg PO DAILY heart 08/30/18 [History Last Taken 09/13/20] pravastatin 40 mg tablet 40 mg PO QHS cholesterol 08/30/18 [History Last Taken 09/12/20] cyanocobalamin (vitamin B-12) 1,000 mcg tablet 1,000 mcg PO DAILY supplement 01/22/19 [History Last Taken 09/12/20] magnesium oxide 1 tab PO DAILY supplement 01/22/19 [History Last Taken 09/12/20] nitroglycerin 0.4 mg sublingual tablet 0.4 mg SL Q5M PRN CHEST PAIN 01/22/19 [History Last Taken Unknown] oxcarbazepine 150 mg tablet 300 mg PO BID depression 01/22/19 [History Last Taken 09/13/20] pramipexole 0.125 mg tablet 0.125 mg PO TID legs 08/10/19 [History Last Taken 09/13/20] oxycodone 20 mg tablet,crush resistant,extended release 12 hr 20 mg PO Q12H pain 09/04/19 [History Last Taken 09/13/20] aspirin 81 mg tablet,delayed release 81 mg PO DAILY@1700 heart [facility] 09/13/20 [History Last Taken 09/12/20] buspirone 7.5 mg tablet 7.5 mg PO BID 05/21/22 [History Last Taken Unknown] duloxetine 60 mg capsule,delayed release 60 mg PO DAILY 05/21/22 [History Last Taken Unknown] multivitamin with iron 1 tab PO DAILY 05/21/22 [History Last Taken Unknown] Allergy/AdvReac Type Severity Reaction Status Date / Time atorvastatin [From Lipitor] AdvReac Nausea/Vom/ Verified 09/13/20 15:53 Diarrhea ciprofloxacin [From Cipro] AdvReac Nausea/Vom/ Verified 09/13/20 15:53 Diarrhea clindamycin AdvReac Nausea/Vom/ Verified 05/21/22 10:29 Diarrhea morphine AdvReac HALLUCINATI Verified 09/13/20 15:53 ONS Social History Smoking Status: Current some day smoker ROS Constitutional Constitutional: Denies fatigue, fever(s), headache(s), increased appetite, lethargy or malaise Eyes Eyes: Denies change in eye color, change in vision, discharge from eye(s), double vision or erythema ENT HEENT: Denies halitosis, headache(s), hearing loss, mouth pain, nasal congestion, nasal discharge or nasal obstruction Cardiovascular Cardiovascular: Denies claudication, clubbing, cold extremities, cyanosis, dyspnea at rest or dyspnea on exertion Respiratory/Chest Respiratory/Chest: Denies dusky skin, dyspnea, dyspnea on exertion, excessive phlegm production, hemoptysis, hoarseness or inability to speak Gastrointestinal Gastrointestinal: Denies chewing difficulty, coffee ground emesis, constipation, cramping, diarrhea, dry heaves or dyspepsia Genitourinary Genitourinary: Denies dribbling, dysuria, flank pain, genital bruising, penile discharge or penile swelling Musculoskeletal Musculoskeletal: Denies extremity pain, joint swelling, loss of height, muscle cramps, muscle spasms, muscle weakness or myalgias Integumentary Integumentary: Denies erythema, furuncle, hirsutism, jaundice, lesions, nail changes or new lesions Neurologic Neurologic: Denies confusion, convulsions, disequilibrium, dizziness, focal weakness, frequent falls, headache(s) or lack of coordination Psychiatric Psychiatric: Denies depression, difficulty concentrating, hallucinations, mood swings, panic attacks, paranoia, suicidal ideation or suicidal thoughts Endocrine Endocrinology: Denies excessive sweating, fatigue, flushing, heat intolerance, increase in ring/shoe/hat size, palpitations, polydipsia or polyphagia Hematologic/Lymphatic Hematologic/Lymphatic: Denies lymphadenopathy Allergic/Immunologic Allergic/Immunologic: Denies throat swelling, tongue swelling, hives, urticaria, eczemia, wheezing or asthma Vital Signs Vital Signs Vital Signs: 05/21/22 10:07 Temperature 97.7 F L Temperature Source Temporal Pulse Rate 88 Respiratory Rate 16 Blood Pressure 159/84 H Blood Pressure Mean 109 Blood Pressure Source Monitor Blood Pressure Position Sitting Blood Pressure Location Right Arm Oxygen Delivery Method Room Air Weight Weight: 265 lb Body Mass Index (BMI) 34.9 Physical Exam Const alert, oriented x3 and no apparent distress General Appearance: cooperative, comfortable and well kempt HEENT normocephalic, head/scalp atraumatic and hearing grossly normal bilaterally Eyes EOMs intact bilaterally General Eye: normal appearance of both eyes Neck full ROM General: normal visual inspection Resp normal respiratory effort Effort and Inspection: able to speak in complete sentences Skin Wounds: wounds noted Neuro oriented x3, CN's II-XII intact bilaterally and moves all extremities Psych mental status grossly normal Appearance: grossly normal Attitude: calm Activity / Motor Behavior: appropriate eye contact Speech: normal speech Debridement Note Debridement Note Wound debrided: Sacral Wound Grade/Stage: Stage III Type of Debridement: Excisional debridement Anesthesia Used: 4% Lidocaine Solution Depth: Down to and including healthy tissue and in the subcutaneous layer Percentage of wound debrided: 100 Instrument Used: 5mm curette Tissue Removed: Slough and devitalized tissue Severity: Fat Layer Exposed Amount of bleeding with debridement: Mild Bleeding Controlled with: Pressure Patient tolerated procedure: Patient tolerated procedure well Post-Debridement Measurements and Additional Note: Post-Debridement Measurements/Treatment - Nurse 1 - General Ulcer Assessment Start: 05/21/22 10:06 Freq: Status: Active Protocol: ESTUARDO Activity Type Activity Date Activity User E-sign Co-sign Detail Recorded Client Recorded Date Recorded By Document 05/21/22 10:07 [facility] [id number] 05/21/22 10:27 [facility] 05/21/22 10:07 [facility] Today's Visit Information Type of service Follow-up Visit (Physician/BARREL ST[employer] INSPECTOR ) Arrival Mode Wheelchair Transfer Assistance None Patient Identification Verified (Name & Yes ) Patient Requires Transmission-Based No Precautions Height and Weight Height 6 ft 1 in Weight 265 lb Weight in Pounds 265.0 lbs Weight Measurement Method Estimated by Patient Body Mass Index (BMI) 34.9 BMI Classification Obese BSA - Tegan 2.43 Vital Signs Temperature (97.8 F-99.1 F) 97.7 F L Temperature Source Temporal Pulse Rate (60-100) 88 Pulse Location Monitor Respiratory Rate (12-18) 16 Respiratory rate source Observation Oxygen Delivery Method Room Air Blood Pressure (90/60-120/80) 159/84 H Blood Pressure Mean 109 Source Monitor Position Sitting Blood Pressure Location Right Arm Pain Scale: 0-10 Numeric Is Patient Pain Free? 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 Able to Read Yes Able to Write Yes Communication Tools None Right Hearing Abillity Hard of Hearing Left Hearing Abillity Normal Visual Assistive Devices Glasses Teaching Assessment Preferences Verbal,Written, Audio/Visual, Demonstration Barriers to Learning None Readiness To Learn Excellent Willingness to Engage in Self Management High Activies Readiness to Engage in Self Management High Activities Anxiety Level Calm Cooperation Cooperative Perception Coherent Interest in Health Problem Asks Questions Education Importance Acknowledges Need Does Patient Smoke tobacco or other No substances Smoking Status Current some day smoker Is Patient Diabetic No Culture/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 Cultural/Voodoo Needs that may affect No Treatment Plan Teaching: Wound Center *Welcome to the Wound Center -Person Taught Patient -Teaching Method Discussion -Response to teaching Verbalize understanding Welcome to the Wound Care Center [place] WC - Nurse 1 - General Ulcer Measurement Start: 05/21/22 10:06 Freq: Status: Active Protocol: Activity Type Activity Date Activity User E-sign Co-sign Detail Recorded Client Recorded Date Recorded By Document 05/21/22 10:07 [facility] [id number] 05/21/22 10:27 [facility] 05/21/22 10:07 Wound Center Nurse 1 #2- LOWER LUMBAR -Combined with other wound No -Current Size (cm) - Length 2.5 -Current Size (cm) - Width 5 -Current Size (cm) - Depth 0.4 -Total Square Cm 12.5 -Date of Last Picture (Recall this 05/21/22 field) -Photo Taken Yes -Epithelialization None Present -Tunneling No -Undermining/Tunneling No -Circular Undermining No -Exudate Amt Medium -Exudate Type Serosanguineous -Wound Margin Distinct, Outline Attached -Granulation Amt Large (67-100%) -Granulation Quality [place],Red -Slough/Fibrin Yes -Necrosis Amt Small (1-33%) -Necrotic Tissue Type Adherent Slough -Texture (Martine-wound Skin Appearance) Assessed, Scarring -Moisture (Martine-wound Skin Appearance) Assessed -Color (Martine-wound Skin Appearance) Assessed -Temperature (Martine-wound Skin No Abnormality Appearance) (Pt Warm) -Tenderness on Palpation (Martine-wound Yes Skin Appearance) -Ulcer Cleansing Soap and Water -Foul Odor after Cleansing No -Anesthetic Used 4% Lidocaine Solution WC - Nurse 2 - General Ulcer CM Notes Start: 05/21/22 10:06 Freq: Status: Active Protocol: Activity Type Activity Date Activity User E-sign Co-sign Detail Recorded Client Recorded Date Recorded By Document 05/21/22 11:00 [facility] [id number] 05/21/22 11:08 [facility] 05/21/22 11:00 Wound Center Nurse 2 -Time 11:01 -Correct Patient Yes -Correct Side, Site, Position Yes -Correct Procedure Yes -Procedure Performed Yes -Type of Procedure Debridement -Clinical Debridement Subcutaneous -Tissue Removed Subcutaneous -Post Debridement (cm) - Length 3.5 -Post Debridement (cm) - Width 5.5 -Post Debridement (cm) - Depth 1.0 -Total Square (Post) (cm) 19.25 -Area of Debridement (cm) - Length 3.5 -Area of Debridement (cm) - Width 5.5 -Total Square (Area) (cm) 19.25 -Tunneling No -Undermining/Tunneling No -Circular Undermining No -Wound/Ulcer Outcome Not Healed -Ulcer Cleansing Rinsed/ Irrigated with Saline -Foul Odor after Cleansing No -Bioengineered Tissue No -Bleeding Controlled with Pressure -Treatment Response Procedure Tolerated Well -Offloading No -Debridement - Subq, 1st 20sq cm Yes Pain Scale: 0-10 Numeric Is Patient Pain Free? Yes - Nurse 3 - General Ulcer D/C NN Start: 05/21/22 10:06 Freq: Status: Active Protocol: Activity Type Activity Date Activity User E-sign Co-sign Detail Recorded Client Recorded Date Recorded By Document 05/21/22 11:14 [facility] [id number] 05/21/22 11:16 [facility] 05/21/22 11:14 Wound Care Nurse 3 #2- LOWER LUMBAR -Ulcer Cleansing Soap and Water -Primary Dressing Applied Mepilex Border -Other Dressing mepilex border, wet to dry -Primary Dressing Covered/Secured with Dry Gauze, Secured with Tape -Mepilex Border 1 Pain Scale: 0-10 Numeric Is Patient Pain Free? Yes - Visit Discharge Discharge Condition Stable Ambulatory Status Wheelchair Transportation [place] Medication Reconcilliation completed & No provided to patient/care provider Clinical Summary of Care Provided Yes Notes: pt did not bring wound vac supplies. Wet to dry and mepilex today. Charges/Coding Visit Charges Office Visits / Consults: 59068 OV L3 Est Procedures Integumentary [id number]: [id number] [place]ita subq tissue 20 sq cm/< Assessment/Plan Assessment/Plan (1) Pressure injury of sacral region, stage 3: CODE(S): L89.153 - Pressure ulcer of sacral region, stage 3 (2) Paraparesis of both lower limbs: CODE(S): G82.20 - Paraplegia, unspecified (3) Neuropathy: CODE(S): G62.9 - Polyneuropathy, unspecified (4) HIV (human immunodeficiency virus infection): CODE(S): B20 - Human immunodeficiency virus [HIV] disease PLAN: Plan Debridement done as documented above, procedure was well-tolerated. As above, has had a wound VAC for about 2 to 3 months and tolerated it well. Patient believes that his ulcer is improving, has home health coming often. Continue wound VAC however, increase from 125 to 150 mmHg. No concerns for infection and so no culture done. Continue offloading. Has a low loss air mattress and hospital bed. Optimal dietary management, increase protein intake. Vitamin C, D and zinc. His questions were answered and he was advised to call with any further questions or concerns. Follow-up in a week or sooner if needed. This note was generated with [employer] dictation software. It may contain incorrect words, spelling, and punctuation that were not noted in checking the note before signing.
[2022-05-28 10:22] VITALS: BP 129/73; PULSE 76; RESP 16; TEMP 35.8; BMI 34.9
--- NOTE | 2022-05-28 11:05 | WC ---
Naheed Husain did vac application
--- NOTE | 2022-05-28 12:59 | PN.PCM_ITS ---
History of Present Illness Date of Service: 05/28/22 Chief Complaint: Sacral pressure ulcer x 3 weeks History of Wound: Mr. Gomez is a 47 yo who presents to the wound center due to a nonhealing sacral ulcer. Noted months ago following prolonged laying in bed and loss of electricity. He currently has a low loss air mattress/hospital bed however power had been out and he had to lay in bed for over 5 hours prior to someone coming in to help. Subsequently developed a pressure ulcer. Initially seen at a wound center in [place] where he had debridement and wound wound VAC placement. Following his initial visit, he was seen there 2 weeks after and has since not been there. He states that during this time, he was also hospitalized after he was sent to the hospital by his primary care physician due to concern for infection. Had 3 days of IV antibiotics and was discharged on oral. He states that he believes that the ulcer is improving. Has home health who comes in to change it every 48 hours. Currently set at 125 mmHg. Denies any history of diabetes, states that she recently had blood work done by his infectious disease specialist. Feels well, denies chills, fever, nausea, vomiting or change in bowel habit. Progress of Wound: Improving. No new concerns at this time. Objective Data Objective Data Vital Signs: Vital Signs Temp Pulse Resp BP O2 Del Method 96.4 F L 76 16 129/73 H Room Air 05/28/22 10:22 05/28/22 10:22 05/28/22 10:22 05/28/22 10:22 05/28/22 10:22 Oxygen Delivery Method Room Air Weight: 265 lb Body Mass Index (BMI) 34.9 Charges/Coding Procedures Integumentary 111xxx-113xx: 70746 Estelita subq tissue 20 sq cm/< Physical Exam Const alert, oriented x3 and no apparent distress General Appearance: cooperative, comfortable and well kempt HEENT normocephalic, head/scalp atraumatic and hearing grossly normal bilaterally Eyes EOMs intact bilaterally General Eye: normal appearance of both eyes Neck full ROM General: normal visual inspection Resp normal respiratory effort Effort and Inspection: able to speak in complete sentences Skin Wounds: wounds noted Neuro oriented x3, CN's II-XII intact bilaterally and moves all extremities Psych mental status grossly normal Appearance: grossly normal Attitude: calm Activity / Motor Behavior: appropriate eye contact Speech: normal speech Debridement Note Debridement Note Wound debrided: Sacral Type of Debridement: Excisional debridement Anesthesia Used: 4% Lidocaine Solution Depth: Down to and including healthy tissue and in the subcutaneous layer Percentage of wound debrided: 100 Instrument Used: 5mm curette Tissue Removed: Slough and devitalized tissue Severity: Fat Layer Exposed Amount of bleeding with debridement: Mild Bleeding Controlled with: Pressure Patient tolerated procedure: Patient tolerated procedure well Post-Debridement Measurements and Additional Note: Post-Debridement Measurements/Treatment - Nurse 1 - General Ulcer Assessment Start: 05/21/22 10:06 Freq: Status: Active Protocol: ESTUARDO Activity Type Activity Date Activity User E-sign Co-sign Detail Recorded Client Recorded Date Recorded By Document 05/21/22 10:07 [facility] [id number] 05/21/22 10:27 [facility] Document 05/28/22 10:22 [facility] [id number] 05/28/22 10:27 [facility] 05/21/22 05/28/22 10:07 10:22 - Today's Visit Information Type of service Follow-up Visit Follow-up 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 ) ) Arrival Mode Wheelchair Wheelchair Transfer Assistance None Jamshid Lift Transfer Assist (Other) 2 Patient Identification Verified (Name & Yes Yes ) Patient Requires Transmission-Based No No Precautions Height and Weight Height 6 ft 1 in Weight 265 lb Weight in Pounds 265.0 lbs Weight Measurement Method Estimated by Patient Body Mass Index (BMI) 34.9 34.9 BMI Classification Obese Obese BSA - Tegan 2.43 Vital Signs Temperature (97.8 F-99.1 F) 97.7 F L 96.4 F L Temperature Source Temporal Temporal Pulse Rate (60-100) 88 76 Pulse Location Monitor Monitor Respiratory Rate (12-18) 16 16 Respiratory rate source Observation Observation Oxygen Delivery Method Room Air Room Air Blood Pressure (90/60-120/80) 159/84 H 129/73 H Blood Pressure Mean (mm Hg) 109 91 Source Monitor Monitor Position Sitting Sitting Blood Pressure Location Right Arm Left Arm History Since Last Visit- (Skip if this is Patient's initial visit) Have you changed medications since your No last visit? Any new allergies or adverse reactions No Had a fall/change in ADL's that may No increase risk of falls Signs or symptoms of abuse and/or No neglect since last visit Have you been in the hospital since your No last visit? Has dressing in place as prescribed Yes Has compression in place as prescribed N/A Has offloadiing in place as prescribed N/A Experienced any changes in pain level or No management Left Footwear Regular Shoe Right Footwear Regular Shoe Pain Scale: 0-10 Numeric Is Patient Pain Free? Yes Yes Communication Assessment Preferred language [place] Domestic Cleaner Required No Able to Read Yes Able to Write Yes Communication Tools None Right Hearing Abillity Hard of Hearing Left Hearing Abillity Normal Visual Assistive Devices Glasses Teaching Assessment Preferences Verbal,Written, Audio/Visual, Demonstration Barriers to Learning None Readiness To Learn Excellent Willingness to Engage in Self Management High Activies Readiness to Engage in Self Management High Activities Anxiety Level Calm Cooperation Cooperative Perception Coherent Interest in Health Problem Asks Questions Education Importance Acknowledges Need Does Patient Smoke tobacco or other No substances Smoking Status Current some day smoker Is Patient Diabetic No Culture/Quaker/Risk Lead Cultural/Quaker Needs that may affect No Treatment Plan Teaching: Wound Center *Welcome to the Wound Center -Person Taught Patient -Teaching Method Discussion -Response to teaching Verbalize understanding Welcome to the Wound Care Center English HICKS - Nurse 1 - General Ulcer Measurement Start: 05/21/22 10:06 Freq: Status: Active Protocol: Activity Type Activity Date Activity User E-sign Co-sign Detail Recorded Client Recorded Date Recorded By Document 05/21/22 10:07 [facility] [id number] 05/21/22 10:27 [facility] Document 05/28/22 10:22 [facility] [id number] 05/28/22 10:27 [facility] 05/21/22 05/28/22 10:07 10:22 Wound Center Nurse 1 #2- LOWER LUMBAR -Combined with other wound No No -Current Size (cm) - Length 2.5 3.6 -Current Size (cm) - Width 5 3.5 -Current Size (cm) - Depth 0.4 0.5 -Total Square Cm 12.5 12.60 -Date of Last Picture (Recall this 05/21/22 05/28/22 field) -Photo Taken Yes Yes -Epithelialization None Present None Present -Tunneling No No -Undermining/Tunneling No No -Circular Undermining No No -Exudate Amt Medium Medium -Exudate Type Serosanguineous Serosanguineous -Wound Margin Distinct, Distinct, Outline Outline Attached Attached -Granulation Amt Large (67-100%) Medium (34-66%) -Granulation Quality [place],Red [place] -Slough/Fibrin Yes Yes -Necrosis Amt Small (1-33%) Medium (34-66%) -Necrotic Tissue Type Adherent Slough Adherent Slough -Texture (Martine-wound Skin Appearance) Assessed, Assessed, Scarring Scarring -Moisture (Martine-wound Skin Appearance) Assessed Assessed -Color (Martine-wound Skin Appearance) Assessed Assessed -Temperature (Martine-wound Skin No Abnormality No Abnormality Appearance) (Pt Warm) (Pt Warm) -Tenderness on Palpation (Martine-wound Yes No Skin Appearance) -Ulcer Cleansing Soap and Water Soap and Water -Foul Odor after Cleansing No No -Anesthetic Used 4% Lidocaine 4% Lidocaine Solution Solution WC - Nurse 2 - General Ulcer CM Notes Start: 05/21/22 10:06 Freq: Status: Active Protocol: Activity Type Activity Date Activity User E-sign Co-sign Detail Recorded Client Recorded Date Recorded By Document 05/21/22 11:00 MW [id number] 05/21/22 11:08 MW Document 05/28/22 10:53 MW [id number] 05/28/22 10:54 MW 05/21/22 05/28/22 11:00 10:53 Wound Center Nurse 2 #2- LOWER LUMBAR -Time 11:01 10:53 -Correct Patient Yes Yes -Correct Side, Site, Position Yes Yes -Correct Procedure Yes Yes -Procedure Performed Yes Yes -Type of Procedure Debridement Debridement -Clinical Debridement Subcutaneous Subcutaneous -Tissue Removed Subcutaneous Subcutaneous -Post Debridement (cm) - Length 3.5 3.5 -Post Debridement (cm) - Width 5.5 5.3 -Post Debridement (cm) - Depth 1.0 0.8 -Total Square (Post) (cm) 19.25 18.55 -Area of Debridement (cm) - Length 3.5 3.5 -Area of Debridement (cm) - Width 5.5 5.3 -Total Square (Area) (cm) 19.25 18.55 -Tunneling No No -Undermining/Tunneling No No -Circular Undermining No No -Wound/Ulcer Outcome Not Healed Not Healed -Ulcer Cleansing Rinsed/ Rinsed/ Irrigated with Irrigated with Saline Saline -Foul Odor after Cleansing No No -Bioengineered Tissue No No -Bleeding Controlled with Pressure Pressure -Treatment Response Procedure Procedure Tolerated Well Tolerated Well -Offloading No No -Debridement - Subq, 1st 20sq cm Yes Yes Pain Scale: 0-10 Numeric Is Patient Pain Free? Yes Yes - Nurse 3 - General Ulcer D/C NN Start: 05/21/22 10:06 Freq: Status: Active Protocol: Activity Type Activity Date Activity User E-sign Co-sign Detail Recorded Client Recorded Date Recorded By Document 05/21/22 11:14 UT [id number] 05/21/22 11:16 MT Document 05/28/22 11:04 AK Desktop 05/28/22 11:04 AK 05/21/22 05/28/22 11:14 11:04 Wound Care Nurse 3 #2- LOWER LUMBAR -Ulcer Cleansing Soap and Water Rinsed/ Irrigated with Saline -Foul Odor after Cleansing No -Negative Pressure Wound Therapy Continue -Setting (mmHg) 150 -Negative Pressure is Continuous -Regranex (If Applicable) Continue -Primary Dressing Applied Mepilex Border -Other Dressing mepilex border, wet to dry -Primary Dressing Covered/Secured with Dry Gauze, Secured with Tape -NPWT Application Charge NPWT & Debridement (nc ) -Mepilex Border 1 Pain Scale: 0-10 Numeric Is Patient Pain Free? Yes Yes - Visit Discharge Discharge Condition Stable Stable Ambulatory Status Wheelchair Wheelchair Transportation [place] Medication Reconcilliation completed & No Yes provided to patient/care provider Clinical Summary of Care Provided Yes Yes Notes: pt did not bring wound vac supplies. Wet to dry and mepilex today. Assessment/Plan Assessment/Plan (1) Pressure injury of sacral region, stage 3: CODE(S): L89.153 - Pressure ulcer of sacral region, stage 3 (2) Paraparesis of both lower limbs: CODE(S): G82.20 - Paraplegia, unspecified (3) Neuropathy: CODE(S): G62.9 - Polyneuropathy, unspecified (4) HIV (human immunodeficiency virus infection): CODE(S): B20 - Human immunodeficiency virus [HIV] disease PLAN: Plan Debridement done as documented above, procedure was well-tolerated. Improving. Continue wound VAC at 150 mmHg. Continue offloading. Has a low loss air mattress and hospital bed. Optimal dietary management, increase protein intake. Vitamin C, D and zinc. His questions were answered and he was advised to call with any further questions or concerns. Follow-up in a week or sooner if needed. This note was generated with [employer] dictation software. It may contain incorrect words, spelling, and punctuation that were not noted in checking the note before signing.
== END 2022-06-01 23:59 | disposition home or self-care (01) ==
LOC: WC 10:15
PROVIDERS: Visit Provider Internal Medicine
DX: L89.153 Pressure ulcer of sacral region, stage 3 (principal); G82.20 Paraplegia, unspecified; B20 Human immunodeficiency virus [HIV] disease; Z79.82 Long term (current) use of aspirin; G62.9 Polyneuropathy, unspecified; F17.200 Nicotine dependence, unspecified, uncomplicated
CPT/HCPCS: 11042; 99213; G0463

== ENCOUNTER 2022-06-18 10:30 | Outpatient (RCR) | payer MEDICAID, SELFPAY ==
[2022-06-02 00:06] VITALS: BP 129/73; PULSE 76; RESP 16; TEMP 35.8; BMI 34.9
[2022-06-11 11:11] VITALS: BP 100/61; PULSE 77; RESP 20; TEMP 36.5; BMI 34.9
--- NOTE | 2022-06-11 13:01 | PCM.WC.PN ---
History of Present Illness Date of Service: 06/11/22 Chief Complaint: Sacral pressure ulcer x 3 weeks History of Wound: Mr. Gomez is a 47 yo who presents to the wound center due to a nonhealing sacral ulcer. Noted months ago following prolonged laying in bed and loss of electricity. He currently has a low loss air mattress/hospital bed however power had been out and he had to lay in bed for over 5 hours prior to someone coming in to help. Subsequently developed a pressure ulcer. Initially seen at a wound center in [place] where he had debridement and wound wound VAC placement. Following his initial visit, he was seen there 2 weeks after and has since not been there. He states that during this time, he was also hospitalized after he was sent to the hospital by his primary care physician due to concern for infection. Had 3 days of IV antibiotics and was discharged on oral. He states that he believes that the ulcer is improving. Has home health who comes in to change it every 48 hours. Currently set at 125 mmHg. Denies any history of diabetes, states that she recently had blood work done by his infectious disease specialist. Feels well, denies chills, fever, nausea, vomiting or change in bowel habit. Progress of Wound: Improving. No new concerns at this time. Objective Data Objective Data Vital Signs: Vital Signs Temp Pulse Resp BP 97.7 F L 77 20 H 100/61 06/11/22 11:11 06/11/22 11:11 06/11/22 11:11 06/11/22 11:11 Weight: 265 lb Body Mass Index (BMI) 34.9 Charges/Coding Procedures Integumentary 111xxx-113xx: 97973 Estelita subq tissue 20 sq cm/< Physical Exam Const alert, oriented x3 and no apparent distress General Appearance: cooperative, comfortable and well kempt HEENT normocephalic, head/scalp atraumatic and hearing grossly normal bilaterally Eyes EOMs intact bilaterally General Eye: normal appearance of both eyes Neck full ROM General: normal visual inspection Resp normal respiratory effort Effort and Inspection: able to speak in complete sentences Skin Wounds: wounds noted Neuro oriented x3, CN's II-XII intact bilaterally and moves all extremities Psych mental status grossly normal Appearance: grossly normal Attitude: calm Activity / Motor Behavior: appropriate eye contact Speech: normal speech Debridement Note Debridement Note Wound debrided: Sacral Type of Debridement: Excisional debridement Anesthesia Used: 4% Lidocaine Solution Depth: Down to and including healthy tissue Percentage of wound debrided: 100 Instrument Used: 5mm curette Tissue Removed: Slough and devitalized tissue Severity: Fat Layer Exposed Amount of bleeding with debridement: Mild Bleeding Controlled with: Pressure Patient tolerated procedure: Patient tolerated procedure well Post-Debridement Measurements and Additional Note: Post-Debridement Measurements/Treatment FABIOLA - Nurse 1 - General Ulcer Assessment Start: 06/11/22 11:11 Freq: Status: Active Protocol: ESTUARDO Activity Type Activity Date Activity User E-sign Co-sign Detail Recorded Client Recorded Date Recorded By Document 06/11/22 11:11 DL [id number] 06/11/22 11:26 DL 06/11/22 11:11 WC - Today's Visit Information Type of service Follow-up Visit (Physician/MIXER OPERATOR [employer] ) Arrival Mode Wheelchair Transfer Assistance Jamshid Lift, Manual Transfer Assist (Other) x2 Patient Identification Verified (Name & Yes ) Patient Requires Transmission-Based No Precautions Height and Weight Body Mass Index (BMI) 34.9 BMI Classification Obese Vital Signs Temperature (97.8 F-99.1 F) 97.7 F L Temperature Source Temporal Pulse Rate (60-100) 77 Pulse Location Monitor Respiratory Rate (12-18) 20 H Respiratory rate source Observation Blood Pressure (90/60-120/80) 100/61 Blood Pressure Mean (mm Hg) 74 Source Monitor History Since Last Visit- (Skip if this is Patient's initial visit) Have you changed medications since your No last visit? Any new allergies or adverse reactions No Had a fall/change in ADL's that may No increase risk of falls Signs or symptoms of abuse and/or No neglect since last visit Have you been in the hospital since your No last visit? Has dressing in place as prescribed Yes Has compression in place as prescribed N/A Has offloadiing in place as prescribed Yes Experienced any changes in pain level or No management Pain Scale: 0-10 Numeric Is Patient Pain Free? Yes FABIOLA Kathleen Nurse 1 - General Ulcer Measurement Start: 06/11/22 11:11 Freq: Status: Active Protocol: Activity Type Activity Date Activity User E-sign Co-sign Detail Recorded Client Recorded Date Recorded By Document 06/11/22 11:11 DL [id number] 06/11/22 11:26 DL 06/11/22 11:11 Wound Center Nurse 1 #2- LOWER LUMBAR -Photo Taken No -Exudate Amt Medium -Exudate Type Serosanguineous -Wound Margin Distinct, Outline Attached -Granulation Amt Medium (34-66%) -Granulation Quality [place],Red -Necrosis Amt Medium (34-66%) -Necrotic Tissue Type Adherent Slough -Structure Exposed N/A -Texture (Martine-wound Skin Appearance) Scarring -Moisture (Martine-wound Skin Appearance) No Abnormality -Color (Martine-wound Skin Appearance) No Abnormality -Temperature (Martine-wound Skin No Abnormality Appearance) (Pt Warm) -Ulcer Cleansing Soap and Water -Foul Odor after Cleansing No -Anesthetic Used 4% Lidocaine Solution WC - Nurse 2 - General Ulcer CM Notes Start: 06/11/22 11:11 Freq: Status: Active Protocol: Activity Type Activity Date Activity User E-sign Co-sign Detail Recorded Client Recorded Date Recorded By Document 06/11/22 11:33 MW [id number] 06/11/22 11:37 MW 06/11/22 11:33 Wound Center Nurse 2 -Time 11:34 -Correct Patient Yes -Correct Side, Site, Position Yes -Correct Procedure Yes -Procedure Performed Yes -Type of Procedure Debridement -Clinical Debridement Subcutaneous -Tissue Removed Subcutaneous -Post Debridement (cm) - Length 3.0 -Post Debridement (cm) - Width 4.5 -Post Debridement (cm) - Depth 0.3 -Total Square (Post) (cm) 13.50 -Area of Debridement (cm) - Length 3.0 -Area of Debridement (cm) - Width 4.5 -Total Square (Area) (cm) 13.50 -Tunneling No -Undermining/Tunneling No -Circular Undermining No -Wound/Ulcer Outcome Not Healed -Ulcer Cleansing Rinsed/ Irrigated with Saline -Foul Odor after Cleansing No -Bioengineered Tissue No -Bleeding Controlled with Pressure -Treatment Response Procedure Tolerated Well -Offloading No -Debridement - Subq, 1st 20sq cm Yes Pain Scale: 0-10 Numeric Is Patient Pain Free? Yes FABIOLA - Nurse 3 - General Ulcer D/C NN Start: 06/11/22 11:11 Freq: Status: Active Protocol: Activity Type Activity Date Activity User E-sign Co-sign Detail Recorded Client Recorded Date Recorded By Document 06/11/22 11:57 [facility] [id number] 06/11/22 11:58 [facility] 06/11/22 11:57 Wound Care Nurse 3 #2- LOWER LUMBAR -Ulcer Cleansing Rinsed/ Irrigated with Saline -Foul Odor after Cleansing No -Other Dressing MOIST TO DRY -Primary Dressing Covered/Secured with Secured with Tape -Other Covering ABD Treatment Response Procedure Tolerated Well Pain Scale: 0-10 Numeric Is Patient Pain Free? Yes WC - Visit Discharge Discharge Condition Stable Ambulatory Status Wheelchair Assessment/Plan Assessment/Plan (1) Pressure injury of sacral region, stage 3: CODE(S): L89.153 - Pressure ulcer of sacral region, stage 3 (2) Paraparesis of both lower limbs: CODE(S): G82.20 - Paraplegia, unspecified (3) Neuropathy: CODE(S): G62.9 - Polyneuropathy, unspecified (4) HIV (human immunodeficiency virus infection): CODE(S): B20 - Human immunodeficiency virus [HIV] disease PLAN: Plan Debridement done as documented above, procedure was well-tolerated. Improving. Continue wound VAC at 150 mmHg. Continue offloading. Has a low loss air mattress and hospital bed. Optimal dietary management, increase protein intake. Vitamin C, D and zinc. His questions were answered and he was advised to call with any further questions or concerns. Follow-up in a week or sooner if needed. This note was generated with [employer] software. It may contain incorrect words, spelling, and punctuation that were not noted in checking the note before signing.
== END 2022-07-01 23:59 | disposition home or self-care (01) ==
LOC: WC 10:30
PROVIDERS: Visit Provider Internal Medicine
DX: L89.153 Pressure ulcer of sacral region, stage 3 (principal); G82.20 Paraplegia, unspecified; B20 Human immunodeficiency virus [HIV] disease; G62.9 Polyneuropathy, unspecified
CPT/HCPCS: 11042

== ENCOUNTER 2022-07-23 09:02 | Outpatient (RCR) | payer MEDICAID, SELFPAY ==
[2022-07-02 00:10] VITALS: BP 100/61; PULSE 77; RESP 20; TEMP 36.5; BMI 34.9
[2022-07-23 09:16] VITALS: BP 143/83; PULSE 75; RESP 16; TEMP 36.8; BMI 34.9
--- NOTE | 2022-07-23 10:18 | PN.PCM_ITS ---
History of Present Illness Date of Service: 07/23/22 Chief Complaint: Sacral pressure ulcer x 3 weeks History of Wound: Mr. Gomez is a 47 yo who presents to the wound center due to a nonhealing sacral ulcer. Noted months ago following prolonged laying in bed and loss of electricity. He currently has a low loss air mattress/hospital bed however power had been out and he had to lay in bed for over 5 hours prior to someone coming in to help. Subsequently developed a pressure ulcer. Initially seen at a wound center in [place] where he had debridement and wound wound VAC placement. Following his initial visit, he was seen there 2 weeks after and has since not been there. He states that during this time, he was also hospitalized after he was sent to the hospital by his primary care physician due to concern for infection. Had 3 days of IV antibiotics and was discharged on oral. He states that he believes that the ulcer is improving. Has home health who comes in to change it every 48 hours. Currently set at 125 mmHg. Denies any history of diabetes, states that she recently had blood work done by his infectious disease specialist. Feels well, denies chills, fever, nausea, vomiting or change in bowel habit. Progress of Wound: Not been seen here in a few weeks. Stopped using the wound vac due to reduced depth and improvement. Was using Paradise/Promogran and Santyl at home. Has home health and a caregiver Subjective Subjective No new concerns at this time. Objective Data Objective Data Vital Signs: Vital Signs Temp Pulse Resp BP O2 Del Method 98.2 F 75 16 143/83 H Room Air 07/23/22 09:16 07/23/22 09:16 07/23/22 09:16 07/23/22 09:16 07/23/22 09:16 Oxygen Delivery Method Room Air Weight: 265 lb Body Mass Index (BMI) 34.9 Charges/Coding Procedures Integumentary 111xxx-113xx: 61376 Estelita subq tissue 20 sq cm/< Physical Exam Const alert, oriented x3 and no apparent distress General Appearance: cooperative, comfortable and well kempt HEENT normocephalic, head/scalp atraumatic and hearing grossly normal bilaterally Eyes EOMs intact bilaterally General Eye: normal appearance of both eyes Neck full ROM General: normal visual inspection Resp normal respiratory effort Effort and Inspection: able to speak in complete sentences Skin Wounds: wounds noted Neuro oriented x3, CN's II-XII intact bilaterally and moves all extremities Psych mental status grossly normal Appearance: grossly normal Attitude: calm Activity / Motor Behavior: appropriate eye contact Speech: normal speech Debridement Note Debridement Note Wound debrided: Sacral Type of Debridement: Excisional debridement Anesthesia Used: 4% Lidocaine Solution Depth: Down to and including healthy tissue and in the subcutaneous layer Percentage of wound debrided: 100 Instrument Used: 3mm curette Tissue Removed: Slough and devitalized tissue Severity: Fat Layer Exposed Amount of bleeding with debridement: Mild Bleeding Controlled with: Pressure Patient tolerated procedure: Patient tolerated procedure well Post-Debridement Measurements and Additional Note: Post-Debridement Measurements/Treatment - Nurse 1 - General Ulcer Assessment Start: 07/23/22 09:15 Freq: Status: Active Protocol: ESTUARDO Activity Type Activity Date Activity User E-sign Co-sign Detail Recorded Client Recorded Date Recorded By Document 07/23/22 09:16 [facility] [id number] 07/23/22 09:25 [facility] 07/23/22 09:16 - Today's Visit Information Type of service Follow-up Visit (Physician/FUR EXAMINER ) Arrival Mode Wheelchair Transfer Assistance None Patient Identification Verified (Name & Yes ) Patient Requires Transmission-Based No Precautions Height and Weight Body Mass Index (BMI) 34.9 BMI Classification Obese Vital Signs Temperature (97.8 F-99.1 F) 98.2 F Temperature Source Temporal Pulse Rate (60-100) 75 Pulse Location Monitor Respiratory Rate (12-18) 16 Respiratory rate source Observation Oxygen Delivery Method Room Air Blood Pressure (90/60-120/80) 143/83 H Blood Pressure Mean (mm Hg) 103 Source Monitor Position Sitting Blood Pressure Location Right Arm History Since Last Visit- (Skip if this is Patient's initial visit) Have you changed medications since your No last visit? Any new allergies or adverse reactions No Had a fall/change in ADL's that may No increase risk of falls Signs or symptoms of abuse and/or No neglect since last visit Have you been in the hospital since your No last visit? Has dressing in place as prescribed No Has compression in place as prescribed N/A Has offloadiing in place as prescribed Yes Experienced any changes in pain level or No management Left Footwear Regular Shoe Right Footwear Regular Shoe Pain Scale: 0-10 Numeric Is Patient Pain Free? Yes WC - Nurse 1 - General Ulcer Measurement Start: 07/23/22 09:15 Freq: Status: Active Protocol: Activity Type Activity Date Activity User E-sign Co-sign Detail Recorded Client Recorded Date Recorded By Document 07/23/22 09:16 [facility] [id number] 07/23/22 09:25 [facility] 07/23/22 09:16 Wound Center Nurse 1 #2- LOWER LUMBAR -Combined with other wound No -Current Size (cm) - Length 2.3 -Current Size (cm) - Width 4.6 -Current Size (cm) - Depth 0.1 -Total Square Cm 10.58 -Date of Last Picture (Recall this 07/23/22 field) -Photo Taken Yes -Epithelialization Medium 34-66% -Tunneling No -Undermining/Tunneling No -Circular Undermining No -Exudate Amt Medium -Exudate Type Serous -Wound Margin Distinct, Outline Attached -Granulation Amt Medium (34-66%) -Granulation Quality Godley -Slough/Fibrin Yes -Necrosis Amt Medium (34-66%) -Necrotic Tissue Type Adherent Slough -Texture (Martine-wound Skin Appearance) Assessed, Scarring -Moisture (Martine-wound Skin Appearance) Assessed -Color (Martine-wound Skin Appearance) Assessed -Temperature (Martine-wound Skin No Abnormality Appearance) (Pt Warm) -Tenderness on Palpation (Martine-wound No Skin Appearance) -Ulcer Cleansing Rinsed/ Irrigated with Saline -Foul Odor after Cleansing No -Anesthetic Used 4% Lidocaine Solution WC - Nurse 2 - General Ulcer CM Notes Start: 07/23/22 09:15 Freq: Status: Active Protocol: Activity Type Activity Date Activity User E-sign Co-sign Detail Recorded Client Recorded Date Recorded By Document 07/23/22 09:57 [id number] 07/23/22 10:04 MW 07/23/22 09:57 Wound Center Nurse 2 -Time 09:57 -Correct Patient Yes -Correct Side, Site, Position Yes -Correct Procedure Yes -Procedure Performed Yes -Type of Procedure Debridement -Clinical Debridement Subcutaneous -Tissue Removed Subcutaneous -Post Debridement (cm) - Length 1.6 -Post Debridement (cm) - Width 4.7 -Post Debridement (cm) - Depth 0.1 -Total Square (Post) (cm) 7.52 -Area of Debridement (cm) - Length 1.6 -Area of Debridement (cm) - Width 4.7 -Total Square (Area) (cm) 7.52 -Tunneling No -Undermining/Tunneling No -Circular Undermining No -Wound/Ulcer Outcome Not Healed -Ulcer Cleansing Rinsed/ Irrigated with Saline -Foul Odor after Cleansing No -Bioengineered Tissue No -Bleeding Controlled with Pressure -Treatment Response Procedure Tolerated Well -Offloading No -Debridement - Subq, 1st 20sq cm Yes Pain Scale: 0-10 Numeric Is Patient Pain Free? Yes - Nurse 3 - General Ulcer D/C NN Start: 07/23/22 09:15 Freq: Status: Active Protocol: Activity Type Activity Date Activity User E-sign Co-sign Detail Recorded Client Recorded Date Recorded By Document 07/23/22 10:13 MW [id number] 07/23/22 10:14 MW 07/23/22 10:13 Wound Care Nurse 3 #2- LOWER LUMBAR -Ulcer Cleansing Rinsed/ Irrigated with Saline -Foul Odor after Cleansing No -Negative Pressure Wound Therapy Discontinue -Primary Dressing Applied Fibracol Plus 4x4,NonAdherent Contact Layer -Primary Dressing Covered/Secured with Dry Gauze, Secured with Tape -Fibracol Plus 4x4 2 Treatment Response Procedure Tolerated Well Pain Scale: 0-10 Numeric Is Patient Pain Free? Yes Teaching: Wound Center Dressing Your Wound -Person Taught Patient -Teaching Method Discussion -Response to teaching Verbalize understanding WC - Visit Discharge Discharge Condition Stable Ambulatory Status Wheelchair Transportation Private Auto Accompanied by [employer] transit Medication Reconcilliation completed & No provided to patient/care provider Clinical Summary of Care Provided Yes Assessment/Plan Assessment/Plan (1) Pressure injury of sacral region, stage 3: CODE(S): L89.153 - Pressure ulcer of sacral region, stage 3 (2) Paraparesis of both lower limbs: CODE(S): G82.20 - Paraplegia, unspecified (3) Neuropathy: CODE(S): G62.9 - Polyneuropathy, unspecified (4) HIV (human immunodeficiency virus infection): CODE(S): B20 - Human immunodeficiency virus [HIV] disease PLAN: Plan Debridement done as documented above, procedure was well-tolerated. It is improving. DC VAC. Switch to Fibracol daily and cover with Adaptic. Continue offloading. Has a low loss air mattress and hospital bed. Optimal dietary modifications, increase protein intake. Vitamin C, D and zinc. His questions were answered and he was advised to call with any further questions or concerns. Follow-up in 2 weeks or sooner if needed. This note was generated with [employer] dictation software. It may contain incorrect words, spelling, and punctuation that were not noted in checking the note before signing.
== END 2022-08-01 23:59 | disposition home or self-care (01) ==
LOC: WC 09:02
PROVIDERS: Visit Provider Internal Medicine
DX: L89.153 Pressure ulcer of sacral region, stage 3 (principal); G82.20 Paraplegia, unspecified; B20 Human immunodeficiency virus [HIV] disease; G62.9 Polyneuropathy, unspecified
CPT/HCPCS: 11042

== ENCOUNTER 2022-08-27 10:30 | Outpatient (RCR) | payer MEDICAID, SELFPAY ==
[2022-08-02 00:11] VITALS: BP 143/83; PULSE 75; RESP 16; TEMP 36.8; BMI 34.9
[2022-08-06 09:45] VITALS: BP 162/94; PULSE 92; RESP 16; TEMP 36.3; BMI 34.9
--- NOTE | 2022-08-06 10:14 | PN.PCM_ITS ---
History of Present Illness Date of Service: 08/06/22 Chief Complaint: Sacral pressure ulcer x 3 weeks History of Wound: Mr. Gomez is a 47 yo who presents to the wound center due to a nonhealing sacral ulcer. Noted months ago following prolonged laying in bed and loss of electricity. He currently has a low loss air mattress/hospital bed however power had been out and he had to lay in bed for over 5 hours prior to someone coming in to help. Subsequently developed a pressure ulcer. Initially seen at a wound center in [place] where he had debridement and wound wound VAC placement. Following his initial visit, he was seen there 2 weeks after and has since not been there. He states that during this time, he was also hospitalized after he was sent to the hospital by his primary care physician due to concern for infection. Had 3 days of IV antibiotics and was discharged on oral. He states that he believes that the ulcer is improving. Has home health who comes in to change it every 48 hours. Currently set at 125 mmHg. Denies any history of diabetes, states that she recently had blood work done by his infectious disease specialist. Feels well, denies chills, fever, nausea, vomiting or change in bowel habit. Progress of Wound: No new concerns at this time. Improving. Has been applying Fibracol daily. Objective Data Objective Data Vital Signs: Vital Signs Temp Pulse Resp BP O2 Del Method 97.4 F L 92 16 162/94 H Room Air 08/06/22 09:45 08/06/22 09:45 08/06/22 09:45 08/06/22 09:45 08/06/22 09:45 Oxygen Delivery Method Room Air Weight: 265 lb Body Mass Index (BMI) 34.9 Charges/Coding Procedures Integumentary 111xxx-113xx: 96610 Estelita subq tissue 20 sq cm/< Physical Exam Const alert, oriented x3 and no apparent distress General Appearance: cooperative, comfortable and well kempt HEENT normocephalic, head/scalp atraumatic and hearing grossly normal bilaterally Eyes EOMs intact bilaterally General Eye: normal appearance of both eyes Neck full ROM General: normal visual inspection Resp normal respiratory effort Effort and Inspection: able to speak in complete sentences Skin Wounds: wounds noted Neuro oriented x3, CN's II-XII intact bilaterally and moves all extremities Psych mental status grossly normal Appearance: grossly normal Attitude: calm Activity / Motor Behavior: appropriate eye contact Speech: normal speech Debridement Note Debridement Note Wound debrided: Sacral cluster Type of Debridement: Excisional debridement Anesthesia Used: 4% Lidocaine Solution Depth: Down to and including healthy tissue and in the subcutaneous layer Percentage of wound debrided: 100 Instrument Used: 3mm curette Tissue Removed: Slough and devitalized tissue Severity: Fat Layer Exposed Amount of bleeding with debridement: Mild Bleeding Controlled with: Pressure Patient tolerated procedure: Patient tolerated procedure well Post-Debridement Measurements and Additional Note: Post-Debridement Measurements/Treatment - Nurse 1 - General Ulcer Assessment Start: 08/06/22 09:45 Freq: Status: Active Protocol: ESTUARDO Activity Type Activity Date Activity User E-sign Co-sign Detail Recorded Client Recorded Date Recorded By Document 08/06/22 09:45 [facility] [id number] 08/06/22 09:52 [facility] 08/06/22 09:45 WC - Today's Visit Information Type of service Follow-up Visit (Physician/POT RUNNER ) Arrival Mode Wheelchair Transfer Assistance None Patient Identification Verified (Name & Yes ) Patient Requires Transmission-Based No Precautions Height and Weight Body Mass Index (BMI) 34.9 BMI Classification Obese Vital Signs Temperature (97.8 F-99.1 F) 97.4 F L Temperature Source Temporal Pulse Rate (60-100) 92 Pulse Location Monitor Respiratory Rate (12-18) 16 Respiratory rate source Observation Oxygen Delivery Method Room Air Blood Pressure (90/60-120/80) 162/94 H Blood Pressure Mean (mm Hg) 116 Source Monitor Position Sitting History Since Last Visit- (Skip if this is Patient's initial visit) Have you changed medications since your No last visit? Any new allergies or adverse reactions No Had a fall/change in ADL's that may No increase risk of falls Signs or symptoms of abuse and/or No neglect since last visit Have you been in the hospital since your No last visit? Has dressing in place as prescribed Yes Has compression in place as prescribed N/A Has offloadiing in place as prescribed N/A Experienced any changes in pain level or No management Left Footwear Regular Shoe Right Footwear Regular Shoe Pain Scale: 0-10 Numeric Is Patient Pain Free? Yes [facility] Nurse 1 - General Ulcer Measurement Start: 08/06/22 09:45 Freq: Status: Active Protocol: Activity Type Activity Date Activity User E-sign Co-sign Detail Recorded Client Recorded Date Recorded By Document 08/06/22 09:45 [facility] [id number] 08/06/22 09:52 [facility] 08/06/22 09:45 Wound Center Nurse 1 #2- LOWER LUMBAR -Combined with other wound No -Current Size (cm) - Length 0.8 -Current Size (cm) - Width 5 -Current Size (cm) - Depth 0.1 -Total Square Cm 4.0 -Date of Last Picture (Recall this 08/06/22 field) -Photo Taken Yes -Epithelialization Small 1-33% -Tunneling No -Undermining/Tunneling No -Circular Undermining No -Exudate Amt Medium -Exudate Type Serosanguineous -Wound Margin Distinct, Outline Attached -Granulation Amt Medium (34-66%) -Granulation Quality Red -Slough/Fibrin Yes -Necrosis Amt Medium (34-66%) -Necrotic Tissue Type Adherent Slough -Texture (Martine-wound Skin Appearance) Assessed, Scarring -Moisture (Martine-wound Skin Appearance) Assessed -Color (Martine-wound Skin Appearance) Assessed -Temperature (Martine-wound Skin No Abnormality Appearance) (Pt Warm) -Tenderness on Palpation (Martine-wound No Skin Appearance) -Ulcer Cleansing Rinsed/ Irrigated with Saline -Foul Odor after Cleansing No -Anesthetic Used 5% Lidocaine Gel WC - Nurse 2 - General Ulcer CM Notes Start: 08/06/22 09:45 Freq: Status: Active Protocol: Activity Type Activity Date Activity User E-sign Co-sign Detail Recorded Client Recorded Date Recorded By Document 08/06/22 10:01 [id number] 08/06/22 10:07 MW 08/06/22 10:01 Wound Center Nurse 2 -Time 10:01 -Correct Patient Yes -Correct Side, Site, Position Yes -Correct Procedure Yes -Procedure Performed Yes -Type of Procedure Debridement -Clinical Debridement Subcutaneous -Tissue Removed Subcutaneous -Post Debridement (cm) - Length 1.4 -Post Debridement (cm) - Width 5.5 -Post Debridement (cm) - Depth 0.1 -Total Square (Post) (cm) 7.70 -Area of Debridement (cm) - Length 1.4 -Area of Debridement (cm) - Width 5.5 -Total Square (Area) (cm) 7.70 -Tunneling No -Undermining/Tunneling No -Circular Undermining No -Wound/Ulcer Outcome Not Healed -Ulcer Cleansing Rinsed/ Irrigated with Saline -Foul Odor after Cleansing No -Bioengineered Tissue No -Bleeding Controlled with Pressure -Treatment Response Procedure Tolerated Well -Offloading No -Debridement - Subq, 1st 20sq cm Yes Pain Scale: 0-10 Numeric Is Patient Pain Free? Yes Assessment/Plan Assessment/Plan (1) Pressure injury of sacral region, stage 3: CODE(S): L89.153 - Pressure ulcer of sacral region, stage 3 (2) Paraparesis of both lower limbs: CODE(S): G82.20 - Paraplegia, unspecified (3) Neuropathy: CODE(S): G62.9 - Polyneuropathy, unspecified (4) HIV (human immunodeficiency virus infection): CODE(S): B20 - Human immunodeficiency virus [HIV] disease PLAN: Plan Debridement done as documented above, procedure was well-tolerated. It is improving, now clustered. Continue Fibracol daily and cover with Adaptic. Continue offloading. Has a low loss air mattress and hospital bed. Optimal dietary modifications, increase protein intake. Vitamin C, D and zinc. His questions were answered and he was advised to call with any further questions or concerns. Follow-up in 2 weeks or sooner if needed. This note was generated with [employer] software. It may contain incorrect words, spelling, and punctuation that were not noted in checking the note before signing.
[2022-08-27 10:50] VITALS: BP 146/84; PULSE 79; RESP 16; TEMP 36.3; BMI 34.9
--- NOTE | 2022-08-27 12:59 | PN.PCM_ITS ---
History of Present Illness Date of Service: 08/27/22 Chief Complaint: Sacral pressure ulcer x 3 weeks History of Wound: Mr. Gomez is a 47 yo who presents to the wound center due to a nonhealing sacral ulcer. Noted months ago following prolonged laying in bed and loss of electricity. He currently has a low loss air mattress/hospital bed however power had been out and he had to lay in bed for over 5 hours prior to someone coming in to help. Subsequently developed a pressure ulcer. Initially seen at a wound center in [place] where he had debridement and wound wound VAC placement. Following his initial visit, he was seen there 2 weeks after and has since not been there. He states that during this time, he was also hospitalized after he was sent to the hospital by his primary care physician due to concern for infection. Had 3 days of IV antibiotics and was discharged on oral. He states that he believes that the ulcer is improving. Has home health who comes in to change it every 48 hours. Currently set at 125 mmHg. Denies any history of diabetes, states that she recently had blood work done by his infectious disease specialist. Feels well, denies chills, fever, nausea, vomiting or change in bowel habit. Progress of Wound: No new concerns at this time. Improving. Has been applying Fibracol daily. Objective Data Objective Data Vital Signs: Vital Signs Temp Pulse Resp BP O2 Del Method 97.3 F L 79 16 146/84 H Room Air 08/27/22 10:50 08/27/22 10:50 08/27/22 10:50 08/27/22 10:50 08/27/22 10:50 Oxygen Delivery Method Room Air Weight: 265 lb Body Mass Index (BMI) 34.9 Charges/Coding Procedures Integumentary 111xxx-113xx: [id number] Estelita subq tissue 20 sq cm/< Physical Exam Const alert, oriented x3 and no apparent distress General Appearance: cooperative, comfortable and well kempt HEENT normocephalic, head/scalp atraumatic and hearing grossly normal bilaterally Eyes EOMs intact bilaterally General Eye: normal appearance of both eyes Neck full ROM General: normal visual inspection Resp normal respiratory effort Effort and Inspection: able to speak in complete sentences Skin Wounds: wounds noted Neuro oriented x3, CN's II-XII intact bilaterally and moves all extremities Psych mental status grossly normal Appearance: grossly normal Attitude: calm Activity / Motor Behavior: appropriate eye contact Speech: normal speech Debridement Note Debridement Note Wound debrided: Sacral ( left ) Type of Debridement: Excisional debridement Anesthesia Used: 4% Lidocaine Solution Depth: Down to and including healthy tissue and in the subcutaneous layer Percentage of wound debrided: 100 Instrument Used: 3mm curette Tissue Removed: Slough and devitalized tissue Severity: Fat Layer Exposed Amount of bleeding with debridement: Mild Bleeding Controlled with: Pressure Patient tolerated procedure: Patient tolerated procedure well Post-Debridement Measurements and Additional Note: Post-Debridement Measurements/Treatment - Nurse 1 - General Ulcer Assessment Start: 08/06/22 09:45 Freq: Status: Active Protocol: .ViajalaEVERARDO Activity Type Activity Date Activity User E-sign Co-sign Detail Recorded Client Recorded Date Recorded By Document 08/06/22 09:45 [facility] [id number] 08/06/22 09:52 [facility] Document 08/27/22 10:50 [facility] [id number] 08/27/22 10:59 [facility] 08/06/22 08/27/22 09:45 10:50 - Today's Visit Information Type of service Follow-up Visit Follow-up Visit (Physician/RIGGING UP WORKER (Physician/RIGGING UP WORKER ) ) Arrival Mode Wheelchair Wheelchair Transfer Assistance None None Patient Identification Verified (Name & Yes Yes ) Patient Requires Transmission-Based No No Precautions Height and Weight Body Mass Index (BMI) 34.9 34.9 BMI Classification Obese Obese Vital Signs Temperature (97.8 F-99.1 F) 97.4 F L 97.3 F L Temperature Source Temporal Temporal Pulse Rate (60-100) 92 79 Pulse Location Monitor Monitor Respiratory Rate (12-18) 16 16 Respiratory rate source Observation Observation Oxygen Delivery Method Room Air Room Air Blood Pressure (90/60-120/80) 162/94 H 146/84 H Blood Pressure Mean (mm Hg) 116 104 Source Monitor Monitor Position Sitting Sitting Blood Pressure Location Right Forearm History Since Last Visit- (Skip if this is Patient's initial visit) Have you changed medications since your No Yes last visit? Any new allergies or adverse reactions No No Had a fall/change in ADL's that may No No increase risk of falls Signs or symptoms of abuse and/or No No neglect since last visit Have you been in the hospital since your No Yes last visit? Has dressing in place as prescribed Yes Yes Has compression in place as prescribed N/A N/A Has offloadiing in place as prescribed N/A N/A Experienced any changes in pain level or No No management Left Footwear Regular Shoe Regular Shoe Right Footwear Regular Shoe Regular Shoe Pain Scale: 0-10 Numeric Is Patient Pain Free? Yes Yes WC - Nurse 1 - General Ulcer Measurement Start: 08/06/22 09:45 Freq: Status: Active Protocol: Activity Type Activity Date Activity User E-sign Co-sign Detail Recorded Client Recorded Date Recorded By Document 08/06/22 09:45 [facility] [id number] 08/06/22 09:52 BM Document 08/27/22 10:50 [facility] [id number] 08/27/22 10:59 BMF 08/06/22 08/27/22 09:45 10:50 Wound Center Nurse 1 #2- LOWER LUMBAR -Combined with other wound No No -Current Size (cm) - Length 0.8 0.5 -Current Size (cm) - Width 5 1.3 -Current Size (cm) - Depth 0.1 0.2 -Total Square Cm 4.0 0.65 -Date of Last Picture (Recall this 08/06/22 08/27/22 field) -Photo Taken Yes Yes -Epithelialization Small 1-33% Small 1-33% -Tunneling No No -Undermining/Tunneling No No -Circular Undermining No No -Exudate Amt Medium Medium -Exudate Type Serosanguineous Sanguineous -Wound Margin Distinct, Thickened Outline Attached -Granulation Amt Medium (34-66%) Large (67-100%) -Granulation Quality Red Red -Slough/Fibrin Yes No -Necrosis Amt Medium (34-66%) None Present (0 %) -Necrotic Tissue Type Adherent Slough -Texture (Martine-wound Skin Appearance) Assessed, Assessed, Scarring Scarring -Moisture (Martine-wound Skin Appearance) Assessed Assessed -Color (Martine-wound Skin Appearance) Assessed Assessed -Temperature (Martine-wound Skin No Abnormality No Abnormality Appearance) (Pt Warm) (Pt Warm) -Tenderness on Palpation (Martine-wound No No Skin Appearance) -Ulcer Cleansing Rinsed/ Rinsed/ Irrigated with Irrigated with Saline Saline -Foul Odor after Cleansing No No -Anesthetic Used 5% Lidocaine 5% Lidocaine Gel Gel WC - Nurse 2 - General Ulcer CM Notes Start: 08/06/22 09:45 Freq: Status: Active Protocol: Activity Type Activity Date Activity User E-sign Co-sign Detail Recorded Client Recorded Date Recorded By Document 08/06/22 10:01 MW [id number] 08/06/22 10:07 MW Document 08/27/22 11:13 MW [id number] 08/27/22 11:21 MW 08/06/22 08/27/22 10:01 11:13 Wound Center Nurse 2 #2- LOWER LUMBAR -Time 10:01 11:14 -Correct Patient Yes Yes -Correct Side, Site, Position Yes Yes -Correct Procedure Yes Yes -Procedure Performed Yes No -Type of Procedure Debridement -Clinical Debridement Subcutaneous -Tissue Removed Subcutaneous -Post Debridement (cm) - Length 1.4 -Post Debridement (cm) - Width 5.5 -Post Debridement (cm) - Depth 0.1 -Total Square (Post) (cm) 7.70 -Area of Debridement (cm) - Length 1.4 -Area of Debridement (cm) - Width 5.5 -Total Square (Area) (cm) 7.70 -Tunneling No -Undermining/Tunneling No -Circular Undermining No -Wound/Ulcer Outcome Not Healed Converted -Ulcer Cleansing Rinsed/ Irrigated with Saline -Foul Odor after Cleansing No -Bioengineered Tissue No -Bleeding Controlled with Pressure -Treatment Response Procedure Tolerated Well -Offloading No -Debridement - Subq, 1st 20sq cm Yes #4 right sacral -Time 11:17 -Correct Patient Yes -Correct Side, Site, Position Yes -Correct Procedure Yes -Procedure Performed Yes -Type of Procedure Debridement -Clinical Debridement Subcutaneous -Tissue Removed Subcutaneous -Post Debridement (cm) - Length 0.6 -Post Debridement (cm) - Width 1.5 -Post Debridement (cm) - Depth 0.2 -Total Square (Post) (cm) 0.90 -Area of Debridement (cm) - Length 0.6 -Area of Debridement (cm) - Width 1.5 -Total Square (Area) (cm) 0.90 -Tunneling No -Undermining/Tunneling No -Circular Undermining No -Wound/Ulcer Outcome Not Healed -Ulcer Cleansing Rinsed/ Irrigated with Saline -Foul Odor after Cleansing No -Bioengineered Tissue No -Treatment Response Procedure Tolerated Well -Offloading No -Debridement - Subq, 1st 20sq cm Yes #3 Left sacral -Time 11:17 -Correct Patient Yes -Correct Side, Site, Position Yes -Correct Procedure Yes -Procedure Performed Yes -Type of Procedure Debridement -Clinical Debridement Subcutaneous -Tissue Removed Subcutaneous -Post Debridement (cm) - Length 0.4 -Post Debridement (cm) - Width 0.6 -Post Debridement (cm) - Depth 0.1 -Total Square (Post) (cm) 0.24 -Area of Debridement (cm) - Length 0.4 -Area of Debridement (cm) - Width 0.6 -Total Square (Area) (cm) 0.24 -Tunneling No -Undermining/Tunneling No -Circular Undermining No -Wound/Ulcer Outcome Not Healed -Ulcer Cleansing Rinsed/ Irrigated with Saline -Foul Odor after Cleansing No -Bioengineered Tissue No -Bleeding Controlled with Pressure -Treatment Response Procedure Tolerated Well -Offloading No -Debridement - Subq, 1st 20sq cm Yes Pain Scale: 0-10 Numeric Is Patient Pain Free? Yes Yes WC - Nurse 3 - General Ulcer D/C NN Start: 08/06/22 09:45 Freq: Status: Active Protocol: Activity Type Activity Date Activity User E-sign Co-sign Detail Recorded Client Recorded Date Recorded By Document 08/06/22 10:13 [id number] 08/06/22 10:14 DL Document 08/27/22 11:33 [facility] [id number] 08/27/22 11:34 [facility] 08/06/22 08/27/22 10:13 11:33 Wound Care Center Nurse 3 #2- LOWER LUMBAR -Ulcer Cleansing Rinsed/ Irrigated with Saline -Foul Odor after Cleansing No -Primary Dressing Applied Fibracol Plus 4x4 -Other Dressing Mepilex -Fibracol Plus 4x4 2 #4 right sacral -Ulcer Cleansing Rinsed/ Irrigated with Saline -Foul Odor after Cleansing No -Primary Dressing Applied Fibracol Plus 4x4,NonAdherent Contact Layer, Mepilex Border -Fibracol Plus 4x4 1 -Mepilex Border 1 #3 Left sacral -Ulcer Cleansing Rinsed/ Irrigated with Saline -Foul Odor after Cleansing No -Primary Dressing Applied Fibracol Plus 4x4,NonAdherent Contact Layer, Mepilex Border -Fibracol Plus 4x4 0 -Mepilex Border 0 Treatment Response Procedure Procedure Tolerated Well Tolerated Well Pain Scale: 0-10 Numeric Is Patient Pain Free? Yes Yes WC - Visit Discharge Discharge Condition Stable Stable Ambulatory Status Wheelchair Wheelchair Transportation Private Auto Private Auto Facility Type [facility] Orders Sent Yes Additional Wound Wound debrided: Scaral ( Right ) Type of Debridement: Excisional debridement Anesthesia Used: 4% Lidocaine Solution Depth: Down to and including healthy tissue and in the subcutaneous layer Percentage of wound debrided: 100 Instrument Used: 3mm curette Tissue Removed: Slough and devitalized tissue Severity: Fat Layer Exposed Amount of bleeding with debridement: Mild Bleeding Controlled with: Pressure Patient tolerated procedure: Patient tolerated procedure well Assessment/Plan Assessment/Plan (1) Pressure injury of sacral region, stage 3: CODE(S): L89.153 - Pressure ulcer of sacral region, stage 3 (2) Paraparesis of both lower limbs: CODE(S): G82.20 - Paraplegia, unspecified (3) Neuropathy: CODE(S): G62.9 - Polyneuropathy, unspecified (4) HIV (human immunodeficiency virus infection): CODE(S): B20 - Human immunodeficiency virus [HIV] disease PLAN: Plan Debridement done as documented above, procedure was well-tolerated. Improving. for ease of measurement and difference in depth. Continue Fibracol daily and cover with Adaptic. Continue offloading. Has a low loss air mattress and hospital bed. Optimal dietary modifications, increase protein intake. Vitamin C, D and zinc. His questions were answered and he was advised to call with any further questions or concerns. Follow-up in 2 weeks or sooner if needed. This note was generated with [employer] dictation software. It may contain incorrect words, spelling, and punctuation that were not noted in checking the note before signing.
== END 2022-09-01 23:59 | disposition home or self-care (01) ==
LOC: WC 10:30
PROVIDERS: Visit Provider Internal Medicine
DX: L89.153 Pressure ulcer of sacral region, stage 3 (principal); G82.20 Paraplegia, unspecified; B20 Human immunodeficiency virus [HIV] disease; G62.9 Polyneuropathy, unspecified
CPT/HCPCS: 11042

== ENCOUNTER 2022-09-24 10:30 | Outpatient (RCR) | payer MEDICAID, SELFPAY ==
[2022-09-02 00:21] VITALS: BP 146/84; PULSE 79; RESP 16; TEMP 36.3; BMI 34.9
[2022-09-10 10:32] VITALS: BP 158/87; PULSE 72; RESP 16; TEMP 36.6; BMI 34.9
--- NOTE | 2022-09-10 11:02 | PN.PCM_ITS ---
History of Present Illness Date of Service: 09/10/22 Chief Complaint: Sacral pressure ulcer x 3 weeks History of Wound: Mr. Gomez is a 47 yo who presents to the wound center due to a nonhealing sacral ulcer. Noted months ago following prolonged laying in bed and loss of electricity. He currently has a low loss air mattress/hospital bed however power had been out and he had to lay in bed for over 5 hours prior to someone coming in to help. Subsequently developed a pressure ulcer. Initially seen at a wound center in [place] where he had debridement and wound wound VAC placement. Following his initial visit, he was seen there 2 weeks after and has since not been there. He states that during this time, he was also hospitalized after he was sent to the hospital by his primary care physician due to concern for infection. Had 3 days of IV antibiotics and was discharged on oral. He states that he believes that the ulcer is improving. Has home health who comes in to change it every 48 hours. Currently set at 125 mmHg. Denies any history of diabetes, states that she recently had blood work done by his infectious disease specialist. Feels well, denies chills, fever, nausea, vomiting or change in bowel habit. Progress of Wound: No new concerns at this time. Improving. Objective Data Objective Data Vital Signs: Vital Signs Temp Pulse Resp BP O2 Del Method 97.8 F 72 16 158/87 H Room Air 09/10/22 10:32 09/10/22 10:32 09/10/22 10:32 09/10/22 10:32 09/10/22 10:32 Oxygen Delivery Method Room Air Weight: 265 lb Body Mass Index (BMI) 34.9 Physical Exam Const alert, oriented x3 and no apparent distress General Appearance: cooperative, comfortable and well kempt HEENT normocephalic, head/scalp atraumatic and hearing grossly normal bilaterally Eyes EOMs intact bilaterally General Eye: normal appearance of both eyes Neck full ROM General: normal visual inspection Resp normal respiratory effort Effort and Inspection: able to speak in complete sentences Skin Wounds: wounds noted Neuro oriented x3, CN's II-XII intact bilaterally and moves all extremities Psych mental status grossly normal Appearance: grossly normal Attitude: calm Activity / Motor Behavior: appropriate eye contact Speech: normal speech Debridement Note Debridement Note Wound debrided: Sacral ( left ) Type of Debridement: Excisional debridement Anesthesia Used: 4% Lidocaine Solution Depth: Down to and including healthy tissue and in the subcutaneous layer Percentage of wound debrided: 100 Instrument Used: 3mm curette Tissue Removed: Slough and devitalized tissue Severity: Fat Layer Exposed Amount of bleeding with debridement: Mild Bleeding Controlled with: Pressure Patient tolerated procedure: Patient tolerated procedure well Post-Debridement Measurements and Additional Note: Post-Debridement Measurements/Treatment FABIOLA - Nurse 1 - General Ulcer Assessment Start: 09/10/22 10:32 Freq: Status: Active Protocol: ESTUARDO Activity Type Activity Date Activity User E-sign Co-sign Detail Recorded Client Recorded Date Recorded By Document 09/10/22 10:32 [facility] [id number] 09/10/22 10:41 [facility] 09/10/22 10:32 WC - Today's Visit Information Type of service Follow-up Visit (Physician/HEAD TRIMMER ) Arrival Mode Wheelchair Transfer Assistance None Patient Identification Verified (Name & Yes ) Patient Requires Transmission-Based No Precautions Height and Weight Body Mass Index (BMI) 34.9 BMI Classification Obese Vital Signs Temperature (97.8 F-99.1 F) 97.8 F Temperature Source Temporal Pulse Rate (60-100) 72 Pulse Location Monitor Respiratory Rate (12-18) 16 Respiratory rate source Observation Oxygen Delivery Method Room Air Blood Pressure (90/60-120/80) 158/87 H Blood Pressure Mean (mm Hg) 110 Source Monitor Position Sitting Blood Pressure Location Right Arm History Since Last Visit- (Skip if this is Patient's initial visit) Have you changed medications since your No last visit? Any new allergies or adverse reactions No Had a fall/change in ADL's that may No increase risk of falls Signs or symptoms of abuse and/or No neglect since last visit Have you been in the hospital since your No last visit? Has dressing in place as prescribed Yes Has compression in place as prescribed N/A Has offloadiing in place as prescribed N/A Experienced any changes in pain level or No management Left Footwear Regular Shoe Right Footwear Regular Shoe Pain Scale: 0-10 Numeric Is Patient Pain Free? Yes Hever Nurse 1 - General Ulcer Measurement Start: 09/10/22 10:32 Freq: Status: Active Protocol: Activity Type Activity Date Activity User E-sign Co-sign Detail Recorded Client Recorded Date Recorded By Document 09/10/22 10:32 [facility] [id number] 09/10/22 10:41 [facility] 09/10/22 10:32 Wound Center Nurse 1 #4 right sacral -Combined with other wound No -Current Size (cm) - Length 0.5 -Current Size (cm) - Width 1.4 -Current Size (cm) - Depth 0.2 -Total Square Cm 0.70 -Date of Last Picture (Recall this 09/10/22 field) -Photo Taken Yes -Epithelialization Small 1-33% -Tunneling No -Undermining/Tunneling No -Circular Undermining No -Wound Margin Thickened & Rolled Under -Granulation Amt Medium (34-66%) -Granulation Quality Red -Slough/Fibrin Yes -Necrosis Amt Medium (34-66%) -Necrotic Tissue Type Adherent Slough -Texture (Martine-wound Skin Appearance) Assessed, Scarring -Moisture (Martine-wound Skin Appearance) Assessed,Dry/ Scaly -Color (Martine-wound Skin Appearance) Assessed -Temperature (Martine-wound Skin No Abnormality Appearance) (Pt Warm) -Tenderness on Palpation (Martine-wound No Skin Appearance) -Ulcer Cleansing Rinsed/ Irrigated with Saline -Foul Odor after Cleansing No -Anesthetic Used 5% Lidocaine Gel #3 Left sacral -Combined with other wound No -Current Size (cm) - Length 0.2 -Current Size (cm) - Width 0.2 -Current Size (cm) - Depth 0.2 -Total Square Cm 0.04 -Date of Last Picture (Recall this 09/10/22 field) -Photo Taken Yes -Epithelialization Small 1-33% -Tunneling No -Undermining/Tunneling No -Circular Undermining No -Exudate Amt Small -Exudate Type Sanguineous -Wound Margin Distinct, Outline Attached -Granulation Amt Large (67-100%) -Granulation Quality Red -Slough/Fibrin Yes -Necrosis Amt Small (1-33%) -Necrotic Tissue Type Adherent Slough -Texture (Martine-wound Skin Appearance) Assessed, Scarring -Moisture (Martine-wound Skin Appearance) Assessed,Dry/ Scaly -Color (Martine-wound Skin Appearance) Assessed -Temperature (Martine-wound Skin No Abnormality Appearance) (Pt Warm) -Tenderness on Palpation (Martine-wound No Skin Appearance) -Ulcer Cleansing Rinsed/ Irrigated with Saline -Foul Odor after Cleansing No -Anesthetic Used 5% Lidocaine Gel WC - Nurse 2 - General Ulcer CM Notes Start: 09/10/22 10:32 Freq: Status: Active Protocol: Activity Type Activity Date Activity User E-sign Co-sign Detail Recorded Client Recorded Date Recorded By Document 09/10/22 10:48 MW [id number] 09/10/22 10:53 MW 09/10/22 10:48 Wound Center Nurse 2 #4 right sacral -Time 10:49 -Correct Patient Yes -Correct Side, Site, Position Yes -Correct Procedure Yes -Procedure Performed Yes -Type of Procedure Debridement -Clinical Debridement Subcutaneous -Tissue Removed Subcutaneous -Post Debridement (cm) - Length 0.5 -Post Debridement (cm) - Width 1.2 -Post Debridement (cm) - Depth 0.2 -Total Square (Post) (cm) 0.60 -Area of Debridement (cm) - Length 0.5 -Area of Debridement (cm) - Width 1.2 -Total Square (Area) (cm) 0.60 -Tunneling No -Undermining/Tunneling No -Circular Undermining No -Wound/Ulcer Outcome Not Healed -Ulcer Cleansing Rinsed/ Irrigated with Saline -Foul Odor after Cleansing No -Bioengineered Tissue No -Bleeding Controlled with Pressure -Treatment Response Procedure Tolerated Well -Offloading No -Debridement - Subq, 1st 20sq cm Yes #3 Left sacral -Time 10:49 -Correct Patient Yes -Correct Side, Site, Position Yes -Correct Procedure Yes -Procedure Performed Yes -Type of Procedure Debridement -Clinical Debridement Subcutaneous -Tissue Removed Subcutaneous -Post Debridement (cm) - Length 0.2 -Post Debridement (cm) - Width 0.5 -Post Debridement (cm) - Depth 0.1 -Total Square (Post) (cm) 0.10 -Area of Debridement (cm) - Length 0.2 -Area of Debridement (cm) - Width 0.5 -Total Square (Area) (cm) 0.10 -Tunneling No -Undermining/Tunneling No -Circular Undermining No -Wound/Ulcer Outcome Not Healed -Ulcer Cleansing Rinsed/ Irrigated with Saline -Foul Odor after Cleansing No -Bioengineered Tissue No -Bleeding Controlled with Pressure -Treatment Response Procedure Tolerated Well -Offloading No -Debridement - Subq, 1st 20sq cm No Pain Scale: 0-10 Numeric Is Patient Pain Free? Yes Additional Wound Wound debrided: Scaral ( Right ) Type of Debridement: Excisional debridement Anesthesia Used: 4% Lidocaine Solution Depth: Down to and including healthy tissue and in the subcutaneous layer Percentage of wound debrided: 100 Instrument Used: 3mm curette Tissue Removed: Slough and devitalized tissue Severity: Fat Layer Exposed Amount of bleeding with debridement: Mild Bleeding Controlled with: Pressure Patient tolerated procedure: Patient tolerated procedure well Assessment/Plan Assessment/Plan (1) Pressure injury of sacral region, stage 3: CODE(S): L89.153 - Pressure ulcer of sacral region, stage 3 (2) Paraparesis of both lower limbs: CODE(S): G82.20 - Paraplegia, unspecified (3) Neuropathy: CODE(S): G62.9 - Polyneuropathy, unspecified (4) HIV (human immunodeficiency virus infection): CODE(S): B20 - Human immunodeficiency virus [HIV] disease PLAN: Plan Debridement done as documented above, procedure was well-tolerated. Improving. Continue Fibracol daily and cover with Adaptic. Continue offloading. Has a low loss air mattress and hospital bed. Optimal dietary modifications, increase protein intake. Vitamin C, D and zinc. His questions were answered and he was advised to call with any further questions or concerns. Follow-up in 2 weeks or sooner if needed. This note was generated with [employer] dictation software. It may contain incorrect words, spelling, and punctuation that were not noted in checking the note before signing.
[2022-09-24 10:17] VITALS: BP 142/89; PULSE 85; RESP 16; TEMP 36.2; BMI 34.9
--- NOTE | 2022-09-24 12:39 | PN.PCM_ITS ---
History of Present Illness Date of Service: 09/24/22 Chief Complaint: Sacral pressure ulcer x 3 weeks History of Wound: Mr. Gomez is a 47 yo who presents to the wound center due to a nonhealing sacral ulcer. Noted months ago following prolonged laying in bed and loss of electricity. He currently has a low loss air mattress/hospital bed however power had been out and he had to lay in bed for over 5 hours prior to someone coming in to help. Subsequently developed a pressure ulcer. Initially seen at a wound center in [place] where he had debridement and wound wound VAC placement. Following his initial visit, he was seen there 2 weeks after and has since not been there. He states that during this time, he was also hospitalized after he was sent to the hospital by his primary care physician due to concern for infection. Had 3 days of IV antibiotics and was discharged on oral. He states that he believes that the ulcer is improving. Has home health who comes in to change it every 48 hours. Currently set at 125 mmHg. Denies any history of diabetes, states that she recently had blood work done by his infectious disease specialist. Feels well, denies chills, fever, nausea, vomiting or change in bowel habit. Progress of Wound: No significant change since his last visit. Was hospitalized for a few days for UTI. He states that he laid on his back a little more. Objective Data Objective Data Vital Signs: Vital Signs Temp Pulse Resp BP O2 Del Method 97.1 F L 85 16 142/89 H Room Air 09/24/22 10:17 09/24/22 10:17 09/24/22 10:17 09/24/22 10:17 09/24/22 10:17 Oxygen Delivery Method Room Air Weight: 265 lb Body Mass Index (BMI) 34.9 Charges/Coding Procedures Integumentary 111xxx-113xx: 18218 Estelita subq tissue 20 sq cm/< Physical Exam Const alert, oriented x3 and no apparent distress General Appearance: cooperative, comfortable and well kempt HEENT normocephalic, head/scalp atraumatic and hearing grossly normal bilaterally Eyes EOMs intact bilaterally General Eye: normal appearance of both eyes Neck full ROM General: normal visual inspection Resp normal respiratory effort Effort and Inspection: able to speak in complete sentences Skin Wounds: wounds noted Neuro oriented x3, CN's II-XII intact bilaterally and moves all extremities Psych mental status grossly normal Appearance: grossly normal Attitude: calm Activity / Motor Behavior: appropriate eye contact Speech: normal speech Debridement Note Debridement Note Wound debrided: Sacral ( left ) Type of Debridement: Excisional debridement Anesthesia Used: 5% Lidocaine Gel Depth: Down to and including healthy tissue and in the subcutaneous layer Percentage of wound debrided: 100 Instrument Used: 3mm curette Tissue Removed: Slough and devitalized tissue Severity: Fat Layer Exposed Amount of bleeding with debridement: Mild Bleeding Controlled with: Pressure Patient tolerated procedure: Patient tolerated procedure well Post-Debridement Measurements and Additional Note: Post-Debridement Measurements/Treatment - Nurse 1 - General Ulcer Assessment Start: 09/10/22 10:32 Freq: Status: Active Protocol: ESTUARDO Activity Type Activity Date Activity User E-sign Co-sign Detail Recorded Client Recorded Date Recorded By Document 09/10/22 10:32 [facility] [id number] 09/10/22 10:41 [facility] Document 09/24/22 10:17 [facility] [id number] 09/24/22 10:28 [facility] 09/10/22 09/24/22 10:32 10:17 - Today's Visit Information Type of service Follow-up Visit Follow-up Visit (Physician/CITY DISPATCH SUPERVISOR (Physician/CITY DISPATCH SUPERVISOR ) ) Arrival Mode Wheelchair Wheelchair Transfer Assistance None None Patient Identification Verified (Name & Yes Yes ) Patient Requires Transmission-Based No No Precautions Height and Weight Body Mass Index (BMI) 34.9 34.9 BMI Classification Obese Obese Vital Signs Temperature (97.8 F-99.1 F) 97.8 F 97.1 F L Temperature Source Temporal Temporal Pulse Rate (60-100) 72 85 Pulse Location Monitor Monitor Respiratory Rate (12-18) 16 16 Respiratory rate source Observation Observation Oxygen Delivery Method Room Air Room Air Blood Pressure (90/60-120/80) 158/87 H 142/89 H Blood Pressure Mean (mm Hg) 110 106 Source Monitor Monitor Position Sitting Sitting Blood Pressure Location Right Arm Right Arm History Since Last Visit- (Skip if this is Patient's initial visit) Have you changed medications since your No No last visit? Any new allergies or adverse reactions No No Had a fall/change in ADL's that may No No increase risk of falls Signs or symptoms of abuse and/or No No neglect since last visit Have you been in the hospital since your No Yes last visit? Has dressing in place as prescribed Yes Yes Has compression in place as prescribed N/A N/A Has offloadiing in place as prescribed N/A N/A Experienced any changes in pain level or No No management Left Footwear Regular Shoe Regular Shoe Right Footwear Regular Shoe Regular Shoe Pain Scale: 0-10 Numeric Is Patient Pain Free? Yes Yes WC - Nurse 1 - General Ulcer Measurement Start: 09/10/22 10:32 Freq: Status: Active Protocol: Activity Type Activity Date Activity User E-sign Co-sign Detail Recorded Client Recorded Date Recorded By Document 09/10/22 10:32 [facility] [id number] 09/10/22 10:41 [facility] Document 09/24/22 10:17 [facility] [id number] 09/24/22 10:28 BM 09/10/22 09/24/22 10:32 10:17 Wound Center Nurse 1 #4 right sacral -Combined with other wound No No -Current Size (cm) - Length 0.5 0.5 -Current Size (cm) - Width 1.4 1.2 -Current Size (cm) - Depth 0.2 0.3 -Total Square Cm 0.70 0.60 -Date of Last Picture (Recall this 09/10/22 09/24/22 field) -Photo Taken Yes Yes -Epithelialization Small 1-33% None Present -Tunneling No No -Undermining/Tunneling No No -Circular Undermining No No -Exudate Amt Medium -Exudate Type Serosanguineous -Wound Margin Thickened & Thickened Rolled Under -Granulation Amt Medium (34-66%) Large (67-100%) -Granulation Quality Red Red -Slough/Fibrin Yes Yes -Necrosis Amt Medium (34-66%) Small (1-33%) -Necrotic Tissue Type Adherent Slough Adherent Slough -Texture (Martine-wound Skin Appearance) Assessed, Assessed, Scarring Scarring -Moisture (Martine-wound Skin Appearance) Assessed,Dry/ Assessed Scaly -Color (Martine-wound Skin Appearance) Assessed Assessed -Temperature (Martine-wound Skin No Abnormality No Abnormality Appearance) (Pt Warm) (Pt Warm) -Tenderness on Palpation (Martine-wound No No Skin Appearance) -Ulcer Cleansing Rinsed/ Rinsed/ Irrigated with Irrigated with Saline Saline -Foul Odor after Cleansing No No -Anesthetic Used 5% Lidocaine 5% Lidocaine Gel Gel #3 Left sacral -Combined with other wound No No -Current Size (cm) - Length 0.2 1.4 -Current Size (cm) - Width 0.2 1.4 -Current Size (cm) - Depth 0.2 0.1 -Total Square Cm 0.04 1.96 -Date of Last Picture (Recall this 09/10/22 09/24/22 field) -Photo Taken Yes Yes -Epithelialization Small 1-33% None Present -Tunneling No No -Undermining/Tunneling No No -Circular Undermining No No -Exudate Amt Small Small -Exudate Type Sanguineous Serosanguineous -Wound Margin Distinct, Distinct, Outline Outline Attached Attached -Granulation Amt Large (67-100%) Small (1-33%) -Granulation Quality Red Red -Slough/Fibrin Yes Yes -Necrosis Amt Small (1-33%) Large (67-100%) -Necrotic Tissue Type Adherent Slough Adherent Slough -Texture (Martine-wound Skin Appearance) Assessed, Assessed, Scarring Scarring -Moisture (Martine-wound Skin Appearance) Assessed,Dry/ Assessed Scaly -Color (Martine-wound Skin Appearance) Assessed Assessed -Temperature (Martine-wound Skin No Abnormality No Abnormality Appearance) (Pt Warm) (Pt Warm) -Tenderness on Palpation (Martine-wound No No Skin Appearance) -Ulcer Cleansing Rinsed/ Rinsed/ Irrigated with Irrigated with Saline Saline -Foul Odor after Cleansing No No -Anesthetic Used 5% Lidocaine 5% Lidocaine Gel Gel WC - Nurse 2 - General Ulcer CM Notes Start: 09/10/22 10:32 Freq: Status: Active Protocol: Activity Type Activity Date Activity User E-sign Co-sign Detail Recorded Client Recorded Date Recorded By Document 09/10/22 10:48 MW [id number] 09/10/22 10:53 MW Document 09/24/22 10:52 MW [id number] 09/24/22 10:56 MW 09/10/22 09/24/22 10:48 10:52 Wound Center Nurse 2 #4 right sacral -Time 10:49 10:53 -Correct Patient Yes Yes -Correct Side, Site, Position Yes Yes -Correct Procedure Yes Yes -Procedure Performed Yes Yes -Type of Procedure Debridement Debridement -Clinical Debridement Subcutaneous Subcutaneous -Tissue Removed Subcutaneous Subcutaneous -Post Debridement (cm) - Length 0.5 0.5 -Post Debridement (cm) - Width 1.2 1.0 -Post Debridement (cm) - Depth 0.2 0.2 -Total Square (Post) (cm) 0.60 0.50 -Area of Debridement (cm) - Length 0.5 0.5 -Area of Debridement (cm) - Width 1.2 1.0 -Total Square (Area) (cm) 0.60 0.50 -Tunneling No No -Undermining/Tunneling No No -Circular Undermining No No -Wound/Ulcer Outcome Not Healed Not Healed -Ulcer Cleansing Rinsed/ Rinsed/ Irrigated with Irrigated with Saline Saline -Foul Odor after Cleansing No No -Bioengineered Tissue No No -Bleeding Controlled with Pressure Pressure -Treatment Response Procedure Procedure Tolerated Well Tolerated Well -Offloading No No -Debridement - Subq, 1st 20sq cm Yes Yes #3 Left sacral -Time 10:49 10:53 -Correct Patient Yes Yes -Correct Side, Site, Position Yes Yes -Correct Procedure Yes Yes -Procedure Performed Yes Yes -Type of Procedure Debridement Debridement -Clinical Debridement Subcutaneous Subcutaneous -Tissue Removed Subcutaneous Subcutaneous -Post Debridement (cm) - Length 0.2 0.3 -Post Debridement (cm) - Width 0.5 0.4 -Post Debridement (cm) - Depth 0.1 0.1 -Total Square (Post) (cm) 0.10 0.12 -Area of Debridement (cm) - Length 0.2 0.3 -Area of Debridement (cm) - Width 0.5 0.4 -Total Square (Area) (cm) 0.10 0.12 -Tunneling No No -Undermining/Tunneling No No -Circular Undermining No No -Wound/Ulcer Outcome Not Healed Not Healed -Ulcer Cleansing Rinsed/ Rinsed/ Irrigated with Irrigated with Saline Saline -Foul Odor after Cleansing No No -Bioengineered Tissue No No -Bleeding Controlled with Pressure Pressure -Treatment Response Procedure Procedure Tolerated Well Tolerated Well -Offloading No No -Debridement - Subq, 1st 20sq cm No No Pain Scale: 0-10 Numeric Is Patient Pain Free? Yes Yes WC - Nurse 3 - General Ulcer D/C NN Start: 09/10/22 10:32 Freq: Status: Active Protocol: Activity Type Activity Date Activity User E-sign Co-sign Detail Recorded Client Recorded Date Recorded By Document 09/10/22 11:04 [facility] [id number] 09/10/22 11:05 [facility] 09/10/22 11:04 Wound Care Center Nurse 3 #4 right sacral -Ulcer Cleansing Rinsed/ Irrigated with Saline -Foul Odor after Cleansing No -Primary Dressing Applied Fibracol Plus 4x4,NonAdherent Contact Layer, Mepilex Border -Fibracol Plus 4x4 1 -Mepilex Border 1 #3 Left sacral -Ulcer Cleansing Rinsed/ Irrigated with Saline -Foul Odor after Cleansing No -Primary Dressing Applied Fibracol Plus 4x4,NonAdherent Contact Layer, Mepilex Border -Fibracol Plus 4x4 0 -Mepilex Border 0 Treatment Response Procedure Tolerated Well Pain Scale: 0-10 Numeric Is Patient Pain Free? Yes WC - Visit Discharge Discharge Condition Stable Ambulatory Status Wheelchair Additional Wound Wound debrided: Scaral ( Right ) Type of Debridement: Excisional debridement Anesthesia Used: 5% Lidocaine Gel Depth: Down to and including healthy tissue and in the subcutaneous layer Percentage of wound debrided: 100 Instrument Used: 3mm curette Tissue Removed: Slough and devitalized tissue Severity: Fat Layer Exposed Amount of bleeding with debridement: Mild Bleeding Controlled with: Pressure Patient tolerated procedure: Patient tolerated procedure well Assessment/Plan Assessment/Plan (1) Pressure injury of sacral region, stage 3: CODE(S): L89.153 - Pressure ulcer of sacral region, stage 3 (2) Paraparesis of both lower limbs: CODE(S): G82.20 - Paraplegia, unspecified (3) Neuropathy: CODE(S): G62.9 - Polyneuropathy, unspecified (4) HIV (human immunodeficiency virus infection): CODE(S): B20 - Human immunodeficiency virus [HIV] disease PLAN: Plan Debridement done as documented above, procedure was well-tolerated. Stable. Continue Fibracol daily and cover with Adaptic. Continue offloading. Has a low loss air mattress and hospital bed. Optimal dietary modifications, increase protein intake. Vitamin C, D and zinc. His questions were answered and he was advised to call with any further questions or concerns. Follow-up in 2 weeks or sooner if needed. This note was generated with [employer] software. It may contain incorrect words, spelling, and punctuation that were not noted in checking the note before signing.
== END 2022-09-29 23:59 | disposition home or self-care (01) ==
LOC: WC 10:30
PROVIDERS: Visit Provider Internal Medicine
DX: B20 Human immunodeficiency virus [HIV] disease (principal); L89.153 Pressure ulcer of sacral region, stage 3; G82.20 Paraplegia, unspecified; G62.9 Polyneuropathy, unspecified
CPT/HCPCS: 11042

== ENCOUNTER 2022-10-22 10:45 | Outpatient (RCR) | payer MEDICAID, SELFPAY ==
[2022-09-30 00:15] VITALS: BP 142/89; PULSE 85; RESP 16; TEMP 36.2; BMI 34.9
[2022-10-08 10:28] VITALS: BP 168/90; PULSE 70; TEMP 36.1; BMI 34.9
--- NOTE | 2022-10-08 11:22 | PCM.WC.PN ---
History of Present Illness Date of Service: 10/08/22 Chief Complaint: Sacral pressure ulcer x 3 weeks History of Wound: Mr. Gomez is a 47 yo who presents to the wound center due to a nonhealing sacral ulcer. Noted months ago following prolonged laying in bed and loss of electricity. He currently has a low loss air mattress/hospital bed however power had been out and he had to lay in bed for over 5 hours prior to someone coming in to help. Subsequently developed a pressure ulcer. Initially seen at a wound center in [place] where he had debridement and wound wound VAC placement. Following his initial visit, he was seen there 2 weeks after and has since not been there. He states that during this time, he was also hospitalized after he was sent to the hospital by his primary care physician due to concern for infection. Had 3 days of IV antibiotics and was discharged on oral. He states that he believes that the ulcer is improving. Has home health who comes in to change it every 48 hours. Currently set at 125 mmHg. Denies any history of diabetes, states that she recently had blood work done by his infectious disease specialist. Feels well, denies chills, fever, nausea, vomiting or change in bowel habit. Progress of Wound: No new concerns at this time. Some improvement noted with minimal area on the left sacral ulcer. Objective Data Objective Data Vital Signs: Vital Signs Temp Pulse Resp BP 96.9 F L 70 16 168/90 H 10/08/22 10:28 10/08/22 10:28 09/30/22 00:15 10/08/22 10:28 Weight: 265 lb Body Mass Index (BMI) 34.9 Charges/Coding Procedures Integumentary 111xxx-113xx: 53156 Estelita subq tissue 20 sq cm/< Physical Exam Const alert, oriented x3 and no apparent distress General Appearance: cooperative, comfortable and well kempt HEENT normocephalic, head/scalp atraumatic and hearing grossly normal bilaterally Eyes EOMs intact bilaterally General Eye: normal appearance of both eyes Neck full ROM General: normal visual inspection Resp normal respiratory effort Effort and Inspection: able to speak in complete sentences Skin Wounds: wounds noted Neuro oriented x3, CN's II-XII intact bilaterally and moves all extremities Psych mental status grossly normal Appearance: grossly normal Attitude: calm Activity / Motor Behavior: appropriate eye contact Speech: normal speech Debridement Note Debridement Note Wound debrided: Sacral ( left ) Type of Debridement: Excisional debridement Anesthesia Used: 5% Lidocaine Gel Depth: Down to and including healthy tissue Percentage of wound debrided: 100 Instrument Used: 3mm curette Tissue Removed: Slough and devitalized tissue Severity: Limited To Skin Breakdown Amount of bleeding with debridement: Mild Bleeding Controlled with: Pressure Patient tolerated procedure: Patient tolerated procedure well Post-Debridement Measurements and Additional Note: Post-Debridement Measurements/Treatment - Nurse 1 - General Ulcer Assessment Start: 10/08/22 10:28 Freq: Status: Active Protocol: ESTUARDO Activity Type Activity Date Activity User E-sign Co-sign Detail Recorded Client Recorded Date Recorded By Document 10/08/22 10:28 [facility] [id number] 10/08/22 10:38 [facility] 10/08/22 10:28 - Today's Visit Information Type of service Follow-up Visit (Physician/CANARY BREEDER ) Arrival Mode Wheelchair Transfer Assistance None Patient Identification Verified (Name & Yes ) Patient Requires Transmission-Based No Precautions Height and Weight Body Mass Index (BMI) 34.9 BMI Classification Obese Vital Signs Temperature (97.8 F-99.1 F) 96.9 F L Temperature Source Temporal Pulse Rate (60-100) 70 Pulse Location Monitor Blood Pressure (90/60-120/80) 168/90 H Blood Pressure Mean (mm Hg) 116 Source Monitor Position Sitting Blood Pressure Location Left Forearm History Since Last Visit- (Skip if this is Patient's initial visit) Have you changed medications since your No last visit? Any new allergies or adverse reactions No Had a fall/change in ADL's that may No increase risk of falls Signs or symptoms of abuse and/or No neglect since last visit Have you been in the hospital since your No last visit? Has dressing in place as prescribed Yes Has compression in place as prescribed N/A Has offloadiing in place as prescribed N/A Experienced any changes in pain level or No management Pain Scale: 0-10 Numeric Is Patient Pain Free? Yes [facility] Nurse 1 - General Ulcer Measurement Start: 10/08/22 10:28 Freq: Status: Active Protocol: Activity Type Activity Date Activity User E-sign Co-sign Detail Recorded Client Recorded Date Recorded By Document 10/08/22 10:28 [facility] [id number] 10/08/22 10:38 [facility] 10/08/22 10:28 Wound Center Nurse 1 #4 right sacral -Combined with other wound No -Current Size (cm) - Length 0.5 -Current Size (cm) - Width 1.3 -Current Size (cm) - Depth 0.3 -Total Square Cm 0.65 -Date of Last Picture (Recall this 10/08/22 field) -Photo Taken Yes -Epithelialization None Present -Tunneling No -Undermining/Tunneling No -Circular Undermining No -Exudate Amt Medium -Exudate Type Sanguineous -Wound Margin Distinct, Outline Attached -Granulation Amt Large (67-100%) -Granulation Quality Red -Slough/Fibrin Yes -Necrosis Amt Small (1-33%) -Necrotic Tissue Type Adherent Slough -Texture (Martine-wound Skin Appearance) Assessed, Fluctuance -Moisture (Martine-wound Skin Appearance) Assessed -Color (Martine-wound Skin Appearance) Assessed -Temperature (Martine-wound Skin No Abnormality Appearance) (Pt Warm) -Tenderness on Palpation (Martine-wound No Skin Appearance) -Ulcer Cleansing Rinsed/ Irrigated with Saline -Foul Odor after Cleansing No -Anesthetic Used 5% Lidocaine Gel #3 Left sacral -Current Size (cm) - Length 0.3 -Current Size (cm) - Width 0.1 -Current Size (cm) - Depth 0.1 -Total Square Cm 0.03 -Date of Last Picture (Recall this 10/08/22 field) -Photo Taken Yes -Epithelialization None Present -Tunneling No -Undermining/Tunneling No -Circular Undermining No -Exudate Amt Small -Exudate Type Serous -Wound Margin Distinct, Outline Attached -Granulation Amt None Present (0 %) -Slough/Fibrin Yes -Necrosis Amt Large (67-100%) -Necrotic Tissue Type Adherent Slough -Texture (Martine-wound Skin Appearance) Assessed, Scarring -Moisture (Martine-wound Skin Appearance) Assessed,Dry/ Scaly -Color (Martine-wound Skin Appearance) Assessed -Temperature (Martine-wound Skin No Abnormality Appearance) (Pt Warm) -Tenderness on Palpation (Martine-wound No Skin Appearance) -Ulcer Cleansing Rinsed/ Irrigated with Saline -Foul Odor after Cleansing No -Anesthetic Used 5% Lidocaine Gel WC - Nurse 2 - General Ulcer CM Notes Start: 10/08/22 10:28 Freq: Status: Active Protocol: Activity Type Activity Date Activity User E-sign Co-sign Detail Recorded Client Recorded Date Recorded By Document 10/08/22 10:58 [facility] [id number] 10/08/22 11:03 [facility] 10/08/22 10:58 Wound Center Nurse 2 #4 right sacral -Time 10:59 -Correct Patient Yes -Correct Side, Site, Position Yes -Correct Procedure Yes -Procedure Performed Yes -Type of Procedure Debridement -Clinical Debridement Subcutaneous -Tissue Removed Subcutaneous -Post Debridement (cm) - Length 0.4 -Post Debridement (cm) - Width 1.2 -Post Debridement (cm) - Depth 0.2 -Total Square (Post) (cm) 0.48 -Area of Debridement (cm) - Length 0.4 -Area of Debridement (cm) - Width 1.2 -Total Square (Area) (cm) 0.48 -Tunneling No -Undermining/Tunneling No -Circular Undermining No -Wound/Ulcer Outcome Not Healed -Ulcer Cleansing Rinsed/ Irrigated with Saline -Foul Odor after Cleansing No -Bioengineered Tissue No -Bleeding Controlled with Pressure -Offloading No -Pressure Reduction Wheelchair cushion, Specialty bed -Debridement - Subq, 1st 20sq cm Yes #3 Left sacral -Time 10:59 -Correct Patient Yes -Correct Side, Site, Position Yes -Correct Procedure Yes -Procedure Performed Yes -Type of Procedure Debridement -Clinical Debridement Subcutaneous -Tissue Removed Subcutaneous -Post Debridement (cm) - Length 0.1 -Post Debridement (cm) - Width 0.1 -Post Debridement (cm) - Depth 0.1 -Total Square (Post) (cm) 0.01 -Area of Debridement (cm) - Length 0.1 -Area of Debridement (cm) - Width 0.1 -Total Square (Area) (cm) 0.01 -Tunneling No -Undermining/Tunneling No -Circular Undermining No -Wound/Ulcer Outcome Not Healed -Ulcer Cleansing Rinsed/ Irrigated with Saline -Foul Odor after Cleansing No -Bioengineered Tissue No -Bleeding Controlled with Pressure -Treatment Response Procedure Tolerated Well -Offloading No -Pressure Reduction Wheelchair cushion, Specialty bed -Debridement - Subq, 1st 20sq cm No Pain Scale: 0-10 Numeric Is Patient Pain Free? Yes WC - Nurse 3 - General Ulcer D/C NN Start: 10/08/22 10:28 Freq: Status: Active Protocol: Activity Type Activity Date Activity User E-sign Co-sign Detail Recorded Client Recorded Date Recorded By Document 10/08/22 11:10 DL [id number] 10/08/22 11:13 DL 10/08/22 11:10 Wound Care Center Nurse 3 #4 right sacral -Ulcer Cleansing Rinsed/ Irrigated with Saline -Foul Odor after Cleansing No -Primary Dressing Applied Fibracol Plus 4x4,Mepilex Border -Fibracol Plus 4x4 1 -Mepilex Border 1 #3 Left sacral -Ulcer Cleansing Rinsed/ Irrigated with Saline -Foul Odor after Cleansing No -Primary Dressing Applied Mepilex Border -Mepilex Border 1 Treatment Response Procedure Tolerated Well Pain Scale: 0-10 Numeric Is Patient Pain Free? Yes WC - Visit Discharge Discharge Condition Stable Ambulatory Status Wheelchair Transportation Private Auto Facility Type Home Health Orders Sent Yes Additional Wound Wound debrided: Scaral ( Right ) Type of Debridement: Excisional debridement Anesthesia Used: 5% Lidocaine Gel Depth: Down to and including healthy tissue and in the subcutaneous layer Percentage of wound debrided: 100 Instrument Used: 3mm curette Tissue Removed: Slough and devitalized tissue Severity: Fat Layer Exposed Amount of bleeding with debridement: Mild Bleeding Controlled with: Pressure Patient tolerated procedure: Patient tolerated procedure well Assessment/Plan Assessment/Plan (1) Pressure injury of sacral region, stage 3: CODE(S): L89.153 - Pressure ulcer of sacral region, stage 3 (2) Paraparesis of both lower limbs: CODE(S): G82.20 - Paraplegia, unspecified (3) Neuropathy: CODE(S): G62.9 - Polyneuropathy, unspecified (4) HIV (human immunodeficiency virus infection): CODE(S): B20 - Human immunodeficiency virus [HIV] disease PLAN: Plan Debridement done as documented above, procedure was well-tolerated. Improving. Continue Fibracol daily and cover with Adaptic. Continue offloading. Has a low loss air mattress and hospital bed. Optimal dietary modifications, increase protein intake. Vitamin C, D and zinc. His questions were answered and he was advised to call with any further questions or concerns. Follow-up in 2 weeks or sooner if needed. This note was generated with [employer] software. It may contain incorrect words, spelling, and punctuation that were not noted in checking the note before signing.
[2022-10-22 10:58] VITALS: BP 137/74; PULSE 64; RESP 20; TEMP 36; BMI 34.9
--- NOTE | 2022-10-22 12:34 | PCM.WC.PN ---
History of Present Illness Date of Service: 10/22/22 Chief Complaint: Sacral pressure ulcer x 3 weeks History of Wound: Mr. Gomez is a 47 yo who presents to the wound center due to a nonhealing sacral ulcer. Noted months ago following prolonged laying in bed and loss of electricity. He currently has a low loss air mattress/hospital bed however power had been out and he had to lay in bed for over 5 hours prior to someone coming in to help. Subsequently developed a pressure ulcer. Initially seen at a wound center in [place] where he had debridement and wound wound VAC placement. Following his initial visit, he was seen there 2 weeks after and has since not been there. He states that during this time, he was also hospitalized after he was sent to the hospital by his primary care physician due to concern for infection. Had 3 days of IV antibiotics and was discharged on oral. He states that he believes that the ulcer is improving. Has home health who comes in to change it every 48 hours. Currently set at 125 mmHg. Denies any history of diabetes, states that she recently had blood work done by his infectious disease specialist. Feels well, denies chills, fever, nausea, vomiting or change in bowel habit. Progress of Wound: No new concerns at this time. Left sacral ulcer is healed. Right is stable. Objective Data Objective Data Vital Signs: Vital Signs Temp Pulse Resp BP 96.8 F L 64 20 H 137/74 H 10/22/22 10:58 10/22/22 10:58 10/22/22 10:58 10/22/22 10:58 Weight: 265 lb Body Mass Index (BMI) 34.9 Charges/Coding Procedures Integumentary 111xxx-113xx: [id number] Estelita subq tissue 20 sq cm/< Physical Exam Const alert, oriented x3 and no apparent distress General Appearance: cooperative, comfortable and well kempt HEENT normocephalic, head/scalp atraumatic and hearing grossly normal bilaterally Eyes EOMs intact bilaterally General Eye: normal appearance of both eyes Neck full ROM General: normal visual inspection Resp normal respiratory effort Effort and Inspection: able to speak in complete sentences Skin Wounds: wounds noted Neuro oriented x3, CN's II-XII intact bilaterally and moves all extremities Psych mental status grossly normal Appearance: grossly normal Attitude: calm Activity / Motor Behavior: appropriate eye contact Speech: normal speech Debridement Note Debridement Note Wound debrided: Sacral (right) Type of Debridement: Excisional debridement Anesthesia Used: 5% Lidocaine Gel Depth: Down to and including healthy tissue and in the subcutaneous layer Percentage of wound debrided: 100 Instrument Used: 3mm curette Tissue Removed: Slough and devitalized tissue Severity: Fat Layer Exposed Amount of bleeding with debridement: Mild Bleeding Controlled with: Pressure Patient tolerated procedure: Patient tolerated procedure well Post-Debridement Measurements and Additional Note: Post-Debridement Measurements/Treatment - Nurse 1 - General Ulcer Assessment Start: 10/08/22 10:28 Freq: Status: Active Protocol: ESTUARDO Activity Type Activity Date Activity User E-sign Co-sign Detail Recorded Client Recorded Date Recorded By Document 10/08/22 10:28 [facility] [id number] 10/08/22 10:38 [facility] Document 10/22/22 10:58 DL [id number] 10/22/22 11:05 DL 10/08/22 10/22/22 10:28 10:58 - Today's Visit Information Type of service Follow-up Visit Follow-up Visit (Physician/CAFE LEAD (Physician/CAFE LEAD ) ) Arrival Mode Wheelchair Wheelchair Transfer Assistance None None Patient Identification Verified (Name & Yes Yes ) Patient Requires Transmission-Based No No Precautions Height and Weight Body Mass Index (BMI) 34.9 34.9 BMI Classification Obese Obese Vital Signs Temperature (97.8 F-99.1 F) 96.9 F L 96.8 F L Temperature Source Temporal Temporal Pulse Rate (60-100) 70 64 Pulse Location Monitor Monitor Respiratory Rate (12-18) 20 H Respiratory rate source Observation Blood Pressure (90/60-120/80) 168/90 H 137/74 H Blood Pressure Mean (mm Hg) 116 95 Source Monitor Monitor Position Sitting Blood Pressure Location Left Forearm History Since Last Visit- (Skip if this is Patient's initial visit) Have you changed medications since your No No last visit? Any new allergies or adverse reactions No No Had a fall/change in ADL's that may No No increase risk of falls Signs or symptoms of abuse and/or No No neglect since last visit Have you been in the hospital since your No No last visit? Has dressing in place as prescribed Yes Yes Has compression in place as prescribed N/A N/A Has offloadiing in place as prescribed N/A Yes Experienced any changes in pain level or No No management Pain Scale: 0-10 Numeric Is Patient Pain Free? Yes Yes WC - Nurse 1 - General Ulcer Measurement Start: 10/08/22 10:28 Freq: Status: Active Protocol: Activity Type Activity Date Activity User E-sign Co-sign Detail Recorded Client Recorded Date Recorded By Document 10/08/22 10:28 BM [id number] 10/08/22 10:38 BMF Document 10/22/22 10:58 DL [id number] 10/22/22 11:05 DL 10/08/22 10/22/22 10:28 10:58 Wound Center Nurse 1 #3 Left sacral -Current Size (cm) - Length 0.3 0.5 -Current Size (cm) - Width 0.1 1 -Current Size (cm) - Depth 0.1 0.2 -Total Square Cm 0.03 0.5 -Date of Last Picture (Recall this 10/08/22 field) -Photo Taken Yes Yes -Epithelialization None Present -Tunneling No -Undermining/Tunneling No -Circular Undermining No -Exudate Amt Small Small -Exudate Type Serous Sanguineous -Wound Margin Distinct, Thickened Outline Attached -Granulation Amt None Present (0 Large (67-100%) %) -Granulation Quality Red -Slough/Fibrin Yes -Necrosis Amt Large (67-100%) None Present (0 %) -Necrotic Tissue Type Adherent Slough -Structure Exposed N/A -Texture (Martine-wound Skin Appearance) Assessed, Scarring Scarring -Moisture (Martine-wound Skin Appearance) Assessed,Dry/ Dry/Scaly Scaly -Color (Martine-wound Skin Appearance) Assessed No Abnormality -Temperature (Martine-wound Skin No Abnormality Appearance) (Pt Warm) -Tenderness on Palpation (Martine-wound No No Skin Appearance) -Ulcer Cleansing Rinsed/ Rinsed/ Irrigated with Irrigated with Saline Saline -Foul Odor after Cleansing No No -Anesthetic Used 5% Lidocaine 5% Lidocaine Gel Gel #4 right sacral -Combined with other wound No -Current Size (cm) - Length 0.5 0.1 -Current Size (cm) - Width 1.3 0.1 -Current Size (cm) - Depth 0.3 0.1 -Total Square Cm 0.65 0.01 -Date of Last Picture (Recall this 10/08/22 field) -Photo Taken Yes Yes -Epithelialization None Present -Tunneling No -Undermining/Tunneling No -Circular Undermining No -Exudate Amt Medium None Present -Exudate Type Sanguineous Serosanguineous -Wound Margin Distinct, Flat & Intact Outline Attached -Granulation Amt Large (67-100%) Large (67-100%) -Granulation Quality Red [place] -Slough/Fibrin Yes -Necrosis Amt Small (1-33%) None Present (0 %) -Necrotic Tissue Type Adherent Slough -Structure Exposed N/A -Texture (Martine-wound Skin Appearance) Assessed, Scarring Fluctuance -Moisture (Martine-wound Skin Appearance) Assessed Dry/Scaly -Color (Martine-wound Skin Appearance) Assessed No Abnormality -Temperature (Martine-wound Skin No Abnormality Appearance) (Pt Warm) -Tenderness on Palpation (Martine-wound No Skin Appearance) -Ulcer Cleansing Rinsed/ Rinsed/ Irrigated with Irrigated with Saline Saline -Foul Odor after Cleansing No -Anesthetic Used 5% Lidocaine 5% Lidocaine Gel Gel WC - Nurse 2 - General Ulcer CM Notes Start: 10/08/22 10:28 Freq: Status: Active Protocol: Activity Type Activity Date Activity User E-sign Co-sign Detail Recorded Client Recorded Date Recorded By Document 10/08/22 10:58 [id number] 10/08/22 11:03 Document 10/22/22 11:14 [id number] 10/22/22 11:21 MW 10/08/22 10/22/22 10:58 11:14 Wound Center Nurse 2 #3 Left sacral -Time 10:59 11:21 -Correct Patient Yes Yes -Correct Side, Site, Position Yes Yes -Correct Procedure Yes Yes -Procedure Performed Yes No -Type of Procedure Debridement -Clinical Debridement Subcutaneous -Tissue Removed Subcutaneous -Post Debridement (cm) - Length 0.1 0 -Post Debridement (cm) - Width 0.1 0 -Post Debridement (cm) - Depth 0.1 -Total Square (Post) (cm) 0.01 0 -Area of Debridement (cm) - Length 0.1 -Area of Debridement (cm) - Width 0.1 -Total Square (Area) (cm) 0.01 -Tunneling No -Undermining/Tunneling No -Circular Undermining No -Wound/Ulcer Outcome Not Healed Healed- Epithelialized -Ulcer Cleansing Rinsed/ Irrigated with Saline -Foul Odor after Cleansing No -Bioengineered Tissue No -Bleeding Controlled with Pressure -Treatment Response Procedure Tolerated Well -Offloading No -Pressure Reduction Wheelchair cushion, Specialty bed -Debridement - Subq, 1st 20sq cm No #4 right sacral -Time 10:59 11:18 -Correct Patient Yes Yes -Correct Side, Site, Position Yes Yes -Correct Procedure Yes Yes -Procedure Performed Yes Yes -Type of Procedure Debridement Debridement -Clinical Debridement Subcutaneous Subcutaneous -Tissue Removed Subcutaneous Subcutaneous -Post Debridement (cm) - Length 0.4 0.5 -Post Debridement (cm) - Width 1.2 1.0 -Post Debridement (cm) - Depth 0.2 0.2 -Total Square (Post) (cm) 0.48 0.50 -Area of Debridement (cm) - Length 0.4 0.5 -Area of Debridement (cm) - Width 1.2 1.0 -Total Square (Area) (cm) 0.48 0.50 -Tunneling No No -Undermining/Tunneling No No -Circular Undermining No No -Wound/Ulcer Outcome Not Healed Not Healed -Ulcer Cleansing Rinsed/ Rinsed/ Irrigated with Irrigated with Saline Saline -Foul Odor after Cleansing No No -Bioengineered Tissue No No -Bleeding Controlled with Pressure Pressure -Treatment Response Procedure Tolerated Well -Offloading No No -Pressure [facility] -Debridement - Subq, 1st 20sq cm Yes Yes Pain Scale: 0-10 Numeric Is Patient Pain Free? Yes Yes - Nurse 3 - General Ulcer D/C NN Start: 10/08/22 10:28 Freq: Status: Active Protocol: Activity Type Activity Date Activity User E-sign Co-sign Detail Recorded Client Recorded Date Recorded By Document 10/08/22 11:10 DL [id number] 10/08/22 11:13 DL Document 10/22/22 11:29 [facility] [id number] 10/22/22 11:30 BMF 10/08/22 10/22/22 11:10 11:29 Wound Care Center Nurse 3 #3 Left sacral -Ulcer Cleansing Rinsed/ Irrigated with Saline -Foul Odor after Cleansing No -Primary Dressing Applied Mepilex Border -Mepilex Border 1 #4 right sacral -Ulcer Cleansing Rinsed/ Rinsed/ Irrigated with Irrigated with Saline Saline -Foul Odor after Cleansing No No -Primary Dressing Applied Fibracol Plus Promogran, 4x4,Mepilex Mepilex Border Border -Fibracol Plus 4x4 1 -Mepilex Border 1 2 -Promogran 3 Treatment Response Procedure Procedure Tolerated Well Tolerated Well Pain Scale: 0-10 Numeric Is Patient Pain Free? Yes Yes WC - Visit Discharge Discharge Condition Stable Stable Ambulatory Status Wheelchair Wheelchair Transportation Private Auto Private Auto Facility Type Home Health Orders Sent Yes Assessment/Plan Assessment/Plan (1) Pressure injury of sacral region, stage 3: CODE(S): L89.153 - Pressure ulcer of sacral region, stage 3 (2) Paraparesis of both lower limbs: CODE(S): G82.20 - Paraplegia, unspecified (3) Neuropathy: CODE(S): G62.9 - Polyneuropathy, unspecified (4) HIV (human immunodeficiency virus infection): CODE(S): B20 - Human immunodeficiency virus [HIV] disease PLAN: Plan Debridement done as documented above, procedure was well-tolerated. Left is healed and right is stable. Switch to Promogran. Change daily and cover with Adaptic and gauze. Continue offloading. Has a low loss air mattress and hospital bed. Optimal dietary modifications, increase protein intake. Vitamin C, D and zinc. His questions were answered and he was advised to call with any further questions or concerns. Follow-up in 2 weeks or sooner if needed. This note was generated with [employer] software. It may contain incorrect words, spelling, and punctuation that were not noted in checking the note before signing.
== END 2022-10-30 23:59 | disposition home or self-care (01) ==
LOC: WC 10:45
PROVIDERS: Visit Provider Internal Medicine
DX: L89.153 Pressure ulcer of sacral region, stage 3 (principal); G82.20 Paraplegia, unspecified; B20 Human immunodeficiency virus [HIV] disease; G62.9 Polyneuropathy, unspecified
CPT/HCPCS: 11042

== ENCOUNTER 2022-11-05 11:04 | Outpatient (RCR) | payer MEDICAID, SELFPAY ==
[2022-10-31 01:19] VITALS: BP 137/74; PULSE 64; RESP 20; TEMP 36; BMI 34.9
[2022-11-05 11:37] VITALS: BP 146/78; PULSE 70; RESP 20; TEMP 36.6; BMI 34.9
--- NOTE | 2022-11-05 17:10 | PCM.WC.PN ---
History of Present Illness Date of Service: 11/05/22 Chief Complaint: Sacral pressure ulcer x 3 weeks History of Wound: Mr. Gomez is a 47 yo who presents to the wound center due to a nonhealing sacral ulcer. Noted months ago following prolonged laying in bed and loss of electricity. He currently has a low loss air mattress/hospital bed however power had been out and he had to lay in bed for over 5 hours prior to someone coming in to help. Subsequently developed a pressure ulcer. Initially seen at a wound center in [place] where he had debridement and wound wound VAC placement. Following his initial visit, he was seen there 2 weeks after and has since not been there. He states that during this time, he was also hospitalized after he was sent to the hospital by his primary care physician due to concern for infection. Had 3 days of IV antibiotics and was discharged on oral. He states that he believes that the ulcer is improving. Has home health who comes in to change it every 48 hours. Currently set at 125 mmHg. Denies any history of diabetes, states that she recently had blood work done by his infectious disease specialist. Feels well, denies chills, fever, nausea, vomiting or change in bowel habit. Progress of Wound: No new concerns at this time. Essentially healed. Objective Data Objective Data Vital Signs: Vital Signs Temp Pulse Resp BP 97.9 F 70 20 H 146/78 H 11/05/22 11:37 11/05/22 11:37 11/05/22 11:37 11/05/22 11:37 Weight: 265 lb Body Mass Index (BMI) 34.9 Charges/Coding Visit Charges Office Visits / Consults: [id number] OV L3 Est Physical Exam Const alert, oriented x3 and no apparent distress General Appearance: cooperative, comfortable and well kempt HEENT normocephalic, head/scalp atraumatic and hearing grossly normal bilaterally Eyes EOMs intact bilaterally General Eye: normal appearance of both eyes Neck full ROM General: normal visual inspection Resp normal respiratory effort Effort and Inspection: able to speak in complete sentences Neuro oriented x3, CN's II-XII intact bilaterally and moves all extremities Psych mental status grossly normal Appearance: grossly normal Attitude: calm Activity / Motor Behavior: appropriate eye contact Speech: normal speech Debridement Note Debridement Note Post-Debridement Measurements and Additional Note: Post-Debridement Measurements/Treatment WC - Nurse 1 - General Ulcer Assessment Start: 11/05/22 11:36 Freq: Status: Active Protocol: ESTUARDO Activity Type Activity Date Activity User E-sign Co-sign Detail Recorded Client Recorded Date Recorded By Document 11/05/22 11:37 DL [id number] 11/05/22 11:43 DL 11/05/22 11:37 WC - Today's Visit Information Type of service Follow-up Visit (Physician/AUTOMOTIVE ACCESSORY INSTALLER ) Arrival Mode Ambulatory, Wheelchair Transfer Assistance None Patient Requires Transmission-Based No Precautions Height and Weight Body Mass Index (BMI) 34.9 BMI Classification Obese Vital Signs Temperature (97.8 F-99.1 F) 97.9 F Temperature Source Temporal Pulse Rate (60-100) 70 Pulse Location Monitor Respiratory Rate (12-18) 20 H Respiratory rate source Observation Blood Pressure (90/60-120/80) 146/78 H Blood Pressure Mean (mm Hg) 100 History Since Last Visit- (Skip if this is Patient's initial visit) Have you changed medications since your No last visit? Any new allergies or adverse reactions No Had a fall/change in ADL's that may No increase risk of falls Signs or symptoms of abuse and/or No neglect since last visit Have you been in the hospital since your No last visit? Has dressing in place as prescribed Yes Has compression in place as prescribed N/A Has offloadiing in place as prescribed Yes Experienced any changes in pain level or No management Pain Scale: 0-10 Numeric Is Patient Pain Free? Yes - Nurse 1 - General Ulcer Measurement Start: 11/05/22 11:36 Freq: Status: Active Protocol: Activity Type Activity Date Activity User E-sign Co-sign Detail Recorded Client Recorded Date Recorded By Document 11/05/22 11:37 DL [id number] 11/05/22 11:43 DL 11/05/22 11:37 Wound Center Nurse 1 #4 right sacral -Current Size (cm) - Length 0.1 -Current Size (cm) - Width 0.1 -Current Size (cm) - Depth 0.1 -Total Square Cm 0.01 -Photo Taken Yes -Exudate Amt None Present -Wound Margin Flat & Intact -Granulation Amt Large (67-100%) -Granulation Quality Pale,[place] -Necrosis Amt None Present (0 %) -Structure Exposed N/A -Texture (Martine-wound Skin Appearance) Scarring -Moisture (Martine-wound Skin Appearance) No Abnormality -Color (Martine-wound Skin Appearance) No Abnormality -Temperature (Martine-wound Skin No Abnormality Appearance) (Pt Warm) -Tenderness on Palpation (Martine-wound Yes Skin Appearance) -Ulcer Cleansing Soap and Water -Foul Odor after Cleansing No -Anesthetic Used 5% Lidocaine Gel WC - Nurse 2 - General Ulcer CM Notes Start: 11/05/22 11:36 Freq: Status: Active Protocol: Activity Type Activity Date Activity User E-sign Co-sign Detail Recorded Client Recorded Date Recorded By Document 11/05/22 12:01 MW [id number] 11/05/22 12:03 MW 11/05/22 12:01 Wound Center Nurse 2 -Time 12:01 -Correct Patient Yes -Correct Side, Site, Position Yes -Correct Procedure Yes -Procedure Performed No -Post Debridement (cm) - Length 0 -Post Debridement (cm) - Width 0 -Total Square (Post) (cm) 0 -Wound/Ulcer Outcome Healed- Epithelialized Pain Scale: 0-10 Numeric Is Patient Pain Free? Yes - Nurse 3 - General Ulcer D/C NN Start: 11/05/22 11:36 Freq: Status: Active Protocol: Activity Type Activity Date Activity User E-sign Co-sign Detail Recorded Client Recorded Date Recorded By Document 11/05/22 12:03 MW [id number] 11/05/22 12:04 MW 11/05/22 12:03 Wound Care Center Nurse 3 #4 right sacral -Primary Dressing Applied Promogran, Mepilex Border -Mepilex Border 1 -Promogran 1 Treatment Response Procedure Tolerated Well Pain Scale: 0-10 Numeric Is Patient Pain Free? Yes Teaching: Wound Center Discharge Instructions -Person Taught Patient -Teaching Method Discussion -Response to teaching Verbalize understanding WC - Visit Discharge Discharge Condition Stable [facility]ompanied by self Medication Reconcilliation completed & No provided to patient/care provider Clinical Summary of Care Provided Yes Assessment/Plan Assessment/Plan (1) Pressure injury of sacral region, stage 3: CODE(S): L89.153 - Pressure ulcer of sacral region, stage 3 (2) Paraparesis of both lower limbs: CODE(S): G82.20 - Paraplegia, unspecified (3) Neuropathy: CODE(S): G62.9 - Polyneuropathy, unspecified (4) HIV (human immunodeficiency virus infection): CODE(S): B20 - Human immunodeficiency virus [HIV] disease PLAN: Plan Debridement completed today. Essentially healed, very minimal area left. Continue Promogran with Adaptic for 2 weeks. Continue offloading. Has a low loss air mattress and hospital bed. Optimal dietary modifications, increase protein intake. Vitamin C, D and zinc. His questions were answered and he was advised to call with any further questions or concerns. Discharge from the wound center. This note was generated with [employer] dictation software. It may contain incorrect words, spelling, and punctuation that were not noted in checking the note before signing.
== END 2022-11-09 13:37 | disposition home or self-care (01) ==
LOC: WC 11:04
PROVIDERS: Visit Provider Internal Medicine
DX: L89.153 Pressure ulcer of sacral region, stage 3 (principal); G82.20 Paraplegia, unspecified; B20 Human immunodeficiency virus [HIV] disease; G62.9 Polyneuropathy, unspecified
CPT/HCPCS: 99213; G0463

== ENCOUNTER → 2023-03-24 | Outpatient (CLI) | payer MEDICAID, SELFPAY ==
[2023-03-24 11:14] LABS: ALB/GLOB Ratio 0.7 RATIO (0.9-2.4); AST(SGOT) 11 U/L (15-37); Alanine Aminotransfer ALT/SGPT 12 U/L (16-61); Albumin, Serum 3.2 g/dL (3.2-5.0); Alkaline Phosphatase 165 U/L (45-117); Anion Gap 4 (5-15); BUN 20 mg/dL (7-18); BUN/Creat Ratio 9.3 RATIO (10-20); Calcium,Total 8.5 mg/dL (8.5-10.1); Chloride 109 mmol/L (98-107); Creatinine, Serum 2.16 mg/dL (0.70-1.30); EST Glomerular Filtration Rate 35 mL/min (>60); Est Glom Filt Rate - Afr Amer 42 mL/min (>60); Globulin 4.4 g/dL (2.2-4.2); Glucose 101 mg/dL (74-106); Potassium 3.5 mmol/L (3.5-5.1); Protein, Total 7.6 g/dL (6.4-8.2); Sodium Level 141 mmol/L (136-145)
[2023-03-24 11:15] LABS: Hepatitis B Surface Antibody Non-Reactive
[2023-03-24 11:45] LABS: Absolute Lymphocyte Count 1.21 X10^3/uL (0.83-4.51); Absolute Neutrophil Count 4.5 X10^3/uL (2.0-7.7); Basophil# 0.03 X10^3/uL; Basophil% 0.5 % (0-1); Eosinophil# 0.11 X10^3/uL; Eosinophils% 1.8 % (0-5); Hematocrit 46.6 % (40-54); Hemoglobin 14.8 g/dL (13.0-16.5); Lymphocyte # 1.21 X10^3/ul (0.83-4.51); Lymphocyte % 19.4 % (19-41); Mean Corp Hgb Conc 31.8 g/dL (32-36); Mean Corpuscular Hgb 33.2 pg (27.0-32.0); Mean Corpuscular Volume 104.5 fL (80-94); Monocyte# 0.38 X10^3/uL; Monocyte% 6.1 % (0-10); NRBC Flagged by Analyzer 0 % (0-5); Neutrophil # 4.48 X10^3/uL (2.7-7.7); Neutrophil % 71.9 % (47-70); POSITIVE COUNT YES; RBC Distribution Width CV 14.4 % (11.6-14.6); RBC Distribution Width SD 55.3 fl (35.1-43.9); Red Blood Count 4.46 M/mm3 (4.6-6.2); White Blood Count 6.2 K/mm3 (4.4-11.0)
[2023-03-24 12:22] LABS: Differential Indicated SCAN CRITERIA MET; Platelet Estimate ADEQUATE (ADEQ)
[2023-03-25 14:09] LABS: Absolute CD4 Helper 324 /uL (359-1519); Basophils (Absolute) 0 x10E3/uL (0.0-0.2); Eosinophils 2 % (Not Estab.); Eosinophils (Absolute) 0.1 x10E3/uL (0.0-0.4); HEPATITIS B SURFACE AG Negative (Negative); Hematocrit 44.3 % (37.5-51.0); Hemoglobin 14.9 g/dL (13.0-17.7); Hep C Antibodies Non Reactive (Non Reactive); Hepatitis A AB, Total Negative (Negative); Hepatitis A IgM Antibody Negative (Negative); Hepatitis B Core AB IgM Negative (Negative); Immature Granulocytes 1 % (Not Estab.); Immature Granulocytes Absolute 0.1 x10E3/uL (0.0-0.1); Lymphs 21 % (Not Estab.); Lymphs (Absolute) 1.2 x10E3/uL (0.7-3.1); MCH 33.3 pg (26.6-33.0); MCHC 33.6 g/dL (31.5-35.7); MCV 99 fL (79-97); Monocytes 6 % (Not Estab.); Monocytes (Absolute) 0.4 x10E3/uL (0.1-0.9); Neutrophils 70 % (Not Estab.); Neutrophils (Absolute) 4.2 x10E3/uL (1.4-7.0); Platelets 174 x10E3/uL (150-450); RBC Count 4.48 x10E6/uL (4.14-5.80); RDW 13.1 % (11.6-15.4)
== END | disposition home or self-care (01) ==
DX: B20 Human immunodeficiency virus [HIV] disease (principal)
CPT/HCPCS: 36415; 80053; 80074; 85025; 86361; 86706; 86708